=== PATIENT | female | born 1950 | race Two or more races ===

== ENCOUNTER 2024-08-05 01:33 | Inpatient (IN) | payer MEDICARE, OTHER, SELFPAY ==
[2024-08-04 19:23] VITALS: BP 104/67
--- NOTE | 2024-08-04 19:50 | ED.GENMED ---
History of Present Illness
<CARLO Rodriguez - Last Filed: 08/04/24 23:40>
General
Chief Complaint: Urinary Symptoms
Source: family (Daughter)
Exam Limitations: other (Language barrier)
Time Seen by Provider: 08/04/24 19:31
History of Present Illness
History of Present Illness:
This is a a 73 year old female that comes i with c/o nephrostomy tube leaking. Daughter states that patient has a left nephrectomy and left nephrostomy tube. States that she has a right renal stent. States that she was discharged from [facility] on
Thursday and they Went so [facility] today for a second opinion. Sates that the patient has not had any urine output for the past 2 days as she would normally get up to the [place]. States that her Nephrostomy tube is leaking and she just has to keep
changing the dressing. Denies any fever, chills, chest pain, SOB, abd pain, nausea, vomiting, diarrhea, headache, dizziness.
Past History
<CARLO Rodriguez - Last Filed: 08/04/24 23:40>
Past History
ED Past Medical History: Cancer (Ovarian cancer), CHF, HTN, Hypercholesterolemia and NIDDM
ED Past Surgical History: Gynecological (Hysterectomy) and Urological ( Right renal stent, Left nephrostomy tube)
Social History
Tobacco: Non-smoker
Alcohol: None
Drug: None
Personal:
Living: with family
Review of Systems
<CARLO Rodriguez - Last Filed: 08/04/24 23:40>
Review of Systems
Unable to obtain full review of systems at this time due to: language barrier
Other source history: family
All Other Systems: ROS reviewed and negative except as documented in HPI and ROS
Constitutional: Reports no symptoms; Denies fever or chills
EENT: Reports no symptoms
Respiratory: Reports no symptoms; Denies cough or trouble breathing
Cardiac: Reports no symptoms; Denies chest pain
ABD/GI: Reports no symptoms; Denies abdominal pain, nausea, vomiting or diarrhea
: Reports other (left nephrostomy tube leaking, NO urine output form the urethrae)
Musculoskeletal: Reports no symptoms
Skin: Reports no symptoms
Neurological: Reports no symptoms; Denies dizzy or headache
Psychiatric: Reports no symptoms
Phy Exam
<CARLO Rodriguez - Last Filed: 08/04/24 23:40>
General Physical Exam
General Presentation: no apparent distress
General age: appears stated age
General Skin: warm, dry and pale
General Habitus: debilitated and elderly
General Mental: alert
General Hydration: dry mucous membranes
ENT Exam
ENT Exam: TM's normal, pharynx normal and neck supple
Eye Exam
Eye Exam: EOMI
Cardiovascular Exam
Cardiovascular Exam: regular rate/rhythm, no edema and normal peripheral pulses
Pulmonary Exam
Pulmonary Exam: lungs clear, no respiratory distress, no rales, chest non tender, no crackles, no rhonchi, no wheezing and no cough
Gastrointestinal Exam
Gastrointestinal Exam: normal bowel sounds, non tender, soft, no pulsatile mass, non distended and other (Palpable hard mass right sided mid abd about hard ball size)
Genitourinary Exam Female
Exam Female: other (Left nephrostomy but, One tube cut and noted and the second was kinked, Dressing saturated. )
Musculoskeletal Exam
Musculoskeletal Exam: full ROM and no edema
Skin Exam
Skin Exam: warm/dry, no rash, no petechia and pallor
Psychiatric Exam
Psychiatric Exam: normal mood/affect
Course
<CARLO Rodriguez - Last Filed: 08/04/24 23:40>
Orders/Labs/Results
Orders:
Orders
08/04/24 19:49
CT Abd/pel Without Iv Or Oral Urgent
Comment: Told it was not in position. History of Cancer
Reason For Exam: Left nephrostomy tube leaking.
08/04/24 20:10
Complete Blood Count/With Diff Urgent
Comprehensive Metabolic Panel Urgent
08/04/24 21:22
Lorazepam [Ativan] 0.5 mg IV NOW STA
Abnormal Lab Results
08/04/24
20:10
RBC 3.14 L 10^6/uL
(4.20-5.40)
Hgb 9.0 L g/dL
(12.0-16.0)
Hct 29.4 L %
(37.0-47.0)
MCHC 30.6 L g/dL
(33.0-37.0)
RDW 17.2 H %
(11.5-14.5)
MPV 10.5 H fL
(7.4-10.4)
Abs Immat Gran (auto) 0.1 H 10^3/uL
(0-0.05)
Absolute Monos (auto) 0.7 H 10^3/uL
(0.1-0.6)
Immature Gran % 1.5 H %
(0-0.5)
Lymphocytes % 17.8 L %
(20.5-51.1)
Sodium 130 L mmol/L
(135-145)
Carbon Dioxide 21 L mmol/L
(22-30)
BUN 36 H mg/dl
(7-17)
Creatinine 2.3 H mg/dL
(0.6-1.0)
Glucose 191 H mg/dl
(70-99)
Calcium 8.3 L mg/dl
(8.4-10.2)
Total Protein 6.2 L g/dl
(6.3-8.2)
Albumin 3.1 L g/dl
(3.5-5.0)
08/04/24 20:10
08/04/24 20:10
H/H low. Sodium slightly low. Renal failure, hyperglycemia. calcium very slightly low. Total protein slightly low. Albumin slightly low.
Vital Signs
Initial and Last Documented VS:
Initial Vital Signs
Temp Pulse Resp BP Pulse Ox
98.7 F 78 18 104/67 100
08/04/24 19:23 08/04/24 19:23 08/04/24 19:23 08/04/24 19:23 08/04/24 19:23
Last Documented Vital Signs
Temp Pulse Resp BP Pulse Ox
98.7 F 77 14 124/91 100
08/04/24 19:23 08/04/24 22:30 08/04/24 22:15 08/04/24 20:24 08/04/24 19:23
<George Epperson, DO - Last Filed: 08/04/24 19:58>
Orders/Labs/Results
Orders:
Orders
08/04/24 19:49
CT Abd/pel Without Iv Or Oral Urgent
Comment: Told it was not in position. History of Cancer
Reason For Exam: Left nephrostomy tube leaking.
08/04/24 20:10
Complete Blood Count/With Diff Urgent
Comprehensive Metabolic Panel Urgent
08/04/24 21:22
Lorazepam [Ativan] 0.5 mg IV NOW STA
Abnormal Lab Results
08/04/24
20:10
RBC 3.14 L 10^6/uL
(4.20-5.40)
Hgb 9.0 L g/dL
(12.0-16.0)
Hct 29.4 L %
(37.0-47.0)
MCHC 30.6 L g/dL
(33.0-37.0)
RDW 17.2 H %
(11.5-14.5)
MPV 10.5 H fL
(7.4-10.4)
Abs Immat Gran (auto) 0.1 H 10^3/uL
(0-0.05)
Absolute Monos (auto) 0.7 H 10^3/uL
(0.1-0.6)
Immature Gran % 1.5 H %
(0-0.5)
Lymphocytes % 17.8 L %
(20.5-51.1)
Sodium 130 L mmol/L
(135-145)
Carbon Dioxide 21 L mmol/L
(22-30)
BUN 36 H mg/dl
(7-17)
Creatinine 2.3 H mg/dL
(0.6-1.0)
Glucose 191 H mg/dl
(70-99)
Calcium 8.3 L mg/dl
(8.4-10.2)
Total Protein 6.2 L g/dl
(6.3-8.2)
Albumin 3.1 L g/dl
(3.5-5.0)
08/04/24 20:10
08/04/24 20:10
Vital Signs
Initial and Last Documented VS:
Initial Vital Signs
Temp Pulse Resp BP Pulse Ox
98.7 F 78 18 104/67 100
08/04/24 19:23 08/04/24 19:23 08/04/24 19:23 08/04/24 19:23 08/04/24 19:23
Last Documented Vital Signs
Temp Pulse Resp BP Pulse Ox
98.7 F 77 14 124/91 100
08/04/24 19:23 08/04/24 22:30 08/04/24 22:15 08/04/24 20:24 08/04/24 19:23
Ingrislt;CARLO Rodriguez - Last Filed: 08/04/24 23:40>
MDM/Problems Addressed
Differential Diagnosis Includes:
Dislodged Nephrostomy tube, Failure to thrive.
MDM/Problems Addressed:
This is a 73 year old female that is brought in by her daughter with c/o her nephrostomy tube leaking. Told that this was not in place. Patient was seen at [facility] today for a second opinion.
Will check labs and get CT scan for placement.
CT cont- Right ureteral stent is present. Mild right pelvicalyceal dilation without significant ureteral dilation. Mid to moderate atrophy of the right renal parenchyma. Mass arising in the region of the medial right rectus muscle and extending
posteriorly into the anterior abdomen. This is likely a neoplastic mass. Enlarged periaortic and interaortocaval lymph nodes, likely neoplastic lymphadenopathy. NO evidence of bowel obstruction or free intraperitoneal air.
Back into see patient and daughter. Reviewed CT findings with daughter. Explained that there is a large pleural effusion on the right and that the Nephrostomy tube dose not appear to be in proper position. Urologist was consulted and Hospitalist to
consult IR. Explained to daughter that she may want to start thinking about have aggressive she wants to be as patient has other masses noted on CT that are most likely Neoplastic. Hospitalist notified.
Chronic conditions affecting care: Cancer
Acute Exacerbation and/or Progression of Chronic Illness: Cancer
<CARLO Rodriguez - Last Filed: 08/04/24 23:40>
*Radiology
Radiology exam reviewed: radiology read reviewed (CT- Moderate right pleural effusion. Parenchymal airspace opacity within both lungs. Main differential considerations of atelectasis and/or Pneumonia. There could also be a component of parenchymal
scarring. Minimal pericardial effusion, unlikely to be clinically significant. Left Nephrostomy tube ), all reviewed NAD by ED Provider (CT cont- tube s present with a U-shaped loop in the posterior aspect of the left mid kidney, probably partially
within the posterior aspect of the dilated left renal pelvis. Both ends of the nephrostomy tube are outside of the patient posteriorly, one in at the level of the superior iliac crest and ) and other (CT cont- and the second and posteriorly at the
level of the gluteal region. Please correlate with desired positioning and function. There is moderate to severe left pelvicalyceal and ureteral dilation, with evidence for an obstructing mass near the left ureterovesical junction, likely
neoplastic. )
*Pulse Oximetry
Patient hypoxic: no
*EKG
Interpreted by ED Provider?: NA
Rate: EKG- N/A
*Can Filling Machine Operator Interpretation
Rate: normal
Heart Rate: 78
Rhythm: sinus
*Critical Care Note
Total Time (30-74mins, 75-104mins- exclusive of procedures): Not Applicable
ED Attending Note
<CARLO Rodriguez - Last Filed: 08/04/24 23:40>
-
Portions of this chart may have been created with voice recognition software.� Occasional wrong word or��sound alike� substitutions may have occurred due to the inherent limitations of voice recognition software.
<George Epperson DO - Last Filed: 08/04/24 19:58>
ED Attending Note
Patient seen and examined by attending physician: Yes
I performed the substantive portion of visit, reviewed & personally made and approve the management plan that is documented in note by myself or JOSH.: Yes
ED Attending Note:
I have seen and evaluated the patient with a [id number] encounter. I have spoken to the advance practicer provider and involved in the medical history, the physical exam, medical decision making.
Evaluation and management service: agree unless noted differently below.
Results interpretation: agree unless noted differently below.
Focused HPI: 73-year-old female presenting with leaking from her nephrostomy tube. She is now no longer making urine. Patient was recently discharged from [facility] and they were instructed to go to [facility] for second opinion.
This is where her cancer doctor is. [facility] recommended that she go back to the hospital for admission
Physical exam: Weak, pale, dehydrated, leaking noted from left nephrostomy tube site
Medical Decision Making: Will obtain CT looking for malposition nephrostomy tube or obstructive uropathy. Will ultimately admit
Discharge Plan
Departure
Patient Disposition: Admit
Date of Disposition: 08/04/24
Time of Disposition: 23:38
Admit to: Med/Surg
Presentation/result/management discussed w/ accepting MD/DO: Hospitalist
Patient with high blood pressure during this ER visit?: Yes
Condition: Good
Covid-19: Not Applicable
Discharge Problem:
Pleural effusion on right, Nephrostomy tube failure with subsequent urine leak
Referrals:
Waldemar Turner MD [Family Provider] -
Interventions
Interventions:
*Risk Screen - Suicide Last Done: 08/04/24 19:23
*General Assessment Last Done: 08/04/24 19:23
*Neglect/Abuse Screening Last Done: 08/04/24 19:23
*ED COVID-19 Vaccine History Last Done: 08/04/24 20:10
ED-Female Genitourinary Assessment Last Done: 08/04/24 20:10
Discharge Date and Time
Print Language: KHMER
[2024-08-04 20:24] VITALS: BP 124/91
[2024-08-04 22:34] LABS: % Basophils 0.5 % (0-2); % Eosinophils 2.2 % (0-6); % Immature Granulocytes 1.5 % (0-0.5); % Lymphocytes 17.8 % (20.5-51.1); % Monocytes 7.9 % (1.7-9.3); % Neutrophils 70.1 % (42.2-75.2); Absolute Eosinophils 0.2 10^3/uL (0-0.7); Absolute Immature Granulocytes 0.1 10^3/uL (0-0.05); Absolute Lymphocytes 1.6 10^3/uL (1.2-3.4); Absolute Monocytes 0.7 10^3/uL (0.1-0.6); Absolute Neutrophils 6.2 10^3/uL (1.4-6.5); Hematocrit 29.4 % (37.0-47.0); Mean Corp Hgb Conc. 30.6 g/dL (33.0-37.0); Mean Corpuscular Hgb 28.7 pg (27.0-31.0); Mean Corpuscular Volume 93.6 fL (81.0-99.0); Mean Platelet Volume 10.5 fL (7.4-10.4); Nucleated Red Blood Cells % 0 %; Platelet Count 226 10^3/uL (130-400); Red Blood Cell Count 3.14 10^6/uL (4.20-5.40); Red Cell Dist. Width 17.2 % (11.5-14.5); White Blood Cell Count 8.8 10^3/uL (4.8-10.8)
[2024-08-04 22:47] LABS: ALT (SGPT) 15 U/L (0-35); AST (SGOT) 23 U/L (14-36); Albumin 3.1 g/dl (3.5-5.0); Alkaline Phosphatase 91 U/L (38-126); Blood Urea Nitrogen 36 mg/dl (7-17); Calcium 8.3 mg/dl (8.4-10.2); Carbon Dioxide 21 mmol/L (22-30); Chloride 102 mmol/L (98-107); Glucose 191 mg/dl (70-99); Potassium 4.9 mmol/L (3.5-5.1); Sodium 130 mmol/L (135-145); Total Bilirubin 0.6 mg/dl (0.2-1.3); Total Protein 6.2 g/dl (6.3-8.2); eGFR 21.62
[2024-08-05] VITALS (11 sets, daily range): BP systolic 95–141; BP diastolic 54–96
--- NOTE | 2024-08-05 00:54 | HPS.HSE ---
Family Physician
-
Family Physician: Waldemar Turner
Chief Complaint
-
Nephrostomy tube malfunction
History of Present Illness
This is a 68-year-old with history of metastatic ovarian cancer status post hysterectomy and radiation who is currently on salvage chemo and has history of renal collection system obstruction status post right ureteral stents and left nephrostomy
tube presents to the emergency department via family for malfunctioning nephrostomy tube.
Daughter will provide history as patient is only Spanish speaking stated that the patient was admitted to [facility] in in June and was recently discharged. She was admitted due to nephrostomy tube malfunction at that time. She has
had a nephrostomy tube for about 1 year. She has had multiple interventions with tube replacement and adjustments over time. Daughter reported that during hospitalization she had continued leakage from around the nephrostomy tube site. She still
has a right ureteral stent in place. During that admission she also had decreased urine output the urethra and bladder according to the daughter. She has had history of infections treated with antibiotics in the past. There was an attempted
nephrostomy tube placement to avoid dislodgment but apparently was unsuccessful as when the patient was discharged she continued to have leakage around the site.
She followed up at [facility] yesterday and at that time had a CT scan and a urological evaluation which showed that the tube was not placed appropriately and she needed to have a replacement and possibly stent placed however she was unable to
follow-up with this procedures at [facility] because he is going to be in [facility]. She was told not to return to [facility] but to go to any other hospital of her choice for a second opinion.
On arrival in the emergency department here she was afebrile, blood pressure was 121/57 with a pulse of 55 and satting 93% on room air. CBC is unremarkable. Chemistries notable for a BUN of 36 and creatinine of 2.3 (known to have CKD but baseline
unknown). Sodium 130.
A CT of the abdomen pelvis showing right ureteral stent is present. Mild right pelvicalyceal dilation without significant ureteral dilation. Mild to moderate atrophy of the right renal parenchyma.
Mass arising in the region of the medial right rectus muscle and extending posteriorly into the anterior abdomen. This is likely a neoplastic mass.
A left nephrostomy tube is present, with a U-shaped loop in the posterior aspect of the left mid kidney, probably partially within the posterior aspect of the dilated left renal pelvis. Both ends of the nephrostomy tube are outside of the patient
posteriorly, one in at the level of the superior iliac crest and the second and posteriorly at the level of the gluteal region. Please correlate with function and desired positioning of this nephrostomy tube.
Medical History
Past Medical History
Past Medical History: Reports Cancer (Stage IV ovarian cancer status post hysterectomy, status post radiation of the thorax as well as the left lower quadrant of the abdomen), HTN, Hypothyroidism and NIDDM
Past Surgical History: Reports Gynocological (hysterectomy)
Social History
Unable to obtain full social history at this time due to: Language Barrier
Alcohol: None
Drug: None
Personal: Single
Living: With Family
Employment: Not Employed
Family History
Family History: Not pertinent
Allergies / Home Medications
Allergies reflects when Allergies were last updated in [employer].
Home Medications with original date entered in [employer]
Allergy/Medication List:
Allergies
Allergy/AdvReac Type Severity Reaction Status Date / Time
steriods Allergy Unknown Uncoded 08/04/24 19:23
Levothyroxine 100 mcg capsule, 100 mcg p.o. daily
Metoprolol succinate 25 mg tablet, 25 mg p.o. daily
Amlodipine 5 mg tablet, 5 mg p.o. daily
Tamoxifen 40 mg tablet, 40 mg p.o. twice daily
Megace 40 mg tablet, 40 mg p.o. twice daily
Glimepiride 2.5 mg tablet, 2.5 mg p.o. daily
Review of Systems
-
Unable to obtain full review of systems at this time due to: Language Barrier
History Source: Family
Physical Exam
Vital Signs
Vital Signs
Temp Pulse Resp BP Pulse Ox
98.7 F 85 21 121/57 93
08/04/24 19:23 08/05/24 00:15 08/05/24 00:00 08/05/24 00:01 08/05/24 00:15
Physical Exam
General: Appears Chronically Ill
HEENT: NormoCephalic, Anicteric, Moist mucous membranes and PERRLA
Respiratory: Clear
Cardiac: S1/S2 and Regular Rhythm
Breast: Deferred by me
GI: Soft, Non Tender, Non Distended and Normal Bowel Sounds
Rectal: Deferred by Provider
Genito-urinary: No costovertebral tender and Nephrostomy Tubes (left sided nephrostomy tube with leakage of urine, nephrostomy bag is empty)
Musculoskeletal: No Clubbing, No Cyanosis and No Edema
Skin: Warm
Neuro: Alert, Oriented (oriented to person ) and Nonfocal/grossly intact
Hematologic/Lymphatic: No Lymphadenopathy
Psych: Agitated
Laboratory Results
-
08/04/24 20:10
08/04/24 20:10
Laboratory Results
Total Bilirubin 0.6 mg/dl (0.2-1.3) 08/04/24 20:10
AST 23 U/L (14-36) 08/04/24 20:10
ALT 15 U/L (0-35) 08/04/24 20:10
Alkaline Phosphatase 91 U/L (38-126) 08/04/24 20:10
Data Reviewed
-
CT Scan: Report Reviewed by me
Lab Data: Labs Reviewed by me
Old Records: Reviewed
Impression/Plan
-
IMPRESSION:
73 y.o with metastatic ovarian cancer with bilateral ureteral obstruction s/p R ureteral stent and L nephrostomy tube who presents with L nephrostomy tube malfunction.
PLAN:
1. L nephrostomy tube malfunction - according to CT scan, tube is essentially out and patient is leaking around the site. Has been going on for several weeks. No obvious infection. Seen at [facility] yesterday with same findings.
- admit to med/surg
- NPO after midnight
- IR consultation
- urology consultation
- obtain records from [facility]
- no abx for now
2. Dm II
- hold glimepiride
- insulin sliding scale for now
3. HTN
- continue amlodipine and metoprolol
DIET
- chopped with thickened liquids
- swallow eval
Meds given are amlodipine and metoprolol. Other medications such as tamoxifen, megace and levothyroxine needs reconcilliation. Family to bring list in am.
DVT PPX - heparin sq starting tomorrow, SCDs for now
Code status - full code
[2024-08-05] MEDS: DILAUDID 0.5 MG IV ×2 (04:40→11:07)
[2024-08-05 05:34] LABS: Blood Urea Nitrogen 36 mg/dl (7-17); Calcium 8.6 mg/dl (8.4-10.2); Carbon Dioxide 20 mmol/L (22-30); Chloride 106 mmol/L (98-107); Estimated Creatinine Clearance 21 ml/min; Glucose 116 mg/dl (70-99); Magnesium 2.2 mg/dl (1.6-2.3); Potassium 4.9 mmol/L (3.5-5.1); Sodium 135 mmol/L (135-145); eGFR 22.81
[2024-08-05 06:33] LABS: Glucose - Point of Care 108 mg/dl (70-99)
--- NOTE | 2024-08-05 06:33 | TRANSFER ---
Received pt to floor via stretcher from ED dx left nephrostomy malfunction/ renal obstruction. Left nephrostomy tube site w leakage noted. Split gauze and tape in place. Pt speaks Ukranian and ride mechanic phone stated that pt was incoherent/babbling
- confused. Bed alarm in place. Waiter Waitress made aware, 1:1 to be provided on dayshift. Bed in lowest position. safety maintained.
--- NOTE | 2024-08-05 09:26 | CONS.URO ---
Medical History
History of Present Illness
Dr Cleaning's admission note, excerpt: '68-year-old with history of metastatic ovarian cancer status post hysterectomy and radiation who is currently on salvage chemo and has history of renal collection system obstruction status post right ureteral
stents and left nephrostomy tube presents to the emergency department via family for malfunctioning nephrostomy tube.
Daughter will provide history as patient is only Tajik speaking stated that the patient was admitted to [facility] in in June and was recently discharged. She was admitted due to nephrostomy tube malfunction at that time. She has
had a nephrostomy tube for about 1 year. She has had multiple interventions with tube replacement and adjustments over time. Daughter reported that during hospitalization she had continued leakage from around the nephrostomy tube site. She still
has a right ureteral stent in place. During that admission she also had decreased urine output the urethra and bladder according to the daughter. She has had history of infections treated with antibiotics in the past. There was an attempted
nephrostomy tube placement to avoid dislodgment but apparently was unsuccessful as when the patient was discharged she continued to have leakage around the site.
She followed up at [facility] yesterday and at that time had a CT scan and a urological evaluation which showed that the tube was not placed appropriately and she needed to have a replacement and possibly stent placed however she was unable to
follow-up with this procedures at [facility] because he is going to be in [facility]. She was told not to return to [place] but to go to any other hospital of her choice for a second opinion.'
she presented to ED last night
Past Medical History
Past Medical History: Other (Stage IV ovarian cancer, HTN, Hypothyroidism and NIDDM)
Past Surgical History: Other (Hysterectomy and Oophroectomy; Right ureteral stenting; Left PCN tube insertion)
Social History
Unable to obtain full social history at this time due to: Language Barrier
Allergies/Home Medications
Allergies
Allergy/AdvReac Type Severity Reaction Status Date / Time
steriods Allergy Unknown Uncoded 08/04/24 19:23
Physical Exam
Vital Signs
Vital Signs
Temp Pulse Resp BP Pulse Ox
98.3 F 84 14 116/69 99
08/05/24 07:42 08/05/24 07:42 08/05/24 07:42 08/05/24 07:42 08/05/24 07:42
Lab / Testing Results
Laboratory Results
08/04/24 20:10
08/05/24 04:36
Assessment / Plan
-
Left Percutaneous Nephrostomy Tube malfunction dur to suboptimal positioning
Right Ureteral Stent in proper place
Rec: IRad to consider attempting to reposition left PCN tube
as there is no indication for uro-surgical intervention, will sign off
Data Reviewed
-
CT Scan: Image personally visualized and interpreted
Lab Data: Labs Reviewed
Old Records: Reviewed
--- NOTE | 2024-08-05 10:50 | W.PN.HOSP.TC ---
Today's Communication/Plan
-
IR for Tube
PT eval
Discharge planning after that
Assessment / Plan
Assessment / Plan
73 y/o with ovarian ca diagnosed 5 years ago , now metastatic status post hysterectomy and radiation who is currently on salvage chemo now. She has a history of ureteral obstruction and has right ureteral stent and left nephrostomy tube. All her
care has been at [facility] for urology and she goes to [facility] for cancer treatment.. Reportedly she was admitted at [facility] , Daughter states that nephrostomy tube exchange was attempted but was not possible and was discharged and she
still had a leak. She has a ureteral stent . Discharged Thursday from [facility]. She was seen at [facility] yesterday and the leak was noted and they wanted her to be admitted to [facility]. Daughter refused admission there because it
was too far. History is very hard to be obtained as patient cannot give me any history if she cannot communicate even with language line. Daughter also is not a great historian . She came to [facility] for a second opinion for the
nephrostomy tube.
Daughter states that mother does not have dementia and she had an MRI done at [place].
We do not have any records on her or medications list which I asked daughter to bring
On examination patient is awake and alert
Cardiovascular system S1-S2 appreciated
Chest clear to auscultation
Left nephrostomy tube with leak
No pedal edema
CT scan-moderate right pleural effusion. Parenchymal airspace density both lower lungs atelectasis/pneumonia with scarring
Minimal pericardial effusion moderate to severe left pelvicalyceal and ureteral dilatation with evidence of an obstructing mass in the left ureterovesical junction likely neoplastic
Right ureteral stent is present mild right pelvicalyceal dilatation without ureteral dilatation. Mild to moderate atrophy of the right renal parenchyma. Mass arising in the region of the medial right rectus muscle extending anteriorly to the
abdomen enlarged periaortic and interaortocaval lymph nodes likely neoplastic lymphadenopathy
# Nephrostomy tube leak on the left side
Interventional radiology to attempt repositioning
Urology evaluation noted
# Hyponatremia-resolved
# Anemia-likely secondary to malignancy
# Right pleural effusion-patient is not requiring any oxygen and not symptomatic therefore no intervention at present. If becomes symptomatic we will consider thoracentesis. This is likely malignancy related.
# Kidney injury-likely there is an acute component but also chronic kidney disease suspected as daughter states that her creatinine is usually 1.7
Continue IV fluids
# Bqqwweaj-Ahxl-Isfyr and sliding scale coverage
# DVT prophylaxis-subcutaneous heparin
# Full code-I had a detailed discussion with the patient's daughter regarding her stage IV cancer and if she would consider DNR. Daughter stated that she wants mom to be 'full code.'
Overall prognosis does not look good with the patient's stage IV cancer
D/W RN
D/W daughter on the phone
Time spent over 50 minutes
Get records from [facility]
Anticipated Discharge: Within 24 hours
Subjective/Interval History
-
Date of Service: August 05, 2024
Objective Data
-
Labs:
Laboratory Results
08/05/24
04:36
Sodium 135
Potassium 4.9
Chloride 106
Carbon Dioxide 20 L
BUN 36 H
Creatinine 2.2 H
Glucose 116 H
Calcium 8.6
Vital Signs:
Vital Signs
Temp Pulse Resp BP Pulse Ox
98.3 F 84 14 116/69 99
08/05/24 07:42 08/05/24 07:42 08/05/24 07:42 08/05/24 07:42 08/05/24 07:42
[2024-08-05] MEDS: TOPROL XL PO (11:06)
--- NOTE | 2024-08-05 11:30 | PTCARENOTE ---
Pt sent to IR and was medicated prior with iv dilaudid. Pt moaning and shook head when I asked if she was having pain. Pt due for CXR- radiology notified and will call IR.
[2024-08-05 11:38] LABS: Glucose - Point of Care 103 mg/dl (70-99)
--- NOTE | 2024-08-05 12:59 | CM ---
CM following re: discharge planning.
Reviewed pt's chart, met with pt and met with pt's daughter Tatiana later.
Pt is a 73 year old Nepalese speaking female, admitted with primary dx of Nephrostomy tube leak on the left side.
Pt expressed very little or no motivation to participate in the interview even communicating with me in Nepalese, expressed painful facial expression. Pt's daughter Tatiana came and provided with information. Pt lives with daughter in a senior citizen
apartment, no steps, ambulates with a walker at baseline. Per daughter pt is enrolled in PDA waiver community based services with TRAIN DIRECTOR, receives 20 hours of home health aide services per day 7 days per week provided bu [facility]. Per daughter,
[facility] provided skilled VN services: RN, PT, OT. Per daughter pt is on ongoing chemotherapy and radiation. Pt's daughter stated pt was at [facility] for 30 days, went home last Thursday, here for care. Per daughter, [place]
[facility] case work aide ordered a hospital bed and hospital bed is not delivered yet. Pt's daughter will call [facility] to check when a hospital bed will be delivered and if there is any problem with getting a hospital bed
then we will order one.
Pt's daughter made it very clear that pt will return back home with resumptions of [facility] and caregiver services and family support.
PCP: Jesús Turner
Pharmacy: [facility]
D/C plan: return back home with resumptions of [facility] and caregiver services and family support.
CM will follow with discharge plan updates as hospitalization progresses
[2024-08-05] MEDS: MEGACE PO (16:03)
[2024-08-05] MEDS: FEOSOL PO (16:50)
[2024-08-05] MEDS: HIPREX PO (16:50)
[2024-08-05] MEDS: HEPARIN 5000 UNITS SC ×2 (16:50→23:10)
[2024-08-05 17:13] LABS: Glucose - Point of Care 206 mg/dl (70-99)
[2024-08-05] MEDS: NOVOLOG FLEXPEN-LOW RESISTANCE 2 UNITS SC (17:44)
[2024-08-05] MEDS: COLACE 100 MG PO (20:51)
[2024-08-05] MEDS: AUGMENTIN 500 MG/125 MG 1 TABLET PO (20:51)
[2024-08-05] MEDS: MEGACE 80 MG PO (20:52)
[2024-08-05] MEDS: NOLVADEX 20 MG PO (20:53)
[2024-08-05] MEDS: GLUCOTROL XL (EXTENDED RELEASE) 2.5 MG PO (20:55)
[2024-08-05 21:42] LABS: Glucose - Point of Care 220 mg/dl (70-99)
[2024-08-05] MEDS: MELATONIN 5 MG PO (23:10)
[2024-08-05] MEDS: TYLENOL 650 MG PO (23:19)
[2024-08-06] MEDS: ATIVAN 0.5 MG IV (01:33)
[2024-08-06] MEDS: NSS (PRESERVATIVE FREE) 0.25 ML IV (01:34)
--- NOTE | 2024-08-06 01:35 | PTCARENOTE ---
Pt. confused, restless, combative with staff, trying to bite staff, trying to get OOB, notified CARLO Slaughter , ordered Ativan with no effect, pt. became more agitated, ordered soft restraints for arms, will continue to monitor.
[2024-08-06 03:46] VITALS: BP 137/96
[2024-08-06 07:20] VITALS: BP 158/91
[2024-08-06 07:57] LABS: Glucose - Point of Care 152 mg/dl (70-99)
[2024-08-06] MEDS: HEPARIN 5000 UNITS SC ×3 (09:03→23:23)
[2024-08-06] MEDS: NOVOLOG FLEXPEN-LOW RESISTANCE 1 UNITS SC (09:04)
--- NOTE | 2024-08-06 10:24 | W.PN.HOSP.TC ---
Today's Communication/Plan
-
Head CT
PT OT
BMP
Encourage PO intake
Assessment / Plan
Assessment / Plan
73 y/o with ovarian ca diagnosed 5 years ago , now metastatic status post hysterectomy and radiation who is currently on salvage chemo now. She has a history of ureteral obstruction and has right ureteral stent and left nephrostomy tube. All her
care has been at [facility] for urology and she goes to [facility] for cancer treatment.. Reportedly she was admitted at [facility] , Daughter states that nephrostomy tube exchange was attempted but was not possible and was discharged and she
still had a leak. She has a ureteral stent . Discharged Thursday from [facility]. She was seen at [facility] yesterday and the leak was noted and they wanted her to be admitted to [facility]. Daughter refused admission there because it
was too far. History is very hard to be obtained as patient cannot give me any history if she cannot communicate even with language line. Daughter also is not a great historian . She came to [facility] for a second opinion for the
nephrostomy tube.
Daughter states that mother does not have dementia and she had an MRI done at [place].
On examination patient is awake , she is confused and was not able to use the automotive vehicle inspector phone.
Cardiovascular system S1-S2 appreciated
Chest clear to auscultation
Left nephrostomy tube with leak
No pedal edema
CT scan-moderate right pleural effusion. Parenchymal airspace density both lower lungs atelectasis/pneumonia with scarring
Minimal pericardial effusion moderate to severe left pelvicalyceal and ureteral dilatation with evidence of an obstructing mass in the left ureterovesical junction likely neoplastic
Right ureteral stent is present mild right pelvicalyceal dilatation without ureteral dilatation. Mild to moderate atrophy of the right renal parenchyma. Mass arising in the region of the medial right rectus muscle extending anteriorly to the
abdomen enlarged periaortic and interaortocaval lymph nodes likely neoplastic lymphadenopathy
# TME versus , . Daughter states that mother does not have dementia. She is confused. Head CT ordered
Today daughter said that she got a call yesterday saying that patient had a stroke last week on an MRI. No metastasis to the brain
We have not had any luck to get records from [place] or [facility]
# Pneumonia- Treating as Aspiration PNA- Augmentin
# Metastatic ovarian cancer-undergoing treatment with [facility]. Continue tamoxifen
# Nephrostomy tube leak on the left side
Interventional radiology replaced left nephrostomy tube which seems to be draining now.
Urology evaluation noted
# Hyponatremia-resolved
# Anemia-likely secondary to malignancy
# Hypertension-amlodipine on hold. Continue metoprolol
# Hypothyroidism-continue Synthroid 125 micrograms daily
# Right pleural effusion-patient is not requiring any oxygen and not symptomatic therefore no intervention at present. If becomes symptomatic we will consider thoracentesis. This is likely malignancy related.
# Kidney injury-likely there is an acute component but also chronic kidney disease suspected as daughter states that her creatinine is usually 1.7. BMP pending likely has CKD stage III. Continue sodium bicarb
# Jcsoscir-Vysm-Zgkyy and sliding scale coverage. Glipizide ordered
# CVA per daughter on an MRI from last week- ASA
# At least moderate protein calorie malnutrition-Megace. Patient refusing to eat. Encourage nutrition
# DVT prophylaxis-subcutaneous heparin
# Full code-I had a detailed discussion with the patient's daughter regarding her stage IV cancer and if she would consider DNR. Daughter stated that she wants mom to be 'full code.'
Overall prognosis does not look good with the patient's stage IV cancer
D/W RN at bedside
We still do not have any records from [place] or [facility].
I told the daughter it is very difficult to treat a patient when we do not get medical records from other places. I also told her that it is at the patient's best interest to keep all her care at 1 place. Fragmented care can lead to missing
things and suboptimal treatment.
Daughter is going to be here and she will review how mom is doing I think because of language barrier and possible cognitive dysfunction which I am seeing in her she might be better off at home and seeing her own outpatient doctors. Await BMP
Anticipated Discharge: Within 24 hours
Subjective/Interval History
-
Date of Service: August 06, 2024
Objective Data
-
Labs:
Laboratory Results
08/06/24
10:11
Sodium Pending
Potassium Pending
Chloride Pending
Carbon Dioxide Pending
BUN Pending
Creatinine Pending
Glucose Pending
Calcium Pending
Vital Signs:
Vital Signs
Temp Pulse Resp BP Pulse Ox
98.0 F 115 18 158/91 97
08/06/24 07:20 08/06/24 07:20 08/06/24 07:20 08/06/24 07:20 08/06/24 07:20
I&O
08/05/24 08/06/24 08/07/24
06:59 06:59 06:59
Intake Total 1040 / 1040
Output Total 475 / 475
Balance 565 / 565
[2024-08-06 10:44] LABS: Blood Urea Nitrogen 34 mg/dl (7-17); Calcium 8.7 mg/dl (8.4-10.2); Carbon Dioxide 16 mmol/L (22-30); Chloride 109 mmol/L (98-107); Estimated Creatinine Clearance 22 ml/min; Glucose 161 mg/dl (70-99); Potassium 4.8 mmol/L (3.5-5.1); Sodium 138 mmol/L (135-145); eGFR 24.12
--- NOTE | 2024-08-06 11:00 | PTCARENOTE ---
unable to give morning medications, only SQ. Refused breakfast. Language line can not understand pt. our [place] tech can understand some of pt and is communicating with her. But pt is screaming and is very upset, yelling for scissors to cut
restraints and would like to go home. Daughter states this is change from baseline. doctor order CT for brain for changes. However others pts are asking to change rooms, coming out of rooms asking what is happening, the yelling is so loud. Charge
nurse did call automobile leasing supervisor and this nurse notified Dr Knott. Haldol order along with EKG, daughter is coming in.
[2024-08-06 11:35] LABS: Glucose - Point of Care 131 mg/dl (70-99)
[2024-08-06] MEDS: HALDOL 1 MG IM (11:49)
[2024-08-06] MEDS: NOVOLOG FLEXPEN-LOW RESISTANCE SC (11:54)
[2024-08-06] MEDS: ProAIR HFA INHALER 1 PUFF INH (13:52)
[2024-08-06] MEDS: NOLVADEX 20 MG PO ×2 (14:34→20:00)
[2024-08-06] MEDS: SODIUM BICARBONATE 650 MG PO ×2 (14:35→20:09)
[2024-08-06] MEDS: HIPREX 1 GRAM PO (14:36)
[2024-08-06] MEDS: FEOSOL 325 MG PO (14:36)
[2024-08-06] MEDS: AUGMENTIN 500 MG/125 MG 1 TABLET PO ×2 (14:36→19:59)
[2024-08-06] MEDS: MAG-TAB SR 84 MG PO (14:36)
[2024-08-06] MEDS: GLUCOTROL XL (EXTENDED RELEASE) 2.5 MG PO (14:37)
[2024-08-06] MEDS: THERAGRAN 1 TABLET PO (14:37)
[2024-08-06] MEDS: LOW STRENGTH ASPIRIN 81 MG PO (14:38)
[2024-08-06] MEDS: TOPROL XL 25 MG PO (14:38)
[2024-08-06] MEDS: VITAMIN B-6 100 MG PO (14:38)
[2024-08-06] MEDS: COLACE 100 MG PO ×2 (14:38→20:00)
[2024-08-06] MEDS: SYNTHROID 125 MCG PO (14:39)
[2024-08-06] MEDS: MEGACE PO (14:45)
[2024-08-06 15:05] VITALS: BP 148/89
--- NOTE | 2024-08-06 16:04 | CM ---
Chart reviewed
Pt from home - lives with daughter. Has homecare in place with [facility]
Referral sent in [facility] for resumption of care
Plan - home with [facility]
f - [phone]
[2024-08-06 17:23] LABS: Glucose - Point of Care 283 mg/dl (70-99)
[2024-08-06] MEDS: NOVOLOG FLEXPEN-LOW RESISTANCE 3 UNITS SC (17:43)
[2024-08-06] MEDS: GLUCOTROL XL (EXTENDED RELEASE) PO (18:28)
--- NOTE | 2024-08-06 18:30 | PTCARENOTE ---
discussed with daughter Tatiana to please not to removed restraints without notifying family. They are on to protect nephrostomy tube and staff. But if tube is not protected and you release hand and she pulls it as was attempted last night, we have
made you aware. Haldol was eventually successful and she slept. Dr. Bartholomew placed new restraint order. Binder is also a thought if family member stays all night. Will lat data management manager make decisions. But very difficult day with pt. PT and nurse did
walk pt in assisted with RW. Eating with daughter. Daughter states will have 20hrs of VN/daily
[2024-08-06] MEDS: MEGACE 80 MG PO (20:10)
--- NOTE | 2024-08-06 21:19 | W.PN.UPDATE ---
Update Note
Progress Note Update
Reported by the nursing, the patient is complaining of chest tightness.
Daughter at bedside interpreting as the patient is Citizen [place] speaking. Per daughter, patient has CHF. Patient is pointing to the epigastric areas and described as chest tightness, non radiating. Pain associated with SOB.
Patient afebrile, bp 101/67 hr 99, SPO2 99 RA.
On exam, patient is alert and oriented. NAD
No wheezing or crackle noted during the exam.
Plan
Ekg
Duo nebs
Chest x-ray
Pantoprazole 40mg IV
CBC, BMP, Troponin ordered.
Recheck on the patient she looks comfortable in bed.
abnormal Troponin result received 0.105
Will trend troponin to peak
EKG monitoring
Telemetry
Cardiology consult.
[2024-08-06] MEDS: DUONEB 3 ML INH (21:26)
[2024-08-06] MEDS: PROTONIX IV 40 MG IV (21:53)
[2024-08-06] MEDS: NSS (PRESERVATIVE FREE) 10 ML IV (21:54)
[2024-08-06 22:07] LABS: % Basophils 0.2 % (0-2); % Eosinophils 0.9 % (0-6); % Immature Granulocytes 0.8 % (0-0.5); % Lymphocytes 12.3 % (20.5-51.1); % Monocytes 7.2 % (1.7-9.3); % Neutrophils 78.6 % (42.2-75.2); Absolute Eosinophils 0.1 10^3/uL (0-0.7); Absolute Immature Granulocytes 0.1 10^3/uL (0-0.05); Absolute Lymphocytes 1.1 10^3/uL (1.2-3.4); Absolute Monocytes 0.7 10^3/uL (0.1-0.6); Absolute Neutrophils 7.2 10^3/uL (1.4-6.5); Hematocrit 28.6 % (37.0-47.0); Mean Corp Hgb Conc. 31.5 g/dL (33.0-37.0); Mean Corpuscular Hgb 28.4 pg (27.0-31.0); Mean Corpuscular Volume 90.2 fL (81.0-99.0); Mean Platelet Volume 10.4 fL (7.4-10.4); Nucleated Red Blood Cells % 0 %; Platelet Count 200 10^3/uL (130-400); Red Blood Cell Count 3.17 10^6/uL (4.20-5.40); Red Cell Dist. Width 16.8 % (11.5-14.5); White Blood Cell Count 9.2 10^3/uL (4.8-10.8)
[2024-08-06 22:12] LABS: Glucose - Point of Care 164 mg/dl (70-99)
[2024-08-06 22:20] LABS: Blood Urea Nitrogen 32 mg/dl (7-17); Carbon Dioxide 22 mmol/L (22-30); Chloride 105 mmol/L (98-107); Estimated Creatinine Clearance 23 ml/min; Glucose 146 mg/dl (70-99); Magnesium 2.2 mg/dl (1.6-2.3); Potassium 4.8 mmol/L (3.5-5.1); Sodium 134 mmol/L (135-145); eGFR 25.57
[2024-08-06 22:37] LABS: Troponin I 0.105 ng/ml
[2024-08-06 23:08] VITALS: BP 112/71
[2024-08-06] MEDS: MELATONIN PO (23:30)
[2024-08-07] MEDS: MELATONIN 5 MG PO (00:36)
[2024-08-07] MEDS: HALDOL 0.5 MG IV ×2 (01:25→02:00)
[2024-08-07 05:41] LABS: NT-proBNP > 27000 pg/ml; Troponin I 0.084 ng/ml
[2024-08-07 05:44] LABS: Blood Urea Nitrogen 30 mg/dl (7-17); Calcium 8.7 mg/dl (8.4-10.2); Carbon Dioxide 17 mmol/L (22-30); Chloride 109 mmol/L (98-107); Estimated Creatinine Clearance 23 ml/min; Glucose 143 mg/dl (70-99); Potassium 4.5 mmol/L (3.5-5.1); Sodium 135 mmol/L (135-145); eGFR 25.57
[2024-08-07 06:00] VITALS: BMI 22.4
--- NOTE | 2024-08-07 08:16 | PTCARENOTE ---
Patient received with daughter at bedside. Meds administered and assessment as documented. After going to another room patient's daughter came to say patient was c/o CP and SOB. Patient points to center of chest but cannot rate. Resp
nonlabored. Patient repositioned in bed. BP 101/61 HR 99 T 97.5 Sat 96% on room air. EKG done. CANNONEER, to floor. Gato tx per order. Protonix IV ordered. VAT team in to start IV access and juan pablo labs. Troponin 0.105 reported to CANNONEER, covering
house. Serial Troponin and EKG ordered. BNP added to next labs. Repeat Troponin 0.084 and proBNP >13198. Lab results reviewed with CANNONEER. Cardiology consult ordered. After daughter left patient pulled off Nephrostomy dressing. She was
uncooperative with nursing staff interactions, yelling, biting, mimicking. Restraints reordered. Haldol as ordered with no improvement. Attempted to use it service delivery manager line without success. Daughter called and spoke on phone to patient. Patient
did improve and was sleeping intermittently remainder of morning.
[2024-08-07 08:20] LABS: Glucose - Point of Care 141 mg/dl (70-99)
[2024-08-07 08:25] VITALS: BP 129/83
--- NOTE | 2024-08-07 08:27 | PTCARENOTE ---
At start of shift patient noted to have +1 edema of left wrist. Restraints applied above edematous area and able to fit 2 fingers in upon frequent checks.
[2024-08-07] MEDS: NOVOLOG FLEXPEN-LOW RESISTANCE SC ×2 (09:31→14:27)
[2024-08-07] MEDS: HEPARIN 5000 UNITS SC ×2 (09:32→17:38)
--- NOTE | 2024-08-07 10:14 | CON.CAR ---
Consultation
Consultation Request
Date/Time Consultation Requested: 08/07/2024
Date/Time Consultation Performed: 08/07/2024
Requesting Provider: Dr. Bartholomew
Performing Provider: Dr. Burnham
Reason for Consultation: Chest/abdominal pain, elevated troponin
Medical History
-
Chief Complaint: Chest/abdominal pain
History of Present Illness:
73-year-old female with metastatic ovarian cancer status-post hysterectomy/radiation (currently on salvage chemotherapy), current neoplastic right medial rectus mass, hypertension, diabetes, CKD, and left nephrostomy tube (with recurrent
malfunctioning, including current admission); Cardiology consulted for chest tightness/midepigastric pain with associated shortness of breath. The patient does not speak Portuguese. Cardiac troponin minimally elevated at 0.105, Creatinine 2.0.
Past Medical History
Past Medical History: HTN, NIDDM and Renal Failure
Past Surgical History: Gynecological (Hysterectomy) and Urological (Nephrostomy tube)
Social History
Tobacco: Non-Smoker
Living: With Family
Family History
Family History: Reviewed & Not Pertinent
Allergies / Home Medications
Allergy/AdvReac Type Severity Reaction Status Date / Time
steriods Allergy Unknown Uncoded 08/04/24 19:23
�Medication �Instructions �Recorded �Confirmed �Type
Tylenol 650 mg PRN Pain 08/05/24 History
Vitamin B-1 PO DAILY 08/05/24 History
Vitamin D3 25 mcg PO DAILY 08/05/24 08/05/24 History
albuterol 90 mcg/actuation aerosol 90 mcg inhalation Q4 PRN wheezing 08/05/24 08/05/24 History
inhaler
amlodipine 2.5 mg tablet 2.5 mg PO DAILY 08/05/24 08/05/24 History
aspirin 81 mg tablet 81 mg PO DAILY 08/05/24 08/05/24 History
docusate sodium 100 mg capsule 100 mg PO BID 08/05/24 08/05/24 History
(Colace)
ferrous sulfate 325 mg (65 mg 325 mg PO DAILY 08/05/24 08/05/24 History
iron) tablet
furosemide 40 mg tablet mg PO DAILYPRN PRN Reduction Of 08/05/24 History
Transepidermal Water Loss
glipizide 2.5 mg tablet, extended 2.5 mg PO BID 08/05/24 08/05/24 History
release 24 hr
levothyroxine 125 mcg capsule 125 mcg PO DAILY 08/05/24 08/05/24 History
magnesium oxide 400 mg PO DAILY 08/05/24 08/05/24 History
megestrol 40 mg tablet 80 mg PO BID 08/05/24 08/05/24 History
melatonin 5 mg tablet 5 mg PO HS PRN sleep 08/05/24 08/05/24 History
methenamine hippurate 1 gram tablet 1 g PO DAILY 08/05/24 08/05/24 History
metoprolol succinate 25 mg 25 mg PO DAILY 08/05/24 08/05/24 History
tablet,extended release 24 hr
multivitamin with folic acid 400 tab PO DAILY 08/05/24 History
mcg tablet (Daily-Nnamdi (with folic
acid))
ondansetron 8 mg PO Q8HPRN PRN nausea/vomiting 08/05/24 08/05/24 History
pyridoxine (vitamin B6) 100 mg 100 mg PO DAILY 08/05/24 08/05/24 History
tablet
sodium bicarbonate 650 mg tablet 650 mg BID 08/05/24 08/05/24 History
tamoxifen 20 mg tablet 20 mg PO BID 08/05/24 08/05/24 History
tramadol 50 mg tablet mg PRN pain 08/05/24 History
vitamin D10-hxzeb acid 1,000 mcg PO DAILY 08/05/24 08/05/24 History
Review of Systems
-
Unable to obtain full review of systems at this time due to: Language Barrier
History Source: Other (Nurse, medical record)
Physical Exam
Vital Signs
Temp Pulse Resp BP Pulse Ox
97.8 F 120 16 129/83 99
08/07/24 08:25 08/07/24 08:25 08/07/24 08:25 08/07/24 08:25 08/07/24 08:25
Lab Results
08/06/24 21:45
08/07/24 04:57
Troponin I Cancelled 08/07/24 23:00
Mmj-U-Awwwouuysrt Pept > 10022 pg/ml 08/07/24 04:57
Physical Exam
General: No Apparent Distress and Other (Agitated)
HEENT: Anicteric
Respiratory: Clear
Cardiac: S1/S2 (Tachycardic)
Breast: Deferred by me
GI: Soft
Skin: Warm
Neuro: Awake, Alert and Other (Agitated)
Psych: Agitated
Impression / Plan
-
73-year-old female with metastatic ovarian cancer status-post hysterectomy/radiation (currently on salvage chemotherapy), current neoplastic right medial rectus mass, hypertension, diabetes, CKD, and left nephrostomy tube (with recurrent
malfunctioning, including current admission); Cardiology consulted for chest tightness/midepigastric pain with associated shortness of breath. The patient does not speak Portuguese. Cardiac troponin minimally elevated at 0.105, Creatinine 2.0.
Chest tightness/midepigastric pain:
-Not certain that this is primarily cardiac, as the patient has metastatic disease and an abdominal mass.
-EKG with no acute changes; no need to continue checking/trending.
-Can check echocardiogram tomorrow, but conservative cardiac management overall.
Troponin elevation:
-Most likely secondary to acute nonischemic myocardial injury in the setting of CKD.
-Cardiac troponin minimally elevated at 0.105; downtrending down--no need to continue trending.
-If the patient truly had ACS, she would be treated conservatively from a cardiac standpoint as she is a poor candidate for any aggressive measures given her comorbidities (metastatic disease, current abdominal mass, and CKD/malfunctioning
nephrostomy tube).
-Continue aspirin.
Sinus tachycardia:
-Most likely secondary to underlying medical condition.
-Will increase Toprol-XL to 50 mg daily.
Hypertension:
-Controlled/relatively stable; slightly low yesterday (amlodipine held).
-Will discontinue amlodipine; increasing beta-elizabeth as above.
CKD/malfunctioning nephrostomy tube:
-Creatinine 2.0.
-Management as per primary team.
Diabetes:
-Management as per primary team.
Data Reviewed
-
Medical Tests (Nuc Med, Echo etc): Report Reviewed by me (EKG: Sinus tachycardia at [address]/T abnormality.)
Labs: Labs Reviewed by me
--- NOTE | 2024-08-07 11:35 | W.PN.HOSP.TC ---
Today's Communication/Plan
-
IR consult for nephrostomy tube replacement
Thoracentesis on the right if daughter agreeable
Unasyn
Lasix after nephrostomy tube replacement
Follow creatinine
Routine echo
Assessment / Plan
Assessment / Plan
73 y/o with ovarian ca diagnosed 5 years ago , now metastatic status post hysterectomy and radiation who is currently on salvage chemo now. She has a history of ureteral obstruction and has right ureteral stent and left nephrostomy tube. All her
care has been at [facility] for urology and she goes to [facility] for cancer treatment.. Reportedly she was admitted at [facility] , Daughter states that nephrostomy tube exchange was attempted but was not possible and was discharged and she
still had a leak. She has a ureteral stent . Discharged Thursday from [facility]. She was seen at [facility] yesterday and the leak was noted and they wanted her to be admitted to [facility]. Daughter refused admission there because it
was too far. History is very hard to be obtained as patient cannot give me any history if she cannot communicate even with language line. Daughter also is not a great historian . She came to [facility] for a second opinion for the
nephrostomy tube.
Daughter states that mother does not have dementia and she had an MRI done at [facility].
On examination patient is awake , she is confused
Cardiovascular system S1-S2 appreciated
Decreased BS right side
Left nephrostomy tube-patient pulled out! Despite being on restraints.
No pedal edema
Confused
CT scan-moderate right pleural effusion. Parenchymal airspace density both lower lungs atelectasis/pneumonia with scarring
Minimal pericardial effusion moderate to severe left pelvicalyceal and ureteral dilatation with evidence of an obstructing mass in the left ureterovesical junction likely neoplastic
Right ureteral stent is present mild right pelvicalyceal dilatation without ureteral dilatation. Mild to moderate atrophy of the right renal parenchyma. Mass arising in the region of the medial right rectus muscle extending anteriorly to the
abdomen enlarged periaortic and interaortocaval lymph nodes likely neoplastic lymphadenopathy
# TME
Suspect there is also cognitive dysfunction which is undiagnosed
Daughter states that mother does not have dementia. She is confused.
Today daughter said that she got a call yesterday saying that patient had a stroke last week on an MRI. No metastasis to the brain
We have not had any luck to get records from [facility] or [facility]
08/06/2024-Head CT-no acute intracranial abnormality. Mild periventricular small vessel disease. Mild atrophy. Small nonacute right cerebellar infarct.
# Shortness of breath-pleural effusion on the right side. Elevated proBNP.
Once nephrostomy tube replaced will provide Lasix IV. Daughter aware that she may benefit from thoracentesis. Benefits and risks discussed.
Consulted IR but daughter has not decided yet.
Possible that this is malignant effusion
Possibly of CHF not ruled out
Needs echo
Cardiology has been consulted also
# Elevated troponin-likely nonischemic myocardial injury. Check echo
Cardiology consulted
# Pneumonia- Treating as Aspiration PNA- IV Unasyn
# Metastatic ovarian cancer-undergoing treatment with [facility]. Continue tamoxifen
# Nephrostomy tube leak on the left side
Interventional radiology replaced left nephrostomy tube 08/05/2024
Patient pulled it out on 08/07/2024 urology reconsulted
Urology evaluation noted
# Hyponatremia-resolved
# Anemia-likely secondary to malignancy
# Hypertension-amlodipine on hold. Continue metoprolol
# Hypothyroidism-continue Synthroid 125 micrograms daily
# Right pleural effusion-patient is not requiring any oxygen and not symptomatic therefore no intervention at present. If becomes symptomatic we will consider thoracentesis. This is likely malignancy related.
# Kidney injury-likely there is an acute component but also chronic kidney disease suspected as daughter states that her creatinine is usually 1.7. BMP pending likely has CKD stage III. Continue sodium bicarb
# Ucossqqj-Dnep-Iuxug and sliding scale coverage. Glipizide ordered
# CVA per daughter on an MRI from last week- ASA
# At least moderate protein calorie malnutrition-Megace. Patient refusing to eat except for daughter. Encourage nutrition
# DVT prophylaxis-subcutaneous heparin
# Full code-I had a detailed discussion with the patient's daughter regarding her stage IV cancer and if she would consider DNR. Daughter stated that she wants mom to be 'full code.'
Discussed with case management
D/W nursing staff at bedside
We still do not have any records from [facility] or [facility].
Called daughter and updated about patient pulling out nephrostomy tube despite being on restraints. Once this is put back on she needs one-to-one monitoring.
Overall prognosis does not look good. Daughter told me that mom has stage IV cancer she is aware about that but they are looking to undergo radiation. I discussed with again to consider DNR as her cancer gets worse she is going to be more
symptomatic in terms of pain and other symptoms. Daughter is adamant that mom should be full code. I also asked if prognosis was discussed with by her oncologist, daughter said that they want her to get radiation to shrink the tumor.
Unfortunately we still do not have any records from [facility] or [facility] which makes it very difficult to get a full picture of her previous history
Time spent over 50 minutes
Anticipated Discharge: 24 - 48 hours
Subjective/Interval History
-
Date of Service: August 07, 2024
Objective Data
-
Labs:
Laboratory Results
08/07/24 08/07/24 08/07/24
03:28 04:57 11:28
Sodium Cancelled 135
Potassium Cancelled 4.5
Chloride Cancelled 109 H
Carbon Dioxide Cancelled 17 L
BUN Cancelled 30 H
Creatinine Cancelled 2.0 H
Glucose Cancelled 143 H Pending
Calcium Cancelled 8.7
Vital Signs:
Vital Signs
Temp Pulse Resp BP Pulse Ox
97.8 F 120 16 129/83 99
08/07/24 08:25 08/07/24 08:25 08/07/24 08:25 08/07/24 08:25 08/07/24 08:25
I&O
08/06/24 08/07/24 08/08/24
06:59 06:59 06:59
Intake Total 1040 / 1040 600 / 600
Output Total 475 / 475 400 / 400
Balance 565 / 565 200 / 200
[2024-08-07] MEDS: HALDOL 1 MG IV (12:13)
[2024-08-07 12:38] LABS: Total Protein 5.7 g/dl (6.3-8.2)
[2024-08-07 13:24] LABS: LDH 302 U/L (120-246)
[2024-08-07 13:37] LABS: Glucose - Point of Care 139 mg/dl (70-99)
[2024-08-07 14:00] VITALS: BP 146/88
[2024-08-07] MEDS: NOLVADEX 20 MG PO ×2 (14:16→21:08)
[2024-08-07] MEDS: HIPREX 1 GRAM PO (14:20)
[2024-08-07] MEDS: GLUCOTROL XL (EXTENDED RELEASE) 2.5 MG PO (14:20)
[2024-08-07] MEDS: MAG-TAB SR 84 MG PO (14:20)
[2024-08-07] MEDS: VITAMIN B-6 100 MG PO (14:20)
[2024-08-07] MEDS: SYNTHROID 125 MCG PO (14:22)
[2024-08-07] MEDS: AUGMENTIN 500 MG/125 MG PO (14:22)
[2024-08-07] MEDS: SODIUM BICARBONATE 650 MG PO ×2 (14:23→21:08)
[2024-08-07] MEDS: THERAGRAN 1 TABLET PO (14:23)
[2024-08-07] MEDS: LOW STRENGTH ASPIRIN 81 MG PO (14:23)
[2024-08-07] MEDS: FEOSOL 325 MG PO (14:23)
[2024-08-07] MEDS: COLACE 100 MG PO ×2 (14:23→21:07)
[2024-08-07] MEDS: UNASYN IV (14:24)
[2024-08-07] MEDS: TOPROL XL 25 MG PO (14:24)
[2024-08-07] MEDS: MEGACE PO (14:27)
[2024-08-07] MEDS: LASIX 20 MG IV (14:40)
[2024-08-07] MEDS: TOPROL XL PO (14:56)
[2024-08-07 15:10] VITALS: BP 123/81
[2024-08-07] MEDS: DUONEB 3 ML INH (16:32)
[2024-08-07 16:46] LABS: Glucose - Point of Care 223 mg/dl (70-99)
[2024-08-07] MEDS: NOVOLOG FLEXPEN-LOW RESISTANCE 2 UNITS SC (17:36)
[2024-08-07] MEDS: TYLENOL 650 MG PO (17:37)
[2024-08-07] MEDS: GLUCOTROL XL (EXTENDED RELEASE) PO (18:39)
[2024-08-07 19:20] VITALS: BP 131/72
--- NOTE | 2024-08-07 20:09 | PTCARENOTE ---
around 1100 pt found to have pulled nephrostomy tube while in restraints. Earlier she was attempting to eat EKG leads so they were removed. Dr. Bartholomew in room so aware. IR was contacted IV Esthela given EKG replaced. Dr. Bartholomew order to be 1:1 with
binder and restraints. ther is +1edema to left wrist/forearm area placing restraint above and able to place 2 fingers under.
[2024-08-07] MEDS: ROBITUSSIN 100 MG PO (21:13)
[2024-08-07] MEDS: MEGACE 80 MG PO (21:13)
[2024-08-07 21:43] LABS: Glucose - Point of Care 175 mg/dl (70-99)
[2024-08-07 23:02] VITALS: BP 125/64
[2024-08-08] MEDS: UNASYN IV ×3 (00:30→23:41)
[2024-08-08] MEDS: HEPARIN 5000 UNITS SC ×4 (00:31→23:42)
[2024-08-08] MEDS: FLUSH (NSS) 2 FLUSH IV (00:31)
[2024-08-08 03:42] VITALS: BP 126/80
[2024-08-08] MEDS: SYNTHROID 125 MCG PO (05:27)
[2024-08-08 05:58] LABS: Blood Urea Nitrogen 34 mg/dl (7-17); Calcium 8.6 mg/dl (8.4-10.2); Carbon Dioxide 19 mmol/L (22-30); Chloride 107 mmol/L (98-107); Estimated Creatinine Clearance 15 ml/min; Glucose 169 mg/dl (70-99); Potassium 5.3 mmol/L (3.5-5.1); Sodium 138 mmol/L (135-145); eGFR 18.67
[2024-08-08 07:42] VITALS: BP 120/80
[2024-08-08 07:53] LABS: Glucose - Point of Care 166 mg/dl (70-99)
--- NOTE | 2024-08-08 08:45 | W.PN.CD ---
Today's Communication / Plan
-
this likely represents myocardia injury in setting of CKD and underlying illness rather than true ACS
TTE today
cont. asa and beta elizabeth
Impression / Plan
-
73-year-old female with metastatic ovarian cancer status-post hysterectomy/radiation (currently on salvage chemotherapy), current neoplastic right medial rectus mass, hypertension, diabetes, CKD, and left nephrostomy tube (with recurrent
malfunctioning, including current admission); Cardiology consulted for chest tightness/midepigastric pain with associated shortness of breath. Cardiac troponin minimally elevated at 0.105 in setting of CKD.
Chest tightness/midepigastric pain:
-Not certain that this is primarily cardiac, as the patient has metastatic disease and an abdominal mass.
-EKG with no acute changes; no need to continue checking/trending.
-troponin downtrending
-check echocardiogram today, but conservative cardiac management overall.
Troponin elevation:
-Most likely secondary to acute nonischemic myocardial injury in the setting of CKD.
-Cardiac troponin minimally elevated at 0.105; downtrending --no need to continue trending.
-If the patient truly had ACS, she would be treated conservatively from a cardiac standpoint as she is a poor candidate for any aggressive measures given her comorbidities (metastatic disease, current abdominal mass, and CKD/malfunctioning
nephrostomy tube).
-Continue aspirin.
Sinus tachycardia:
-Most likely secondary to underlying medical condition.
-would not increase Toprol further given this is likely appropriate compensatory sinus tachycardia
Hypertension:
-Controlled/relatively stable; amlodipine currently held in setting of beta elizabeth
CKD/malfunctioning nephrostomy tube:
-Creatinine 2.0, 2.6 yoday
-Management as per primary team.
Diabetes:
-Management as per primary team.
Physical Exam
Vital Signs/Labs
Vital Signs
Temp Pulse Resp BP Pulse Ox
36.7 C 113 20 126/80 94
02/03/25 03:42 08/08/24 03:42 08/08/24 03:42 08/08/24 03:42 08/08/24 03:42
08/07/24 08/08/24 08/09/24
06:59 06:59 06:59
Actual Weight 57.243 kg
08/06/24 21:45
08/08/24 04:45
Magnesium 2.2 mg/dl (1.6-2.3) 08/06/24 21:45
08/07/24 08/07/24
03:24 04:57
Hqp-Z-Qjykaowkoif Pept Cancelled > [id number]
LAB Results
08/06/24 08/07/24 08/07/24
21:45 03:24 04:57
Troponin I 0.105 H* Cancelled 0.084 H*
08/07/24 08/07/24 08/07/24
11:00 17:00 23:00
Troponin I Cancelled Cancelled Cancelled
Physical Exam
Constitutional: No acute distress
Cardiovascular: Rhythm & rate is regular
Respiratory: Respiratory effort normal
Neuro/Psych: AO x 3
Data Reviewed
-
Date of Service: August 08, 2024
Medical Decision Making: Reviewed Test Results
Labs: Labs Reviewed by me
[2024-08-08] MEDS: NOVOLOG FLEXPEN-LOW RESISTANCE 1 UNITS SC ×2 (08:46→12:26)
[2024-08-08] MEDS: NOLVADEX 20 MG PO ×2 (10:22→19:57)
[2024-08-08] MEDS: GLUCOTROL XL (EXTENDED RELEASE) 2.5 MG PO ×2 (10:22→17:48)
[2024-08-08] MEDS: COLACE 100 MG PO ×2 (10:22→19:57)
[2024-08-08] MEDS: FEOSOL 325 MG PO (10:23)
[2024-08-08] MEDS: LOW STRENGTH ASPIRIN 81 MG PO (10:23)
[2024-08-08] MEDS: SODIUM BICARBONATE 650 MG PO ×2 (10:23→19:57)
[2024-08-08] MEDS: HIPREX 1 GRAM PO (10:23)
[2024-08-08] MEDS: VITAMIN B-6 100 MG PO (10:23)
[2024-08-08] MEDS: TOPROL XL 50 MG PO (10:23)
[2024-08-08] MEDS: THERAGRAN 1 TABLET PO (10:23)
[2024-08-08] MEDS: MAG-TAB SR 84 MG PO (10:23)
--- NOTE | 2024-08-08 10:30 | W.PN.HOSP.TC ---
Today's Communication/Plan
-
Urinalysis and urine sodium
Nephrology evaluation given elevated creatinine
Await call back from and
Assessment / Plan
Assessment / Plan
73 y/o with ovarian ca diagnosed 5 years ago , now metastatic status post hysterectomy and radiation who is currently on salvage chemo now. She has a history of ureteral obstruction and has right ureteral stent and left nephrostomy tube. All her
care has been at [facility] for urology and she goes to [facility] for cancer treatment.. Reportedly she was admitted at [facility] , Daughter states that nephrostomy tube exchange was attempted but was not possible and was discharged and she
still had a leak. She has a ureteral stent . Discharged Thursday from [facility]. She was seen at [facility] yesterday and the leak was noted and they wanted her to be admitted to [facility]. Daughter refused admission there because it
was too far. History is very hard to be obtained as patient cannot give me any history if she cannot communicate even with language line. Daughter also is not a great historian . She came to [facility] for a second opinion for the
nephrostomy tube.
Daughter states that mother does not have dementia and she had an MRI done at [place].
On examination patient is awake , she is confused
Cardiovascular system S1-S2 appreciated
Decreased BS right side
Left nephrostomy tube-in place
No pedal edema
CT scan-moderate right pleural effusion. Parenchymal airspace density both lower lungs atelectasis/pneumonia with scarring
Minimal pericardial effusion moderate to severe left pelvicalyceal and ureteral dilatation with evidence of an obstructing mass in the left ureterovesical junction likely neoplastic
Right ureteral stent is present mild right pelvicalyceal dilatation without ureteral dilatation. Mild to moderate atrophy of the right renal parenchyma. Mass arising in the region of the medial right rectus muscle extending anteriorly to the
abdomen enlarged periaortic and interaortocaval lymph nodes likely neoplastic lymphadenopathy
# TME
Suspect there is also cognitive dysfunction which is undiagnosed
Daughter states that mother does not have dementia. She is confused and cannot use language line when ever I tried. .
Today daughter said that she got a call yesterday saying that patient had a stroke last week on an MRI. No metastasis to the brain. But [facility] MRI brain shows mets on the report.
08/06/2024-Head CT-no acute intracranial abnormality. Mild periventricular small vessel disease. Mild atrophy. Small nonacute right cerebellar infarct.
# Shortness of breath-pleural effusion on the right side. Elevated proBNP.
Once nephrostomy tube replaced will provide Lasix IV. Daughter aware that she may benefit from thoracentesis. Benefits and risks discussed.
Consulted IR but daughter refused Thoracentesis
Possible that this is malignant effusion
Cardiology has been consulted
# Acute on Chronic HFREF
[facility]- Echo 06/28/2024-dilated left ventricle with moderate to severely decreased systolic function. Ejection fraction 30 to 35%. Normal RV size and function. Mild to moderate MR. Mild TR. No pulmonary hypertension.
Gave lasix yesterday and creatinine is up today. Therefore hold further Lasix
Patient cannot be on LACI/ARB/Aldactone or Arni because of elevated creatinine.
With nephrostomy tube I do not want to start her on SGLT2 inhibitors either.
# Elevated troponin-likely nonischemic myocardial injury.
Cardiology consulted
# Pneumonia- Treating as Aspiration PNA- IV Unasyn
# Metastatic ovarian cancer-undergoing treatment with [facility].
Was on RTx with ( Med ONc ) and ( RO)
Continue tamoxifen
# Nephrostomy tube leak on the left side
Interventional radiology replaced left nephrostomy tube 08/05/2024
Patient pulled it out on 08/07/2024
IR Replaced 08/07/24
Pt has pulled out from [facility] records
Abdominal binder and also Restraints
# Hyponatremia-resolved
# Hyperkalemia- Lokelma
# Anemia-likely secondary to malignancy
# Hypertension-amlodipine on hold. Continue metoprolol
# Hypothyroidism-continue Synthroid 125 micrograms daily
# Kidney injury-likely there is an acute component but also chronic kidney disease suspected as daughter states that her creatinine is usually 1.7. BMP pending likely has CKD stage III. Continue sodium bicarb p.o. Nephrology evaluation. Check
urinalysis and urine sodium
# Sikpyzry-Qmjh-Kxamv and sliding scale coverage. Glipizide ordered. Sugars stable
# CVA per daughter on an MRI from last week- ASA ( [facility] records say mets)
# At least moderate protein calorie malnutrition-Megace. Patient refusing mostly to eat except for daughter. Encourage nutrition
# DVT prophylaxis-subcutaneous heparin
# Full code-I had a detailed discussion with the patient's daughter regarding her stage IV cancer and if she would consider DNR. Daughter stated that she wants mom to be 'full code.'
D/W nursing staff at bedside
It appears like Dr. bonilla is her med onc at [facility] and Dr. Batres is radiation oncology at [place]. Daughter states that she takes her to [place] for hospitalization because that is closer to them.
When asked why she was seen at [facility] daughter said that 'we can go to wherever we want. Abdirahman did not have the treatment would be needed therefore we went to [facility]. When I asked if Abdirahman discussed anything about hospice she got
upset. She stated that 'you can put everybody on hospice you can put your parents on hospice. We want her treated.' She also stated that 'you cannot put everybody on hospice the second day after they get sick' I discussed that as well as I could
gather from the notes she was diagnosed with cancer in 2019.
I also offered for her to be transferred to [facility] where she is known daughter is refusing because they made a 'mistake'. They put a U-shaped nephrostomy tube which she should not be having.
I also offered [facility] but states that is too far.
Daughter told me that Abdirahman told her she does not have brain metastasis.
She says to just fix creatinine and give her Lasix and let her go home.
She is also planned for 6 radiation.
From what I can see she pulled out nephrostomy tube twice at [place] and once here. I reviewed this with daughter. She said that yes that is because she is restrained. I reminded that this can happen again.
I also discussed with daughter about poor p.o. intake she states that she eats if trays put in front of her which is not the case. I tried to feed her yesterday myself and she would not open her mouth. Staff has also experienced the same thing.
Patient does have good p.o. intake when daughter is here . Daughter does not agree with that. She says Skinny will fix all that and has been working.
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
stent and left nephroureteral catheter placement for internal drainage. Patient has a history of multiple episodes of percutaneous left nephrostomy catheter being pulled out placing the patient at risk for renal laceration per notes. Patient
underwent nephrostogram on the left side with fluoroscopically guided left nephroureteral catheter change on 06/10/2024. At [place].
Another note from 06/28/2024-exchange of left-sided nephroureteral catheter to the left-sided nephrostomy catheter
I also yet another procedure on 07/03/2024 for fluoroscopically guided left nephrostomy tube placement for dislodged left nephrostomy tube.
CT of the chest 06/27/2024-multiple airspace consolidations. Multiple round groundglass opacities. Increase in subcarinal mass. Decrease in size of anterior abdominal wall mass
Ultrasound of the calf veins 06/29/2024-no DVT
Chest x-ray 06/29/2024-cardiomegaly, mild pulmonary edema, bilateral pleural effusions.
Echo 06/28/2024-dilated left ventricle with moderate to severely decreased systolic function. Ejection fraction 30 to 35%. Normal RV size and function. Mild to moderate MR. Mild TR. No pulmonary hypertension.
CT of the cervical spine without contrast 07/12/2024-no acute fracture or malalignment. Degenerative changes. Small apical pleural effusion.
CT of the chest abdomen pelvis without contrast 07/12/2024-no evidence of acute injury to the thorax. Persistent moderate right pleural effusion with resolving bilateral pulmonary infectious process. Enlarged subcarinal lymph nodes likely
metastatic. No visceral or bony injury to the abdomen and pelvis. Percutaneous nephrostomy tube catheter and right ureteric stent with mild residual hydro utero nephrosis. Stable rectus sheath metastatic deposit.
Head CT 07/12/2024-no evidence of intracranial hemorrhage. Periventricular chronic small vessel ischemia and volume loss
07/12/2024 chest x-ray unchanged patchy opacities in the bilateral lungs predominantly in the right lower lobe likely infectious.
07/13/2024-patient underwent nephrostogram which demonstrated mild to moderate persistent hydronephrosis of persistent occlusion of the distal one third of the ureter. Successful recannulization of the L initially nephrostomy tract and placement of a
use style nephrostomy catheter given recurrent dislodgment.
MRI of the brain on -possible small right parietal metastasis. There is a focus of abnormal diffusion periaqueductal region without associated enhancement possibly representing metastatic disease.
07/15/2024 chest x-ray mild interstitial edema throughout the lungs bilaterally. Moderate to large right pleural effusion. Atelectasis in the perihilar region of the left lung.
Chest x-ray 07/19/2024-no significant change in bilateral airspace consolidations and right greater than left pleural effusions.
Chest x-ray 07/20/2024-increasing rounded opacity lateral to the right hilum probably due to pleural fluid or parenchymal consolidation. More patchy parenchymal opacity elsewhere likely due to pneumonia unchanged. Moderate to large right pleural
effusion unchanged.
EEG 07/18/2024-mildly abnormal EEG with generalized slowing of the background during waking. Nonspecific indicator of mild diffuse cerebral dysfunction. No persistent focal or epileptic abnormalities.
[facility] oncology note-patient was hospitalized from 06/27/2024 to 07/09/2024 for COVID 19 infection and received remdesivir. Percutaneous nephrostomy was exchanged on 1223 and replaced on 1228. Seen by cardiology for HFrEF. Then readmitted from
07/11/2024 to 08/01/2024 for generalized weakness left PCN continued to leak and urology did not deem the patient was a candidate for stent due to high rate of failure. MRI report showed to small new metastasis to the brain.
Outpatient medicines
Tamoxifen 20 mg BID
Megace 80 mg BID
Oxycodone 5 Mg half to 1 tablet every 4 hours as needed
Tylenol 650 mg every 4 hours as needed
Icosapent 2 g daily
Multivitamin 1 tab daily
Levothyroxine 75 mcg daily
Vitamin B12 1000 mcg daily
Amlodipine 10 mg daily
Colace 100 mg twice daily
Metoprolol succinate 25 mg daily
Glipizide 2.5 mg twice daily
D/W Daughter at bed side
Called Abdirahman and left a message for
Called [facility] left a message for .
From my experience prognosis appears to be poor given age stage 4 cancer, Her cognition, inconsistent p.o. intake, pulling out nephrostomy tube multiple times, chronic kidney disease, ejection fraction 35%.
Palliative care consulted
Time spent over 120 minutes
Anticipated Discharge: 24 - 48 hours
Subjective/Interval History
-
Date of Service: August 08, 2024
Objective Data
-
Labs:
Laboratory Results
08/08/24
04:45
Sodium 138
Potassium 5.3 H
Chloride 107
Carbon Dioxide 19 L
BUN 34 H
Creatinine 2.6 H
Glucose 169 H
Calcium 8.6
Vital Signs:
Vital Signs
Temp Pulse Resp BP Pulse Ox
97.8 F 112 16 120/80 98
08/08/24 07:42 08/08/24 07:42 08/08/24 07:42 08/08/24 07:42 08/08/24 07:42
I&O
08/07/24 08/08/24 08/09/24
06:59 06:59 06:59
Intake Total 600 / 600 450 / 450
Output Total 400 / 400 900 / 900
Balance 200 / 200 -450 / -450
[2024-08-08] MEDS: MEGACE PO ×3 (11:03→21:24)
[2024-08-08 11:09] LABS: Glucose - Point of Care 196 mg/dl (70-99)
--- NOTE | 2024-08-08 11:15 | W.CON.NEPH ---
Consultation
-
Date/Time Consultation Requested: 08/08/2024 10:00 AM
Date/Time Consultation Performed: 08/08/2024 11:15 AM
Requesting Provider: Dr. Bartholomew
Performing Provider: Dr. Tee
Reason for Consultation: Acute kidney injury
Medical History
-
Chief Complaint: Acute kidney injury
History of Present Illness:
The patient is a 73-year-old female with a past medical history of hypertension chronically maintained on amlodipine and metoprolol. She has a history of metabolic acidosis maintained on sodium bicarbonate therapy. She has a history of chronic
kidney disease stage III with stated baseline of 1.7. Although I note a creatinine of 2.5 from [facility] on 08/04/2024. She has a history of metastatic ovarian cancer status post hysterectomy and radiation who is currently on salvage chemo and has
history of renal collection system obstruction status post right ureteral stents and left nephrostomy tube presents to the emergency department via family for malfunctioning nephrostomy tube. Patient only speaks Azeri.
The patient was admitted to [facility] in in June and was recently discharged. She was admitted due to nephrostomy tube malfunction at that time. She has had a nephrostomy tube for about 1 year. She has had multiple interventions with
tube replacement and adjustments over time. Daughter reported that during hospitalization she had continued leakage from around the nephrostomy tube site. She still has a right ureteral stent in place. During that admission she also had decreased
urine output the urethra and bladder according to the daughter. She has had history of infections treated with antibiotics in the past. There was an attempted nephrostomy tube placement to avoid dislodgment but apparently was unsuccessful as when
the patient was discharged she continued to have leakage around the site.
She followed up at [facility] yesterday and at that time had a CT scan and a urological evaluation which showed that the tube was not placed appropriately and she needed to have a replacement and possibly stent placed however she was unable to
follow-up with this procedures at [facility] because she is going to be in [facility]. She was told not to return to [facility] but to go to any other hospital of her choice for a second opinion.
On arrival in the emergency department here she was afebrile, blood pressure was 121/57 with a pulse of 55 and satting 93% on room air. CBC is unremarkable. Chemistries notable for a BUN of 36 and creatinine of 2.3 (known to have CKD but baseline
unknown). Sodium 130.
A CT of the abdomen pelvis showing right ureteral stent is present. Mild right pelvicalyceal dilation without significant ureteral dilation. Mild to moderate atrophy of the right renal parenchyma.
Mass arising in the region of the medial right rectus muscle and extending posteriorly into the anterior abdomen. This is likely a neoplastic mass.
A left nephrostomy tube is present, with a U-shaped loop in the posterior aspect of the left mid kidney, probably partially within the posterior aspect of the dilated left renal pelvis. Both ends of the nephrostomy tube are outside of the patient
posteriorly, one in at the level of the superior iliac crest and the second and posteriorly at the level of the gluteal region. Please correlate with function and desired positioning of this nephrostomy tube. Nephrology was consulted as her
creatinine on admission that was 2.3 is now up to 2.6.
Past Medical History
Reports Cancer (Stage IV ovarian cancer status post hysterectomy, status post radiation of the thorax as well as the left lower quadrant of the abdomen), HTN, Hypothyroidism and NIDDM
CKD (1.7)
Past Surgical History: Reports Gynocological (hysterectomy)
Social History
Tobacco: Non-Smoker
Alcohol: None
Family History
Family History: Not Pertinent
Allergies / Home Medications
Allergy/AdvReac Type Severity Reaction Status Date / Time
steriods Allergy Unknown Uncoded 08/04/24 19:23
�Medication �Instructions �Recorded �Confirmed �Type
Tylenol 650 mg PRN Pain 08/05/24 History
Vitamin B-1 PO DAILY 08/05/24 History
Vitamin D3 25 mcg PO DAILY 08/05/24 08/05/24 History
albuterol 90 mcg/actuation aerosol 90 mcg inhalation Q4 PRN wheezing 08/05/24 08/05/24 History
inhaler
amlodipine 2.5 mg tablet 2.5 mg PO DAILY 08/05/24 08/05/24 History
aspirin 81 mg tablet 81 mg PO DAILY 08/05/24 08/05/24 History
docusate sodium 100 mg capsule 100 mg PO BID 08/05/24 08/05/24 History
(Colace)
ferrous sulfate 325 mg (65 mg 325 mg PO DAILY 08/05/24 08/05/24 History
iron) tablet
furosemide 40 mg tablet mg PO DAILYPRN PRN Reduction Of 08/05/24 History
Transepidermal Water Loss
glipizide 2.5 mg tablet, extended 2.5 mg PO BID 08/05/24 08/05/24 History
release 24 hr
levothyroxine 125 mcg capsule 125 mcg PO DAILY 08/05/24 08/05/24 History
magnesium oxide 400 mg PO DAILY 08/05/24 08/05/24 History
megestrol 40 mg tablet 80 mg PO BID 08/05/24 08/05/24 History
melatonin 5 mg tablet 5 mg PO HS PRN sleep 08/05/24 08/05/24 History
methenamine hippurate 1 gram tablet 1 g PO DAILY 08/05/24 08/05/24 History
metoprolol succinate 25 mg 25 mg PO DAILY 08/05/24 08/05/24 History
tablet,extended release 24 hr
multivitamin with folic acid 400 tab PO DAILY 08/05/24 History
mcg tablet (Daily-Nnamdi (with folic
acid))
ondansetron 8 mg PO Q8HPRN PRN nausea/vomiting 08/05/24 08/05/24 History
pyridoxine (vitamin B6) 100 mg 100 mg PO DAILY 08/05/24 08/05/24 History
tablet
sodium bicarbonate 650 mg tablet 650 mg BID 08/05/24 08/05/24 History
tamoxifen 20 mg tablet 20 mg PO BID 08/05/24 08/05/24 History
tramadol 50 mg tablet mg PRN pain 08/05/24 History
vitamin F64-kozas acid 1,000 mcg PO DAILY 08/05/24 08/05/24 History
Review of Systems
-
Unable to obtain full review of systems at this time due to: Language Barrier
History Source: Patient
: Other (Left nephrostomy tube)
Physical Exam
Vital Signs
Vital Signs
Temp Pulse Resp BP Pulse Ox
97.8 F 112 16 120/80 98
08/08/24 07:42 08/08/24 07:42 08/08/24 07:42 08/08/24 07:42 08/08/24 07:42
Lab Results
WBC 9.2 10^3/uL (4.8-10.8) 08/06/24 21:45
08/06/24 21:45
08/08/24 04:45
RBC 3.17 10^6/uL (4.20-5.40) L 08/06/24 21:45
Hgb 9.0 g/dL (12.0-16.0) L 08/06/24 21:45
Hct 28.6 % (37.0-47.0) L 08/06/24 21:45
Plt Count 200 10^3/uL (130-400) 08/06/24 21:45
Sodium 138 mmol/L (135-145) 08/08/24 04:45
Potassium 5.3 mmol/L (3.5-5.1) H 08/08/24 04:45
Chloride 107 mmol/L (98-107) 08/08/24 04:45
Carbon Dioxide 19 mmol/L (22-30) L 08/08/24 04:45
BUN 34 mg/dl (7-17) H 08/08/24 04:45
Creatinine 2.6 mg/dL (0.6-1.0) H 08/08/24 04:45
eGFR 18.67 08/08/24 04:45
Glucose 169 mg/dl (70-99) H 08/08/24 04:45
Calcium 8.6 mg/dl (8.4-10.2) 08/08/24 04:45
Wve-X-Byhzxokaglw Pept > 73519 pg/ml 08/07/24 04:57
Albumin 3.1 g/dl (3.5-5.0) L 08/04/24 20:10
Physical Exam
General: Appears severely chronically ill, distressed, fka-Quvqwpj-vbnyerns
HEENT: PERRL, EOMI, Anicteric, Conjunctivae Clear, Ear/Nose Intact, Hearing Normal, Oropharynx Clear/Moist, Dentition Intact, Facial Symmetry, Neck Supple, Neck: Trachea Midline, No JVD and No Thyromegaly, no Bruits
Respiratory: Coarse to auscultation bilaterally with normal lung excursion
Cardiac: S1/S2 and Regular Rate/Rhythm
Breast: Deferred by me
Abdomen: Soft, Nontender, Nondistended, Normal Bowel Sounds and No Hepatosplenomegaly
Rectal: Deferred by Provider
Genito-urinary: No Costovertebral Tenderness
Extremities: No Clubbing, No Cyanosis and trace edema
Skin: No Rash or open lesions
Neuro: Moves all 4 limbs independently
Hematologic/Lymphatic: No Cervical Lymphadenopathy, No Submandibular Lymphadenopathy and No Supraclavicular Lymphadenopathy
Psych: Language barrier prevents proper mental status exam
Vascular: plus 1 pedal and radial pulses
Data Reviewed
-
Radiology: Image Personally Visualized and interpreted (Chest x-ray personally reviewed from 08/06/2024 right lower lobe effusion interstitial changes noted bilateral lung field)
CT Scan: Image Personally Visualized and interpreted (CT of abdomen and pelvis report reviewed)
Medical Tests (Nuc Med, Echo etc): Other (EKG report reviewed from 08/06/[address] and T wave abnormality of the 124 bpm per report)
Labs: Labs Reviewed by me (BMP CBC)
Assessment/Plan
-
Impression:
JOSÉ ?
CKD (1.7) but 2.5 as of 07/3024 [facility] lab review
Left Percutaneous Nephrostomy Tube malfunction with suboptimal positioning (changed on 08/04/24), patient pulled it out 08/07/24
Right Ureteral Stent in proper place
Metastatic ovarian cancer (stage IV) status post hysterectomy and radiation currently on salvage chemotherapy
Neoplastic right medial abdominal rectus mass
Anemia
Hypertension
TME
PNA
Chest pain with troponin elevation
Right pleural effusion (patient refused thoracentesis)
Cardiomyopathy with ejection fraction of 30%
Plan:
JOSÉ:
-Suspect obstructive uropathy, right urostomy tube exchanged yesterday again
-Acute kidney injury may also be complicated by poor EF with CHF , daily weights
-Closely follow I's and O's
-If creatinine continues to rise check bladder scan to evaluate for urinary retention
-Check urinalysis, urine sodium urine creatinine
-No nephrotoxic exposures noted
-Patient has been hemodynamically stable
-Maintain oral sodium bicarbonate in setting of metabolic acidosis
-Patient would not be suitable dialysis candidate given end-stage malignancy
[2024-08-08 11:40] VITALS: BP 140/76
[2024-08-08 12:19] LABS: Urine Albumin 3+ (Neg - Trace); Urine Bilirubin Negative (Negative); Urine Character Slightly Cloudy (Clear); Urine Color Yellow; Urine Glucose Negative (Negative); Urine Ketone Negative (Negative); Urine Leukocyte 3+ (Negative); Urine Nitrite Negative (Negative); Urine Occult Blood 4+ (Negative); Urine Specific Gravity 1.015 (<1.030); Urine Urobilinogen Negative (Neg - 1+)
[2024-08-08] MEDS: LOKELMA 10 GRAM PO (12:23)
--- NOTE | 2024-08-08 12:23 | W.PN.UPDATE ---
Update Note
Progress Note Update
Kat Hampton's WAREHOUSE SHIPPING SUPERVISOR from [facility] Called .
Abdirahman Last saw her on Jun 27.
She was Diagnosed in 2019 with ovarian cancer at that time she had good PS -underwent Brachy therapy
Reccurennce occured 7 months
Since then then failed multiple lines Taxol, carbo, Lenvatinib and Keytruda.
In 2021 They did Genetic testing , she has PiK 3 mutation. Not eligible for a trial given DM.
She was trialed on Letrozole as she was ER positive , Was on it for a month and progressed.
They then Went to [facility] for a trial and was found not eligible,
Doxil and Avastin jun 2022 then 3 cycles and disease progressed.
Aug 2022 Started Avastin and Taxol -13 cycles and disease progressed.
Then started Avastin and Topotecan in Jun 2023 till Jul 2023 , disease progressed ,PS worsened and Abdirahman recommended Hospice , Family refused.
In Fall 2023 she underwent Palliative radiationn to chest and Abd masses.
Jun 2024 CT scan showed Small decrease in burden.
So she was Tamoxifen and Megace alternating for 3 weeks each (pain said it is okay for her to take both at the same time as well if she is doing it that way.)
But hospice appropriate. They have been discussing hospice with her every time she comes in.
I also discussed about MRI brain from [facility] from recent hospital stay.
Per [facility] radiology did review of the CT they felt that it could be most likely ischemia but met not excluded, therefore on month follow up MRI was recommended To completely rule out metastasis.
Last creat last at [facility] 1.6-1.8 -Jun 2023 .
I asked if we should transfer her to [facility], they stated that there is nothing Much they can do at this point no need .
Time spent 20 min
[2024-08-08 12:47] LABS: Urine Amorphous Seen; Urine Red Blood Cell >100 /HPF (0-2); Urine Squamous Cell 0-2 /LPF (Few); Urine Urothelial Cell 0-2 /LPF (FEW); Urine White Cell >100 /HPF (0-5)
[2024-08-08 12:48] LABS: Urine Bacteria Few (Negative)
--- NOTE | 2024-08-08 13:10 | W.PN.UPDATE ---
Update Note
Progress Note Update
Spoke with patients daughter. She is not interested in pursuing thoracentesis at this time
--- NOTE | 2024-08-08 13:19 | W.CON.PAL ---
Consultation
-
Date/Time Consultation Requested: 08/08/24
Date/Time Consultation Performed: 08/08/24
Performing Provider: Reyna MATOS
Reason for Consult: Goals of Care Discussion
Primary Diagnosis: metastatic ovarian cancer
Consult Requested By: Patient's Physician
Reason for Admission
Illness Course/HPI
73 year old F with PMH of metastatic ovarian cancer dx 2019 c/b urinary obstruction s/p nephrostomy tube. Treated with hysterectomy and brachytherapy. Unfortunately had recurrent 7 months later and since then has failed multiple lines of treatment
with +POD. Attempted to start clinical trial at [facility] and not eligible. Per chart review, disease continued to progress and PS worsened and hospice has been recommended on multiple occasions and refused. Most recently had radiation to the
chest and abdominal masses with CT in June showing small decrease in burden.
Admitted to for a second opinion regarding nephrostomy. Initially arrived at [facility] and found that nephrostomy tube was misplaced. Replaced x2. Per reports, patient has ripped out multiple times. Arrived at and tube was replaced again. Here
she is also being treated for aspiration PNA and JOSÉ. Creat 2.6 today from 2.1 yesterday. Also with moderate sized R pleural effusion, team recommending thora and daughter declining this.
Multiple discussions held with daughter - refuses hospice and seems to have a poor understanding of medical issues. Patient is Ukranian speaking and unable to use language line.
Seen at bedside this PM with no family present.
Pain & Symptom Assessment
[place] Symptom Scale 0=none, 10=worst
Pain: 0
Objective Data
-
Objective Data:
Vital Signs
Temp Pulse Resp BP Pulse Ox
99.1 F 99 18 140/76 96
08/08/24 11:40 08/08/24 11:40 08/08/24 11:40 08/08/24 11:40 08/08/24 11:40
Laboratory Results
08/06/24 21:45
08/08/24 04:45
Total Protein Cancelled 08/07/24 11:28
Albumin 3.1 g/dl (3.5-5.0) L 08/04/24 20:10
Urine Color Yellow 08/08/24 10:42
Urine Clarity Slightly cloudy (Clear) 08/08/24 10:42
Urine pH 6.0 (5.0-9.0) 08/08/24 10:42
Ur Specific [place] 1.015 (<1.030) 08/08/24 10:42
Urine Ketones Negative (Negative) 08/08/24 10:42
Urine Occult Blood 4+ (Negative) A 08/08/24 10:42
Urine Nitrite Negative (Negative) 08/08/24 10:42
Urine Bilirubin Negative (Negative) 08/08/24 10:42
Ur Leukocyte Esterase 3+ (Negative) A 08/08/24 10:42
Urine Albumin 3+ (Neg - Trace) A 08/08/24 10:42
Palliative Performance Scale
Palliative Performance Scale:
PPS Level Ambulation Activity & Evidence of Disease Self Care Intake Conscious Level
100% Full Normal Activity & Work; Full Intake Full
No Evidence of Disease
90% Full Normal Activity & Work; Full Normal Full
Some Evidence of Disease
80% Full Normal Activity with Effort Full Normal or Full
Some Evidence of Disease Reduced
70% Reduced Unable Normal Job/Work Full Normal or Full
Significant Disease Reduced
60% Reduced Unable Hobby/Housework Occasional Normal or Full or Confusion
Significant Disease Assistance Reduced
50% Mainly Sit/Lie Unable to do Any Work Considerable Normal or Full or Confusion
Extensive Disease Assistance Req'd Reduced
40% Mainly in Bed Unable to do Most Activity Mainly Assistance Normal or Full or Drowsy;
Extensive Disease Reduced +/- Confusion
30% Totally Bed Unable to do Any Activity Total Care Normal or Full or Drowsy;
Bound Extensive Disease Reduced +/- Confusion
20% Totally Bed Bound Unable to do Any Activity Total Care Minimal to Full or Drowsy;
Extensive Disease Sips +/- Confusion
10% Totally Bed Bound Unable to do Any Activity Total Care Mouth Care Drowsy or Coma;
Extensive Disease Only +/- Confusion
0%
PPS Score Level:
Physical Exam
-
General: No Apparent Distress and Appears Chronically Ill
HEENT: Normocephalic
Respiratory: Clear to Auscultation
Cardiac: Regular Rhythm
Peripheral Vascular: No Edema
GI: Soft
Genitourinary: Other (nephrostomy )
Skin: Warm
Neuro: Awake and Alert
Psych: Calm
Assessment / Plan
-
Assessment/Plan:
73 year old F with metastatic ovarian cancer, s/p multiple lines of treatment with POD.
- no family at bedside
- attempted to call daughter Tatiana - answered and stated she was at an appointment and would call me back. Will try her again tomorrow although seems as though her goals are clear and she is not interested in hospice for her mother.
- ?possibility of getting in person software test analyst to speak with patient directly - unsure of patients mental status. Patient should be included in hospice conversations if she is able to make decisions for herself but unable to use phone software test analyst.
Care Reviewed
Data Reviewed
Chest X ray: Image Reviewed
Radiology procedure: Image Reviewed
Medical Tests: I reviewed
Reviewed with: Patient, Family and Physician
[2024-08-08 14:00] LABS: Urine Sodium 110 mmol/L (30-90)
--- NOTE | 2024-08-08 14:17 | CM ---
Chart reviewed
Elevated creat - Neph consult
Labs sent - UA and electrolytes
Daughter prefers to have pt return home when medically ready
Plan - home with [facility] when medically ready
f - [phone]
[2024-08-08 15:00] VITALS: BP 106/67
[2024-08-08 15:27] VITALS: BP 102/64
[2024-08-08 17:33] LABS: Glucose - Point of Care 115 mg/dl (70-99)
[2024-08-08] MEDS: NOVOLOG FLEXPEN-LOW RESISTANCE SC (17:50)
[2024-08-08] MEDS: DUONEB 3 ML INH (18:54)
[2024-08-08] MEDS: COLACE PO (19:53)
[2024-08-08 22:32] LABS: Glucose - Point of Care 261 mg/dl (70-99)
[2024-08-08 23:50] VITALS: BP 119/80
[2024-08-09] VITALS (7 sets, daily range): BP systolic 104–129; BP diastolic 57–84; PULSE 70–87; O2SAT 96; BMI 22.1
[2024-08-09] MEDS: SYNTHROID 125 MCG PO (05:28)
[2024-08-09 08:09] LABS: Glucose - Point of Care 161 mg/dl (70-99)
--- NOTE | 2024-08-09 08:14 | W.PN.CD ---
Today's Communication / Plan
-
-Conservative cardiac management for cardiomyopathy; patient is a poor candidate for any aggressive measures given her comorbidities (metastatic disease, abdominal mass, CKD/malfunctioning nephrostomy tube, and poor life expectancy.
-Hospice is appropriate.
-Continue aspirin and Toprol-XL; statin would likely be of no benefit long-term (poor life expectancy).
-Discontinue telemetry.
-No further cardiac recommendations.
Impression / Plan
-
73-year-old female with metastatic ovarian cancer status-post hysterectomy/radiation (currently on salvage chemotherapy), current neoplastic right medial rectus mass, hypertension, diabetes, CKD, and left nephrostomy tube (with recurrent
malfunctioning, including current admission); Cardiology consulted for chest tightness/midepigastric pain with associated shortness of breath. Cardiac troponin minimally elevated at 0.105 in setting of CKD.
Chest tightness/midepigastric pain:
-Not certain that this is primarily cardiac, as the patient has metastatic disease and an abdominal mass.
-EKG with no acute changes; no need to continue checking/trending.
-troponin downtrending
Acute (possibly acute on chronic) HFrEF (30-35%):
-Conservative cardiac management for cardiomyopathy; patient is a poor candidate for any aggressive measures given her comorbidities (metastatic disease, abdominal mass, CKD/malfunctioning nephrostomy tube, and poor life expectancy.
-Hospice is appropriate.
-Continue aspirin and Toprol-XL; statin would likely be of no benefit long-term (poor life expectancy).
-GDMT limited by renal dysfunction and blood pressure; not a candidate for ICD.
Troponin elevation:
-Most likely secondary to acute nonischemic myocardial injury in the setting of CKD.
-Cardiac troponin minimally elevated at 0.105; downtrending --no need to continue trending.
-If the patient truly had ACS, she would be treated conservatively from a cardiac standpoint as she is a poor candidate for any aggressive measures given her comorbidities (metastatic disease, current abdominal mass, and CKD/malfunctioning
nephrostomy tube).
Sinus tachycardia:
-Most likely secondary to underlying medical condition.
-Would not increase Toprol further given this is likely appropriate compensatory sinus tachycardia (also blood pressure limitations).
-Discontinue telemetry.
Hypertension:
-Controlled/relatively stable; amlodipine discontinued in setting of initiation of beta-elizabeth.
CKD/malfunctioning nephrostomy tube:
-Management as per primary team.
Diabetes:
-Management as per primary team.
Physical Exam
Vital Signs/Labs
Vital Signs
Temp Pulse Resp BP Pulse Ox
98.0 F 111 18 128/76 96
08/09/24 02:33 08/09/24 02:33 08/09/24 02:33 08/09/24 02:33 08/09/24 02:33
08/08/24 08/09/24 08/10/24
06:59 06:59 06:59
Actual Weight 56.472 kg
08/06/24 21:45
Magnesium 2.2 mg/dl (1.6-2.3) 08/06/24 21:45
08/07/24 08/07/24
03:24 04:57
Szt-G-Bqzanywjkrr Pept Cancelled > 79828
LAB Results
08/06/24 08/07/24 08/07/24
21:45 03:24 04:57
Troponin I 0.105 H* Cancelled 0.084 H*
08/07/24 08/07/24 08/07/24
11:00 17:00 23:00
Troponin I Cancelled Cancelled Cancelled
Physical Exam
Constitutional: No acute distress and Comfortable
EENT: Anicteric
Cardiovascular: Rhythm & rate is regular, Pedal edema is absent, Systolic murmur present (07/11) and S1S2 is normal
Respiratory: Respiratory effort normal and Lungs clear to auscul.
GI: Soft
Neuro/Psych: Alert
Other: Skin (warm, dry)
Data Reviewed
-
Date of Service: August 09, 2024
EKG: Tracing Personally Visualized and interpreted (Sinus rhythm/sinus tachycardia)
Labs: Labs Reviewed by me
[2024-08-09 08:24] LABS: Blood Urea Nitrogen 34 mg/dl (7-17); Calcium 8.9 mg/dl (8.4-10.2); Carbon Dioxide 19 mmol/L (22-30); Chloride 107 mmol/L (98-107); Estimated Creatinine Clearance 15 ml/min; Glucose 125 mg/dl (70-99); Potassium 4.9 mmol/L (3.5-5.1); Sodium 138 mmol/L (135-145); eGFR 18.67
[2024-08-09] MEDS: NOVOLOG FLEXPEN-LOW RESISTANCE 1 UNITS SC (09:31)
[2024-08-09] MEDS: FEOSOL 325 MG PO (09:34)
[2024-08-09] MEDS: LOW STRENGTH ASPIRIN 81 MG PO (09:34)
[2024-08-09] MEDS: SODIUM BICARBONATE 650 MG PO ×2 (09:34→20:44)
[2024-08-09] MEDS: HIPREX 1 GRAM PO (09:34)
[2024-08-09] MEDS: GLUCOTROL XL (EXTENDED RELEASE) 2.5 MG PO ×2 (09:34→18:22)
[2024-08-09] MEDS: VITAMIN B-6 100 MG PO (09:34)
[2024-08-09] MEDS: MAG-TAB SR 84 MG PO (09:34)
[2024-08-09] MEDS: TOPROL XL 50 MG PO (09:35)
[2024-08-09] MEDS: COLACE 100 MG PO ×2 (09:35→20:43)
[2024-08-09] MEDS: THERAGRAN 1 TABLET PO (09:35)
[2024-08-09] MEDS: HEPARIN 5000 UNITS SC ×3 (09:36→23:18)
[2024-08-09] MEDS: ROCEPHIN 1000 MG IV (09:37)
[2024-08-09] MEDS: STERILE WATER FOR INJECTION 10 ML IV (09:37)
[2024-08-09] MEDS: NOLVADEX 20 MG PO ×2 (09:38→20:44)
[2024-08-09] MEDS: MEGACE 80 MG PO ×2 (09:40→21:46)
[2024-08-09] MEDS: FLAGYL 500 MG 100 IV ×2 (09:53→18:23)
--- NOTE | 2024-08-09 10:42 | W.PN.PAL2 ---
Today's Communication
-
spoke with patients daughter via phone
stated she just needs a hospital bed and not interested in palliative care
not at bedside later in the day when I went to go speak with her
Assessment / Plan
-
Assessment/Plan:
73 year old F with metastatic ovarian cancer with POD despite multiple lines of treatment
- daughter clear that she is not interested in hospice at this time and goals remain treatment oriented
- per attending, patient confused and not making sense when on digital product manager - dementia vs brain mets? Not decisional
- patient lives in [place] and is out of service area for palliative care
- daughter would like discharge back home with previous home care services, needs hospital bed
- follow up with Abdirahman onc to continue GOC discussions
Objective Data
-
Objective Data:
Vital Signs
Temp Pulse Resp BP Pulse Ox
98.4 F 110 19 121/80 95
08/09/24 07:45 08/09/24 09:35 08/09/24 07:45 08/09/24 09:35 08/09/24 07:45
Laboratory Results
08/06/24 21:45
08/09/24 07:42
Total Protein Cancelled 08/07/24 11:28
Albumin 3.1 g/dl (3.5-5.0) L 08/04/24 20:10
Urine Color Yellow 08/08/24 10:42
Urine Clarity Slightly cloudy (Clear) 08/08/24 10:42
Urine pH 6.0 (5.0-9.0) 08/08/24 10:42
Ur Specific [place] 1.015 (<1.030) 08/08/24 10:42
Urine Ketones Negative (Negative) 08/08/24 10:42
Urine Occult Blood 4+ (Negative) A 08/08/24 10:42
Urine Nitrite Negative (Negative) 08/08/24 10:42
Urine Bilirubin Negative (Negative) 08/08/24 10:42
Ur Leukocyte Esterase 3+ (Negative) A 08/08/24 10:42
Urine Albumin 3+ (Neg - Trace) A 08/08/24 10:42
Palliative Performance Scale
Palliative Performance Scale:
PPS Level Ambulation Activity & Evidence of Disease Self Care Intake Conscious Level
100% Full Normal Activity & Work; Full Intake Full
No Evidence of Disease
90% Full Normal Activity & Work; Full Normal Full
Some Evidence of Disease
80% Full Normal Activity with Effort Full Normal or Full
Some Evidence of Disease Reduced
70% Reduced Unable Normal Job/Work Full Normal or Full
Significant Disease Reduced
60% Reduced Unable Hobby/Housework Occasional Normal or Full or Confusion
Significant Disease Assistance Reduced
50% Mainly Sit/Lie Unable to do Any Work Considerable Normal or Full or Confusion
Extensive Disease Assistance Req'd Reduced
40% Mainly in Bed Unable to do Most Activity Mainly Assistance Normal or Full or Drowsy;
Extensive Disease Reduced +/- Confusion
30% Totally Bed Unable to do Any Activity Total Care Normal or Full or Drowsy;
Bound Extensive Disease Reduced +/- Confusion
20% Totally Bed Bound Unable to do Any Activity Total Care Minimal to Full or Drowsy;
Extensive Disease Sips +/- Confusion
10% Totally Bed Bound Unable to do Any Activity Total Care Mouth Care Drowsy or Coma;
Extensive Disease Only +/- Confusion
0%
PPS Score Level:
Physical Exam
-
General: Appears Chronically Ill
HEENT: Normocephalic
Respiratory: Decreased Breath Sounds
Peripheral Vascular: No Edema
Skin: Warm
Psych: Calm
Care Reviewed
Data Reviewed
Radiology procedure: Image Reviewed
Medical Tests: I reviewed
Reviewed with: Patient and Family
--- NOTE | 2024-08-09 11:20 | CM ---
Addendum entered by Jaleesa Conrad 08/09/24 13:57:
Lucy Ericarokorina [phone] from [facility] came to hospital today to review patient's chart, returned case inspector was provided with H&P and medications, progress notes. Protective services also made aware that patient's plan is to
home with daughter when stable.
Addendum entered by Jaleesa Conrad 08/09/24 11:48:
Plan is to stay at daughters house when stable, per Magi at [facility] they are aware.
[facility]
[place].
Original Note:
Chart reviewed and manager of case met with patient and daughter this morning, per patient's daughter patient had extended stay at [facility] and needed to come to [facility] for Nephrostomy Tube Malfunction. Patient's daughter stated that she
lives with patient and patient has aides in home through [employer] , a non skilled agency, 20 hours per week, per patient's daughter hospital bed was ordered at [facility] but not delivered yet, manager of case explained to patient's daughter that she
will follow up with hospital bed, and that usually equipment company call family directly to make delivery arrangements. manager of case received a call from Lucy from [facility] and she will be out to evaluate patient today or
tomorrow.
Plan; To follow up with hospital bed, fax sent to [facility] non skilled including patient's H&P
[facility]
[phone]
[2024-08-09 11:27] LABS: Glucose - Point of Care 268 mg/dl (70-99)
[2024-08-09] MEDS: NOVOLOG FLEXPEN-LOW RESISTANCE 3 UNITS SC (13:27)
--- NOTE | 2024-08-09 15:07 | W.PN.NEPH.PH ---
Today's Communication / Plan
-
observe
follow bmp
Assessment/Plan
-
Impression:
JOSÉ ?
CKD (1.7) but 2.5 as of 07/3024 [facility] lab review
Left Percutaneous Nephrostomy Tube malfunction with suboptimal positioning (changed on 08/04/24), patient pulled it out 08/07/24
Right Ureteral Stent in proper place
Metastatic ovarian cancer (stage IV) status post hysterectomy and radiation currently on salvage chemotherapy
Neoplastic right medial abdominal rectus mass
Anemia
Hypertension
TME
PNA
Chest pain with troponin elevation
Right pleural effusion (patient refused thoracentesis)
Cardiomyopathy with ejection fraction of 30%
Plan:
JOSÉ:
-creatinine unchanged at 2.6 right urostomy tube exchanged 2/3 again
-I suspect this is her new baseline, nephrostomy output at 275cc but weights down,but unrecorded totals noted
-may need to add back some lasix (? what patient's dose was prior to hospitalization)
-Hemodynamically stable
-Acute kidney injury may also be complicated by poor EF with CHF , daily weights
-Closely follow I's and O's
-If creatinine continues to rise would check CT again to assess for obstruction
-Checked urinalysis, urine sodium urine creatinine: Fractional excretion of urine was not consistent with prerenal stimulus urine is completely polluted with leukocytes red blood cells white blood cells
-No nephrotoxic exposures noted
-Maintain oral sodium bicarbonate in setting of metabolic acidosis
-Remains on ceftriaxone for possible UTI
-Patient would not be suitable dialysis candidate given end-stage malignancy
-
-
Date of Service: August 09, 2024
CC / HPI / ROS
-
Chief Complaint:
JOSÉ
History of Present Illness:
Hemodynamically stable
Creatinine stable at 2.6
Bicarb stable at 19 on oral bicarbonate
Review of Systems:
Left nephrostomy tube draining well
Weights down
no fever
Labs
-
Labs:
WBC 9.2 10^3/uL (4.8-10.8) 08/06/24 21:45
RBC 3.17 10^6/uL (4.20-5.40) L 08/06/24 21:45
Hgb 9.0 g/dL (12.0-16.0) L 08/06/24 21:45
Hct 28.6 % (37.0-47.0) L 08/06/24 21:45
Plt Count 200 10^3/uL (130-400) 08/06/24 21:45
Sodium 138 mmol/L (135-145) 08/09/24 07:42
Potassium 4.9 mmol/L (3.5-5.1) 08/09/24 07:42
Chloride 107 mmol/L (98-107) 08/09/24 07:42
Carbon Dioxide 19 mmol/L (22-30) L 08/09/24 07:42
BUN 34 mg/dl (7-17) H 08/09/24 07:42
Creatinine 2.6 mg/dL (0.6-1.0) H 08/09/24 07:42
eGFR 18.67 08/09/24 07:42
Glucose 125 mg/dl (70-99) H 08/09/24 07:42
Calcium 8.9 mg/dl (8.4-10.2) 08/09/24 07:42
Hin-D-Dqmtvyxgwvk Pept > 88320 pg/ml 08/07/24 04:57
Albumin 3.1 g/dl (3.5-5.0) L 08/04/24 20:10
Physical Exam
-
Vital Signs:
Vital Signs
Temp Pulse Resp BP Pulse Ox
98.4 F 110 19 121/80 95
08/09/24 07:45 08/09/24 09:35 08/09/24 07:45 08/09/24 09:35 08/09/24 07:45
Cardiovascular:: Regular rate and rhythm
Respiratory:: Bilateral: Coarse
Lung Excursion:: Normal
Abdomen:: Nontender
Bowel Sounds:: Normal
Extremity Edema:: +1: Bilateral:
Peoples Catheter: No
Other Findings::
left PCN
--- NOTE | 2024-08-09 16:17 | W.PN.HOSP.TC ---
Today's Communication/Plan
-
Unclear if she has tablets to new baseline for creatinine.
Continue ceftriaxone and Flagyl for aspiration pneumonia
Continue ceftriaxone for UTI
Await cultures
If creatinine is at baseline and once cultures are back patient can be discharged home.
She is at high risk for pulling out the nephrostomy tube
Assessment / Plan
Assessment / Plan
'73 y/o with ovarian ca diagnosed 5 years ago , now metastatic status post hysterectomy and radiation who is currently on salvage chemo now. She has a history of ureteral obstruction and has right ureteral stent and left nephrostomy tube. All her
care has been at [facility] for urology and she goes to [facility] for cancer treatment.. Reportedly she was admitted at [facility] , Daughter states that nephrostomy tube exchange was attempted but was not possible and was discharged and she
still had a leak. She has a ureteral stent . Discharged Thursday from [facility]. She was seen at [facility] yesterday and the leak was noted and they wanted her to be admitted to [facility]. Daughter refused admission there because it
was too far. History is very hard to be obtained as patient cannot give me any history if she cannot communicate even with language line. Daughter also is not a great historian . She came to [facility] for a second opinion for the
nephrostomy tube.
Daughter states that mother does not have dementia and she had an MRI done at [facility].'

On examination patient is awake
Cardiovascular system S1-S2 appreciated
Decreased BS right side
Left nephrostomy tube-in place
No pedal edema

CT scan-moderate right pleural effusion. Parenchymal airspace density both lower lungs atelectasis/pneumonia with scarring
Minimal pericardial effusion moderate to severe left pelvicalyceal and ureteral dilatation with evidence of an obstructing mass in the left ureterovesical junction likely neoplastic
Right ureteral stent is present mild right pelvicalyceal dilatation without ureteral dilatation. Mild to moderate atrophy of the right renal parenchyma. Mass arising in the region of the medial right rectus muscle extending anteriorly to the
abdomen enlarged periaortic and interaortocaval lymph nodes likely neoplastic lymphadenopathy
ECH- Normal left ventricular size with moderately reduced systolic function. LVEF 30-35%. Global hypokinesis.Stage II diastolic dysfunction suggestive of abnormal relaxation and increased filling pressures.Normal right ventricular size and
systolic function.Moderate mitral regurgitation.Mild tricuspid regurgitation. PASP 41 mmHg.

# TME
Suspect there is also cognitive dysfunction which is undiagnosed
Daughter states that mother does not have dementia. She is confused and cannot use language line when ever I tried. .
Today daughter said that she got a call yesterday saying that patient had a stroke last week on an MRI. No metastasis to the brain. But [facility] MRI brain shows mets on the report.
08/06/2024-Head CT-no acute intracranial abnormality. Mild periventricular small vessel disease. Mild atrophy. Small nonacute right cerebellar infarct.
# Shortness of breath-pleural effusion on the right side.
Daughter aware that she may benefit from thoracentesis. Benefits and risks discussed.
Consulted IR but daughter refused Thoracentesis
Possible that this is malignant effusion
# Acute on Chronic HFREF
[facility]- Echo 06/28/2024-dilated left ventricle with moderate to severely decreased systolic function. Ejection fraction 30 to 35%. Normal RV size and function. Mild to moderate MR. Mild TR. No pulmonary hypertension.
Gave Lasix yesterday and creatinine is up today. Therefore hold further Lasix
Patient cannot be on LACI/ARB/Aldactone or Arni because of elevated creatinine.
With nephrostomy tube I do not want to start her on SGLT2 inhibitors either.
# UTI-ceftriaxone started. Check cultures
# Elevated troponin-likely nonischemic myocardial injury.
Cardiology consulted
# Pneumonia- Treating as Aspiration PNA- IV ceftriaxone and Flagyl
# Metastatic ovarian cancer-undergoing treatment with [facility] Dr. Dick.
Was on RTx with ( Med ONc ) and ( RO)
Continue tamoxifen
# Nephrostomy tube leak on the left side
Interventional radiology replaced left nephrostomy tube 08/05/2024
Patient pulled it out on 08/07/2024
IR Replaced 08/07/24
Pt has pulled out from [facility] records
Abdominal binder and also Restraints
# Hyponatremia-resolved
# Hyperkalemia- Lokelma
# Anemia-likely secondary to malignancy
# Hypertension-amlodipine on hold. Continue metoprolol
# Hypothyroidism-continue Synthroid 125 micrograms daily
# Kidney injury-likely there is an acute component but also chronic kidney disease suspected as daughter states that her creatinine is usually 1.7. BMP pending likely has CKD stage III. Continue sodium bicarb p.o. Nephrology evaluation.
# Xrbdzpfd-Rmiu-Hyzeu and sliding scale coverage. Glipizide ordered. Sugars slightly high but she will benefit from regular diet. Increase glipizide if needed
# CVA per daughter on an MRI from last week- ASA ( [facility] records say mets). Per my discussion with Abdirahman they are not sure whether this is stroke or metastasis and patient should repeat MRI.
# At least moderate protein calorie malnutrition-Megace.
# DVT prophylaxis-subcutaneous heparin
# Full code-I had a detailed discussion with the patient's daughter regarding her stage IV cancer and if she would consider DNR. Daughter stated that she wants mom to be 'full code.'
D/W nursing staff at bedside
08/08/23 -When asked why she was seen at [facility] daughter said that 'we can go to wherever we want. Abdirahman did not have the treatment would be needed therefore we went to [facility]. When I asked if Abdirahman discussed anything
about hospice she got upset. She stated that 'you can put everybody on hospice you can put your parents on hospice. We want her treated.' She also stated that 'you cannot put everybody on hospice the second day after they get sick' I discussed
that as well as I could gather from the notes she was diagnosed with cancer in 2019.
I also offered for her to be transferred to [facility] where she is known daughter is refusing because they made a 'mistake'. They put a U-shaped nephrostomy tube which she should not be having.
I also offered [facility] but states that is too far.
Daughter told me that Abdirahman told her she does not have brain metastasis.
She says to just fix creatinine and give her Lasix and let her go home.
She is also planned for 6 radiation.
From what I can see she pulled out nephrostomy tube twice at [facility] and once here. I reviewed this with daughter. She said that yes that is because she is restrained. I reminded that this can happen again.
Spoke to [facility]dirahman - See separate update note from 08/09/24
[place] [facility] [place] left a message for . NO call back
From my experience prognosis appears to be poor given age stage 4 cancer, Her cognition, inconsistent p.o. intake, pulling out nephrostomy tube multiple times, chronic kidney disease, ejection fraction 35%.
Palliative care consulted
D/W Nephrology
Anticipated Discharge: 24 - 48 hours
Subjective/Interval History
-
Date of Service: August 09, 2024
Objective Data
-
Labs:
Laboratory Results
08/09/24
07:42
Sodium 138
Potassium 4.9
Chloride 107
Carbon Dioxide 19 L
BUN 34 H
Creatinine 2.6 H
Glucose 125 H
Calcium 8.9
Vital Signs:
Vital Signs
Temp Pulse Resp BP Pulse Ox
98.1 F 107 19 117/81 95
08/09/24 15:00 08/09/24 15:00 08/09/24 15:00 08/09/24 15:00 08/09/24 15:00
I&O
08/08/24 08/09/24 08/10/24
06:59 06:59 06:59
Intake Total 450 / 450 240 / 240 720 / 720
Output Total 900 / 900 525 / 525 325 / 325
Balance -450 / -450 -285 / -285 395 / 395
--- NOTE | 2024-08-09 16:21 | W.PN.UPDATE ---
Update Note
Progress Note Update
Old records and Dr Bartholomew's communication with Abdirahman from 08/08/24
[address] bonilla is her med onc at [facility] and Dr. Batres is radiation oncology at [facility]. Daughter states that she takes her to [place] for hospitalization because that is closer to them.
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
stent and left nephroureteral catheter placement for internal drainage. Patient has a history of multiple episodes of percutaneous left nephrostomy catheter being pulled out placing the patient at risk for renal laceration per notes. Patient
underwent nephrostogram on the left side with fluoroscopically guided left nephroureteral catheter change on 06/10/2024. At [place].
Another note from 06/28/2024-exchange of left-sided nephroureteral catheter to the left-sided nephrostomy catheter
I also yet another procedure on 07/03/2024 for fluoroscopically guided left nephrostomy tube placement for dislodged left nephrostomy tube.
CT of the chest 06/27/2024-multiple airspace consolidations. Multiple round groundglass opacities. Increase in subcarinal mass. Decrease in size of anterior abdominal wall mass
Ultrasound of the calf veins 06/29/2024-no DVT
Chest x-ray 06/29/2024-cardiomegaly, mild pulmonary edema, bilateral pleural effusions.
Echo 06/28/2024-dilated left ventricle with moderate to severely decreased systolic function. Ejection fraction 30 to 35%. Normal RV size and function. Mild to moderate MR. Mild TR. No pulmonary hypertension.
CT of the cervical spine without contrast 07/12/2024-no acute fracture or malalignment. Degenerative changes. Small apical pleural effusion.
CT of the chest abdomen pelvis without contrast 07/12/2024-no evidence of acute injury to the thorax. Persistent moderate right pleural effusion with resolving bilateral pulmonary infectious process. Enlarged subcarinal lymph nodes likely
metastatic. No visceral or bony injury to the abdomen and pelvis. Percutaneous nephrostomy tube catheter and right ureteric stent with mild residual hydro utero nephrosis. Stable rectus sheath metastatic deposit.
Head CT 07/12/2024-no evidence of intracranial hemorrhage. Periventricular chronic small vessel ischemia and volume loss
07/12/2024 chest x-ray unchanged patchy opacities in the bilateral lungs predominantly in the right lower lobe likely infectious.
07/13/2024-patient underwent nephrostogram which demonstrated mild to moderate persistent hydronephrosis of persistent occlusion of the distal one third of the ureter. Successful recannulization of the L initially nephrostomy tract and placement of a
use style nephrostomy catheter given recurrent dislodgment.
MRI of the brain on -possible small right parietal metastasis. There is a focus of abnormal diffusion periaqueductal region without associated enhancement possibly representing metastatic disease.
07/15/2024 chest x-ray mild interstitial edema throughout the lungs bilaterally. Moderate to large right pleural effusion. Atelectasis in the perihilar region of the left lung.
Chest x-ray 07/19/2024-no significant change in bilateral airspace consolidations and right greater than left pleural effusions.
Chest x-ray 07/20/2024-increasing rounded opacity lateral to the right hilum probably due to pleural fluid or parenchymal consolidation. More patchy parenchymal opacity elsewhere likely due to pneumonia unchanged. Moderate to large right pleural
effusion unchanged.
EEG 07/18/2024-mildly abnormal EEG with generalized slowing of the background during waking. Nonspecific indicator of mild diffuse cerebral dysfunction. No persistent focal or epileptic abnormalities.
[employer] oncology note-patient was hospitalized from 06/27/2024 to 07/09/2024 for COVID 19 infection and received remdesivir. Percutaneous nephrostomy was exchanged on 1223 and replaced on 1228. Seen by cardiology for HFrEF. Then readmitted from
07/11/2024 to 08/01/2024 for generalized weakness left PCN continued to leak and urology did not deem the patient was a candidate for stent due to high rate of failure. MRI report showed to small new metastasis to the brain.
Outpatient medicines
Tamoxifen 20 mg BID
Megace 80 mg BID
Oxycodone 5 Mg half to 1 tablet every 4 hours as needed
Tylenol 650 mg every 4 hours as needed
Icosapent 2 g daily
Multivitamin 1 tab daily
Levothyroxine 75 mcg daily
Vitamin B12 1000 mcg daily
Amlodipine 10 mg daily
Colace 100 mg twice daily
Metoprolol succinate 25 mg daily
Glipizide 2.5 mg twice daily

[facility]'s [employer] DESIGN DETAILER from [facility] Called .
Abdirahman Last saw her on Jun 27.
She was Diagnosed in 2018 with ovarian cancer at that time she had good PS -underwent Brachy therapy
Reccurennce occured 7 months
Since then then failed multiple lines Taxol, carbo, Lenvatinib and Keytruda.
In 2021 They did Genetic testing , she has PiK 3 mutation. Not eligible for a trial given DM.
She was trialed on Letrozole as she was ER positive , Was on it for a month and progressed.
They then Went to [facility] for a trial and was found not eligible,
Doxil and Avastin jun 2022 then 3 cycles and disease progressed.
Aug 2022 Started Avastin and Taxol -13 cycles and disease progressed.
Then started Avastin and Topotecan in Jun 2023 till Jul 2023 , disease progressed ,PS worsened and Abdirahman recommended Hospice , Family refused.
In Fall 2023 she underwent Palliative radiationn to chest and Abd masses.
Jun 2024 CT scan showed Small decrease in burden.
So she was Tamoxifen and Megace alternating for 3 weeks each (pain said it is okay for her to take both at the same time as well if she is doing it that way.)
But hospice appropriate. They have been discussing hospice with her every time she comes in.
I also discussed about MRI brain from [facility] from recent hospital stay.
Per [facility] radiology did review of the CT they felt that it could be most likely ischemia but met not excluded, therefore on month follow up MRI was recommended To completely rule out metastasis.
Last creat last at [place] 1.6-1.8 -Jun 2023 .
I asked if we should transfer her to [place], they stated that there is nothing Much they can do at this point no need .

Called Jae [facility] left a message for . NO Call back
[2024-08-09 17:08] LABS: Glucose - Point of Care 146 mg/dl (70-99)
[2024-08-09] MEDS: NOVOLOG FLEXPEN-LOW RESISTANCE SC (18:20)
[2024-08-09] MEDS: DUONEB 3 ML INH (20:14)
[2024-08-09] MEDS: ROBITUSSIN PO (20:44)
[2024-08-09 21:51] LABS: Glucose - Point of Care 178 mg/dl (70-99)
[2024-08-10] MEDS: FLAGYL 500 MG 100 IV ×3 (01:05→16:07)
[2024-08-10] MEDS: TYLENOL 650 MG PO ×2 (04:36→19:46)
[2024-08-10 06:00] VITALS: BMI 23.1
[2024-08-10] MEDS: SYNTHROID 125 MCG PO (06:05)
[2024-08-10 08:03] VITALS: BP 111/70
[2024-08-10] MEDS: STERILE WATER FOR INJECTION 10 ML IV (08:04)
[2024-08-10] MEDS: ROCEPHIN 1000 MG IV (08:04)
[2024-08-10] MEDS: HEPARIN 5000 UNITS SC ×3 (08:05→23:42)
[2024-08-10] MEDS: MEGACE 80 MG PO ×2 (08:06→19:38)
[2024-08-10] MEDS: VITAMIN B-6 100 MG PO (08:06)
[2024-08-10] MEDS: GLUCOTROL XL (EXTENDED RELEASE) 2.5 MG PO ×2 (08:06→16:08)
[2024-08-10] MEDS: HIPREX 1 GRAM PO (08:06)
[2024-08-10] MEDS: NOLVADEX 20 MG PO ×2 (08:06→19:38)
[2024-08-10] MEDS: TOPROL XL 50 MG PO (08:06)
[2024-08-10] MEDS: SODIUM BICARBONATE 650 MG PO ×2 (08:06→19:38)
[2024-08-10] MEDS: LOW STRENGTH ASPIRIN 81 MG PO (08:06)
[2024-08-10] MEDS: COLACE 100 MG PO ×2 (08:06→19:37)
[2024-08-10] MEDS: THERAGRAN 1 TABLET PO (08:07)
[2024-08-10] MEDS: FEOSOL 325 MG PO (08:07)
[2024-08-10] MEDS: MAG-TAB SR 84 MG PO (08:07)
[2024-08-10 08:52] LABS: Glucose - Point of Care 113 mg/dl (70-99)
[2024-08-10 08:55] LABS: Blood Urea Nitrogen 36 mg/dl (7-17); Calcium 8.1 mg/dl (8.4-10.2); Carbon Dioxide 22 mmol/L (22-30); Chloride 107 mmol/L (98-107); Estimated Creatinine Clearance 14 ml/min; Glucose 122 mg/dl (70-99); Potassium 4.9 mmol/L (3.5-5.1); Sodium 138 mmol/L (135-145); eGFR 17.08
[2024-08-10] MEDS: NOVOLOG FLEXPEN-LOW RESISTANCE SC ×2 (09:15→17:02)
--- NOTE | 2024-08-10 10:03 | CM ---
Patient is on 1:1, plan is to home with daughter patient has [facility] in home, referral was sent to [facility] and Lucy Ericbarry, , came to the hospital to meet with patient yesterday, and met
with daughter.
Plan; Home to daughter's house when stable, and private duty caregivers from [facility]. Need to check to see if hospital bed was delivered.
Daughter's house address
[address] [place] [address]
[place].
[facility]
[phone]
--- NOTE | 2024-08-10 11:28 | PTOTSP ---
Dysphagia Evaluation
Patient presents with signs of oral/pharyngeal dysphagia and signs of possible aspiration with thin liquids, mildly thick liquids, and solids. Concern for aspiration PNA noted. Video swallow study required to assess oral and pharyngeal swallowing,
r/o aspiration, and develop treatment plan.
Recommend:
1. IDDSI Level 5 Minced and Moist, IDDSI Level 3 Moderately Thick Liquids
2. Medications: 1 at a time in puree
3. Strategies: full supervision, upright to 90 degrees, assist as needed, small single sips/bites, slow rate, alternate sips/bites, remain upright 30 minutes after PO intake
4. Video swallow study
--- NOTE | 2024-08-10 11:33 | W.PN.HOSP.TC ---
Today's Communication/Plan
-
Continue to monitor nephrostomy output
Trend creatinine
Continue with antibiotics
Video swallow eval today
Assessment / Plan
Assessment / Plan
'73 y/o with ovarian ca diagnosed 5 years ago , now metastatic status post hysterectomy and radiation who is currently on salvage chemo now. She has a history of ureteral obstruction and has right ureteral stent and left nephrostomy tube. All her
care has been at [facility] for urology and she goes to [facility] for cancer treatment.. Reportedly she was admitted at [facility] , Daughter states that nephrostomy tube exchange was attempted but was not possible and was discharged and she
still had a leak. She has a ureteral stent . Discharged Thursday from [facility]. She was seen at [facility] yesterday and the leak was noted and they wanted her to be admitted to [facility]. Daughter refused admission there because it
was too far. History is very hard to be obtained as patient cannot give me any history if she cannot communicate even with language line. Daughter also is not a great historian . She came to [facility] for a second opinion for the
nephrostomy tube.
Daughter states that mother does not have dementia and she had an MRI done at [facility].'

CT scan-moderate right pleural effusion. Parenchymal airspace density both lower lungs atelectasis/pneumonia with scarring
Minimal pericardial effusion moderate to severe left pelvicalyceal and ureteral dilatation with evidence of an obstructing mass in the left ureterovesical junction likely neoplastic
Right ureteral stent is present mild right pelvicalyceal dilatation without ureteral dilatation. Mild to moderate atrophy of the right renal parenchyma. Mass arising in the region of the medial right rectus muscle extending anteriorly to the
abdomen enlarged periaortic and interaortocaval lymph nodes likely neoplastic lymphadenopathy
ECHO- Normal left ventricular size with moderately reduced systolic function. LVEF 30-35%. Global hypokinesis.Stage II diastolic dysfunction suggestive of abnormal relaxation and increased filling pressures.Normal right ventricular size and
systolic function.Moderate mitral regurgitation.Mild tricuspid regurgitation. PASP 41 mmHg.

# TME
Suspect there is also cognitive dysfunction which is undiagnosed
Daughter states that mother does not have dementia. She is confused and cannot use language line when ever I tried. .
Today daughter said that she got a call yesterday saying that patient had a stroke last week on an MRI. No metastasis to the brain. But [facility] MRI brain shows mets on the report.
08/06/2024-Head CT-no acute intracranial abnormality. Mild periventricular small vessel disease. Mild atrophy. Small nonacute right cerebellar infarct.
# Possible JOSÉ on CKD vs. CKD
Creatinine up trended to 2.8 today.
Lasix has been held as bump in creatinine noted
Patient had a creatinine of 2.5 on 04/28.
Continue with p.o. bicarbonate
Possible could be from recent injury due to removal of nephrostomy tube.
# Nephrostomy tube leak on the left side
Interventional radiology replaced left nephrostomy tube 08/05/2024
Patient pulled it out on 08/07/2024
IR Replaced 08/07/24
Pt has pulled nephrostomy tube out from [facility] records
Abdominal binder and also Restraints if needed. sitter at bedside.
# Shortness of breath-pleural effusion on the right side.
Daughter aware that she may benefit from thoracentesis. Benefits and risks discussed.
Consulted IR but daughter refused Thoracentesis
Possible that this is malignant effusion
# Acute on Chronic HFREF
[facility]- Echo 06/28/2024-dilated left ventricle with moderate to severely decreased systolic function. Ejection fraction 30 to 35%. Normal RV size and function. Mild to moderate MR. Mild TR. No pulmonary hypertension.
creatinine is up today. Therefore hold further Lasix
Patient cannot be on LACI/ARB/Aldactone or Arni because of elevated creatinine.
With nephrostomy tube I do not want to start her on SGLT2 inhibitors either.
# Haily albicans on the urine culture results. Likely colonization due to chronic nephrostomy tube.
# Elevated troponin-likely nonischemic myocardial injury.
Cardiology consulted
# Pneumonia- Treating as Aspiration PNA- IV ceftriaxone and Flagyl
# Metastatic ovarian cancer stage IV-undergoing treatment with [facility] Dr. Dick.
Was on RTx with ( Med ONc ) and ( RO)
Continue tamoxifen
#Dysphagia
Diet downgraded to soft and minced diet with thick liquids
Video swallow recommended minced and moist diet okay for thin liquids
# Hyponatremia-resolved
# Hyperkalemia- Lokelma
# Anemia-likely secondary to malignancy
# Hypertension-amlodipine on hold. Continue metoprolol
# Hypothyroidism-continue Synthroid 125 micrograms daily
# Mdgjzexp-Ivvd-Wqmsn and sliding scale coverage. Glipizide ordered. Sugars slightly high but she will benefit from regular diet. Increase glipizide if needed
# CVA per daughter on an MRI from last week- ASA ( [facility] records say mets). Per my discussion with Abdirahman they are not sure whether this is stroke or metastasis and patient should repeat MRI.
# At least moderate protein calorie malnutrition-Megace. Per patient daughter patient with good appetite
# DVT prophylaxis-subcutaneous heparin
# Full code-I had a detailed discussion with the patient's daughter regarding her stage IV cancer and if she would consider DNR. Daughter stated that she wants mom to be 'full code.'
08/08/23 -When asked why she was seen at [facility] daughter said that 'we can go to wherever we want. Abdirahman did not have the treatment would be needed therefore we went to [facility]. When I asked if Abdirahman discussed anything
about hospice she got upset. She stated that 'you can put everybody on hospice you can put your parents on hospice. We want her treated.' She also stated that 'you cannot put everybody on hospice the second day after they get sick' I discussed
that as well as I could gather from the notes she was diagnosed with cancer in 2019.
I also offered for her to be transferred to [facility] where she is known daughter is refusing because they made a 'mistake'. They put a U-shaped nephrostomy tube which she should not be having.
I also offered [facility] but states that is too far.
Daughter told me that Abdirahman told her she does not have brain metastasis.
She says to just fix creatinine and give her Lasix and let her go home.
She is also planned for 6 radiation.
From what I can see she pulled out nephrostomy tube twice at [facility] and once here. I reviewed this with daughter. She said that yes that is because she is restrained. I reminded that this can happen again.
Spoke to Abdirahman - See separate update note from 08/09/24
Called [facility] [place] left a message for . NO call back
From my experience prognosis appears to be poor given age stage 4 cancer, Her cognition, inconsistent p.o. intake, pulling out nephrostomy tube multiple times, chronic kidney disease, ejection fraction 35%.
Palliative care consulted-daughter not interested in hospice and plan remains for restorative goals.
Discussed with patient daughter at bedside in details for prolonged period of time.
Anticipated Discharge: > 48 hours
Subjective/Interval History
-
Date of Service: August 10, 2024
Patient was agitated earlier
Objective Data
-
Labs:
Laboratory Results
08/10/24
07:28
Sodium 138
Potassium 4.9
Chloride 107
Carbon Dioxide 22
BUN 36 H
Creatinine 2.8 H
Glucose 122 H
Calcium 8.1 L
Vital Signs:
Vital Signs
Temp Pulse Resp BP Pulse Ox
97.9 F 89 18 111/70 99
08/10/24 08:03 08/10/24 08:03 08/10/24 08:03 08/10/24 08:03 08/10/24 08:03
I&O
08/09/24 08/10/24 08/11/24
06:59 06:59 06:59
Intake Total 240 / 240 920 / 920
Output Total 525 / 525 525 / 525
Balance -285 / -285 395 / 395
Physical Exam
-
General: No Apparent Distress and Appears Chronically Ill
HEENT: Normocephalic, Atraumatic and Moist Mucous Membranes
Respiratory: Clear to Auscultation
Cardiac: Regular Rhythm and S1/S2; Negative Murmur, Rub or Gallop
GI: Soft, Nontender, Nondistended and Normal Bowel Sounds; Negative Organomegaly
Rectal: Deferred by Provider
Genito-urinary: Other (Left nephrostomy tube-in place, abdominal binder noted.)
Musculoskeletal: No Clubbing, No Cyanosis and No Edema
Skin: Negative Rash
Neuro: Awake and Nonfocal/Grossly Intact
Psych: Anxious
Data Reviewed
-
Total Time Spent with Patient (in minutes): 59
[2024-08-10 14:01] LABS: Glucose - Point of Care 245 mg/dl (70-99)
[2024-08-10] MEDS: NOVOLOG FLEXPEN-LOW RESISTANCE 2 UNITS SC (14:05)
[2024-08-10 15:00] VITALS: BP 132/81
--- NOTE | 2024-08-10 15:21 | PTOTSP ---
Videofluoroscopic Swallow Study
Summary: Mild oral stage, functional pharyngeal stage at time of videofluoroscopic swallow study, with limited trials accepted. No penetration or aspiration. See patient care note for details.
Recommendation:
1. IDDSI Level 5 Minced and Moist, IDDSI Level 0 Thin Liquids
2. Medications: 1 at a time, whole in puree
3. Strategies: full supervision, assist as needed, upright to 90 degrees, small single sips/bites, slow rate, ensure patient clears mouth before next sip/bite, upright 30 minutes after PO intake
4. Oral care 3x daily
5. Dysphagia tx f/u at the acute care level for education and instruction in compensations.
[2024-08-10 17:14] LABS: Glucose - Point of Care 146 mg/dl (70-99)
--- NOTE | 2024-08-10 17:38 | W.PN.NEPH.PH ---
Today's Communication / Plan
-
follow labs
monitor UOP
Assessment/Plan
-
Impression:
JOSÉ ?
CKD (1.7) but 2.5 as of 07/2024 [facility] lab review
Left Percutaneous Nephrostomy Tube malfunction with suboptimal positioning (changed on 08/04/24), patient pulled it out 08/07/24
Right Ureteral Stent in proper place
Metastatic ovarian cancer (stage IV) status post hysterectomy and radiation currently on salvage chemotherapy
Neoplastic right medial abdominal rectus mass
Anemia
Hypertension
TME
PNA
Chest pain with troponin elevation
Right pleural effusion (patient refused thoracentesis)
Cardiomyopathy with ejection fraction of 30%
Plan:
JOSÉ:
-creatinine slightly up at 2.8 , right urostomy tube exchanged 2/3 again
-I suspect this is her new baseline, nephrostomy output at 525cc-better
-may need to add back some lasix (? what patient's dose was prior to hospitalization)
-Hemodynamically stable
-Acute kidney injury may also be complicated by poor EF with CHF , daily weights
-Closely follow I's and O's
-If creatinine continues to rise would check CT again to assess for obstruction
-Checked urinalysis, urine sodium urine creatinine: Fractional excretion of urine was not consistent with prerenal stimulus urine is completely polluted with leukocytes red blood cells white blood cells
-No nephrotoxic exposures noted
-Maintain oral sodium bicarbonate in setting of metabolic acidosis
-Remains on ceftriaxone for possible UTI
-Patient would not be suitable dialysis candidate given end-stage malignancy
-
-
Date of Service: August 10, 2024
CC / HPI / ROS
-
Chief Complaint:
JOSÉ
History of Present Illness:
Hemodynamically stable
Creatinine up at 2.8
Bicarb better at 22 on oral bicarbonate
hb stable at 9
Review of Systems:
Left nephrostomy tube draining well
Weights up not sure if accurate
no fever
Labs
-
Labs:
WBC 9.2 10^3/uL (4.8-10.8) 08/06/24 21:45
RBC 3.17 10^6/uL (4.20-5.40) L 08/06/24 21:45
Hgb 9.0 g/dL (12.0-16.0) L 08/06/24 21:45
Hct 28.6 % (37.0-47.0) L 08/06/24 21:45
Plt Count 200 10^3/uL (130-400) 08/06/24 21:45
Sodium 138 mmol/L (135-145) 08/10/24 07:28
Potassium 4.9 mmol/L (3.5-5.1) 08/10/24 07:28
Chloride 107 mmol/L (98-107) 08/10/24 07:28
Carbon Dioxide 22 mmol/L (22-30) 08/10/24 07:28
BUN 36 mg/dl (7-17) H 08/10/24 07:28
Creatinine 2.8 mg/dL (0.6-1.0) H 08/10/24 07:28
eGFR 17.08 08/10/24 07:28
Glucose 122 mg/dl (70-99) H 08/10/24 07:28
Calcium 8.1 mg/dl (8.4-10.2) L 08/10/24 07:28
Mej-J-Eknncoppdeu Pept > 73366 pg/ml 08/07/24 04:57
Albumin 3.1 g/dl (3.5-5.0) L 08/04/24 20:10
Physical Exam
-
Vital Signs:
Vital Signs
Temp Pulse Resp BP Pulse Ox
98.4 F 99 20 132/81 97
08/10/24 15:00 08/10/24 15:00 08/10/24 15:00 08/10/24 15:00 08/10/24 15:00
Cardiovascular:: Regular rate and rhythm
Respiratory:: Bilateral: Coarse
Lung Excursion:: Normal
Abdomen:: Nontender
Bowel Sounds:: Normal
Extremity Edema:: None: Bilateral:
Peoples Catheter: No
Other Findings::
left PCN
--- NOTE | 2024-08-10 18:23 | PTCARENOTE ---
Patient restless , agitated , calling out for 'Tatiana' her daughter. Pt attempts to kick staff at times when offered assistance, is much more agreeable and calm when her daughter is present. Left Nephrostomy tube draining yellow urine. 250 cc
output this shift. Dressing clean dry intact. 1:1 maintained for pt safety as she is attempting to pull out IV lines. Out of bed in chair at present .
[2024-08-10 21:34] LABS: Glucose - Point of Care 301 mg/dl (70-99)
[2024-08-10 23:48] VITALS: BP 124/80
[2024-08-11] MEDS: HALDOL 1 MG IV (02:08)
[2024-08-11] MEDS: FLAGYL 500 MG 100 IV ×3 (03:16→17:18)
[2024-08-11 06:00] VITALS: BMI 23.4
[2024-08-11] MEDS: SYNTHROID PO (06:35)
[2024-08-11 07:00] VITALS: BP 131/76
[2024-08-11 07:49] LABS: Glucose - Point of Care 153 mg/dl (70-99)
[2024-08-11] MEDS: ROCEPHIN 1000 MG IV (09:17)
[2024-08-11] MEDS: STERILE WATER FOR INJECTION 10 ML IV (09:17)
[2024-08-11] MEDS: NOVOLOG FLEXPEN-LOW RESISTANCE 1 UNITS SC ×2 (09:20→12:31)
--- NOTE | 2024-08-11 09:45 | PTCARENOTE ---
Patient refusing bloodwork this am, attempts x 3. Hospitalist aware. Will attempt when daughter is present.
[2024-08-11] MEDS: FEOSOL PO (11:31)
[2024-08-11] MEDS: COLACE PO ×2 (11:31→19:49)
[2024-08-11] MEDS: GLUCOTROL XL (EXTENDED RELEASE) PO (11:31)
[2024-08-11 11:32] LABS: Glucose - Point of Care 184 mg/dl (70-99)
[2024-08-11] MEDS: SODIUM BICARBONATE PO (11:32)
[2024-08-11] MEDS: MAG-TAB SR PO (11:32)
[2024-08-11] MEDS: HEPARIN SC (11:32)
[2024-08-11] MEDS: NOLVADEX PO (11:32)
[2024-08-11] MEDS: LOW STRENGTH ASPIRIN PO (11:32)
[2024-08-11] MEDS: MEGACE PO (11:32)
[2024-08-11] MEDS: THERAGRAN PO (11:33)
[2024-08-11] MEDS: VITAMIN B-6 PO (11:33)
[2024-08-11] MEDS: TOPROL XL PO (11:33)
[2024-08-11] MEDS: NOLVADEX 20 MG PO ×2 (12:29→19:42)
[2024-08-11] MEDS: GLUCOTROL XL (EXTENDED RELEASE) 2.5 MG PO ×2 (12:35→17:18)
[2024-08-11] MEDS: TOPROL XL 50 MG PO (12:36)
[2024-08-11 12:42] LABS: Blood Urea Nitrogen 36 mg/dl (7-17); Calcium 8.6 mg/dl (8.4-10.2); Carbon Dioxide 19 mmol/L (22-30); Chloride 108 mmol/L (98-107); Estimated Creatinine Clearance 17 ml/min; Glucose 175 mg/dl (70-99); Potassium 4.8 mmol/L (3.5-5.1); Sodium 137 mmol/L (135-145); eGFR 20.55
--- NOTE | 2024-08-11 12:53 | W.PN.HOSP.TC ---
Addendum entered and electronically signed by Enrrique Varma MD 08/11/24 14:29:
Patient with complaint of momentary shortness of breath. Patient with complaints of movement earlier shortness of breath. Patient in chair currently comfortable. On room air. EKG was done earlier with normal sinus rhythm ventricular rate stable.
Patient not requiring oxygen. Patient not tachypneic. Patient not using abdominal muscles. Patient with decreased breath sounds on right side of the lungs. Discussed with patient daughter at bedside once again that patient has pleural effusion
noted on the CT abdomen pelvis and she probably will require thoracentesis. Daughter not convinced and wants to get a repeat ultrasound. If with increasing fluid accumulation and plan for IR right thoracentesis. Daughter continues to that she
wants to discuss further with nephrology in regards for creatinine. Per daughter patient was on 40 mg of Lasix at home. With elevated proBNP and cardiomyopathy probably will need to be started on diuretics. They discussed with patient daughter
that patient with multi organ failure with significant cardiomyopathy, elevated creatinine, stage IV cancer should consider changing CODE STATUS. Once again patient reiterated she wants everything to be done. Unclear if patient daughter truly
understand the severity of patient condition at times.
Original Note:
Today's Communication/Plan
-
trend cr
monitor nephrostomy tube output
Zyprexa as needed
nephro recs
Assessment / Plan
Assessment / Plan
'73 y/o with ovarian ca diagnosed 5 years ago , now metastatic status post hysterectomy and radiation who is currently on salvage chemo now. She has a history of ureteral obstruction and has right ureteral stent and left nephrostomy tube. All her
care has been at [facility] for urology and she goes to [facility] for cancer treatment.. Reportedly she was admitted at [facility] , Daughter states that nephrostomy tube exchange was attempted but was not possible and was discharged and she
still had a leak. She has a ureteral stent . Discharged Thursday from [facility]. She was seen at [facility] yesterday and the leak was noted and they wanted her to be admitted to [facility]. Daughter refused admission there because it
was too far. History is very hard to be obtained as patient cannot give me any history if she cannot communicate even with language line. Daughter also is not a great historian . She came to [facility] for a second opinion for the
nephrostomy tube.
Daughter states that mother does not have dementia and she had an MRI done at [place].'

CT scan-moderate right pleural effusion. Parenchymal airspace density both lower lungs atelectasis/pneumonia with scarring
Minimal pericardial effusion moderate to severe left pelvicalyceal and ureteral dilatation with evidence of an obstructing mass in the left ureterovesical junction likely neoplastic
Right ureteral stent is present mild right pelvicalyceal dilatation without ureteral dilatation. Mild to moderate atrophy of the right renal parenchyma. Mass arising in the region of the medial right rectus muscle extending anteriorly to the
abdomen enlarged periaortic and interaortocaval lymph nodes likely neoplastic lymphadenopathy
ECHO- Normal left ventricular size with moderately reduced systolic function. LVEF 30-35%. Global hypokinesis.Stage II diastolic dysfunction suggestive of abnormal relaxation and increased filling pressures.Normal right ventricular size and
systolic function.Moderate mitral regurgitation.Mild tricuspid regurgitation. PASP 41 mmHg.

# TME
Suspect there is also cognitive dysfunction which is undiagnosed
Daughter states that mother does not have dementia. She is confused and cannot use language line when ever I tried. .
Today daughter said that she got a call yesterday saying that patient had a stroke last week on an MRI. No metastasis to the brain. But [facility] MRI brain shows mets on the report.
08/06/2024-Head CT-no acute intracranial abnormality. Mild periventricular small vessel disease. Mild atrophy. Small nonacute right cerebellar infarct.
Will start patient on IM Zyprexa as needed agitation. Daughter agreed.
# Possible JOSÉ on CKD vs. CKD
Metabolic acidosis
Downtrended to 2.4.
Lasix has been held as bump in creatinine noted
Patient had a creatinine of 2.5 on 04/28.
Continue with p.o. bicarbonate
Possible could be from recent injury due to removal of nephrostomy tube.
With continued improvement hopefully creatinine plateaus and likely will be her new baseline
Patient creatinine was 2.3 on admission
If with bump in creatinine then may require repeat imaging. Not clear/sure if patient will require ureteral stent exchange and or even a candidate wtih advanced disease process.
Cont with po bicarb
# Nephrostomy tube leak on the left side
Interventional radiology replaced left nephrostomy tube 08/05/2024
Patient pulled it out on 08/07/2024
IR Replaced 08/07/24
Pt has pulled nephrostomy tube out from [facility] records
Abdominal binder and also Restraints if needed. sitter at bedside.
Follows with [facility] urology.
# Shortness of breath-pleural effusion on the right side.
Daughter aware that she may benefit from thoracentesis. Benefits and risks discussed.
Consulted IR but daughter refused Thoracentesis
Possible that this is malignant effusion
# Acute on Chronic HFREF
[facility]- Echo 06/28/2024-dilated left ventricle with moderate to severely decreased systolic function. Ejection fraction 30 to 35%. Normal RV size and function. Mild to moderate MR. Mild TR. No pulmonary hypertension.
creatinine is up today. Therefore hold further Lasix
Cardiology recommended starting on aspirin and metoprolol. Per cardiology patient is not a candidate for any further intervention.
Patient cannot be on LACI/ARB/Aldactone or Arni because of elevated creatinine.
With nephrostomy tube do not want to start her on SGLT2 inhibitors either.
# Haily albicans on the urine culture results. Likely colonization due to chronic nephrostomy tube.
# Elevated troponin-likely nonischemic myocardial injury.
Cardiology consulted
# Pneumonia- Treating as Aspiration PNA- IV ceftriaxone and Flagyl can switch to p.o. on discharge.
# Metastatic ovarian cancer stage IV-undergoing treatment with [facility] Dr. Dick.
Was on RTx with ( Med ONc ) and ( RO)
Continue tamoxifen
#Dysphagia
Diet downgraded to soft and minced diet with thick liquids
Video swallow recommended minced and moist diet okay for thin liquids
# Hyponatremia-resolved
# Hyperkalemia- Lokelma
# Anemia-likely secondary to malignancy
# Hypertension-amlodipine on hold. Continue metoprolol
# Hypothyroidism-continue Synthroid 125 micrograms daily
# Mklcrqqm-Hnic-Qpqks and sliding scale coverage. Glipizide ordered. Sugars slightly high but she will benefit from regular diet. Increase glipizide if needed
# CVA per daughter on an MRI from last week- ASA ( [facility] records say mets). Per my discussion with [place] they are not sure whether this is stroke or metastasis and patient should repeat MRI.
# At least moderate protein calorie malnutrition-Megace. Per patient daughter patient with good appetite
# DVT prophylaxis-subcutaneous heparin
# Full code-I had a detailed discussion with the patient's daughter regarding her stage IV cancer and if she would consider DNR. Daughter stated that she wants mom to be 'full code.'
08/08/23 -When asked why she was seen at [facility] daughter said that 'we can go to wherever we want. Abdirahman did not have the treatment would be needed therefore we went to [facility]. When I asked if Abdirahman discussed anything
about hospice she got upset. She stated that 'you can put everybody on hospice you can put your parents on hospice. We want her treated.' She also stated that 'you cannot put everybody on hospice the second day after they get sick' I discussed
that as well as I could gather from the notes she was diagnosed with cancer in 2019.
I also offered for her to be transferred to [facility] where she is known daughter is refusing because they made a 'mistake'. They put a U-shaped nephrostomy tube which she should not be having.
I also offered [facility] but states that is too far.
Daughter told me that Abdirahman told her she does not have brain metastasis.
She says to just fix creatinine and give her Lasix and let her go home.
She is also planned for 6 radiation.
From what I can see she pulled out nephrostomy tube twice at [place] and once here. I reviewed this with daughter. She said that yes that is because she is restrained. I reminded that this can happen again.
Spoke to Abdirahman - See separate update note from 08/09/24
Called [facility] [place] left a message for . NO call back
From my experience prognosis appears to be poor given age stage 4 cancer, Her cognition, inconsistent p.o. intake, pulling out nephrostomy tube multiple times, chronic kidney disease, ejection fraction 35%.
Palliative care consulted-daughter not interested in hospice and plan remains for restorative goals.
Discussed with patient at bedside in details on 08/10/2024 and again on 08/11/2024.
Anticipated Discharge: 24 - 48 hours
Subjective/Interval History
-
Date of Service: August 11, 2024
Overnight events noted
Patient was fairly agitated and received Haldol
This morning patient refused medications
Agreed for blood work once daughter visited
Objective Data
-
Labs:
Laboratory Results
08/11/24
12:14
Sodium 137
Potassium 4.8
Chloride 108 H
Carbon Dioxide 19 L
BUN 36 H
Creatinine 2.4 H
Glucose 175 H
Calcium 8.6
Vital Signs:
Vital Signs
Temp Pulse Resp BP Pulse Ox
97.8 F 97 20 131/76 96
08/11/24 07:00 08/11/24 07:00 08/11/24 07:00 08/11/24 07:00 08/11/24 07:00
I&O
08/10/24 08/11/24 08/12/24
06:59 06:59 06:59
Intake Total 920 / 920 1060 / 1060 480 / 480
Output Total 525 / 525 1050 / 1050 250 / 250
Balance 395 / 395 10 / 10 230 / 230
Physical Exam
-
General: Appears Chronically Ill
HEENT: Normocephalic, Atraumatic and Moist Mucous Membranes
Respiratory: Clear to Auscultation
Cardiac: Regular Rhythm and S1/S2; Negative Murmur, Rub or Gallop
GI: Soft, Nontender, Nondistended and Normal Bowel Sounds; Negative Organomegaly
Rectal: Deferred by Provider
Genito-urinary: Other (Left nephrostomy tube-in place, abdominal binder noted.)
Musculoskeletal: No Clubbing, No Cyanosis and No Edema
Skin: Negative Rash
Neuro: Awake and Nonfocal/Grossly Intact
Psych: Confused and Anxious
[2024-08-11] MEDS: TYLENOL 650 MG PO ×3 (13:22→21:59)
[2024-08-11] MEDS: DUONEB 3 ML INH (13:30)
--- NOTE | 2024-08-11 14:17 | CM ---
Chart reviewed for d/c planning. Per chart, pt plan is to d/c home w/ daughter when stable. Pt is current w/ H[employer]PERATOR through [facility].
Pt's daughter awaiting hospital bed from [facility]. CM attempted call to daughter to confirm if bed has been delivered yet, left message.
Daughter's house address
[address] [place] [address]
[place].
[facility] Non Skilled
[phone]

Plan: Home to daughter's house when stable, and private duty caregivers from [facility] Non long term
--- NOTE | 2024-08-11 14:41 | PTCARENOTE ---
Patient c/o chest pressure - hospitalist present. EKG done , pulse ox room air 100%. Hospitalist spoke with daughter at length. Patient continues to yell out intermittently for her daughter who is present .
[2024-08-11 15:00] VITALS: BP 137/80
[2024-08-11] MEDS: HEPARIN 5000 UNITS SC ×2 (15:17→23:45)
[2024-08-11] MEDS: SODIUM BICARBONATE 650 MG PO ×2 (15:18→21:58)
--- NOTE | 2024-08-11 16:17 | W.PN.NEPH.PH ---
Today's Communication / Plan
-
resume lasix, need to find home dose
Assessment/Plan
-
Impression:
JOSÉ ?
CKD (1.7) but 2.5 as of 07/2024 [place] lab review
Left Percutaneous Nephrostomy Tube malfunction with suboptimal positioning (changed on 08/04/24), patient pulled it out 08/07/24
Right Ureteral Stent in proper place
Metastatic ovarian cancer (stage IV) status post hysterectomy and radiation currently on salvage chemotherapy
Neoplastic right medial abdominal rectus mass
Anemia
Hypertension
TME
PNA
Chest pain with troponin elevation
Right pleural effusion (patient refused thoracentesis)
Cardiomyopathy with ejection fraction of 30%
Plan:
JOSÉ:
-creatinine down to 2.4 close her baseline I believe
UOP improving from left PCN
given sob-ok to resume lasix(do not know dose hence start at 20mg) in am per daughter request
daughter also wants right U stent exchange -defer to
personally do not think she can tolerate procedure at this time
Hemodynamically stable
Maintain oral sodium bicarbonate in setting of metabolic acidosis
-Remains on ceftriaxone for possible UTI
-Patient would not be suitable dialysis candidate given end-stage malignancy
Pt with end stage cancer and multiple medical issues who is also very frail-hospice appropriate but family not ready
-
-
Date of Service: August 11, 2024
CC / HPI / ROS
-
Chief Complaint:
JOSÉ
History of Present Illness:
Hemodynamically stable
Creatinine better at 2.4
Bicarb better at 19 on oral bicarbonate-dose increased
hb stable at 9
Review of Systems:
Left nephrostomy tube draining well
Weights up not sure if accurate
c/o chest discomfort, EKG reportedly was fine
also c/o sob
no fever
Labs
-
Labs:
WBC 9.2 10^3/uL (4.8-10.8) 08/06/24 21:45
RBC 3.17 10^6/uL (4.20-5.40) L 08/06/24 21:45
Hgb 9.0 g/dL (12.0-16.0) L 08/06/24 21:45
Hct 28.6 % (37.0-47.0) L 08/06/24 21:45
Plt Count 200 10^3/uL (130-400) 08/06/24 21:45
Sodium 137 mmol/L (135-145) 08/11/24 12:14
Potassium 4.8 mmol/L (3.5-5.1) 08/11/24 12:14
Chloride 108 mmol/L (98-107) H 08/11/24 12:14
Carbon Dioxide 19 mmol/L (22-30) L 08/11/24 12:14
BUN 36 mg/dl (7-17) H 08/11/24 12:14
Creatinine 2.4 mg/dL (0.6-1.0) H 08/11/24 12:14
eGFR 20.55 08/11/24 12:14
Glucose 175 mg/dl (70-99) H 08/11/24 12:14
Calcium 8.6 mg/dl (8.4-10.2) 08/11/24 12:14
Azs-S-Ugawtyevoab Pept > 36412 pg/ml 08/07/24 04:57
Albumin 3.1 g/dl (3.5-5.0) L 08/04/24 20:10
Physical Exam
-
Vital Signs:
Vital Signs
Temp Pulse Resp BP Pulse Ox
98.1 F 103 20 137/80 99
08/11/24 15:00 08/11/24 15:00 08/11/24 15:00 08/11/24 15:00 08/11/24 15:00
Cardiovascular:: Regular rate and rhythm
Lung Excursion:: Abnormal (decreased insp effort)
Abdomen:: Nontender
Bowel Sounds:: Normal
Extremity Edema:: None: Bilateral:
Peoples Catheter: No
Other Findings::
left PCN
[2024-08-11 17:15] LABS: Glucose - Point of Care 290 mg/dl (70-99)
[2024-08-11] MEDS: NOVOLOG FLEXPEN-LOW RESISTANCE 3 UNITS SC (17:18)
[2024-08-11] MEDS: MEGACE 80 MG PO (19:42)
[2024-08-11 21:24] LABS: Glucose - Point of Care 203 mg/dl (70-99)
[2024-08-11 23:00] VITALS: BP 136/83
[2024-08-11] MEDS: ZYPREXA 5 MG IM (23:33)
[2024-08-11] MEDS: STERILE WATER FOR INJECTION 2.1 ML IM (23:35)
[2024-08-12] MEDS: FLAGYL 500 MG 100 IV ×3 (02:03→17:04)
[2024-08-12] MEDS: ZYPREXA 5 MG IM (03:34)
[2024-08-12] MEDS: STERILE WATER FOR INJECTION 2.1 ML IM (03:35)
[2024-08-12 06:00] VITALS: BMI 23.8
[2024-08-12] MEDS: SYNTHROID 125 MCG PO (06:39)
[2024-08-12 07:21] VITALS: BP 123/72
[2024-08-12 07:42] LABS: Glucose - Point of Care 133 mg/dl (70-99)
[2024-08-12] MEDS: NOVOLOG FLEXPEN-LOW RESISTANCE SC ×3 (07:48→17:05)
[2024-08-12] MEDS: TOPROL XL 50 MG PO (08:49)
[2024-08-12] MEDS: COLACE 100 MG PO (08:49)
[2024-08-12] MEDS: VITAMIN B-6 100 MG PO (08:50)
[2024-08-12] MEDS: THERAGRAN 1 TABLET PO (08:51)
[2024-08-12] MEDS: LASIX 20 MG PO (08:51)
[2024-08-12] MEDS: GLUCOTROL XL (EXTENDED RELEASE) 2.5 MG PO ×2 (08:51→17:03)
[2024-08-12] MEDS: MAG-TAB SR 84 MG PO (08:51)
[2024-08-12] MEDS: MEGACE 80 MG PO (08:52)
[2024-08-12] MEDS: FEOSOL 325 MG PO (08:52)
[2024-08-12] MEDS: HEPARIN SC (08:52)
[2024-08-12] MEDS: LOW STRENGTH ASPIRIN 81 MG PO (08:52)
[2024-08-12] MEDS: NOLVADEX 20 MG PO (08:53)
[2024-08-12] MEDS: SODIUM BICARBONATE 650 MG PO ×2 (08:53→17:03)
[2024-08-12] MEDS: STERILE WATER FOR INJECTION 10 ML IV (08:54)
[2024-08-12] MEDS: ROCEPHIN 1000 MG IV (08:54)
--- NOTE | 2024-08-12 10:11 | W.PN.NEPH.PH ---
Today's Communication / Plan
-
Creatinine is stable towards baseline we will sign off
Assessment/Plan
-
Impression:
JOSÉ ?
CKD (1.7) but 2.5 as of 07/2024 [place] lab review
Left Percutaneous Nephrostomy Tube malfunction with suboptimal positioning (changed on 08/04/24), patient pulled it out 08/07/24
Right Ureteral Stent in proper place
Metastatic ovarian cancer (stage IV) status post hysterectomy and radiation currently on salvage chemotherapy
Neoplastic right medial abdominal rectus mass
Anemia
Hypertension
TME
PNA
Chest pain with troponin elevation
Right pleural effusion (patient refused thoracentesis)
Cardiomyopathy with ejection fraction of 30%
Plan:
JOSÉ:
-creatinine down to 2.4 close her baseline I believe
UOP improving from left PCN
given sob-ok to resume lasix(do not know dose hence start at 20mg) in am per daughter request
Hemodynamically stable
Maintain oral sodium bicarbonate in setting of metabolic acidosis
-Remains on ceftriaxone for possible UTI
-Patient would not be suitable dialysis candidate given end-stage malignancy
Pt with end stage cancer and multiple medical issues who is also very frail-hospice appropriate but family not ready
We will sign off
-
-
Date of Service: August 12, 2024
CC / HPI / ROS
-
Chief Complaint:
JOSÉ
History of Present Illness:
Hemodynamically stable
Creatinine better at 2.4
Bicarb better at 19 on oral bicarbonate-dose increased
hb stable at 9
Remains on Lasix 20 mg to
Review of Systems:
Left nephrostomy tube draining well , nonoliguric
Weights up not sure if accurate
c/o chest discomfort, EKG reportedly was fine
also c/o sob
no fever
Labs
-
Labs:
WBC 9.2 10^3/uL (4.8-10.8) 08/06/24 21:45
RBC 3.17 10^6/uL (4.20-5.40) L 08/06/24 21:45
Hgb 9.0 g/dL (12.0-16.0) L 08/06/24 21:45
Hct 28.6 % (37.0-47.0) L 08/06/24 21:45
Plt Count 200 10^3/uL (130-400) 08/06/24 21:45
eGFR 20.55 08/11/24 12:14
Zzd-R-Balhqcnydqu Pept > 42617 pg/ml 08/07/24 04:57
Albumin 3.1 g/dl (3.5-5.0) L 08/04/24 20:10
Physical Exam
-
Vital Signs:
Vital Signs
Temp Pulse Resp BP Pulse Ox
98.9 F 83 24 123/72 94
08/12/24 07:21 08/12/24 07:21 08/12/24 07:21 08/12/24 08:49 08/12/24 07:21
Cardiovascular:: Regular rate and rhythm
Lung Excursion:: Abnormal (decreased insp effort)
Abdomen:: Nontender
Bowel Sounds:: Normal
Extremity Edema:: None: Bilateral:
Peoples Catheter: No
Other Findings::
left PCN
--- NOTE | 2024-08-12 11:54 | W.PN.HOSP.TC ---
Addendum entered and electronically signed by Enrrique Varma MD 08/15/24 09:17:
off note- on 08/12/24 d/w with urologist environmental compliance specialist Dr. Ewing.
Original Note:
Today's Communication/Plan
-
Case management for DME
DC Zyprexa
Monitor mentation
Thoracentesis once more awake and if daughter agreeable
Home once more awake
Assessment / Plan
Assessment / Plan
'73 y/o with ovarian ca diagnosed 5 years ago , now metastatic status post hysterectomy and radiation who is currently on salvage chemo now. She has a history of ureteral obstruction and has right ureteral stent and left nephrostomy tube. All her
care has been at [facility] for urology and she goes to [facility] for cancer treatment.. Reportedly she was admitted at [facility] , Daughter states that nephrostomy tube exchange was attempted but was not possible and was discharged and she
still had a leak. She has a ureteral stent . Discharged Thursday from [facility]. She was seen at [facility] yesterday and the leak was noted and they wanted her to be admitted to [facility]. Daughter refused admission there because it
was too far. History is very hard to be obtained as patient cannot give me any history if she cannot communicate even with language line. Daughter also is not a great historian . She came to [facility] for a second opinion for the
nephrostomy tube.
Daughter states that mother does not have dementia and she had an MRI done at [facility].'

CT scan-moderate right pleural effusion. Parenchymal airspace density both lower lungs atelectasis/pneumonia with scarring
Minimal pericardial effusion moderate to severe left pelvicalyceal and ureteral dilatation with evidence of an obstructing mass in the left ureterovesical junction likely neoplastic
Right ureteral stent is present mild right pelvicalyceal dilatation without ureteral dilatation. Mild to moderate atrophy of the right renal parenchyma. Mass arising in the region of the medial right rectus muscle extending anteriorly to the
abdomen enlarged periaortic and interaortocaval lymph nodes likely neoplastic lymphadenopathy
ECHO- Normal left ventricular size with moderately reduced systolic function. LVEF 30-35%. Global hypokinesis.Stage II diastolic dysfunction suggestive of abnormal relaxation and increased filling pressures.Normal right ventricular size and
systolic function.Moderate mitral regurgitation.Mild tricuspid regurgitation. PASP 41 mmHg.

# TME
Suspect there is also cognitive dysfunction which is undiagnosed
Daughter states that mother does not have dementia. She is confused and cannot use language line when ever I tried. .
Today daughter said that she got a call yesterday saying that patient had a stroke last week on an MRI. No metastasis to the brain. But [facility] MRI brain shows mets on the report.
08/06/2024-Head CT-no acute intracranial abnormality. Mild periventricular small vessel disease. Mild atrophy. Small nonacute right cerebellar infarct.
with significant lethargy due to meds-will dc zyprexa for now
# Possible JOSÉ on CKD vs. CKD
Metabolic acidosis
Downtrended to 2.4.
Lasix has been held as bump in creatinine noted
Patient had a creatinine of 2.5 on 04/28.
Continue with p.o. bicarbonate
Possible could be from recent injury due to removal of nephrostomy tube.
With continued improvement hopefully creatinine plateaus and likely will be her new baseline
Patient creatinine was 2.3 on admission
Cont with po bicarb
Nephrology signed off. Per nephrology patient cr likely at baseline.
# Nephrostomy tube leak on the left side
Interventional radiology replaced left nephrostomy tube 08/05/2024
Patient pulled it out on 08/07/2024
IR Replaced 08/07/24
Pt has pulled nephrostomy tube out from [facility] records
Abdominal binder and also Restraints if needed. sitter at bedside.
Follows with [facility] urology.
Discussed with urologist as family requesting urteral stent exchange as she is due for it per family. However, per urologist here recommending to follow-up with her primary urologist as there is no acute need for stent exchange and the CAT scan
showed right ureteral stent in proper place.
# Shortness of breath-pleural effusion on the right side.
Daughter aware that she may benefit from thoracentesis. Benefits and risks discussed.
Consulted IR but daughter refused Thoracentesis
Possible that this is malignant effusion
Ultrasound with persistent right pleural effusion which could be amenable to thoracentesis. consider procedure once patient more awake and if daughter agreeable. Hold for today as patient lethargy due to overnight events.
# Acute on Chronic HFREF
[facility]- Echo 06/28/2024-dilated left ventricle with moderate to severely decreased systolic function. Ejection fraction 30 to 35%. Normal RV size and function. Mild to moderate MR. Mild TR. No pulmonary hypertension.
Cardiology recommended starting on aspirin and metoprolol. Per cardiology patient is not a candidate for any further intervention.
Patient cannot be on LACI/ARB/Aldactone or Arni because of elevated creatinine.
With nephrostomy tube do not want to start her on SGLT2 inhibitors either.
Patient started on 20 mg of p.o. Lasix per nephrology.
# Haily albicans on the urine culture results. Likely colonization due to chronic nephrostomy tube.
# Elevated troponin-likely nonischemic myocardial injury.
Cardiology consulted
# Pneumonia- Treating as Aspiration PNA- IV ceftriaxone and Flagyl can switch to p.o. on discharge.
# Metastatic ovarian cancer stage IV-undergoing treatment with [facility] Dr. Dick.
Was on RTx with ( Med ONc ) and ( RO)
Continue tamoxifen
#Dysphagia
Diet downgraded to soft and minced diet with thick liquids
Video swallow recommended minced and moist diet okay for thin liquids
# Hyponatremia-resolved
# Hyperkalemia- Lokelma
# Anemia-likely secondary to malignancy
# Hypertension-amlodipine on hold. Continue metoprolol
# Hypothyroidism-continue Synthroid 125 micrograms daily
# Marfjglc-Slkd-Yrlic and sliding scale coverage. Glipizide ordered. Sugars slightly high but she will benefit from regular diet. Increase glipizide if needed
# CVA per daughter on an MRI from last week- ASA ( [facility] records say mets). Per my discussion with Abdirahman they are not sure whether this is stroke or metastasis and patient should repeat MRI.
# At least moderate protein calorie malnutrition-Megace. Per patient daughter patient with good appetite
# DVT prophylaxis-subcutaneous heparin
# Full code-I had a detailed discussion with the patient's daughter regarding her stage IV cancer and if she would consider DNR. Daughter stated that she wants mom to be 'full code.'
08/08/23 -When asked why she was seen at [facility] daughter said that 'we can go to wherever we want. Abdirahman did not have the treatment would be needed therefore we went to [facility]. When I asked if Abdirahman discussed anything
about hospice she got upset. She stated that 'you can put everybody on hospice you can put your parents on hospice. We want her treated.' She also stated that 'you cannot put everybody on hospice the second day after they get sick' I discussed
that as well as I could gather from the notes she was diagnosed with cancer in 2019.
I also offered for her to be transferred to [facility] where she is known daughter is refusing because they made a 'mistake'. They put a U-shaped nephrostomy tube which she should not be having.
I also offered [facility] but states that is too far.
Daughter told me that Abdirahman told her she does not have brain metastasis.
She says to just fix creatinine and give her Lasix and let her go home.
She is also planned for 6 radiation.
From what I can see she pulled out nephrostomy tube twice at [facility] and once here. I reviewed this with daughter. She said that yes that is because she is restrained. I reminded that this can happen again.
Spoke to Abdirahman - See separate update note from 08/09/24
Called Jae Tam left a message for . NO call back
From my experience prognosis appears to be poor given age stage 4 cancer, Her cognition, inconsistent p.o. intake, pulling out nephrostomy tube multiple times, chronic kidney disease, ejection fraction 35%.
Palliative care consulted-daughter not interested in hospice and plan remains for restorative goals.
Discussed with daughter once again regarding changing patient CODE STATUS. Daughter refused.
Discussed with patient at bedside in details on 08/10/2024 and again on 08/11/2024 and 08/12/24 .
Anticipated Discharge: 24 - 48 hours
Subjective/Interval History
-
Date of Service: August 12, 2024
Overnight with agitation and require zyprexa
this am patient more sleepy and lethargic
Objective Data
-
Labs:
Laboratory Results
08/12/24
06:00
Sodium Pending
Potassium Pending
Chloride Pending
Carbon Dioxide Pending
BUN Pending
Creatinine Pending
Glucose Pending
Calcium Pending
Vital Signs:
Vital Signs
Temp Pulse Resp BP Pulse Ox
98.9 F 83 24 123/72 94
08/12/24 07:21 08/12/24 07:21 08/12/24 07:21 08/12/24 08:49 08/12/24 07:21
I&O
08/11/24 08/12/24 08/13/24
06:59 06:59 06:59
Intake Total 1060 / 1060 1060 / 1060
Output Total 1050 / 1050 1300 / 1300
Balance 10 / 10 -240 / -240
Physical Exam
-
General: Appears Chronically Ill and Other (sleepy/lethargic )
HEENT: Normocephalic and Atraumatic
Respiratory: Clear to Auscultation
Cardiac: Regular Rhythm and S1/S2; Negative Murmur, Rub or Gallop
GI: Soft, Nontender, Nondistended and Normal Bowel Sounds; Negative Organomegaly
Rectal: Deferred by Provider
Genito-urinary: Other (Left nephrostomy tube-in place, abdominal binder noted.)
Musculoskeletal: No Clubbing, No Cyanosis and No Edema
Skin: Negative Rash
Psych: Confused
Data Reviewed
-
Total Time Spent with Patient (in minutes): 55
[2024-08-12 12:26] LABS: Glucose - Point of Care 144 mg/dl (70-99)
[2024-08-12] MEDS: DUONEB 3 ML INH (12:34)
--- NOTE | 2024-08-12 15:11 | W.PN.UPDATE ---
Update Note
Progress Note Update
Patient is in need of a semi-electric hospital bed with foam mattress due to the need to elevate head of bed above 30 degrees to prevent aspiration
and to facilitate frequent repositioning to prevent bed ulcers and pressure points.
--- NOTE | 2024-08-12 15:16 | CM ---
Addendum entered by Jaleesa Conrad 08/12/24 15:36:
Marjorie at [email or web address]
[phone]

Original Note:
regional ehs manager reviewed patient's chart and met with patient and spoke with patient's daughter by phone, and still no hospital bed from [facility], registered nurse hh case manager will proceed with obtaining a hospital bed for patient and reach out to [facility] and faxed
patient information.
Plan; Home with daughter to her house when stable.
need to set up hospital bed, waiting on documentation from physician.
Daughter's house address
[address] [place] [address]
[place].
[facility] Non Skilled
[phone]
[2024-08-12 16:11] VITALS: BP 117/66
[2024-08-12] MEDS: HEPARIN 5000 UNITS SC ×2 (17:04→23:02)
[2024-08-12 17:19] LABS: Glucose - Point of Care 170 mg/dl (70-99)
[2024-08-12] MEDS: NOLVADEX PO ×2 (21:56→22:24)
[2024-08-12] MEDS: SODIUM BICARBONATE PO ×2 (21:56→22:24)
[2024-08-12] MEDS: TYLENOL PO (21:56)
[2024-08-12] MEDS: COLACE PO (21:57)
[2024-08-12] MEDS: MEGACE PO ×2 (21:57→22:24)
[2024-08-12 22:01] LABS: Glucose - Point of Care 190 mg/dl (70-99)
[2024-08-12 23:01] VITALS: BP 146/72
[2024-08-13] MEDS: FLAGYL 500 MG 100 IV ×3 (01:17→15:59)
[2024-08-13 06:00] VITALS: BMI 23.5
[2024-08-13] MEDS: SYNTHROID PO (06:21)
[2024-08-13 07:00] VITALS: BP 129/78
[2024-08-13 07:30] LABS: Blood Urea Nitrogen 26 mg/dl (7-17); Calcium 8.8 mg/dl (8.4-10.2); Carbon Dioxide 21 mmol/L (22-30); Chloride 108 mmol/L (98-107); Estimated Creatinine Clearance 19 ml/min; Glucose 104 mg/dl (70-99); Potassium 4.2 mmol/L (3.5-5.1); Sodium 137 mmol/L (135-145); eGFR 24.12
[2024-08-13 07:41] LABS: Glucose - Point of Care 105 mg/dl (70-99)
[2024-08-13] MEDS: ROCEPHIN 1000 MG IV (08:16)
[2024-08-13] MEDS: STERILE WATER FOR INJECTION 10 ML IV (08:16)
[2024-08-13] MEDS: NOVOLOG FLEXPEN-LOW RESISTANCE SC ×2 (08:27→15:14)
[2024-08-13] MEDS: MEGACE 80 MG PO ×2 (10:00→19:30)
[2024-08-13] MEDS: NOLVADEX 20 MG PO ×2 (10:17→19:31)
[2024-08-13] MEDS: SODIUM BICARBONATE 650 MG PO ×3 (10:18→21:27)
[2024-08-13] MEDS: TOPROL XL 50 MG PO (10:18)
[2024-08-13] MEDS: HEPARIN 5000 UNITS SC ×2 (10:18→15:58)
[2024-08-13] MEDS: GLUCOTROL XL (EXTENDED RELEASE) 2.5 MG PO ×2 (10:19→15:59)
[2024-08-13] MEDS: COLACE 100 MG PO (10:19)
[2024-08-13] MEDS: MAG-TAB SR 84 MG PO (10:19)
[2024-08-13] MEDS: FEOSOL 325 MG PO (10:19)
[2024-08-13] MEDS: LASIX 20 MG PO (10:22)
[2024-08-13] MEDS: THERAGRAN PO (10:23)
[2024-08-13] MEDS: VITAMIN B-6 PO (10:23)
[2024-08-13] MEDS: LOW STRENGTH ASPIRIN 81 MG PO (10:23)
[2024-08-13 15:15] VITALS: BP 134/80
[2024-08-13 16:42] LABS: Glucose - Point of Care 155 mg/dl (70-99)
--- NOTE | 2024-08-13 16:58 | W.PN.HOSP.TC ---
Today's Communication/Plan
-
Discussed with the daughter in detail
Discussed with the nurse and director case
Assessment / Plan
Assessment / Plan
'73 y/o with ovarian ca diagnosed 5 years ago , now metastatic status post hysterectomy and radiation who is currently on salvage chemo now. She has a history of ureteral obstruction and has right ureteral stent and left nephrostomy tube. All her
care has been at [facility] for urology and she goes to [facility] for cancer treatment.. Reportedly she was admitted at [facility] , Daughter states that nephrostomy tube exchange was attempted but was not possible and was discharged and she
still had a leak. She has a ureteral stent . Discharged Thursday from [facility]. She was seen at [facility] yesterday and the leak was noted and they wanted her to be admitted to [facility]. Daughter refused admission there because it
was too far. History is very hard to be obtained as patient cannot give me any history if she cannot communicate even with language line. Daughter also is not a great historian . She came to [facility] for a second opinion for the
nephrostomy tube.
Daughter states that mother does not have dementia and she had an MRI done at [facility].'

CT scan-moderate right pleural effusion. Parenchymal airspace density both lower lungs atelectasis/pneumonia with scarring
Minimal pericardial effusion moderate to severe left pelvicalyceal and ureteral dilatation with evidence of an obstructing mass in the left ureterovesical junction likely neoplastic
Right ureteral stent is present mild right pelvicalyceal dilatation without ureteral dilatation. Mild to moderate atrophy of the right renal parenchyma. Mass arising in the region of the medial right rectus muscle extending anteriorly to the
abdomen enlarged periaortic and interaortocaval lymph nodes likely neoplastic lymphadenopathy
ECHO- Normal left ventricular size with moderately reduced systolic function. LVEF 30-35%. Global hypokinesis.Stage II diastolic dysfunction suggestive of abnormal relaxation and increased filling pressures.Normal right ventricular size and
systolic function.Moderate mitral regurgitation.Mild tricuspid regurgitation. PASP 41 mmHg.

# TME
Suspect there is also cognitive dysfunction which is undiagnosed
Daughter states that mother does not have dementia. She is confused and cannot use language line when ever I tried. .
Today daughter said that she got a call yesterday saying that patient had a stroke last week on an MRI. No metastasis to the brain. But [facility] MRI brain shows mets on the report. But according to the daughter here MRI read by another radiologist
actually there is no mets to the brain.
08/06/2024-Head CT-no acute intracranial abnormality. Mild periventricular small vessel disease. Mild atrophy. Small nonacute right cerebellar infarct.
More energetic and Zyprexa discontinued
# Possible JOSÉ on CKD vs. CKD
Metabolic acidosis
Downtrended to 2.4 yesterday and today is 2.1
Lasix has been held as bump in creatinine noted
Patient had a creatinine of 2.5 on 04/28.
Continue with p.o. bicarbonate
Possible could be from recent injury due to removal of nephrostomy tube.
With continued improvement hopefully creatinine plateaus and likely will be her new baseline
Patient creatinine was 2.3 on admission
Cont with po bicarb
Nephrology signed off. Per nephrology patient cr likely at baseline.
# Nephrostomy tube leak on the left side
Interventional radiology replaced left nephrostomy tube 08/05/2024
Patient pulled it out on 08/07/2024
IR Replaced 08/07/24
Pt has pulled nephrostomy tube out from [facility] records
Abdominal binder and also Restraints if needed. sitter at bedside.
Follows with [facility] urology.
Discussed with urologist by Dr. Osuna as family requesting urteral stent exchange as she is due for it per family. However, per urologist here recommending to follow-up with her primary urologist as there is no acute need for stent exchange and
the CAT scan showed right ureteral stent in proper place. Which I explained to the patient daughter in detail.
# Shortness of breath-pleural effusion on the right side.
Daughter aware that she may benefit from thoracentesis. Benefits and risks discussed.
Consulted IR but daughter refused Thoracentesis
Possible that this is malignant effusion
Ultrasound with persistent right pleural effusion which could be amenable to thoracentesis. consider procedure once patient more awake and if daughter agreeable. Hold for today as patient lethargy due to overnight events.
# Acute on Chronic HFREF
[facility]- Echo 06/28/2024-dilated left ventricle with moderate to severely decreased systolic function. Ejection fraction 30 to 35%. Normal RV size and function. Mild to moderate MR. Mild TR. No pulmonary hypertension.
Cardiology recommended starting on aspirin and metoprolol. Per cardiology patient is not a candidate for any further intervention.
Patient cannot be on LACI/ARB/Aldactone or Arni because of elevated creatinine.
With nephrostomy tube do not want to start her on SGLT2 inhibitors either.
Patient started on 20 mg of p.o. Lasix per nephrology.
# Haily albicans on the urine culture results. Likely colonization due to chronic nephrostomy tube.
# Elevated troponin-likely nonischemic myocardial injury.
Cardiology consulted
# Pneumonia- Treating as Aspiration PNA- IV ceftriaxone and Flagyl can switch to p.o. on discharge. Tomorrow is the last dose
# Metastatic ovarian cancer stage IV-undergoing treatment with [facility] Dr. Dick.
Was on RTx with ( Med ONc ) and ( RO)
Continue tamoxifen
#Dysphagia
Diet downgraded to soft and minced diet with thick liquids
Video swallow recommended minced and moist diet okay for thin liquids
# Hyponatremia-resolved
# Hyperkalemia- Lokelma
# Anemia-likely secondary to malignancy
# Hypertension-amlodipine on hold. Continue metoprolol
# Hypothyroidism-continue Synthroid 125 micrograms daily
# Spjyvzjo-Ilrl-Kbnil and sliding scale coverage. Glipizide ordered. Sugars slightly high but she will benefit from regular diet. Increase glipizide if needed
# CVA per daughter on an MRI from last week- ASA ( [facility] records say mets). Per my discussion with Abdirahman they are not sure whether this is stroke or metastasis and patient should repeat MRI.
# At least moderate protein calorie malnutrition-Megace. Per patient daughter patient with good appetite
# DVT prophylaxis-subcutaneous heparin
# Full code-I had a detailed discussion with the patient's daughter regarding her stage IV cancer and if she would consider DNR. Daughter stated that she wants mom to be 'full code.'
08/08/23 -When asked why she was seen at [facility] daughter said that 'we can go to wherever we want. Abdirahman did not have the treatment would be needed therefore we went to [facility]. When I asked if Abdirahman discussed anything
about hospice she got upset. She stated that 'you can put everybody on hospice you can put your parents on hospice. We want her treated.' She also stated that 'you cannot put everybody on hospice the second day after they get sick' I discussed
that as well as I could gather from the notes she was diagnosed with cancer in 2019.
I also offered for her to be transferred to [facility] where she is known daughter is refusing because they made a 'mistake'. They put a U-shaped nephrostomy tube which she should not be having.
I also offered [facility] but states that is too far.
Daughter told me that Abdirahman told her she does not have brain metastasis.
She says to just fix creatinine and give her Lasix and let her go home.
She is also planned for 6 radiation.
From what I can see she pulled out nephrostomy tube twice at [facility] and once here. I reviewed this with daughter. She said that yes that is because she is restrained. I reminded that this can happen again.
Spoke to Abdirahman - See separate update note from 08/09/24
Called Jae Tam left a message for . NO call back
From my experience prognosis appears to be poor given age stage 4 cancer, Her cognition, inconsistent p.o. intake, pulling out nephrostomy tube multiple times, chronic kidney disease, ejection fraction 35%.
Palliative care consulted-daughter not interested in hospice and plan remains for restorative goals.
Discussed with daughter once again regarding changing patient CODE STATUS. Daughter refused.
CODE STATUS is a full code
All discussed with the daughter in detail and expressed understanding and all the question answered
DVT prophylaxis heparin subcu
Plan to go home once more stable.
Anticipated Discharge: 24 - 48 hours
Subjective/Interval History
-
Date of Service: August 13, 2024
Seen and examined, sitting on the chair and her daughter at the bedside helping to translate patient verbalized minimum words and her daughter very family over the condition, per daughter she is more awake and alert today compared to the last couple
days she was concerned she was given some medications like Zyprexa were given.
Looks weak and lethargic.
No fever or chill.
No nausea vomiting
Daughter able to feed her slowly with her daughter is better today compared to before,
Objective Data
-
Labs:
Laboratory Results
08/13/24
06:38
Sodium 137
Potassium 4.2
Chloride 108 H
Carbon Dioxide 21 L
BUN 26 H
Creatinine 2.1 H
Glucose 104 H
Calcium 8.8
Vital Signs:
Vital Signs
Temp Pulse Resp BP Pulse Ox
98.2 F 112 13 134/80 95
08/13/24 15:15 08/13/24 15:15 08/13/24 15:15 08/13/24 15:15 08/13/24 15:15
I&O
08/12/24 08/13/24 08/14/24
07:59 07:59 07:59
Intake Total 1060 / 1060 200 / 200
Output Total 1300 / 1300 1290 / 1290 345 / 345
Balance -240 / -240 -1090 / -1090 -345 / -345
Data Reviewed
-
Medical Tests (Nuc Med, Echo etc): Report Reviewed by me
Labs: Labs Reviewed by me
Old Records: Reviewed
[2024-08-13] MEDS: NOVOLOG FLEXPEN-LOW RESISTANCE 1 UNITS SC (17:27)
[2024-08-13] MEDS: COLACE PO (19:30)
[2024-08-13] MEDS: MELATONIN 5 MG PO (19:30)
[2024-08-13] MEDS: TYLENOL 650 MG PO (19:30)
[2024-08-13] MEDS: ROBITUSSIN 100 MG PO (19:40)
[2024-08-13 21:21] LABS: Glucose - Point of Care 226 mg/dl (70-99)
[2024-08-13 23:17] VITALS: BP 126/83
[2024-08-14] MEDS: FLAGYL 500 MG 100 IV (01:04)
[2024-08-14] MEDS: HEPARIN SC (01:04)
[2024-08-14] MEDS: SYNTHROID 125 MCG PO (05:13)
[2024-08-14 07:32] LABS: Glucose - Point of Care 149 mg/dl (70-99)
[2024-08-14 07:54] VITALS: BP 134/87
[2024-08-14] MEDS: NOVOLOG FLEXPEN-LOW RESISTANCE SC (09:11)
[2024-08-14 10:43] LABS: Blood Urea Nitrogen 27 mg/dl (7-17); Calcium 8.6 mg/dl (8.4-10.2); Carbon Dioxide 20 mmol/L (22-30); Chloride 113 mmol/L (98-107); Estimated Creatinine Clearance 20 ml/min; Glucose 128 mg/dl (70-99); Potassium 4.1 mmol/L (3.5-5.1); Sodium 139 mmol/L (135-145); eGFR 25.57
[2024-08-14] MEDS: HEPARIN 5000 UNITS SC ×3 (11:44→23:29)
[2024-08-14] MEDS: MEGACE 80 MG PO (11:45)
[2024-08-14] MEDS: VITAMIN B-6 100 MG PO (11:45)
[2024-08-14] MEDS: NOLVADEX 20 MG PO (11:45)
[2024-08-14] MEDS: LOW STRENGTH ASPIRIN 81 MG PO (11:46)
[2024-08-14] MEDS: TOPROL XL 50 MG PO (11:46)
[2024-08-14] MEDS: MAG-TAB SR 84 MG PO (11:46)
[2024-08-14] MEDS: THERAGRAN 1 TABLET PO (11:46)
[2024-08-14] MEDS: SODIUM BICARBONATE 650 MG PO ×2 (11:46→16:29)
[2024-08-14] MEDS: LASIX 20 MG PO (11:47)
[2024-08-14] MEDS: COLACE 100 MG PO (11:47)
[2024-08-14] MEDS: FEOSOL 325 MG PO (11:47)
[2024-08-14] MEDS: GLUCOTROL XL (EXTENDED RELEASE) 2.5 MG PO ×2 (11:47→16:29)
[2024-08-14] MEDS: STERILE WATER FOR INJECTION IV (11:48)
[2024-08-14 12:26] LABS: Glucose - Point of Care 256 mg/dl (70-99)
[2024-08-14] MEDS: NOVOLOG FLEXPEN-LOW RESISTANCE 3 UNITS SC ×2 (12:41→17:00)
[2024-08-14 15:27] VITALS: BP 115/68
--- NOTE | 2024-08-14 16:26 | W.PN.HOSP.TC ---
Today's Communication/Plan
-
All discussed with the daughter in detail at the bedside and all the question answered
Discussed with the nurse
Assessment / Plan
Assessment / Plan
'73 y/o with ovarian ca diagnosed 5 years ago , now metastatic status post hysterectomy and radiation who is currently on salvage chemo now. She has a history of ureteral obstruction and has right ureteral stent and left nephrostomy tube. All her
care has been at [facility] for urology and she goes to [facility] for cancer treatment.. Reportedly she was admitted at [facility] , Daughter states that nephrostomy tube exchange was attempted but was not possible and was discharged and she
still had a leak. She has a ureteral stent . Discharged Thursday from [facility]. She was seen at [facility] yesterday and the leak was noted and they wanted her to be admitted to [facility]. Daughter refused admission there because it
was too far. History is very hard to be obtained as patient cannot give me any history if she cannot communicate even with language line. Daughter also is not a great historian . She came to [facility] for a second opinion for the
nephrostomy tube.
Daughter states that mother does not have dementia and she had an MRI done at [place].'

CT scan-moderate right pleural effusion. Parenchymal airspace density both lower lungs atelectasis/pneumonia with scarring
Minimal pericardial effusion moderate to severe left pelvicalyceal and ureteral dilatation with evidence of an obstructing mass in the left ureterovesical junction likely neoplastic
Right ureteral stent is present mild right pelvicalyceal dilatation without ureteral dilatation. Mild to moderate atrophy of the right renal parenchyma. Mass arising in the region of the medial right rectus muscle extending anteriorly to the
abdomen enlarged periaortic and interaortocaval lymph nodes likely neoplastic lymphadenopathy
ECHO- Normal left ventricular size with moderately reduced systolic function. LVEF 30-35%. Global hypokinesis.Stage II diastolic dysfunction suggestive of abnormal relaxation and increased filling pressures.Normal right ventricular size and
systolic function.Moderate mitral regurgitation.Mild tricuspid regurgitation. PASP 41 mmHg.

# TME
Suspect there is also cognitive dysfunction which is undiagnosed
Daughter states that mother does not have dementia. She is confused and cannot use language line when ever I tried. .
Today daughter said that she got a call yesterday saying that patient had a stroke last week on an MRI. No metastasis to the brain. But [facility] MRI brain shows mets on the report. But according to the daughter here MRI read by another radiologist
actually there is no mets to the brain.
08/06/2024-Head CT-no acute intracranial abnormality. Mild periventricular small vessel disease. Mild atrophy. Small nonacute right cerebellar infarct.
More energetic and Zyprexa discontinued
# Possible JOSÉ on CKD vs. CKD
Metabolic acidosis
Downtrended to 2.4 yesterday and today 2 while yesterday was 2.1
Encourage oral hydration and intake
Hold IV fluid
Lasix has been held as bump in creatinine noted
Patient had a creatinine of 2.5 on 04/28.
Continue with p.o. bicarbonate
Possible could be from recent injury due to removal of nephrostomy tube.
With continued improvement hopefully creatinine plateaus and likely will be her new baseline
Patient creatinine was 2.3 on admission
Cont with po bicarb
Nephrology signed off. Per nephrology patient cr likely at baseline.
# Nephrostomy tube leak on the left side
Interventional radiology replaced left nephrostomy tube 08/05/2024
Patient pulled it out on 08/07/2024
IR Replaced 08/07/24
Pt has pulled nephrostomy tube out from [facility] records
Abdominal binder and also Restraints if needed. sitter at bedside.
Follows with [facility] urology.
Discussed with urologist by Dr. Osuna as family requesting urteral stent exchange as she is due for it per family. However, per urologist here recommending to follow-up with her primary urologist as there is no acute need for stent exchange and
the CAT scan showed right ureteral stent in proper place. Which I explained to the patient daughter in detail.
# Shortness of breath-pleural effusion on the right side.
Daughter aware that she may benefit from thoracentesis. Benefits and risks discussed.
Consulted IR but daughter refused Thoracentesis
Possible that this is malignant effusion
Ultrasound with persistent right pleural effusion which could be amenable to thoracentesis. consider procedure once patient more awake and if daughter agreeable. Hold for today as patient lethargy due to overnight events.
# Acute on Chronic HFREF
[facility]- Echo 06/28/2024-dilated left ventricle with moderate to severely decreased systolic function. Ejection fraction 30 to 35%. Normal RV size and function. Mild to moderate MR. Mild TR. No pulmonary hypertension.
Cardiology recommended starting on aspirin and metoprolol. Per cardiology patient is not a candidate for any further intervention.
Patient cannot be on LACI/ARB/Aldactone or Arni because of elevated creatinine.
With nephrostomy tube do not want to start her on SGLT2 inhibitors either.
Patient started on 20 mg of p.o. Lasix per nephrology.
# Haily albicans on the urine culture results. Likely colonization due to chronic nephrostomy tube.
# Elevated troponin-likely nonischemic myocardial injury.
Cardiology consulted
# Pneumonia- Treating as Aspiration PNA- IV ceftriaxone and Flagyl can switch to p.o. on discharge. Tomorrow is the last dose
# Metastatic ovarian cancer stage IV-undergoing treatment with [facility] Dr. Dick.
Was on RTx with ( Med ONc ) and ( RO)
Continue tamoxifen
#Dysphagia
Diet downgraded to soft and minced diet with thick liquids
Video swallow recommended minced and moist diet okay for thin liquids
# Hyponatremia-resolved
# Hyperkalemia- Lokelma
# Anemia-likely secondary to malignancy
# Hypertension-amlodipine on hold. Continue metoprolol
# Hypothyroidism-continue Synthroid 125 micrograms daily
# Wlrcxldo-Tcqo-Fqiul and sliding scale coverage. Glipizide ordered. Sugars slightly high but she will benefit from regular diet. Increase glipizide if needed
# CVA per daughter on an MRI from last week- ASA ( [facility] records say mets). Per my discussion with Abdirahman they are not sure whether this is stroke or metastasis and patient should repeat MRI.
# At least moderate protein calorie malnutrition-Megace. Per patient daughter patient with good appetite
# DVT prophylaxis-subcutaneous heparin
# Full code-I had a detailed discussion with the patient's daughter regarding her stage IV cancer and if she would consider DNR. Daughter stated that she wants mom to be 'full code.'
08/08/23 -When asked why she was seen at [facility] daughter said that 'we can go to wherever we want. Abdirahman did not have the treatment would be needed therefore we went to [facility]. When I asked if Abdirahman discussed anything
about hospice she got upset. She stated that 'you can put everybody on hospice you can put your parents on hospice. We want her treated.' She also stated that 'you cannot put everybody on hospice the second day after they get sick' I discussed
that as well as I could gather from the notes she was diagnosed with cancer in 2019.
I also offered for her to be transferred to [facility] where she is known daughter is refusing because they made a 'mistake'. They put a U-shaped nephrostomy tube which she should not be having.
I also offered [facility] but states that is too far.
Daughter told me that Abdirahman told her she does not have brain metastasis.
She says to just fix creatinine and give her Lasix and let her go home.
She is also planned for 6 radiation.
From what I can see she pulled out nephrostomy tube twice at [place] and once here. I reviewed this with daughter. She said that yes that is because she is restrained. I reminded that this can happen again.
Spoke to Abdirahman - See separate update note from 08/09/24
Called Jae Tam left a message for . NO call back
From my experience prognosis appears to be poor given age stage 4 cancer, Her cognition, inconsistent p.o. intake, pulling out nephrostomy tube multiple times, chronic kidney disease, ejection fraction 35%.
Palliative care consulted-daughter not interested in hospice and plan remains for restorative goals.
Discussed with daughter once again regarding changing patient CODE STATUS. Daughter refused.
CODE STATUS is a full code
All discussed with the daughter in detail and expressed understanding and all the question answered
DVT prophylaxis heparin subcu
Plan to go home once more stable may be over the next day or 2 as daughter and the manager rn case ordered hospital bed may arrive in a day or 2.
Patient encouraged out of the bed and working with PT OT
Anticipated Discharge: 24 - 48 hours
Subjective/Interval History
-
Date of Service: August 14, 2024
Seen and examined twice today, second time the daughter at the bedside, patient laying in bed, calm and comfortable the second time more sleepy, look like that she usually does not sleep at night and sleep more throughout the day, still weak and
lethargic and mildly and pleasantly confused denies any particular complaint, had a good dinner last night but not much breakfast. No nausea or vomiting.
Objective Data
-
Labs:
Laboratory Results
08/14/24
10:17
Sodium 139
Potassium 4.1
Chloride 113 H
Carbon Dioxide 20 L
BUN 27 H
Creatinine 2.0 H
Glucose 128 H
Calcium 8.6
Vital Signs:
Vital Signs
Temp Pulse Resp BP Pulse Ox
98.1 F 106 18 134/87 97
08/14/24 07:54 08/14/24 07:54 08/14/24 07:54 08/14/24 07:54 08/14/24 07:54
I&O
08/13/24 08/14/24 08/15/24
07:59 07:59 07:59
Intake Total 200 / 200 220 / 220
Output Total 1290 / 1290 795 / 795
Balance -1090 / -1090 -575 / -575
Data Reviewed
-
Labs: Labs Reviewed by me and Discussed with Family
[2024-08-14 16:56] LABS: Glucose - Point of Care 253 mg/dl (70-99)
[2024-08-14] MEDS: NOLVADEX PO (20:08)
[2024-08-14] MEDS: COLACE PO (20:09)
[2024-08-14] MEDS: MEGACE PO (20:09)
[2024-08-14 21:11] LABS: Glucose - Point of Care 115 mg/dl (70-99)
[2024-08-14] MEDS: SODIUM BICARBONATE PO (21:54)
[2024-08-14 23:42] VITALS: BP 114/72
[2024-08-15] MEDS: SYNTHROID 125 MCG PO (05:48)
[2024-08-15 08:00] VITALS: BMI 24.2
[2024-08-15 08:24] VITALS: BP 112/74
[2024-08-15 08:50] LABS: Glucose - Point of Care 84 mg/dl (70-99)
[2024-08-15] MEDS: GLUCOTROL XL (EXTENDED RELEASE) PO ×4 (09:27→18:33)
[2024-08-15] MEDS: VITAMIN B-6 PO ×2 (09:27→10:05)
[2024-08-15] MEDS: LASIX PO ×2 (09:27→10:04)
[2024-08-15] MEDS: THERAGRAN PO ×2 (09:27→10:05)
[2024-08-15] MEDS: FEOSOL PO ×2 (09:27→10:04)
[2024-08-15] MEDS: MEGACE PO ×2 (09:27→10:05)
[2024-08-15] MEDS: LOW STRENGTH ASPIRIN PO ×2 (09:27→10:04)
[2024-08-15] MEDS: NOLVADEX PO ×2 (09:27→10:05)
[2024-08-15] MEDS: MAG-TAB SR PO ×2 (09:27→10:04)
[2024-08-15] MEDS: COLACE PO ×3 (09:28→20:02)
[2024-08-15] MEDS: NOVOLOG FLEXPEN-LOW RESISTANCE SC ×2 (09:28→12:03)
[2024-08-15] MEDS: TOPROL XL PO ×2 (09:28→10:05)
[2024-08-15] MEDS: HEPARIN 5000 UNITS SC ×3 (09:28→23:51)
[2024-08-15] MEDS: SODIUM BICARBONATE PO ×4 (09:28→18:33)
[2024-08-15] MEDS: TYLENOL 650 MG PO (10:57)
[2024-08-15 12:01] LABS: Glucose - Point of Care 106 mg/dl (70-99)
[2024-08-15] MEDS: LOW STRENGTH ASPIRIN 81 MG PO (12:58)
[2024-08-15] MEDS: NOLVADEX 20 MG PO ×2 (12:58→19:54)
[2024-08-15] MEDS: MEGACE 80 MG PO ×2 (12:58→19:54)
--- NOTE | 2024-08-15 14:41 | CM ---
CM reviewed chart, placed call to daughterTatiana, to discuss hospital bed delivery by [facility]. Per [facility], have left several messages for family and need to discuss bed delivery. Update from [facility]- bed will be delivered tomorrow. Spoke with patients
daughterTatiana, to discuss ambulance transport- she will provide transport home, aware bed will be delivered tomorrow. IMM verbally reviewed with daughter. Update to Hospitalist. CM will continue to follow for all discharge planning needs.
Plan: discharge tomorrow, home with Mason SCHRADER, hospital bed delivered tomorrow by [facility].
Daughter's house address
[address] [place] [address]
[place].
[facility] Sk[facility]
[phone]
[2024-08-15 15:24] VITALS: BP 115/68
--- NOTE | 2024-08-15 15:27 | W.PN.HOSP.TC ---
Today's Communication/Plan
-
Waiting for Hospital bed for discharge
Assessment / Plan
Assessment / Plan
'73 y/o with ovarian ca diagnosed 5 years ago , now metastatic status post hysterectomy and radiation who is currently on salvage chemo now. She has a history of ureteral obstruction and has right ureteral stent and left nephrostomy tube. All her
care has been at [facility] for urology and she goes to [facility] for cancer treatment.. Reportedly she was admitted at [facility] , Daughter states that nephrostomy tube exchange was attempted but was not possible and was discharged and she
still had a leak. She has a ureteral stent . Discharged Thursday from [facility]. She was seen at [facility] yesterday and the leak was noted and they wanted her to be admitted to [facility]. Daughter refused admission there because it
was too far. History is very hard to be obtained as patient cannot give me any history if she cannot communicate even with language line. Daughter also is not a great historian . She came to [facility] for a second opinion for the
nephrostomy tube.
Daughter states that mother does not have dementia and she had an MRI done at [place].'

CT scan-moderate right pleural effusion. Parenchymal airspace density both lower lungs atelectasis/pneumonia with scarring
Minimal pericardial effusion moderate to severe left pelvicalyceal and ureteral dilatation with evidence of an obstructing mass in the left ureterovesical junction likely neoplastic
Right ureteral stent is present mild right pelvicalyceal dilatation without ureteral dilatation. Mild to moderate atrophy of the right renal parenchyma. Mass arising in the region of the medial right rectus muscle extending anteriorly to the
abdomen enlarged periaortic and interaortocaval lymph nodes likely neoplastic lymphadenopathy
ECHO- Normal left ventricular size with moderately reduced systolic function. LVEF 30-35%. Global hypokinesis.Stage II diastolic dysfunction suggestive of abnormal relaxation and increased filling pressures.Normal right ventricular size and
systolic function.Moderate mitral regurgitation.Mild tricuspid regurgitation. PASP 41 mmHg.

Awake, Confused
She bit her nail and right thumb is bleeding- Bandaged.
CVS S1 S2 appreciated
Chest Decreased right base
NO pedal edema
# TME
Suspect there is also cognitive dysfunction which is undiagnosed
Daughter states that mother does not have dementia.
Today daughter said that she got a call from [place] that patient had a stroke last week on an MRI. No metastasis to the brain. But [facility] MRI brain shows mets on the report.
Per my discussion with Abdirahman they are not sure whether this is stroke or metastasis and patient should repeat MRI in a month.
08/06/2024-Head CT-no acute intracranial abnormality. Mild periventricular small vessel disease. Mild atrophy. Small nonacute right cerebellar infarct.
More energetic and Zyprexa discontinued
# Possible JOSÉ on CKD vs. CKD
Metabolic acidosis
Creat 2.4 down trended to 2.0
Encourage oral hydration and intake
Patient had a creatinine of 2.5 on 04/28.
Continue with p.o. bicarbonate
Possible could be from recent injury due to removal of nephrostomy tube.
With continued improvement hopefully creatinine plateaus and likely will be her new baseline
Patient creatinine was 2.3 on admission trending down to 2.0
Nephrology signed off. Per nephrology patient cr likely at baseline.
# Nephrostomy tube leak on the left side
Interventional radiology replaced left nephrostomy tube 08/05/2024
Patient pulled it out on 08/07/2024
IR Replaced 08/07/24
Pt has pulled nephrostomy tube out from [facility] records
Abdominal binder and also Restraints if needed. sitter at bedside.
Follows with [facility] urology.
Discussed with urologist by Dr. Varma as family requesting ureteral stent exchange as she is due for it per family. However, per urologist here recommending to follow-up with her primary urologist as there is no acute need for stent exchange and
the CAT scan showed right ureteral stent in proper place. Which explained to the patient daughter in detail.
# Shortness of breath-pleural effusion on the right side.
Daughter aware that she may benefit from thoracentesis. Benefits and risks discussed.
Consulted IR but daughter refused Thoracentesis
Possible that this is malignant effusion
Ultrasound with persistent right pleural effusion which could be amenable to thoracentesis.
# Acute on Chronic HFREF
[facility]- Echo 06/28/2024-dilated left ventricle with moderate to severely decreased systolic function. Ejection fraction 30 to 35%. Normal RV size and function. Mild to moderate MR. Mild TR. No pulmonary hypertension.
Cardiology recommended starting on aspirin and metoprolol. Per cardiology patient is not a candidate for any further intervention.
Patient cannot be on LACI/ARB/Aldactone or Arni because of elevated creatinine.
With nephrostomy tube do not want to start her on SGLT2 inhibitors either.
Patient started on 20 mg of p.o. Lasix per nephrology.
# Haily albicans on the urine culture results. Likely colonization due to chronic nephrostomy tube.
# Elevated troponin-likely nonischemic myocardial injury.
# Pneumonia- Treating as Aspiration PNA- Completed IV ceftriaxone and Flagyl
# Metastatic ovarian cancer stage IV-undergoing treatment with [facility] Dr. Dick.
Was on RTx with ( Med ONc ) and ( RO)
Continue tamoxifen
#Dysphagia
Diet downgraded to soft and minced diet with thick liquids
Video swallow recommended minced and moist diet okay for thin liquids
# Hyponatremia-resolved
# Hyperkalemia- S/P Lokelma
# Anemia-likely secondary to malignancy
# Hypertension-amlodipine on hold. Continue metoprolol
# Hypothyroidism-continue Synthroid 125 micrograms daily
# Aylhqhhe-Wpvs-Zvzlu and sliding scale coverage. Glipizide ordered. Sugars slightly high but she will benefit from regular diet. Increase glipizide if needed
# CVA per daughter on an MRI from last week- ASA ( [facility] records say mets). Per my discussion with Abdirahman they are not sure whether this is stroke or metastasis and patient should repeat MRI in a month.
# At least moderate protein calorie malnutrition-Megace. Per patient daughter patient with good appetite
# DVT prophylaxis-subcutaneous heparin
# Full code-I had a detailed discussion with the patient's daughter regarding her stage IV cancer and if she would consider DNR. Daughter stated that she wants mom to be 'full code.'
D/W Case management
D/W RN
Anticipated Discharge: Within 24 hours
Subjective/Interval History
-
Date of Service: August 15, 2024
Objective Data
-
Labs:
Laboratory Results
08/15/24
15:27
Sodium Pending
Potassium Pending
Chloride Pending
Carbon Dioxide Pending
BUN Pending
Creatinine Pending
Glucose Pending
Calcium Pending
Vital Signs:
Vital Signs
Temp Pulse Resp BP Pulse Ox
97.8 F 96 20 115/68 98
08/15/24 15:24 08/15/24 15:24 08/15/24 15:24 08/15/24 15:24 08/15/24 15:24
I&O
08/14/24 08/15/24 08/16/24
06:59 06:59 06:59
Intake Total 220 / 220 1010 / 1010
Output Total 795 / 795 1010 / 1010
Balance -575 / -575 0 / 0
[2024-08-15 17:01] LABS: Glucose - Point of Care 223 mg/dl (70-99)
[2024-08-15] MEDS: NOVOLOG FLEXPEN-LOW RESISTANCE 2 UNITS SC (18:10)
[2024-08-15] MEDS: HIPREX PO ×2 (18:11→18:35)
[2024-08-15] MEDS: SODIUM BICARBONATE 650 MG PO (19:54)
[2024-08-15 22:09] LABS: Glucose - Point of Care 287 mg/dl (70-99)
[2024-08-15 23:21] VITALS: BP 119/75
[2024-08-16] MEDS: TYLENOL 650 MG PO ×2 (01:50→11:13)
[2024-08-16] MEDS: MELATONIN 5 MG PO (01:52)
[2024-08-16] MEDS: SYNTHROID 125 MCG PO (04:42)
[2024-08-16 07:26] VITALS: BP 126/76
[2024-08-16 08:15] LABS: Glucose - Point of Care 174 mg/dl (70-99)
[2024-08-16] MEDS: NOVOLOG FLEXPEN-LOW RESISTANCE 1 UNITS SC (08:27)
[2024-08-16] MEDS: HEPARIN 5000 UNITS SC (08:28)
[2024-08-16] MEDS: NOLVADEX 20 MG PO (11:14)
[2024-08-16] MEDS: HIPREX 1 GRAM PO (11:14)
[2024-08-16] MEDS: MEGACE 80 MG PO (11:14)
[2024-08-16] MEDS: COLACE PO (11:36)
[2024-08-16] MEDS: FEOSOL PO (11:37)
[2024-08-16] MEDS: GLUCOTROL XL (EXTENDED RELEASE) PO (11:49)
[2024-08-16] MEDS: MAG-TAB SR PO (11:49)
[2024-08-16] MEDS: LOW STRENGTH ASPIRIN PO (11:49)
[2024-08-16] MEDS: SODIUM BICARBONATE PO (11:49)
[2024-08-16] MEDS: LASIX PO (11:49)
[2024-08-16] MEDS: VITAMIN B-6 PO (11:50)
[2024-08-16] MEDS: THERAGRAN PO (11:50)
[2024-08-16] MEDS: TOPROL XL PO (11:50)
[2024-08-16] MEDS: NOVOLOG FLEXPEN-LOW RESISTANCE SC (12:04)
--- NOTE | 2024-08-16 13:54 | CM ---
Patient is for possible discharge today home with private care givers through [facility], patient has a hospital bed from [facility], patient's daughter to pick patient up and transport to home.
Daughter's house address
[address] [place] [address]
[place].
[facility]
[phone]

auto fleet maintenance manager will notify Lucy Santamaria, , [facility] of discharge.
--- NOTE | 2024-08-16 14:08 | W.PN.HOSP.TC ---
Today's Communication/Plan
-
discharge with daughter
Hospital bed arranged.
Assessment / Plan
Assessment / Plan
'73 y/o with ovarian ca diagnosed 5 years ago , now metastatic status post hysterectomy and radiation who is currently on salvage chemo now. She has a history of ureteral obstruction and has right ureteral stent and left nephrostomy tube. All her
care has been at [facility] for urology and she goes to [facility] for cancer treatment.. Reportedly she was admitted at [facility] , Daughter states that nephrostomy tube exchange was attempted but was not possible and was discharged and she
still had a leak. She has a ureteral stent . Discharged Thursday from [facility]. She was seen at [facility] yesterday and the leak was noted and they wanted her to be admitted to [facility]. Daughter refused admission there because it
was too far. History is very hard to be obtained as patient cannot give me any history if she cannot communicate even with language line. Daughter also is not a great historian . She came to [facility] for a second opinion for the
nephrostomy tube.
Daughter states that mother does not have dementia and she had an MRI done at [place].'

CT scan-moderate right pleural effusion. Parenchymal airspace density both lower lungs atelectasis/pneumonia with scarring
Minimal pericardial effusion moderate to severe left pelvicalyceal and ureteral dilatation with evidence of an obstructing mass in the left ureterovesical junction likely neoplastic
Right ureteral stent is present mild right pelvicalyceal dilatation without ureteral dilatation. Mild to moderate atrophy of the right renal parenchyma. Mass arising in the region of the medial right rectus muscle extending anteriorly to the
abdomen enlarged periaortic and interaortocaval lymph nodes likely neoplastic lymphadenopathy
ECHO- Normal left ventricular size with moderately reduced systolic function. LVEF 30-35%. Global hypokinesis.Stage II diastolic dysfunction suggestive of abnormal relaxation and increased filling pressures.Normal right ventricular size and
systolic function.Moderate mitral regurgitation.Mild tricuspid regurgitation. PASP 41 mmHg.

Awake, Confused
She bit her nail and right thumb - Bandaged.
CVS S1 S2 appreciated
Chest Decreased right base
NO pedal edema
# TME
Suspect there is also cognitive dysfunction which is undiagnosed
Daughter states that mother does not have dementia.
Today daughter said that she got a call from [place] that patient had a stroke last week on an MRI. No metastasis to the brain. But [facility] MRI brain shows mets on the report.
Per my discussion with Abdirahman they are not sure whether this is stroke or metastasis and patient should repeat MRI in a month.
08/06/2024-Head CT-no acute intracranial abnormality. Mild periventricular small vessel disease. Mild atrophy. Small nonacute right cerebellar infarct.
More energetic and Zyprexa discontinued
# Possible JOSÉ on CKD vs. CKD
Metabolic acidosis Continue with p.o. bicarbonate
Encourage oral hydration and intake
Patient had a creatinine of 2.5 on 04/28.trended to 2.0. Patient creatinine was 2.3 on admission trending down to 2.0
Possible could be from recent injury due to removal of nephrostomy tube.
With continued improvement hopefully creatinine plateaus and likely will be her new baseline
Nephrology signed off. Per nephrology patient cr likely at baseline.
# Nephrostomy tube leak on the left side
Interventional radiology replaced left nephrostomy tube 08/05/2024
Patient pulled it out on 08/07/2024
IR Replaced 08/07/24
Pt has pulled nephrostomy tube out from [facility] records
Abdominal binder and also Restraints if needed. sitter at bedside.
Follows with [facility] urology.
Discussed with urologist by Dr. Varma as family requested a ureteral stent exchange as she is due for it per family. However, per urologist here recommending to follow-up with her primary urologist as there is no acute need for stent exchange
and the CAT scan showed right ureteral stent in proper place. Which explained to the patient daughter in detail.
# Shortness of breath-pleural effusion on the right side.
Daughter aware that she may benefit from thoracentesis. Benefits and risks discussed.
Consulted IR but daughter refused Thoracentesis
Possible that this is malignant effusion
Ultrasound with persistent right pleural effusion which could be amenable to thoracentesis.
# Acute on Chronic HFREF
[facility]- Echo 06/28/2024-dilated left ventricle with moderate to severely decreased systolic function. Ejection fraction 30 to 35%. Normal RV size and function. Mild to moderate MR. Mild TR. No pulmonary hypertension.
Cardiology recommended starting on aspirin and metoprolol. Per cardiology patient is not a candidate for any further intervention.
Patient cannot be on LACI/ARB/Aldactone or Arni because of elevated creatinine.
With nephrostomy tube do not want to start her on SGLT2 inhibitors either.
Patient started on 20 mg of p.o. Lasix per nephrology.
# Haily albicans on the urine culture results. Likely colonization
# Elevated troponin-likely nonischemic myocardial injury.
# Pneumonia- Treating as Aspiration PNA- Completed IV ceftriaxone and Flagyl
# Metastatic ovarian cancer stage IV-undergoing treatment with [facility] Dr. Dick.
Was on RTx with ( Med ONc ) and ( RO)
Continue tamoxifen
#Dysphagia
Diet downgraded to soft and minced diet with thick liquids
Video swallow recommended minced and moist diet ,okay for thin liquids
# Hyponatremia-resolved
# Hyperkalemia- S/P Lokelma
# Anemia-likely secondary to malignancy
# Hypertension-amlodipine stopped. Continue metoprolol
# Hypothyroidism-continue Synthroid 125 micrograms daily
# Zgmkcgsg-Avzb-Nwuoo and sliding scale coverage. Glipizide ordered. Sugars slightly high but she will benefit from regular diet. Increase glipizide if needed
# CVA per daughter on an MRI from last week- ASA ( [facility] records say mets). Per my discussion with Abdirahman they are not sure whether this is stroke or metastasis and patient should repeat MRI in a month.
# At least moderate protein calorie malnutrition-Megace. Per patient daughter patient with good appetite
# DVT prophylaxis-subcutaneous heparin
# Full code-I had a detailed discussion with the patient's daughter regarding her stage IV cancer and if she would consider DNR. Daughter stated that she wants mom to be 'full code.'
D/W Case management
D/W RN
More than 30 minutes spent in discharge including
Final examination of the patient
Summarizing hospital stay
Instructions for continuing care to all relevant caregivers
Preparation of discharge records, prescriptions, and referral forms
Total time spent (in minutes): 39 min
Anticipated Discharge: Today
Subjective/Interval History
-
Date of Service: August 16, 2024
Objective Data
-
Vital Signs:
Vital Signs
Temp Pulse Resp BP Pulse Ox
97.4 F 105 18 126/76 96
08/16/24 07:26 08/16/24 07:26 08/16/24 07:26 08/16/24 07:26 08/16/24 08:00
I&O
08/15/24 08/16/24 08/17/24
06:59 06:59 06:59
Intake Total 1010 / 1010 720 / 720
Output Total 1010 / 1010
Balance 0 / 0 720 / 720
--- NOTE | 2024-08-16 14:13 | W.DS.TRANS ---
Addendum entered and electronically signed by Meera Bartholomew MD 08/16/24 15:38:
Dictation- [id number]
Original Note:
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
-
Discharge Instructions:
Discharge Diagnosis/Procedures Nephrostomy tube leak status post replacement
Acute kidney injury on chronic kidney disease
Acute on chronic HFrEF
Aspiration pneumonia
Metastatic ovarian cancer
Dysphagia
Hyponatremia
Anemia
Hypertension
Hypothyroidism
Diabetes
Moderate protein calorie malnutrition
Diet Diabetic, Carb Controlled,Other diet,2 Gram
Sodium,Restrict fluids to 64 oz
Additional Diets IDDSI 5 minced and moist
Activity As tolerated,With assistance
Driving Restrictions No driving
Blood Work CBC, BMP 1 week.
Others Tests repeat MRI brain as Outpatient
Other Services VN
Specialty Instructions Weigh Daily
Instructions:
Stand-Alone Forms:
Changes to Home Medications: Yes
Discharge Medications:
DC Medications w/original date entered in [facility]
Tylenol 650 mg PRN Pain 08/05/24
albuterol 90 mcg/actuation aerosol inhaler 90 mcg inhalation Q4 PRN wheezing 08/05/24
aspirin 81 mg tablet 81 mg PO DAILY 08/05/24
melatonin 5 mg tablet 5 mg PO HS PRN sleep 08/05/24
ondansetron 8 mg PO Q8HPRN PRN nausea/vomiting 08/05/24
Vitamin B-1 1 tab PO DAILY Supplement ##0 08/16/24
Vitamin D3 25 mcg PO DAILY Supplement ##0 08/16/24
docusate sodium 100 mg capsule (Colace) 100 mg PO BID Constipation #0 caps 08/16/24
ferrous sulfate 325 mg (65 mg iron) tablet 325 mg PO DAILY Constipation #0 tabs 08/16/24
furosemide 40 mg tablet 20 mg (1/2 x 40 mg) PO DAILY Fluid retention/Swelling #0 tabs 08/16/24
glipizide 2.5 mg tablet, extended release 24 hr 2.5 mg PO BID Diabetes #0 tabs 08/16/24
levothyroxine 125 mcg capsule 125 mcg PO DAILY Thyroid #0 caps 08/16/24
magnesium oxide 400 mg PO DAILY Supplement #0 caps 08/16/24
megestrol 40 mg tablet 80 mg (2 x 40 mg) PO BID appetite #0 tabs 08/16/24
methenamine hippurate 1 gram tablet 1 g PO DAILY Urinary issue #0 tabs 08/16/24
metoprolol succinate 50 mg tablet,extended release 24 hr 50 mg PO DAILY Heart Failure #30 tabs 08/16/24
multivitamin with folic acid 400 mcg tablet (Daily-Nnamdi (with folic acid)) 1 tab PO DAILY Supplement #0 tabs 08/16/24
pyridoxine (vitamin B6) 100 mg tablet 100 mg PO DAILY Supplement #0 tabs 08/16/24
sodium bicarbonate 650 mg tablet 650 mg PO TID Kidney Disease #90 tabs 08/16/24
tamoxifen 20 mg tablet 20 mg PO BID Cancer #0 tabs 08/16/24
vitamin L34-xpczc acid 1,000 mcg PO DAILY Supplement ##0 08/16/24
Home Medication Changes
Amlodipine stopped
Metoprolol Increased.
Pending Results: No
== END 2024-08-16 15:05 | disposition home or self-care (01) | DRG 698 ==
LOC: 4 WEST ACU 01:33
PROVIDERS: Clinical Nurse Specialist Family Health; Hospitalist; Internal Medicine; Nurse Practitioner Family; Radiology Diagnostic Radiology; ADMITTING PHYSICIAN Internal Medicine; ATTENDING PHYSICIAN Hospitalist; CONSULT PHYSICIAN Internal Medicine; CONSULT PHYSICIAN Specialist; EMERGENCY PHYSICIAN Student in an Organized Health Care Education/Training Program; FAMILY PHYSICIAN Internal Medicine
PROC: 0T25X0Z Change Drainage Device in Kidney, External Approach (ICD-10-PCS; 2024-08-05)
PROC: 0T9430Z Drainage of Left Kidney Pelvis with Drainage Device, Percutaneous Approach (ICD-10-PCS; 2024-08-07)
DX: T83.032A Leakage of nephrostomy catheter, initial encounter (principal); G92.8 Other toxic encephalopathy; J69.0 Pneumonitis due to inhalation of food and vomit; I50.23 Acute on chronic systolic (congestive) heart failure; C79.31 Secondary malignant neoplasm of brain; J91.0 Malignant pleural effusion; I5A Non-ischemic myocardial injury (non-traumatic); N17.9 Acute kidney failure, unspecified; I13.0 Hypertensive heart and chronic kidney disease with heart failure and stage 1 through stage 4 chronic kidney disease, or unspecified chronic kidney disease; E87.1 Hypo-osmolality and hyponatremia; I42.9 Cardiomyopathy, unspecified; N39.0 Urinary tract infection, site not specified; E44.0 Moderate protein-calorie malnutrition; T83.022A Displacement of nephrostomy catheter, initial encounter; N18.30 Chronic kidney disease, stage 3 unspecified; R13.10 Dysphagia, unspecified; E78.00 Pure hypercholesterolemia, unspecified; Y73.2 Prosthetic and other implants, materials and accessory gastroenterology and urology devices associated with adverse incidents; D63.0 Anemia in neoplastic disease; E03.9 Hypothyroidism, unspecified; E11.22 Type 2 diabetes mellitus with diabetic chronic kidney disease; Z92.3 Personal history of irradiation; Z90.710 Acquired absence of both cervix and uterus; Z90.5 Acquired absence of kidney; Z85.43 Personal history of malignant neoplasm of ovary; Z79.899 Other long term (current) drug therapy; Z79.890 Hormone replacement therapy; Z79.84 Long term (current) use of oral hypoglycemic drugs; Z78.1 Physical restraint status; Z68.24 Body mass index [BMI] 24.0-24.9, adult
CPT/HCPCS: 50432; 50435; 70450; 71045; 71046; 74176; 74230; 76604; 80048; 80053; 81003; 81015; 82570; 82962; 83615; 83735; 83880; 84155; 84300; 84484; 85025; 87070; 87086; 92526; 92610; 92611; 93005; 93306; 94640; 97163; 97166; 97530; 99285; C1729; C1769; J2358

== ENCOUNTER → 2024-08-26 14:23 | Outpatient (REF) | payer MEDICARE, OTHER, SELFPAY | LOC: RAD 14:23 | PROVIDERS: ATTENDING PHYSICIAN Internal Medicine Medical Oncology; FAMILY PHYSICIAN Internal Medicine | DX: C54.1 Malignant neoplasm of endometrium (principal) | CPT/HCPCS: 71046 ==

== ENCOUNTER 2024-08-30 23:54 | Inpatient (IN) | payer MEDICARE, OTHER, SELFPAY ==
[2024-08-30 18:04] VITALS: BP 111/72
[2024-08-30 18:36] LABS: % Basophils 0.1 % (0-2); % Eosinophils 1.6 % (0-6); % Immature Granulocytes 0.8 % (0-0.5); % Lymphocytes 10.7 % (20.5-51.1); % Monocytes 7.3 % (1.7-9.3); % Neutrophils 79.5 % (42.2-75.2); Absolute Eosinophils 0.1 10^3/uL (0-0.7); Absolute Immature Granulocytes 0.1 10^3/uL (0-0.05); Absolute Lymphocytes 0.9 10^3/uL (1.2-3.4); Absolute Monocytes 0.6 10^3/uL (0.1-0.6); Absolute Neutrophils 6.3 10^3/uL (1.4-6.5); Hematocrit 28.8 % (37.0-47.0); Mean Corp Hgb Conc. 31.3 g/dL (33.0-37.0); Mean Corpuscular Hgb 30.4 pg (27.0-31.0); Mean Corpuscular Volume 97.3 fL (81.0-99.0); Mean Platelet Volume 9.7 fL (7.4-10.4); Nucleated Red Blood Cells % 0 %; Platelet Count 198 10^3/uL (130-400); Red Blood Cell Count 2.96 10^6/uL (4.20-5.40); Red Cell Dist. Width 20.4 % (11.5-14.5)
[2024-08-30 18:57] LABS: ALT (SGPT) 16 U/L (0-35); AST (SGOT) 27 U/L (14-36); Albumin 2.7 g/dl (3.5-5.0); Alkaline Phosphatase 79 U/L (38-126); Blood Urea Nitrogen 35 mg/dl (7-17); Calcium 8.5 mg/dl (8.4-10.2); Carbon Dioxide 22 mmol/L (22-30); Chloride 105 mmol/L (98-107); Glucose 150 mg/dl (70-99); Potassium 4.3 mmol/L (3.5-5.1); Sodium 134 mmol/L (135-145); Total Bilirubin 0.4 mg/dl (0.2-1.3); Total Protein 5.5 g/dl (6.3-8.2); eGFR 21.62
[2024-08-30 19:06] LABS: Troponin I 0.062 ng/ml
[2024-08-30 20:10] VITALS: BP 104/73
[2024-08-30 20:11] VITALS: BMI 23.2
[2024-08-30 20:56] LABS: NT-proBNP > 27000 pg/ml
[2024-08-30 21:00] VITALS: BP 103/70
[2024-08-30 21:18] LABS: Urine Albumin 4+ (Neg - Trace); Urine Bilirubin Negative (Negative); Urine Character Clear (Clear); Urine Color Yellow; Urine Glucose Negative (Negative); Urine Ketone Negative (Negative); Urine Leukocyte 3+ (Negative); Urine Nitrite Negative (Negative); Urine Occult Blood 4+ (Negative); Urine Urobilinogen Negative (Neg - 1+)
[2024-08-30 21:25] LABS: Urine Bacteria Many (Negative); Urine Red Blood Cell 90-100 /HPF (0-2); Urine Squamous Cell 0-2 /LPF (Few); Urine Yeast Many (Negative)
[2024-08-30 21:26] LABS: Urine White Cell 80-90 /HPF (0-5)
--- NOTE | 2024-08-30 21:58 | ED.GENMED ---
History of Present Illness
General
Chief Complaint: Pneumonia Symptoms
Source: patient and family
Exam Limitations: none
Time Seen by Provider: 08/30/24 19:12
History of Present Illness
History of Present Illness:
This is a 73-year-old female presents with chest pain and shortness of breath. Daughter states that she has been just short of breath intermittently but also had complained of some chest pain. The patient was recently diagnosed with pneumonia by
chest x-ray that she had on Thursday. PCP advised him to come because today she complained of chest pain as well. Did put on Levaquin. She also has been taking Lasix 20 mg daily but sometimes the daughter cuts in half. She has noticed a little bit
of leg swelling. Daughter denies any cough or fevers. Patient does have a nephrostomy as well. She does have ovarian cancer and is being cared for at [facility].
Past History
Past History
ED Past Medical History: Cancer (Ovarian cancer), CHF, HTN, Hypercholesterolemia and NIDDM
ED Past Surgical History: Gynecological (Hysterectomy) and Urological ( Right renal stent, Left nephrostomy tube)
Social History
Tobacco: Non-smoker
Alcohol: None
Drug: None
Personal:
Living: with family
Phy Exam
Physical Exam
Physical Exam:
CONSTITUTIONAL Patient alert and oriented to person, place and time. Well-appearing. Vital signs reviewed.
HEAD atraumatic, normocephalic.
EYES eyelids normal to inspection, Extraocular muscles intact, Conjunctiva normal, Sclera normal.
NECK normal range of motion, Trachea midline, no jugular venous distention.
RESPIRATORY CHEST mild respiratory distress noted, Chest expansion equal, crackles in bilateral bases. Tachypneic. No hypoxia on monitor
CARDIOVASCULAR regular rate and rhythm, Heart sounds normal.
ABDOMEN abdomen nontender, Bowel sounds normal. No distention.
BACK normal inspection, no obvious deformities
UPPER EXTREMITY range of motion normal, Motor strength normal, no cyanosis, no edema.
LOWER EXTREMITY range of motion normal, Motor strength normal, no cyanosis, trace bilateral ankle edema.
NEURO Speech normal, No focal motor deficits, [place] coma scale 15, Memory normal, Cranial Nerves intact to screening exam.
SKIN skin warm, dry, and normal in color.
Course
Orders/Labs/Results
Orders:
Orders
08/30/24 17:48
Electrocardiogram (*1) Urgent
Reason for Study: Chest Pain
EKG- Treatment ONCE
08/30/24 18:24
Complete Blood Count/With Diff Urgent
Comprehensive Metabolic Panel Urgent
NT-proBNP Urgent
Comment: ADDON
Troponin I Urgent
08/30/24 20:13
Add On- LAB Urgent
Tests Added?: BNP
08/30/24 20:33
CR Chest - 2 Views Urgent
Comment:
Reason For Exam: sob, cp
08/30/24 21:09
Urinalysis Reflex To Culture Urgent
Date Specimen was Collected: 08/30/24
Time Specimen was Collected: 21:07
Urine Microscopic Reflex Cult Urgent
Urine Culture Urgent
VAZQUEZ Source: U
Specimen Description:
Date Specimen was Collected: 08/30/24
Time Specimen was Collected: 21:07
08/30/24 21:59
Furosemide [Lasix] 20 mg IV NOW STA
08/30/24 23:24
Admit/Transfer Patient As Directed
Co-Sign Provider:
Level of Care: Inpatient admission
Assign to:: ICU
Physician / Group: tin cuellar
Diagnosis: acute chf conn cardigenic shock,R pluerl eff,gianna,ovarian ca mets
Reason for Hospitalization: acute chf conn cardigenic shock,R pluerl eff,gianna,ovarian ca mets
Expected length of stay greater than two midnights?: Yes
ELOS- Estimated Length of Stay in days: 5
I certify the patient meets the requirements for IP care: Yes
Code Status As Directed
Resuscitation Status: Full Code
08/30/24 23:37
PRN Pain Medication Management As Directed
May give lesser potent ordered pain med per pt: Yes
preference::
Protocol:: Medication orders for pain may be administered in a
manner that supports deferring to patient preference
when the pt is:
- Requesting an ordered lesser potent pain medication.
Least to most potent pain medications are defined
as: acetaminophen < NSAID < tramadol < opioids
(morphine, oxycodone, hydromorphone).
- Requesting a lesser dose of the same medication IF
ORDERED.
- Requesting a less intrusive route of administration
if both routes are prescribed by the provider (PO <
IV).
Abnormal Lab Results
08/30/24 08/30/24
18:24 21:09
RBC 2.96 L 10^6/uL
(4.20-5.40)
Hgb 9.0 L g/dL
(12.0-16.0)
Hct 28.8 L %
(37.0-47.0)
MCHC 31.3 L g/dL
(33.0-37.0)
RDW 20.4 H %
(11.5-14.5)
Abs Immat Gran (auto) 0.1 H 10^3/uL
(0-0.05)
Absolute Lymphs (auto) 0.9 L 10^3/uL
(1.2-3.4)
Immature Gran % 0.8 H %
(0-0.5)
Neutrophils % 79.5 H %
(42.2-75.2)
Lymphocytes % 10.7 L %
(20.5-51.1)
Sodium 134 L mmol/L
(135-145)
BUN 35 H mg/dl
(7-17)
Creatinine 2.3 H mg/dL
(0.6-1.0)
Glucose 150 H mg/dl
(70-99)
Troponin I 0.062 H* ng/ml
Total Protein 5.5 L g/dl
(6.3-8.2)
Albumin 2.7 L g/dl
(3.5-5.0)
Ur Occult Blood Reflex 4+ A
(Negative)
Leukocyte Esterase Rfl 3+ A
(Negative)
Urine RBC 90-100 A /HPF
(0-2)
Urine WBC (Reflex) 80-90 A /HPF
(0-5)
Urine Bacteria (Reflex) Many A
(Negative)
Urine Yeast Many A
(Negative)
Urine Albumin (Reflex) 4+ A
(Neg - Trace)
08/30/24 18:24
08/30/24 18:24
Vital Signs
Initial and Last Documented VS:
Initial Vital Signs
Temp Pulse Resp BP Pulse Ox
98.7 F 82 18 111/72 98
08/30/24 18:04 08/30/24 18:04 08/30/24 18:04 08/30/24 18:04 08/30/24 18:04
Last Documented Vital Signs
Temp Pulse Resp BP Pulse Ox
99.8 F 74 25 102/62 98
08/30/24 19:24 08/31/24 00:00 08/31/24 00:00 08/31/24 00:00 08/31/24 00:00
MDM/Problems Addressed
MDM/Problems Addressed:
Pericardial effusion, congestive heart failure, pleural effusion, chronic renal failure, chronic metastatic ovarian cancer
*Radiology
Radiology exam reviewed: preliminary read by ED provider (CHF, pleural effusion)
*Pulse Oximetry
Patient hypoxic: no
*EKG
Interpreted by ED Provider?: Yes
Interpretation: abnormal
Rate: normal
Rhythm: sinus
Ischemia: non-specific ST changes
*National Accounts Recruiter Interpretation
Rate: normal
Interpretation: normal
Rhythm: sinus
*Critical Care Note
Total Time (30-74mins, 75-104mins- exclusive of procedures): Not Applicable
Data Reviewed
Source: patient and family
Prescriptions/Medications Considered But Not Given:
Considered antibiotics but no fever and no cough
Patient Management
Discussion with other providers: Hospitalist
Escalation/DeEscalation of care consider admission/obs:
Bedside ultrasound does show some pericardial effusion. Chest x-ray shows pleural effusion and CHF. Do not suspect pneumonia given the fact that she is afebrile and her white count is normal. She has had no cough. Suspect more CHF. She is
tachypneic. Have to be cautious with IV Lasix given her creatinine. Urinalysis sent but from a bag. Will await culture given the fact that she is afebrile.
ED Attending Note
-
Portions of this chart may have been created with voice recognition software.� Occasional wrong word or��sound alike� substitutions may have occurred due to the inherent limitations of voice recognition software.
Discharge Plan
Departure
Patient Disposition: Admit
Date of Disposition: 08/30/24
Time of Disposition: 22:00
Admit to: Telemetry
Presentation/result/management discussed w/ accepting MD/DO: Hospitalist
Discharge Problem:
Pleural effusion on right, Ovarian cancer, Congestive heart failure, Acute pericardial effusion
Interventions
Interventions:
*Risk Screen - Suicide Last Done: 08/30/24 20:13
*General Assessment Last Done: 08/30/24 18:04
*Neglect/Abuse Screening Last Done: 08/30/24 20:13
ED- Fall Risk Assessment Last Done: 08/30/24 20:13
*ED COVID-19 Vaccine History Last Done: 08/30/24 18:04
ED- Cardiac Assessment Last Done: 08/30/24 20:13
ED- Pulmonary Assessment Last Done: 08/30/24 20:13
[2024-08-30 22:09] VITALS: BP 94/78
--- NOTE | 2024-08-30 22:12 | HPS.HSE ---
Family Physician
-
Family Physician: Waldemar Turner
Chief Complaint
-
Tachypnea, dyspnea, orthopnea, increased leg edema, chest pain
History of Present Illness
73-year-old female complaining of chest pain with shortness of breath. The patient's daughter states she she has been short of breath intermittently but is also complained of some chest pain today. She was recently diagnosed with pneumonia by
chest x-ray on 08/26/2024 and was placed on Levaquin . She reports her shortness of breath has become worse over the past 2 to 3 days so they have been giving her 30 mg of Lasix(20 mg tablet plus cutting pill to 10 mg) her PCP advised her to
come to the ER today due to the chest pain complaints. Her daughter denies cough, fever, chills, palpitations, abdominal pain, nausea, vomiting, diarrhea, urinary symptoms. She has history of ovarian cancer diagnosed 5 years ago 2019 now
metastatic status post hysterectomy/radiation currently on salvage chemotherapy and is being followed at [facility] .she is also received 5 radiation treatments to midsternal lung and right lower abdomen tumor by [facility] radiation oncology.
She had history of ureteral obstruction and has right ureteral stent and left nephrostomy tube. She had been seen prior with all of her care at [facility] and [facility] but daughter wanted treatment closer to [place]. She
was recommended to have her nephrostomy tube changed at [facility] due to a leak however she did not want to have her mother admitted that far away so she came to [facility]. She was admitted 08/05 to 08/16/2024 for left nephrostomy
tube leakage requiring replacement. She was also treated for acute on chronic heart failure along with JOSÉ and pneumonia completing course of of Rocephin and Flagyl. She has past medical history of metastatic ovarian cancer to lung, right lower
abdomen, ureteral obstruction right ureteral stent, left nephrostomy tube, hypothyroidism, DM2, insomnia, HTN, CKD 3 AA, anemia secondary to chemotherapy, hypomagnesemia, chronic CHF, cardiomyopathy EF 30-35%
Medical History
Past Medical History
Past Medical History: Reports Cancer (Stage IV ovarian cancer status post hysterectomy, status post radiation of the thorax as well as the left lower quadrant of the abdomen), HTN, Hypothyroidism, NIDDM and Other
Additional Past Medical History:
metastatic ovarian cancer to lung
right lower abdomen, ureteral obstruction right ureteral stent,
left nephrostomy tube
hypothyroidism
DM2
insomnia
HTN
CKD 3 A
anemia secondary to chemotherapy
hypomagnesemia
chronic CHF
cardiomyopathy EF 30-35%
Past Surgical History: Reports Gynocological (hysterectomy) and Other
Additional Past Surgical History:
IR replaced 08/05/2024 then on 08/07/2024 after patient pulled the tube out
Social History
Unable to obtain full social history at this time due to: Language Barrier
Alcohol: None
Drug: None
Personal: Single
Living: With Family
Employment: Not Employed
Family History
Family History: Not pertinent
Allergies / Home Medications
Allergies reflects when Allergies were last updated in [facility]
Home Medications with original date entered in [facility]
Allergy/Medication List:
Allergies
Allergy/AdvReac Type Severity Reaction Status Date / Time
steriods Allergy Unknown Uncoded 08/30/24 18:06
Home Medications
acetaminophen 500 mg tablet (Tylenol Extra Strength) 1,000 mg PO Q6HPRN PRN mild pain ##0 08/05/24
melatonin 5 mg tablet 5 mg PO HSPRN PRN sleep 08/05/24
ondansetron HCl 8 mg tablet 8 mg PO Q8HPRN PRN nausea ##0 08/05/24
docusate sodium 100 mg capsule (Colace) 100 mg PO BID Constipation #0 caps 08/16/24
ferrous sulfate 325 mg (65 mg iron) tablet 325 mg PO DAILY Constipation #0 tabs 08/16/24
glipizide 2.5 mg tablet, extended release 24 hr 2.5 mg PO BID Diabetes #0 tabs 08/16/24
levothyroxine 125 mcg capsule 125 mcg PO DAILY Thyroid #0 caps 08/16/24
megestrol 40 mg tablet 80 mg (2 x 40 mg) PO BID appetite #0 tabs 08/16/24
methenamine hippurate 1 gram tablet 1 g PO DAILY Urinary issue #0 tabs 08/16/24
metoprolol succinate 50 mg tablet,extended release 24 hr 50 mg PO DAILY Heart Failure #30 tabs 08/16/24
pyridoxine (vitamin B6) 100 mg tablet 100 mg PO DAILY Supplement #0 tabs 08/16/24
sodium bicarbonate 650 mg tablet 650 mg PO TID Kidney Disease #90 tabs 08/16/24
tamoxifen 20 mg tablet 20 mg PO BID Cancer #0 tabs 08/16/24
albuterol sulfate 90 mcg/actuation aerosol inhaler 2 puff inhalation R Q6HPRN PRN sob 08/30/24
apixaban 2.5 mg tablet (Eliquis) 2.5 mg PO BID 08/30/24
cholecalciferol (vitamin D3) 25 mcg (1,000 unit) tablet (Vitamin D3) 25 mcg PO DAILY 08/30/24
cyanocobalamin (vitamin B-12) 1,000 mcg tablet 1,000 mcg PO DAILY 08/30/24
escitalopram oxalate 10 mg tablet 10 mg PO DAILY 08/30/24
furosemide 20 mg tablet 20 mg PO DAILY 08/30/24
gabapentin 300 mg capsule 300 mg PO DAILYPRN PRN moderate pain 08/30/24
hydroxyzine HCl 25 mg tablet 25 mg PO HSPRN PRN sleep 08/30/24
levofloxacin 500 mg tablet 500 mg PO DAILY 08/30/24
linagliptin 5 mg tablet (Tradjenta) 5 mg PO DAILY 08/30/24
magnesium oxide 400 mg PO HS Supplement 08/30/24
therapeutic multivitamin 1 tab PO DAILY 08/30/24
thiamine HCl (vitamin B1) 100 mg tablet 100 mg PO DAILY 08/30/24
Review of Systems
-
History Source: Family (Daughter at bedside translating for mother that speaks Kinyarwanda)
A 12 point ROS was completed and negative except as noted: Yes
Constitutional: Reports Other (Lethargic has eyes open but when asked questions by daughter does respond with appropriate answers but daughter states is somewhat confused); Denies Fever or Chills
EENT: Denies Sore Throat or Runny Nose
Respiratory: Reports Trouble Breathing (HOBBS, tachypnea, orthopnea)
Cardiac: Reports Chest Pain (Earlier today); Denies Diaphoresis, Palpitations or Syncope
Abdomen/GI: Denies Abdominal Pain, Nausea, Vomiting, Diarrhea, Constipated or Bloody Stools
: Denies Dysuria, Frequency, Flank Pain, Incontinence, Difficulty Voiding or Urgency
Musculoskeletal: Reports Edema (+1 bilat legs); Denies Joint Pain
Skin: Denies Itching or Rash
Neurological: Denies Dizzy, Headache or Weakness
Endocrine: Reports No Symptoms
Hematologic/Lymphatic: Reports No Symptoms
Psych: Reports Calm
Physical Exam
Vital Signs
Vital Signs
Temp Pulse Resp BP Pulse Ox
99.8 F 84 27 103/70 95
08/30/24 19:24 08/30/24 21:00 08/30/24 21:00 08/30/24 21:00 08/30/24 21:00
Physical Exam
General: Other (Sleeping versus hypercarbia does open eyes to daughter and answer questions); No Fever or Chills
HEENT: NormoCephalic, Anicteric, PERRLA, [place] Conjunctivae, No Ptosis and Oxygen (2 L nasal cannula)
Respiratory: Other (Diminished breath sounds bilaterally)
Cardiac: S1/S2, Regular Rhythm and Peripheral Edema (+2 bilateral lower legs); No Murmur, Rub or Gallop
Breast: Deferred by me
GI: Soft, Non Tender, Non Distended, Normal Bowel Sounds and No Hepatosplenomegaly
Rectal: Deferred by Provider
Genito-urinary: Deferred by me
Musculoskeletal: No Clubbing, No Cyanosis, Edema, Left Lower Extremity (+1) and Edema, Right Lower Extremity (+1); No Edema, Left Upper Extremity or Edema, Right Upper Extremity
Skin: Warm and Dry; No Rash or Jaundice
Neuro: No Sensory Deficits and Other (Lethargic but will open eyes answer questions to daughter); No Slurred Speech, Facial Droop, Tremors or Sedated
Psych: Calm
Laboratory Results
-
08/30/24 18:24
08/30/24 18:24
Laboratory Results
Total Bilirubin 0.4 mg/dl (0.2-1.3) 08/30/24 18:24
AST 27 U/L (14-36) 08/30/24 18:24
ALT 16 U/L (0-35) 08/30/24 18:24
Alkaline Phosphatase 79 U/L (38-126) 08/30/24 18:24
Troponin I 0.062 ng/ml H* 08/30/24 18:24
Impression/Plan
-
Impression/plan:
Admit to ICU
#Acute on chronic CHF /Cardiogenic Shock
#History of cardiomyopathy EF 30-35% global hypokinesis, stage II diastolic dysfunction
I/O, daily weight tachypnea 33/min and Bradypnea with resp rate 11 per min, BP 96/43, shortness of breath, chest pain, fatigue
Patient cannot be on LACI/ARB/Aldactone or Arni because of elevated creatinine.
With nephrostomy tube do not want to start her on SGLT2 inhibitors either.
-Patient on Lasix 20 mg has been taking 30 mg for the past 2 days due to increased shortness of breath
-Cannot diurese with Lasix 20 mg due to hypotension 96/43-cardiology aware Dr. Colón
-Continue aspirin, metoprolol
-Consult [facility] cardiology Dr. Aylin Colón aware
-Consult locomotive electrician
Echo 08/08/1909/22/2024-EF 30-35% dilated left ventricle with moderate to severely decreased systolic function. Ejection fraction 30 to 35%.
Normal RV size and function. Mild to moderate MR. Mild TR. PASP 41 mmHg
#Altered mental status concern for hypercarbia versus any intracranial abnormality
-Will check ABG, patient currently on 2 L nasal cannula
Will check CT head given patient started Eliquis 1 week ago
# Acute hypotension / hypertension benign
BP 103/70 > 96/43
Hold amlodipine
Hold metoprolol
#Acute hypoxic respiratory insufficiency 2/2 CHF, moderate right pleural effusion
#Shortness of breath with Bilateral pleural effusions Right MOD/ Left small likely secondary to heart failure but possible known Lung mets ovarian
# Shortness of breath secondary to recent right sided pleural effusion on admission 08/04 - 08/16/2024 at that admission daughter did not consent to thoracentesis per note
83% on room air> 93-97% 2 L nasal cannula
-Keep head of bed elevated at 90 degrees until thoracentesis
daughter is now consenting to thoracentesis due to bilateral pleural effusions right greater than left
-Consult IR for thoracentesis-spoke with Dr. Amato who will perform thoracentesis in a.m.
CXR: Bilateral pleural effusions, moderate right and small left. Pulmonary vascular congestion. A right basilar opacity may represent atelectasis or pneumonia.
#Acute small pericardial effusion per ER bedside echo likely secondary to heart failure
-Check formal 2D echo in a.m.
# Acute on chronic elevated troponin-likely nonischemic myocardial injury.
Troponin 0.062 <from 0.084 on 08/07/2024
-Will trend
#Pyuria concern for UTI -history right renal stent, chronic left nephrostomy tube
# Recent Haily albicans on the urine culture results.- Likely colonization due to chronic nephrostomy tube.
-Will follow urine culture and give IV Rocephin
#JOSÉ on CKD 3A
Creatinine 2.3 > 2.0 on 08/16/2024 her baseline is 1.7�1.8 [facility]
-Would continue Lasix but unable currently due to hypotension
-Follow BMP
-Continue sodium bicarb 650 mg 3 times daily
#Recent pneumonia outpatient x-ray
#Aspiration pneumonia 08/04/2024 - 08/16/2024
Was treated inpatient Completed IV ceftriaxone and Flagyl
-Recently started Levaquin 08/26/2024
-No current pneumonia chest x-ray showing bilateral pleural effusions
#Ovarian CA Dx 2019 recent mets to lung, right lower abdomen(tattooing colbert midsternal and right lower abdomen)
#Underwent brachytherapy in 2019 , hysterectomy, she failed multiple lines of chemotherapy 7 months after reoccurrence at [facility] by Dr. Campos
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
Had recent 5 radiation treatments at [facility] radiation onc to midsternal chest and right lower abdomen
-CONT TAMOXIFEN and MEGACE - follows with [facility]
#CVA July 2023
-Brain mets on MRI in [place] in July-however was read as stroke by [facility] and [facility] 1 week ago and was placed on Eliquis 2.5 mg
-Has been on Eliquis 2.5 mg twice daily for the past week
-Continue Eliquis 2.5 mg twice daily if able to swallow
# Anemia-likely secondary to malignancy
Hgb 9 which is stable and baseline since July 2024
#Left side nephrostomy tube status post replacement at [facility] due to patient pulling tube out during episode of confusion
#IR replaced 08/05/2024 then on 08/07/2024 after patient pulled the tube out
Patient to have abdominal binder over tube not to pull out
#History of RIGHT ureteral stent
-Patient was seen by urology during recent admission recommended to follow-up with urologist at [place] for right ureteral stent replacement
#Dysphagia
Diet downgraded to soft and minced diet with thick liquids
Video swallow recommended minced and moist diet okay for thin liquids
# Hypothyroidism
-continue Synthroid 125 micrograms daily
# DM2
-Accu-Cheks with SSI low
-Hold glipizide
# DVT prophylaxis-continue Eliquis 2.5 mg twice daily if able to swallow
Add SCDs
Full code per daughter at bedside he wants to honor mothers will at current time
[2024-08-30 23:00] VITALS: BP 98/73
[2024-08-31] VITALS (61 sets, daily range): BP systolic 78–125; BP diastolic 50–105; BMI 23.2; BMI 22.8
--- NOTE | 2024-08-31 00:01 | W.PN.UPDATE ---
Update Note
Progress Note Update
This is an addendum to the H&P written by Mirella Moore on 08/30/2024. Patient seen and examined independently with MANAGER QUALITY COMPLIANCE.
73-year-old female past medical history of ovarian cancer followed at [facility] diagnosed 5 years ago with metastases status post hysterectomy/radiation on salvage chemotherapy, right ureteral obstruction status post right ureteral stent/left
nephrostomy tube, chronic HFrEF, CKD baseline creatinine before recent patient was 1.7, aspiration pneumonia, hypertension, hypothyroidism, diabetes, CVA, protein calorie malnutrition, hyponatremia, presenting with shortness of breath and chest
pain, increased leg edema.
Patient recently diagnosed with pneumonia on chest x-ray that she had 4 days ago.
Blood pressure marginal at 94/78.
Labs show creatinine of 2.3 which may be her new baseline now. Troponin of 0.062. Cardiac BNP greater than 27,000.
Chest x-ray at this time shows bilateral pleural effusion, moderate right and small left. There is pulmonary vascular congestion. There is right basilar opacity atelectasis versus pneumonia. Bedside ultrasound showed pericardial effusion.
Presentation consistent with acute on chronic HFrEF exacerbation possibly secondary to insufficient Lasix. Cannot diurese at this time due to blood pressure in 90s systolic. Check ABG to rule out hypercarbia although mental status may be poor as
it is late at night. Check echocardiogram. Cardiology consulted and notified. IR consulted and notified for thoracentesis.
Stop Levaquin since she does not have pneumonia.
[2024-08-31 00:22] LABS: B.E. -2.6 mmol/L; HCO3 21.2 mmol/L (21-28); O2 Saturation % 99.3 % (94-98); PCO2 32 mmHg (32-35); PO2 106 mmHg (83-108); pH 7.43 (7.35-7.45)
[2024-08-31 00:56] LABS: Troponin I 0.068 ng/ml
[2024-08-31] MEDS: ROCEPHIN 1000 MG IV (01:45)
[2024-08-31] MEDS: FLUSH (NSS) 1 FLUSH IV (01:48)
--- NOTE | 2024-08-31 02:15 | PTCARENOTE ---
Rec'd pt from ER via stretcher on monitor & 2 liters nc accomp by CABLE TELEVISION PROGRAM DIRECTOR, pt speaks ukranian, confused to place/time, Dtr gave history for pt, pt lethargic, JAMES to command, SR, weak distal pulses, no edema, skin warm/dry, O2 2 liters nc, lungs coarse
& decr in bases, sat 99, no cough, hypo bowel sounds, no bm, abd soft, no n/v, NPO, left nephrostomy tube drainng mireille urine
[2024-08-31] MEDS: STERILE WATER FOR INJECTION IV (03:17)
[2024-08-31] MEDS: SYNTHROID PO (03:48)
--- NOTE | 2024-08-31 04:20 | PTCARENOTE ---
sys reviewed, no changes
[2024-08-31 05:30] LABS: % Basophils 0.4 % (0-2); % Eosinophils 1.3 % (0-6); % Immature Granulocytes 0.7 % (0-0.5); % Lymphocytes 13.1 % (20.5-51.1); % Monocytes 7.6 % (1.7-9.3); % Neutrophils 76.9 % (42.2-75.2); Absolute Eosinophils 0.1 10^3/uL (0-0.7); Absolute Immature Granulocytes 0.1 10^3/uL (0-0.05); Absolute Lymphocytes 1.4 10^3/uL (1.2-3.4); Absolute Monocytes 0.8 10^3/uL (0.1-0.6); Absolute Neutrophils 7.9 10^3/uL (1.4-6.5); Hematocrit 27.2 % (37.0-47.0); Hemoglobin 8.6 g/dL (12.0-16.0); Mean Corp Hgb Conc. 31.6 g/dL (33.0-37.0); Mean Corpuscular Hgb 30.1 pg (27.0-31.0); Mean Corpuscular Volume 95.1 fL (81.0-99.0); Nucleated Red Blood Cells % 0 %; Platelet Count 194 10^3/uL (130-400); Red Blood Cell Count 2.86 10^6/uL (4.20-5.40); Red Cell Dist. Width 20.3 % (11.5-14.5); White Blood Cell Count 10.3 10^3/uL (4.8-10.8)
[2024-08-31 05:32] LABS: PT 19.3 Sec (11.4-14.6)
[2024-08-31 05:47] LABS: ALT (SGPT) 14 U/L (0-35); AST (SGOT) 26 U/L (14-36); Albumin 2.6 g/dl (3.5-5.0); Alkaline Phosphatase 68 U/L (38-126); Blood Urea Nitrogen 35 mg/dl (7-17); Calcium 8.3 mg/dl (8.4-10.2); Carbon Dioxide 20 mmol/L (22-30); Chloride 109 mmol/L (98-107); Estimated Creatinine Clearance 21 ml/min; Glucose 70 mg/dl (70-99); Magnesium 2.3 mg/dl (1.6-2.3); Potassium 4.5 mmol/L (3.5-5.1); Sodium 137 mmol/L (135-145); Total Bilirubin 0.4 mg/dl (0.2-1.3); Total Protein 5.3 g/dl (6.3-8.2); eGFR 22.81
[2024-08-31 05:56] LABS: Phosphorus 3.7 mg/dl (2.5-4.5); Troponin I 0.065 ng/ml
--- NOTE | 2024-08-31 08:08 | CON.CAR ---
Addendum entered and electronically signed by Amari Rod MD 08/31/24 12:58:
I saw and examined the patient.
The UNIONMELT OPERATOR's note was reviewed and I agree with the note.
Comment:
73-year-old female with metastatic ovarian cancer and recently discovered heart failure with reduced ejection fraction (LVEF 30-35%) who presents with shortness of breath and chest pain per chart. History is limited by language barrier and
somnolence. She was recently started on antibiotics as an outpatient for presumed pneumonia. CXR on admission showed pulmonary vascular congestion and pleural effusions. She has since undergone right sided thoracentesis for 1.5 L. Her weight is
up 2 kg compared to discharge weight. BNP >27k, trop lower than last admission. On exam she is frail and ill-appearing, she has a regular rate and rhythm with no murmurs, no lower extremity edema. She is likely in a mild heart failure
exacerbation. We will try 40 mg IV Lasix but she may need a higher dose given her GFR of 23. She is on a beta-elizabeth for her HFrEF which is being held in the setting of hypotension. She is not on any other GDMT due to overall poor prognosis. We
will resume her beta-elizabeth as tolerated. She is also on Eliquis for history of stroke on MRI (no known history of A-fib). We will update an echocardiogram given that she had a small pericardial effusion on ED echo. Overall she has a very poor
prognosis and we may be able to improve her symptoms with a few days of Lasix, but would not recommend any aggressive therapy for her cardiomyopathy.
Original Note:
Consultation
Consultation Request
Date/Time Consultation Requested: 08/31/2449
Date/Time Consultation Performed: 08/31/24 0809
Requesting Provider: Deo Mckenna NP
Performing Provider: Maria Dolores MATOS for Dr. Rod
Reason for Consultation: CHF
Medical History
-
Chief Complaint: SOB, CP per chart, but per patient LE and eye pain
History of Present Illness:
73 y/o female with metastatic ovarian cancer, ureteral obstruction with stent and nephro tube, HFrEF, CM EF 30-35%, CKD, hypertension, DM, CKD, hypothyroidism, CVA who is here for SOB and CP per chart (though she tells me eye and LE pain via
clinical laboratory technologist). She was recently treated for PNA as OP. CXR here shows pleural effusions and she is s/p right-sided thoracentesis this AM for 1500 ml. She is lethargic at time of my assessment, but we were able to communicate with basic questions via
clinical laboratory technologist IPAD. She denies any CP or SOB.
Past Medical History
Past Medical History: Cancer, CHF, CVA, HTN, Hypothyroidism, NIDDM and Other (as above)
Social History
Tobacco: Non-Smoker
Living: With Family
Family History
Family History: Reviewed & Not Pertinent
Allergies / Home Medications
Allergy/AdvReac Type Severity Reaction Status Date / Time
steriods Allergy Unknown Uncoded 08/30/24 18:06
�Medication �Instructions �Recorded �Confirmed �Type
acetaminophen 500 mg tablet 1,000 mg PO Q6HPRN PRN mild pain 08/05/24 08/30/24 History
(Tylenol Extra Strength) ##0
melatonin 5 mg tablet 5 mg PO HSPRN PRN sleep 08/05/24 08/30/24 History
ondansetron HCl 8 mg tablet 8 mg PO Q8HPRN PRN nausea ##0 08/05/24 08/30/24 History
docusate sodium 100 mg capsule 100 mg PO BID Constipation #0 caps 08/16/24 08/30/24 Rx
(Colace)
ferrous sulfate 325 mg (65 mg 325 mg PO DAILY Constipation #0 08/16/24 08/30/24 Rx
iron) tablet tabs
glipizide 2.5 mg tablet, extended 2.5 mg PO BID Diabetes #0 tabs 08/16/24 08/30/24 Rx
release 24 hr
levothyroxine 125 mcg capsule 125 mcg PO DAILY Thyroid #0 caps 08/16/24 08/30/24 Rx
megestrol 40 mg tablet 80 mg (2 x 40 mg) PO BID appetite 08/16/24 08/30/24 Rx
#0 tabs
methenamine hippurate 1 gram tablet 1 g PO DAILY Urinary issue #0 tabs 08/16/24 08/30/24 Rx
metoprolol succinate 50 mg 50 mg PO DAILY Heart Failure #30 08/16/24 08/30/24 Rx
tablet,extended release 24 hr tabs
pyridoxine (vitamin B6) 100 mg 100 mg PO DAILY Supplement #0 tabs 08/16/24 08/30/24 Rx
tablet
sodium bicarbonate 650 mg tablet 650 mg PO TID Kidney Disease #90 08/16/24 08/30/24 Rx
tabs
tamoxifen 20 mg tablet 20 mg PO BID Cancer #0 tabs 08/16/24 08/30/24 Rx
albuterol sulfate 90 mcg/actuation 2 puff inhalation R Q6HPRN PRN sob 08/30/24 08/30/24 History
aerosol inhaler
apixaban 2.5 mg tablet (Eliquis) 2.5 mg PO BID 08/30/24 08/30/24 History
cholecalciferol (vitamin D3) 25 25 mcg PO DAILY 08/30/24 08/30/24 History
mcg (1,000 unit) tablet (Vitamin
D3)
cyanocobalamin (vitamin B-12) 1,000 mcg PO DAILY 08/30/24 08/30/24 History
1,000 mcg tablet
escitalopram oxalate 10 mg tablet 10 mg PO DAILY 08/30/24 08/30/24 History
furosemide 20 mg tablet 20 mg PO DAILY 08/30/24 08/30/24 History
gabapentin 300 mg capsule 300 mg PO DAILYPRN PRN moderate 08/30/24 08/30/24 History
pain
hydroxyzine HCl 25 mg tablet 25 mg PO HSPRN PRN sleep 08/30/24 08/30/24 History
levofloxacin 500 mg tablet 500 mg PO DAILY 08/30/24 08/30/24 History
linagliptin 5 mg tablet (Tradjenta) 5 mg PO DAILY 08/30/24 08/30/24 History
magnesium oxide 400 mg PO HS Supplement 08/30/24 08/30/24 History
therapeutic multivitamin 1 tab PO DAILY 08/30/24 08/30/24 History
thiamine HCl (vitamin B1) 100 mg 100 mg PO DAILY 08/30/24 08/30/24 History
tablet
Review of Systems
-
History Source: Patient (lethargic but reports she came in with LE and eye pain) and Other (chart)
Respiratory: Trouble Breathing (per chart, not patient)
Cardiac: Chest Pain (per chart, not patient)
Physical Exam
Vital Signs
Temp Pulse Resp BP Pulse Ox
98.5 F 82 22 116/74 98
08/31/24 03:59 08/31/24 06:15 08/31/24 06:15 08/31/24 06:15 08/31/24 06:15
Lab Results
Troponin I 0.065 ng/ml H* 08/31/24 05:09
Wdy-Z-Veejwdrumxm Pept > 71645 pg/ml 08/30/24 18:24
Physical Exam
General: No Apparent Distress
HEENT: Normocephalic and Anicteric
Respiratory: Crackles (left base)
Cardiac: Regular Rhythm
Musculoskeletal: No Edema
Skin: Warm and Dry
Neuro: Awake (but lethargic) and Alert (answering simple questions via clinical laboratory technologist)
Psych: Calm
Impression / Plan
-
Pleural effusions:
-s/p right thoracentesis for 1500 ml
Ruwux-jb-esgxpyp HFrEF:
-EF 30-35% as noted- per last admit, conservative cardiac management is planned, which is in best interest of patient
-weight is up 2 kg from last admit, BNP still >48125, no LE edema, but rales to left base
-on Lasix 20 mg daily as OP- can add daily dose IV Lasix starting this afternoon, which requires intensive monitoring
-BP is on low end, but stable- monitor
-echo is ordered for today- apparently small pericardial effusion was noted on bedside echo
-metoprolol held for lower BP's- resume when/if able
Recent PNA:
-chart reviewed and no longer needs abx per primary
Hx CVA:
-per chart, Eliquis initiated after evidence for strokes seen on brain imaging
CKD:
-monitor with diuresis
Of note, she is a full code, and palliative care was consulted last admit, but family not interested at that time
Data Reviewed
-
EKG: Tracing Personally Visualized and interpreted (NSR 84 BPM)
Radiology: Report Reviewed by me (CXR: Bilateral pleural effusions, moderate right and small left. Pulmonary vascular congestion. A right basilar opacity may represent atelectasis or pneumonia.)
CT Scan: Report Reviewed by me (head CT: No acute intracranial abnormalities appreciated. 2. Mild atrophy and mild chronic small vessel change. 3. No significant change compared to prior study.)
Medical Tests (Nuc Med, Echo etc): Report Reviewed by me (Echo 08/08/24: EF 30-35%. Global hypokinesis. Stage II diastolic dysfunction. Moderate mitral regurgitation. Mild tricuspid regurgitation. PASP 41 mmHg.)
Labs: Labs Reviewed by me
--- NOTE | 2024-08-31 08:27 | CON.INTV ---
Consultation
Consultation Request
Date/Time Consultation Requested: 08/31/2024 - 2
Date/Time Consultation Performed: 08/31/2024 - 819
Requesting Provider: CARLO Fam
Performing Provider: Dr. Flood
Reason for Consultation: Hypotension
Medical History
-
Chief Complaint: Chest pain
History of Present Illness:
73-year-old female with a past medical history of metastatic ovarian cancer who presents with chest pain and told that she had a recent CXR on Thursday that shows possible pneumonia. She was placed onto Levaquin prior to arrival. Her shortness of
breath got worse over the last 2 to 3 days and she has been taking 30 mg Lasix once a day. Her primary doctor advised her to come to the ER due to her complaints. Patient has not had a cough, fevers or chills. She has a history of ovarian cancer
diagnosed 5 years ago currently on salvage chemotherapy being managed at [facility]. She has received 5 radiation treatments to the midsternal lung and right lower abdomen via radiation oncology at [place]. She has a history of ureteral
obstruction and has a right ureteral stent and a left nephrostomy tube. She has had [facility] at [facility]. She was recommended to have her nephrostomy tube changed at [facility] due to a leak however she did not go there so her
family brought her here to [facility]. She was recently hospitalized here on 08/04 - 08/16/2024 with left nephrostomy tube replacement. Currently in the ER she is afebrile to 98.7 �F, pulse rate 82, breathing at 18 breaths/min, BP 111/72
and saturating 98% on room air. Labs showed Hb of 9, serum sodium 134, creatinine 2.3, troponin 0.062, proBNP >27,000, serum albumin 2.7, urinalysis with +3 leukocyte esterase and 80�90 urine WBC. Urine culture was collected. CXR showed bilateral
pleural effusions with pulmonary vascular congestion. CT head showed no acute intracranial abnormalities. Given the patient was hypotensive with SBP in the 90s, she was admitted to the ICU for closer monitoring and phonograph needle tip maker services consulted
for additional management/recommendations.
This morning the patient was seen and evaluated. Heart rate 78, BP 114/73 and saturating 96% on room air. Patient is lethargic although she is arousable to voice and tactile stimulation but then falls back asleep. Patient unable to interact with
HPI or ROS at this time. Patient went for right-sided thoracentesis this morning, and they removed 1.5 L of clear yellow transitive fluid.
PMHx: Stage IV ovarian cancer s/p hysterectomy + XRT of the thorax and LLQ of abdomen, hypertension, hypothyroidism, DM type II, ureteral obstruction s/p stent, left nephrostomy tube, insomnia, CKD, chronic HFrEF, anemia due to chemotherapy
PSHx: Hysterectomy
Past Medical History
Past Medical History: Other (Above as per HPI)
Past Surgical History: Other (Above as per HPI)
Social History
Tobacco: Non-smoker
Alcohol: None
Drug: None
Family History
Family History: Reviewed & Not Pertinent
Allergies / Home Medications
Allergies
Allergy/AdvReac Type Severity Reaction Status Date / Time
steriods Allergy Unknown Uncoded 08/30/24 18:06
Home Medications
�Medication �Instructions �Recorded �Confirmed �Last Taken �Type
acetaminophen 500 mg tablet 1,000 mg PO Q6HPRN PRN mild pain 08/05/24 08/30/24 Unknown History
(Tylenol Extra Strength) ##0
melatonin 5 mg tablet 5 mg PO HSPRN PRN sleep 08/05/24 08/30/24 Unknown History
ondansetron HCl 8 mg tablet 8 mg PO Q8HPRN PRN nausea ##0 08/05/24 08/30/24 Unknown History
docusate sodium 100 mg capsule 100 mg PO BID Constipation #0 caps 08/16/24 08/30/24 Unknown Rx
(Colace)
ferrous sulfate 325 mg (65 mg 325 mg PO DAILY Constipation #0 08/16/24 08/30/24 Unknown Rx
iron) tablet tabs
glipizide 2.5 mg tablet, extended 2.5 mg PO BID Diabetes #0 tabs 08/16/24 08/30/24 Unknown Rx
release 24 hr
levothyroxine 125 mcg capsule 125 mcg PO DAILY Thyroid #0 caps 08/16/24 08/30/24 Unknown Rx
megestrol 40 mg tablet 80 mg (2 x 40 mg) PO BID appetite 08/16/24 08/30/24 Unknown Rx
#0 tabs
methenamine hippurate 1 gram tablet 1 g PO DAILY Urinary issue #0 tabs 08/16/24 08/30/24 Unknown Rx
metoprolol succinate 50 mg 50 mg PO DAILY Heart Failure #30 08/16/24 08/30/24 Unknown Rx
tablet,extended release 24 hr tabs
pyridoxine (vitamin B6) 100 mg 100 mg PO DAILY Supplement #0 tabs 08/16/24 08/30/24 Unknown Rx
tablet
sodium bicarbonate 650 mg tablet 650 mg PO TID Kidney Disease #90 08/16/24 08/30/24 Unknown Rx
tabs
tamoxifen 20 mg tablet 20 mg PO BID Cancer #0 tabs 08/16/24 08/30/24 Unknown Rx
albuterol sulfate 90 mcg/actuation 2 puff inhalation R Q6HPRN PRN sob 08/30/24 08/30/24 Unknown History
aerosol inhaler
apixaban 2.5 mg tablet (Eliquis) 2.5 mg PO BID 08/30/24 08/30/24 Unknown History
cholecalciferol (vitamin D3) 25 25 mcg PO DAILY 08/30/24 08/30/24 Unknown History
mcg (1,000 unit) tablet (Vitamin
D3)
cyanocobalamin (vitamin B-12) 1,000 mcg PO DAILY 08/30/24 08/30/24 Unknown History
1,000 mcg tablet
escitalopram oxalate 10 mg tablet 10 mg PO DAILY 08/30/24 08/30/24 Unknown History
furosemide 20 mg tablet 20 mg PO DAILY 08/30/24 08/30/24 Unknown History
gabapentin 300 mg capsule 300 mg PO DAILYPRN PRN moderate 08/30/24 08/30/24 Unknown History
pain
hydroxyzine HCl 25 mg tablet 25 mg PO HSPRN PRN sleep 08/30/24 08/30/24 Unknown History
levofloxacin 500 mg tablet 500 mg PO DAILY 08/30/24 08/30/24 Unknown History
linagliptin 5 mg tablet (Tradjenta) 5 mg PO DAILY 08/30/24 08/30/24 Unknown History
magnesium oxide 400 mg PO HS Supplement 08/30/24 08/30/24 Unknown History
therapeutic multivitamin 1 tab PO DAILY 08/30/24 08/30/24 Unknown History
thiamine HCl (vitamin B1) 100 mg 100 mg PO DAILY 08/30/24 08/30/24 Unknown History
tablet
Review of Systems
-
Unable to Obtain full review of systems at this time due to: Acuity
Vitals / Labs / Diagnostic Testing
Vital Signs
Temp Pulse Resp BP Pulse Ox
97.8 F 77 18 96/50 95
08/31/24 16:00 08/31/24 18:00 08/31/24 18:00 08/31/24 18:00 08/31/24 18:00
Lab Data
08/31/24 15:46
08/31/24 15:46
Laboratory Results
08/31/24 08/31/24
00:12 05:09
PT 19.3 H
INR 1.60
APTT 25.0
pH 7.43
pCO2 32
pO2 106
HCO3 21.2
O2 Delivery Level
Microbiology
08/31/24 08:52 Pleural Fluid Gram Stain - Preliminary
08/31/24 08:53 Pleural Fluid Fungal Culture - Preliminary
Culture in progress.
Positive cultures are reported as soon as detected.
Final report to follow in four to five weeks.
Diagnostic Testing:
Physical Exam
-
HEENT: Normocephalic and Anicteric
Cardiovascular: S1/S2, Murmur (negative) and Peripheral Edema (+1 lower extremity pitting edema bilaterally)
Respiratory: Wheeze (negative), Rhonchi (negative), Non-Labored Respirations and Other (Coarse breath sounds heard bilaterally)
GI: Soft, Non Distended, Non Tender and Normal Bowel Sounds
Neurology: Tremors (negative) and Other (Lethargic)
Skin: Warm and Dry
General: Respiratory Distress (negative), Comfortable, Fever (negative) and Chills (negative)
Assessment
-
Assessment: 73-year-old female with a past medical history of metastatic ovarian cancer who presents with chest pain and told that she had a recent CXR on Thursday that shows possible pneumonia. She was placed onto Levaquin prior to arrival. Her
shortness of breath got worse over the last 2 to 3 days and she has been taking 30 mg Lasix once a day. Her primary doctor advised her to come to the ER due to her complaints. Patient has not had a cough, fevers or chills. She has a history of
ovarian cancer diagnosed 5 years ago currently on salvage chemotherapy being managed at [facility]. She has received 5 radiation treatments to the midsternal lung and right lower abdomen via radiation oncology at [place]. She has a history of
ureteral obstruction and has a right ureteral stent and a left nephrostomy tube. She has had [facility] care [facility]. She was recommended to have her nephrostomy tube changed at [facility] due to a leak however she did not go
there so her family brought her here to [facility]. She was recently hospitalized here on 08/04 - 08/16/2024 with left nephrostomy tube replacement. Currently in the ER she is afebrile to 98.7 �F, pulse rate 82, breathing at 18 breaths/min,
BP 111/72 and saturating 98% on room air. Labs showed Hb of 9, serum sodium 134, creatinine 2.3, troponin 0.062, proBNP >27,000, serum albumin 2.7, urinalysis with +3 leukocyte esterase and 80�90 urine WBC. Urine culture was collected. CXR showed
bilateral pleural effusions with pulmonary vascular congestion. CT head showed no acute intracranial abnormalities. Given the patient was hypotensive with SBP in the 90s, she was admitted to the ICU for closer monitoring and phonograph needle tip maker services
consulted for additional management/recommendations.
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
chemotherapy
Impression:
#R-sided pleural effusion likely due to acute HFrEF exacerbation
#Acute HFrEF with LVEF 20-25% with stage II diastolic dysfunction with moderate MR seen on echo from today
#UTI
#Left lower lobe opacity due to malignant effusion vs atelectasis vs pneumonia
#Anemia
#CKD stage IV
#Elevated troponin peaked at 0.068 on 08/31/2024
#Hypoalbuminemia
#Reported history of stroke on Eliquis
#Small pericardial effusion without tamponade, likely due to volume overload
Plan:
- Continue Abx with rocephin for UTI
- Currently patient is not short of breath and not making phlegm, is nontoxic-appearing and has normal WBC --> no need for additional antibiotics at this time however if she deteriorates or becomes hypoxic then would broaden antibiotics and cover
for possible pneumonia
- Patient went for right-sided thoracentesis this morning, and they removed 1.5 L of clear yellow transitive fluid --> follow-up cultures + cytopathology
- Would maintain net negative fluid balance as tolerated and continue with 40 mg IV Lasix daily
- Cardiology on board and recs appreciated
- Defer GDMT to cardiology
- No need to continue trending troponin given a peak today at 0.068
- Maintain SpO2 >90-94% using supplemental O2 if needed
- Aspiration precautions. keeping HOB>30-45 degrees
- Maintain MAP>65 - patient was never started on vasopressors
- Replete electrolytes with K>4, Mg>2
- Maintain euglycemia with goal BG 140-180
- Trend H/H and transfuse if needed to keep Hb>7g/dL; keep plt>20k, unless there is concern for bleeding then keep plt>50k
- prn nebulized bronchodilators - not currently bronchospastic
- Incentive spirometer encouraged 10x per hour for at least 4 hrs a day
- DVT ppx: Eliquis
Patient is stable to downgrade out of ICU to telemetry. No additional recommendations at this time. Janitor Helper/Pulmonary service will now sign off. Thank you for allowing us to be involved in the care of this patient. Please reconsult if there
are any additional questions/concerns, or if patient's respiratory status deteriorates.
Total time spent today was 57 minutes for this encounter. Time includes reviewing laboratory test/imaging results, reviewing pertinent medical records, obtaining and reviewing medical history, performing an appropriate exam, ordering medications,
tests and procedures. Time also includes documentation of this encounter, coordinating patient care and communicating with other healthcare professionals. Total time does not include separately billed tests performed on this date of service.
[2024-08-31 09:43] LABS: Body Fluid Mononuclear 83.8 %; Body Fluid Polymorphonuclear 16.2 %; Body Fluid WBC 258 /CUMM
[2024-08-31 09:48] LABS: Body Fluid Second Tech CMB
[2024-08-31 09:56] LABS: Body Fluid Amylase < 30 U/L; Body Fluid Glucose 80 mg/dl; Body Fluid LDH 117 U/L; Body Fluid Protein < 2.0 g/dl; Body Fluid Triglycerides < 30 mg/dl
--- NOTE | 2024-08-31 10:25 | PTOTSP ---
Speech Language Pathology
Pt seen for clinical bedside swallow evaluation. Utilized language line during evaluation. Attempted oral care with use of suction toothbrush, but pt refused this. P.O. trials of puree and thin liquids attempted. Pt accepted straw, but was
unable to sip from straw. Provided thin water via pipetted straw with anterior leakage of entire bolus. Refused puree. Unable to fully assess swallow at this time. Pt stated to layer off 'I don't want it, do you understand?'
Recommend:
(1) NPO
(2) Oral care 4x/day with suctioning as needed
(3) Will assess for Aspiration Risk Hydration Protocol (ARHP) when pt willing to accept P.O.
(4) Non-oral meds
(5) REPAIRER WOOD FURNITURE to continue to follow
--- NOTE | 2024-08-31 10:33 | PTCARENOTE ---
pt received from previous rn- pt lethargic, arouses to name, taken to IR for 1500cc off right thora. Call Center Supervisor [id number] Evgenii used- pt able to say name and she is at hospital, otherwise disoriented. pt follows simple commands. pt reoriented with
diesel mechanic construction. nsr with 1st degree heart block on room air. pt turned and repositioned, oral care provided. left nephrosotomy draining mireille urine. all safety precautions in place, call purcell within reach.
[2024-08-31] MEDS: COLACE PO ×2 (10:39→19:25)
[2024-08-31] MEDS: FEOSOL PO (10:39)
[2024-08-31] MEDS: ELIQUIS PO ×2 (10:39→19:25)
[2024-08-31] MEDS: VITAMIN B-12 PO (10:40)
[2024-08-31] MEDS: NOLVADEX PO ×2 (10:40→19:25)
[2024-08-31] MEDS: SODIUM BICARBONATE PO ×3 (10:40→22:20)
[2024-08-31] MEDS: MEGACE PO ×2 (10:40→19:25)
[2024-08-31] MEDS: LEXAPRO PO (10:40)
[2024-08-31] MEDS: THERAGRAN PO (10:40)
[2024-08-31] MEDS: VITAMIN B1 PO (10:41)
[2024-08-31] MEDS: VITAMIN B-6 PO (10:41)
[2024-08-31] MEDS: VITAMIN D3 (cholecalciferol) PO (10:41)
[2024-08-31 10:42] LABS: LDH 293 U/L (120-246)
[2024-08-31] MEDS: DEXTROSE 50% SYRINGE 12.5 GRAMS IV ×2 (11:45→17:06)
[2024-08-31 11:52] LABS: Glucose - Point of Care 66 mg/dl (70-99)
--- NOTE | 2024-08-31 12:31 | PTCARENOTE ---
Addendum entered by Светлана Tavera RN 08/31/24 13:51:
@1231 Dr. Escobedo aware pt unable to take po meds this am.
Original Note:
Dr. Escobedo aware of pts bs- d50 given, repeat 118. pt ok for downgrade to tele. no further orders at this time
[2024-08-31 12:41] LABS: Glucose - Point of Care 118 mg/dl (70-99)
--- NOTE | 2024-08-31 12:48 | W.PN.HOSP.TC ---
Today's Communication/Plan
-
Gentle diuresis.
Empiric antibiotics pending final cultures.
Physical therapy assessment
Assessment / Plan
Assessment / Plan
Impression:
Symptomatic pleural effusion.
Acute CHF reduced EF
Other conditions:
Metastatic ovarian carcinoma
Obstructive uropathy with left nephrostomy and right ureteral stent.
Chronic dysphagia with aspiration risk.
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
� Right ureteral stent and left nephrostomy in place.
Chronic metabolic acidosis on oral bicarbonate
Anemia of chronic disease
Type 2 diabetes
Hypothyroidism on replacement
Declining performance status including ambulatory dysfunction
Plan:
Symptomatic right pleural effusion.
Status post right thoracentesis 08/31. 1500 mL. Extubated by decreased pH.
Follow-up chest x-ray with no focal infiltrate.
Stable respiratory status
Aspiration remains aspiration risk, currently no evidence for focal infiltrate or pneumonia.
Monitor temperature curve.
Follow-up final cultures: Blood culture/pleural fluid culture.
Maintain on empiric antibiotics/ceftriaxone for another 24 hours pending above data.
Speech and swallow evaluation recommended modified diet
Acute CHF reduced EF.
Echo EF 30-35%
Updated echo with minimal pericardial effusion
Noted with increased related to EKG with significantly elevated BNP. Has been on Lasix 20 mg daily at home.
Continue gentle diuresis with Lasix IV 20 mg daily, although monitor for significant hypotension. Follow renal function.
Hold metoprolol given marginal BP
History of CVA
According to patient daughter MRI showed multifocal areas of suspected CVA rather than intracranial metastatic disease.
Patient empirically initiated on Eliquis about a week prior to this presentation with option of embolic CVA. She has no documented arrhythmias.
Type 2 diabetes with hypoglycemia.
Update hemoglobin A1c
Advance diet
Hold oral glucose lowering medications including glipizide, Tradjenta to avoid worsening of hypoglycemia.
Insulin basal bolus protocol.
CKD stage IIIb with baseline creatinine around 2
Suspected this is from obstructive uropathy.
Monitor left urostomy output
Bladder scan.
Continue oral bicarbonate
Monitor renal function while on diuresis
Ovarian carcinoma stage IV.
Patient with multiple rounds including so which chemo and radiation treatment with progressively declining performance status
Currently on tamoxifen.
Palliative care and hospice has been offered, although currently would not be considered
Full code.
DVT prophylaxis Eliquis.
Anticipated Discharge: 24 - 48 hours
Subjective/Interval History
-
Date of Service: August 31, 2024
Objective Data
-
Labs:
Laboratory Results
08/31/24 08/31/24 08/31/24
05:09 08:53 10:00
WBC 10.3
Hgb 8.6 L
Hct 27.2 L Pending
Plt Count 194
PT 19.3 H
INR 1.60
APTT 25.0
Sodium 137
Potassium 4.5
Chloride 109 H
Carbon Dioxide 20 L
BUN 35 H
Creatinine 2.2 H
Glucose 70 Pending
Calcium 8.3 L
Total Bilirubin 0.4
AST 26
ALT 14
Alkaline Phosphatase 68
Vital Signs:
Vital Signs
Temp Pulse Resp BP Pulse Ox
97.7 F 76 9 106/59 96
08/31/24 11:19 08/31/24 12:15 08/31/24 12:15 08/31/24 12:15 08/31/24 12:15
I&O
08/30/24 08/31/24 09/01/24
06:59 06:59 06:59
Output Total 275 / 275
Balance -275 / -275
Physical Exam
-
General: Appears Chronically Ill and Other (sleepy/lethargic )
HEENT: Normocephalic and Atraumatic
Respiratory: Clear to Auscultation
Cardiac: Regular Rhythm and S1/S2; Negative Murmur, Rub or Gallop
GI: Soft, Nontender, Nondistended and Normal Bowel Sounds; Negative Organomegaly
Rectal: Deferred by Provider
Genito-urinary: Other (Left nephrostomy tube-in place, abdominal binder noted.)
Musculoskeletal: No Clubbing, No Cyanosis and No Edema
Skin: Negative Rash
Neuro: Awake, Alert and Oriented
Psych: Confused
--- NOTE | 2024-08-31 13:44 | CM ---
CM following re: discharge planning.
Reviewed pty's chart, met with pt.
Pt is a 73 year old Belarusian/Serbian speaking female, admitted with primary dx of Acute CHF.
Pt is well known to this CM from previous admission, was discharge to daughter's house and hospital bed was ordered. Pt is enrolled in [facility] waiver community based services with [employer], receives 20 hours of home health aide services per day 7 days per
week provided by [facility]. Per daughter, [facility] provided skilled VN services: RN, PT, OT.
Per MD, palliative care and hospice care recommended and pt's daughter declined it.
PCP: Jesús Turner
Pharmacy: [facility]
D/C plan: return back home with resumptions of [facility] and caregiver services and family support.
CM will follow with discharge plan updates as hospitalization progresses
[2024-08-31 14:12] LABS: Glucose - Point of Care 85 mg/dl (70-99)
[2024-08-31 14:18] LABS: Glycohemoglobin (HgbA1c) 5.9 % (4.0-5.6)
[2024-08-31] MEDS: LASIX 40 MG IV (15:39)
[2024-08-31 15:55] LABS: Hematocrit 22.4 % (37.0-47.0)
[2024-08-31 16:06] LABS: Glucose 61 mg/dl (70-99); LDH 341 U/L (120-246); Total Protein 4.7 g/dl (6.3-8.2)
--- NOTE | 2024-08-31 16:48 | PTCARENOTE ---
Addendum entered by Светлана Tavera RN 08/31/24 16:48:
barrie under patient noted to be covered with urine from nephrostomy site, aware.
Original Note:
left nephrostomy site noted to be leaking, dressing changed, Dr. Escobedo aware, IR consult placed.
--- NOTE | 2024-08-31 17:08 | PTCARENOTE ---
fingerstick bs 75- dr. ignacio ordered to give d50 and aware pt refusing po intake.
[2024-08-31 17:15] LABS: Glucose - Point of Care 75 mg/dl (70-99)
[2024-08-31 17:31] LABS: Glucose - Point of Care 124 mg/dl (70-99)
--- NOTE | 2024-08-31 20:51 | PTCARENOTE ---
Received pt from previous RN. Pt is drowsy/confused/flat/withdrawn. NSR on the monitor. On RA O2 sat 97%, lungs diminished/coarse. Incont of BM. Strict NPO. Left nephrostomy dressing c/d/i. SCDs in place. Mouth care provided. Daughter @ bedside.
Safe environment maintained.
[2024-08-31] MEDS: MAGNESIUM OXIDE PO (22:20)
[2024-08-31 23:22] LABS: Glucose - Point of Care 96 mg/dl (70-99)
[2024-09-01] VITALS (17 sets, daily range): BP systolic 91–135; BP diastolic 34–88; PULSE 89–94; O2SAT 96; BMI 21.8
[2024-09-01] MEDS: NSS (PRESERVATIVE FREE) 0.25 ML IV (00:09)
[2024-09-01] MEDS: ATIVAN 0.5 MG IV (00:09)
[2024-09-01] MEDS: ROCEPHIN 1000 MG IV (02:46)
[2024-09-01] MEDS: STERILE WATER FOR INJECTION 10 ML IV (02:46)
[2024-09-01 02:57] LABS: Glucose - Point of Care 70 mg/dl (70-99)
[2024-09-01 04:45] LABS: % Basophils 0.3 % (0-2); % Eosinophils 1.1 % (0-6); % Immature Granulocytes 0.7 % (0-0.5); % Lymphocytes 9.4 % (20.5-51.1); % Neutrophils 82.5 % (42.2-75.2); Absolute Eosinophils 0.1 10^3/uL (0-0.7); Absolute Immature Granulocytes 0.1 10^3/uL (0-0.05); Absolute Lymphocytes 0.9 10^3/uL (1.2-3.4); Absolute Monocytes 0.6 10^3/uL (0.1-0.6); Absolute Neutrophils 7.7 10^3/uL (1.4-6.5); Hemoglobin 9.8 g/dL (12.0-16.0); Mean Corp Hgb Conc. 30.6 g/dL (33.0-37.0); Mean Corpuscular Hgb 29.7 pg (27.0-31.0); Mean Platelet Volume 9.8 fL (7.4-10.4); Nucleated Red Blood Cells % 0 %; Platelet Count 193 10^3/uL (130-400); Red Cell Dist. Width 20.2 % (11.5-14.5); White Blood Cell Count 9.4 10^3/uL (4.8-10.8)
--- NOTE | 2024-09-01 04:49 | PTCARENOTE ---
Systems reviewed, no new change in assessment. AM labs provided. Safe environment maintained.
[2024-09-01] MEDS: SYNTHROID PO (05:14)
[2024-09-01 05:17] LABS: ALT (SGPT) 14 U/L (0-35); AST (SGOT) 29 U/L (14-36); Albumin 2.6 g/dl (3.5-5.0); Alkaline Phosphatase 80 U/L (38-126); Blood Urea Nitrogen 33 mg/dl (7-17); Calcium 8.8 mg/dl (8.4-10.2); Carbon Dioxide 23 mmol/L (22-30); Chloride 110 mmol/L (98-107); Estimated Creatinine Clearance 19 ml/min; Glucose 78 mg/dl (70-99); Potassium 4.3 mmol/L (3.5-5.1); Sodium 139 mmol/L (135-145); Total Bilirubin 0.4 mg/dl (0.2-1.3); Total Protein 5.5 g/dl (6.3-8.2); eGFR 20.55
[2024-09-01 05:20] LABS: Glucose - Point of Care 77 mg/dl (70-99)
--- NOTE | 2024-09-01 09:17 | PTCARENOTE ---
pt received this am- drowsy, template worker [id number] Adolfo used- pt able to say name and at hospital but unable to appropriately answer other orientation questions. pt denies pain or discomfort. follows some simple commands. all safety precautions in
place, nsr on monitor, remains on room air. left nephrosotomy tube with some noted leakage at site.
[2024-09-01] MEDS: LASIX 40 MG IV (10:38)
[2024-09-01] MEDS: ELIQUIS 2.5 MG PO (10:42)
[2024-09-01] MEDS: NOLVADEX 20 MG PO ×2 (10:49→20:10)
[2024-09-01] MEDS: MEGACE 80 MG PO ×2 (10:49→20:11)
[2024-09-01] MEDS: SODIUM BICARBONATE 650 MG PO (10:50)
[2024-09-01] MEDS: LEXAPRO 10 MG PO (10:50)
[2024-09-01] MEDS: VITAMIN D3 (cholecalciferol) 25 MCG PO (10:50)
[2024-09-01] MEDS: VITAMIN B1 100 MG PO (10:50)
[2024-09-01] MEDS: VITAMIN B-12 1000 MCG PO (10:50)
[2024-09-01] MEDS: THERAGRAN 1 TABLET PO (10:50)
[2024-09-01] MEDS: FEOSOL 325 MG PO (10:50)
[2024-09-01] MEDS: VITAMIN B-6 100 MG PO (10:51)
[2024-09-01] MEDS: COLACE PO ×2 (10:54→20:14)
--- NOTE | 2024-09-01 10:57 | WOUNDNOTE ---
[facility] RN note: Patient admitted with CHF, recent pneumonia, s/p thoracentesis 08/31/24. Patient lives with her daughter who is present. Daughter stated patient has a hospital bed at home and that patient was walking before.
See H&P for complete history.
PMH: CM, CKD3aa, ovarian cancer with mets to lung, brain, RLQ, s/p hysterectomy and radiation, followed by [facility] and had radiation at [facility], ureteral obstruction, R ureteral stent, L nephrostomy replaced on 08/05/24 at d/t leakage
and on 08/07/24 d/t patient pulled out tube, was followed at [facility], [facility], on Eliquis.
Wound Location and type/assessment: Patient admitted with: Sacral bruise and lower sacral/coccyx stage 1 pressure injury with some fragile abraded skin. R heel blanchable red. Scattered bruises on legs, R hip. L nephrostomy site with dermal open
skin at suture site and a distal linear red ecchymotic mandeep suspect from a secure device for nephrostomy tube which is not longer in place. IR consulted. Patient in contracted/ position.
Appetite: [id number] minced diet.
Pressure redistribution devices in place: Centrella Max air.
Plan: Sacral shaped silicone border foam changed on sacrum. L nephrostomy site dressing changed. Patient turned to L semi side lying position with help from [facility] RN plumber assistant Maria Fernanda. Heels off bed with air chair cushion. Protective foam applied to
heels. Pillow between legs. Discussed with ARTHUR Sotomayor and daughter. [place] texted Naz Barros RN from IR with nephrostomy site picture noting skin open at skin suture site and local care given. IR to evaluate nephrostomy tube later today.
Will confirm orders with Dr. Escobedo.
Care plan to be updated and will follow as needed.
Note to case management of equipment requested for discharge: Air mattress recommended.
--- NOTE | 2024-09-01 10:58 | WOUNDNOTE ---
LEFT LOWER BACK
--- NOTE | 2024-09-01 10:58 | WOUNDNOTE ---
BILATERAL LOWER LEGS
--- NOTE | 2024-09-01 10:59 | WOUNDNOTE ---
RIGHT UPPER BACK
--- NOTE | 2024-09-01 11:11 | PTCARENOTE ---
Dr. Escobedo at bedside- ordered for pt to be started on diet. pt able to take morning meds with applesauce, daughter at bedside. wound care saw nurse- see documentation from wound rn.
--- NOTE | 2024-09-01 11:13 | W.PN.CD ---
Today's Communication / Plan
-
continue lasix 40mg IV daily
Impression / Plan
-
Pleural effusion:
-s/p right thoracentesis for 1500 ml
[id number] HFrEF: high risk with CKD4
-conservative mgmt given metastatic ovarian cancer
-echo 08/2624: EF 20-25%, moderate MR, mild AR, nl RV, mild TR, PASP 55
-GDMT limited by hypotension and CKD4
-assess to resume low dose Toprol if BP allows
-continue lasix 40mg IV daily with close monitoring of labs, tele
Pericardial effusion
-small, no role for drainage
Hx CVA:
-per chart, Eliquis initiated after evidence for strokes seen on brain imaging: dose will be 5mg bid unless weight falls below 60kg
CKD4:
-monitor with diuresis
Physical Exam
Vital Signs/Labs
Vital Signs
Temp Pulse Resp BP Pulse Ox
98 F 82 19 110/57 95
09/01/24 07:45 09/01/24 10:00 09/01/24 10:00 09/01/24 10:00 09/01/24 11:09
08/31/24 09/01/24 09/02/24
06:59 06:59 06:59
Actual Weight 64.1 kg 61.3 kg
09/01/24 04:31
09/01/24 04:31
PT 19.3 Sec (11.4-14.6) H 08/31/24 05:09
INR 1.60 08/31/24 05:09
APTT 25.0 Sec (23.4-35.0) 08/31/24 05:09
Magnesium 2.3 mg/dl (1.6-2.3) 08/31/24 05:09
08/30/24
18:24
Qwt-O-Lltuvzxicsl Pept > 18507
LAB Results
08/30/24 08/31/24 08/31/24
18:24 00:24 05:09
Troponin I 0.062 H* 0.068 H* 0.065 H*
Physical Exam
Constitutional: No acute distress
EENT: Moist mucous membranes
Cardiovascular: Rhythm & rate is regular, Pedal edema is absent, JVD present and Systolic murmur present
Respiratory: Respiratory effort normal
Data Reviewed
-
Date of Service: September 01, 2024
EKG: Other (Tele: SR 70s)
Labs: Labs Reviewed by me
--- NOTE | 2024-09-01 11:39 | W.PN.HOSP.TC ---
Today's Communication/Plan
-
IV diuresis monitor renal function
iRad consultation for nephrostomy placement check
Continue IV antibiotics for another 24 hours pending final cultures
Physical therapy assessment
Discharge planing pain
Palliative approach with hospice care suggested to patient's daughter
Assessment / Plan
Assessment / Plan
Impression:
Symptomatic pleural effusion.
Acute CHF reduced EF
Other conditions:
Metastatic ovarian carcinoma
Obstructive uropathy with left nephrostomy and right ureteral stent.
Chronic dysphagia with aspiration risk.
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
� Right ureteral stent and left nephrostomy in place.
Chronic metabolic acidosis on oral bicarbonate
Anemia of chronic disease
Type 2 diabetes
Hypothyroidism on replacement
Declining performance status including ambulatory dysfunction
Plan:
Symptomatic right pleural effusion.
Status post right thoracentesis 08/31. 1500 mL. Extubated by decreased pH.
Follow-up chest x-ray with no focal infiltrate.
Stable respiratory status
Aspiration remains aspiration risk, currently no evidence for focal infiltrate or pneumonia.
Monitor temperature curve.
Follow-up final cultures: Blood culture/pleural fluid culture.
Maintain on empiric antibiotics/ceftriaxone for another 24 hours pending above data.
Speech and swallow evaluation recommended modified diet. Continue aspiration precautions.
Acute CHF reduced EF.
Echo EF 30-35%
Updated echocardiogram 08/31 with decreased LVEF at 20-25% and global hypokinesis
Noted with increased related to EKG with significantly elevated BNP. Has been on Lasix 20 mg daily at home.
Continue gentle diuresis with Lasix IV 20 mg daily, although monitor for significant hypotension. Follow renal function.
Hold metoprolol given marginal BP
History of CVA
According to patient daughter MRI showed multifocal areas of suspected CVA rather than intracranial metastatic disease.
Patient empirically initiated on Eliquis about a week prior to this presentation with option of embolic CVA. She has no documented arrhythmias.
Dose has been adjusted
Type 2 diabetes with hypoglycemia.
Update hemoglobin 5.4
Advance diet
Patient with declining oral intake, worsening renal clearance with persistent hypoglycemia.
Would recommend against oral glucose lowering medications at this point.
CKD stage IIIb with baseline creatinine around 2
Suspected this is from obstructive uropathy.
Interventional radiology for left urostomy placement check
Bladder scan.
Continue oral bicarbonate
Monitor renal function while on diuresis
Ovarian carcinoma stage IV.
Patient with multiple rounds including so which chemo and radiation treatment with progressively declining performance status
Currently on tamoxifen.
Palliative care and hospice has been offered, although currently would not be considered
Full code.
DVT prophylaxis Eliquis.
Miguel Angel discussion with patient's daughter at the bedside. Patient with advanced ovarian carcinoma with now severely declining performance status, multiple organ failure not limited to advanced CHF and worsening renal function.
Patient is not a candidate for aggressive heart failure treatment or any additional systemic treatment including radiation or chemotherapy. At this point comfort should be a priority. Hospice care suggested upon discharge.
Anticipated Discharge: 24 - 48 hours
Subjective/Interval History
-
Date of Service: September 01, 2024
Objective Data
-
Labs:
Laboratory Results
09/01/24 09/01/24
03:50 04:31
WBC Cancelled 9.4
Hgb Cancelled 9.8 L
Hct Cancelled 32.0 L
Plt Count Cancelled 193
Sodium Cancelled 139
Potassium Cancelled 4.3
Chloride Cancelled 110 H
Carbon Dioxide Cancelled 23
BUN Cancelled 33 H
Creatinine Cancelled 2.4 H
Glucose Cancelled 78
Calcium Cancelled 8.8
Total Bilirubin Cancelled 0.4
AST Cancelled 29
ALT Cancelled 14
Alkaline Phosphatase Cancelled 80
Vital Signs:
Vital Signs
Temp Pulse Resp BP Pulse Ox
98 F 82 19 110/57 95
09/01/24 07:45 09/01/24 10:00 09/01/24 10:00 09/01/24 10:00 09/01/24 11:09
I&O
08/31/24 09/01/24 09/02/24
06:59 06:59 06:59
Intake Total 0 / 0
Output Total 275 / 275 1350 / 1350 115 / 115
Balance -275 / -275 -1350 / -1350 -115 / -115
Physical Exam
-
General: Appears Chronically Ill and Other (sleepy/lethargic )
HEENT: Normocephalic and Atraumatic
Respiratory: Clear to Auscultation
Cardiac: Regular Rhythm and S1/S2; Negative Murmur, Rub or Gallop
GI: Soft, Nontender, Nondistended and Normal Bowel Sounds; Negative Organomegaly
Rectal: Deferred by Provider
Genito-urinary: Other (Left nephrostomy tube-in place, abdominal binder noted.)
Musculoskeletal: No Clubbing, No Cyanosis and No Edema
Skin: Negative Rash
Neuro: Awake, Alert and Oriented
Psych: Confused
[2024-09-01 12:07] LABS: Glucose - Point of Care 72 mg/dl (70-99)
--- NOTE | 2024-09-01 13:10 | PN.CDI ---
CDI
- -
CDI:
Physician Documentation Request
Admit Date: 08/30/24 23:54
Dear Doctor Fanny,
Please review the following and provide your response in the progress notes.
Clinical Indicators:
Pt admitted with Acute on Chronic HFrEF /Ovarian cancer with mets to lungs
Documented per H&P,' (Lethargic has eyes open but when asked questions by daughter does respond with appropriate answers but daughter states is somewhat confused)...Altered mental status concern for hypercarbia versus any intracranial abnormality..'
Progress note 09/01, ' (sleepy/lethargic )...Confused...'
Patient care note 08/31 @ 3, ' pt lethargic, arouses to name...pt able to say name and she is at hospital, otherwise disoriented. pt follows simple commands. pt reoriented with legal recruiter.'
Pt care note 08/31 @ 2050,' Pt is drowsy/confused/flat/withdrawn...'
Based on the above, could you clarify in the Progress Notes and Discharge Summary which, if any of the following, is the most likely etiology of the confusion/altered mental status.
Metabolic Encephalopathy
Confusions only
Other ( please specify)
Use of terms such as suspected, likely, concern for, or probable (associated with a specific diagnosis that is being evaluated, monitored, or treated as if it exists) are acceptable and can be coded in the inpatient setting, when documented at the
time of discharge.
Thank you,
Aliya Wade RN
CDI Specialist
[place] [facility]
Please use your independent medical judgment in providing your response.
--- NOTE | 2024-09-01 13:19 | PN.CDI ---
CDI
- -
CDI:
Physician Documentation Request
Admit Date: 08/30/24 23:54
Dear Doctor Fanny,
Please review the following and provide your response in the progress notes.
Clinical Indicators:
Pt admitted with Acute on Chronic HFrEF /Ovarian cancer with mets to lungs
Documented per [facility] NOTE 09/01, ' Sacral bruise and lower sacral/coccyx stage 1 pressure injury with some fragile abraded skin.... Sacral shaped silicone border foam changed on sacrum....'
Physician documentation of the type and location of wounds is required for compliant documentation. Based on the above clinical findings and your assessment, please provide the following in your progress note:
1. Location of the ulcer/wound, including laterality.
2. Type (etiology) of ulcer/wound:
- Pressure (decubitus) ulcer
- Non-pressure ulcer
- Other
Use of terms such as suspected, likely, concern for, or probable (associated with a specific diagnosis that is being evaluated, monitored, or treated as if it exists) are acceptable and can be coded in the inpatient setting, when documented at the
time of discharge.
Thank you,
Aliya Wade RN
CDI Specialist
[place] [facility]
Please use your independent medical judgment in providing your response.
*Source: National Pressure Ulcer Advisory Panel (NPUAP)
--- NOTE | 2024-09-01 13:22 | PN.CDI ---
CDI
- -
CDI:
Physician Documentation Request
Admit Date: 08/30/24 23:54
Dear Doctor Fanny,
Please review the following and provide your response in the progress notes.
Clinical Indicators:
Pt admitted with Acute on Chronic HFrEF /Ovarian cancer with mets to lungs
There is potentially conflicting documentation in the record regarding the renal diagnosis.
Documented per H&P,' JOSÉ on CKD 3A Creatinine 2.3 > 2.0 on 08/16/2024 her baseline is 1.7�1.8 U gracie...'
Nuclear Equipment Sales Engineer consult, ' #CKD stage IV.'
Cardiology note 09/01,' CKD4:-monitor with diuresis..'
Progress notes 08/31 & 09/01, ' CKD stage IIIb with baseline creatinine around 2...'
08/30/24 08/31/24 09/01/24
18:24 05:09 04:31
Creatinine 2.3 H 2.2 H 2.4 H
eGFR 21.62 22.81 20.55
Due to potentially conflicting documentation please clarify which of the following accurately represents the patient's renal status:
CKD 4
JOSÉ on CKD 3b
CKD 3b only ( no change in documentation)
Other ( please specify)
Criteria for JOSÉ*
1 Increase in serum creatinine by > or = to 0.3 mg/dL (> or = to 26.5 micromol/L) within 48 hours, OR
2 Increase in serum creatinine to > or = to 1.5 times baseline, which is known or presumed to have occurred within 7 days, OR
3 Urine volume < 0.5 nL/kg/hour for six hours
Stages of Chronic Kidney Disease*
Level Description GFR
G1 Normal or High >90
G2 Mildly decreased 60-89
G3a Mildly to moderately decreased 45-59
G3b Moderately to severely decreased 30-44
G4 Severely decreased 15-29
G5 Kidney failure <15
Use of terms such as suspected, likely, concern for, or probable (associated with a specific diagnosis that is being evaluated, monitored, or treated as if it exists) are acceptable and can be coded in the inpatient setting, when documented at the
time of discharge.
Thank you,
Aliya Wade RN
CDI Specialist
[place] [employer]
Please use your independent medical judgment in providing your response.
*Source: Kidney Disease: Improving Global Outcomes (KDIGO) 2012
--- NOTE | 2024-09-01 14:22 | CM ---
CM following re: discharge planning.
Reviewed pty's chart, met with pt and pt's daughter Tatiana at bedside.
Per MD, palliative care and hospice care recommended and pt's daughter declined it.
Pt's daughter stated she spoke to hospitalist and she does not want hospice care. Pt's daughter requested pt returns back to her house with resumptions of [facility] caregiver services and family support.
PT and OT evaluations noted - home PT/OT recommended. pt's daughter stated that [facility] has PT and OT.
CM spoke to [facility] brewery representative and she confirmed they provide only unskilled services and they will coordinate with their sister agency for skilled services. requested pt's clinical faxed to [facility] and they will coordinate with
agency for skilled services. [facility] brewery representative did not tell the name of VN agency.
IMM reviewed with pt's daughter, she expressed her understanding, declined to sign, she has a copy, original placed on chart.
Daughter's house address
[address] [place] [address]
[facility]
[phone]

D/C plan: return back home with resumptions of [facility] and caregiver services and family support.
CM will follow with discharge plan updates as hospitalization progresses
--- NOTE | 2024-09-01 14:30 | PTCARENOTE ---
pt to IR- new left nephrostomy placed- dressing c/d/i. pt was oob to chair for approx 2 hours. daughter at bedside and updated.
[2024-09-01] MEDS: SODIUM BICARBONATE PO ×2 (16:44→22:00)
[2024-09-01 17:19] LABS: Glucose - Point of Care 113 mg/dl (70-99)
[2024-09-01] MEDS: ELIQUIS 5 MG PO (20:10)
[2024-09-01] MEDS: TYLENOL 1000 MG PO (20:18)
[2024-09-01 21:59] LABS: Glucose - Point of Care 167 mg/dl (70-99)
[2024-09-01] MEDS: MAGNESIUM OXIDE PO (22:00)
[2024-09-02] VITALS (17 sets, daily range): BP systolic 92–123; BP diastolic 51–92; BMI 21.2; BMI 21.1
[2024-09-02] MEDS: STERILE WATER FOR INJECTION 10 ML IV (02:12)
[2024-09-02] MEDS: ATIVAN 0.5 MG IV (02:12)
[2024-09-02] MEDS: NSS (PRESERVATIVE FREE) 0.25 ML IV (02:13)
[2024-09-02] MEDS: ROCEPHIN 1000 MG IV (02:13)
--- NOTE | 2024-09-02 02:33 | PTCARENOTE ---
Pt appearing more upset/anxious over night. Translation attempted, Pt would not participate appropriately. Repositioning for comfort attempted. Water intake and bathroom needs assessed. Pt still appearing upset, Nigh [employer] made aware. One time order
for Ativan given. Reassessment Pt appears calm and comfortable. Respirations even unlabored RR 14. SPO2 97%.
[2024-09-02] MEDS: SYNTHROID PO (05:49)
[2024-09-02 05:55] LABS: % Basophils 0.3 % (0-2); % Eosinophils 1.2 % (0-6); % Immature Granulocytes 0.8 % (0-0.5); % Lymphocytes 16.8 % (20.5-51.1); % Monocytes 8.4 % (1.7-9.3); % Neutrophils 72.5 % (42.2-75.2); Absolute Eosinophils 0.1 10^3/uL (0-0.7); Absolute Immature Granulocytes 0.1 10^3/uL (0-0.05); Absolute Lymphocytes 1.3 10^3/uL (1.2-3.4); Absolute Monocytes 0.7 10^3/uL (0.1-0.6); Absolute Neutrophils 5.6 10^3/uL (1.4-6.5); Hematocrit 28.5 % (37.0-47.0); Hemoglobin 8.9 g/dL (12.0-16.0); Mean Corp Hgb Conc. 31.2 g/dL (33.0-37.0); Mean Corpuscular Hgb 30.1 pg (27.0-31.0); Mean Corpuscular Volume 96.3 fL (81.0-99.0); Mean Platelet Volume 9.6 fL (7.4-10.4); Nucleated Red Blood Cells % 0 %; Platelet Count 161 10^3/uL (130-400); Red Blood Cell Count 2.96 10^6/uL (4.20-5.40); Red Cell Dist. Width 19.9 % (11.5-14.5); White Blood Cell Count 7.7 10^3/uL (4.8-10.8)
[2024-09-02 06:19] LABS: ALT (SGPT) 14 U/L (0-35); AST (SGOT) 29 U/L (14-36); Albumin 2.3 g/dl (3.5-5.0); Alkaline Phosphatase 81 U/L (38-126); Blood Urea Nitrogen 33 mg/dl (7-17); Calcium 8.6 mg/dl (8.4-10.2); Carbon Dioxide 24 mmol/L (22-30); Chloride 107 mmol/L (98-107); Estimated Creatinine Clearance 21 ml/min; Glucose 136 mg/dl (70-99); Sodium 138 mmol/L (135-145); Total Bilirubin 0.6 mg/dl (0.2-1.3); Total Protein 5.1 g/dl (6.3-8.2); eGFR 22.81
[2024-09-02 08:51] LABS: Glucose - Point of Care 113 mg/dl (70-99)
[2024-09-02] MEDS: LASIX 40 MG IV (09:51)
[2024-09-02] MEDS: FEOSOL PO ×2 (10:02→10:23)
[2024-09-02] MEDS: ELIQUIS 5 MG PO ×2 (10:02→20:17)
[2024-09-02] MEDS: COLACE PO ×2 (10:02→10:23)
[2024-09-02] MEDS: MEGACE 80 MG PO ×2 (10:02→20:17)
[2024-09-02] MEDS: THERAGRAN PO ×2 (10:03→10:23)
[2024-09-02] MEDS: VITAMIN B1 PO ×2 (10:03→10:24)
[2024-09-02] MEDS: SODIUM BICARBONATE PO ×3 (10:03→16:50)
[2024-09-02] MEDS: NOLVADEX 20 MG PO ×2 (10:03→20:18)
[2024-09-02] MEDS: VITAMIN D3 (cholecalciferol) PO ×2 (10:03→10:24)
[2024-09-02] MEDS: VITAMIN B-6 PO ×2 (10:03→10:23)
[2024-09-02] MEDS: LEXAPRO 10 MG PO (10:03)
[2024-09-02] MEDS: VITAMIN B-12 PO (10:17)
--- NOTE | 2024-09-02 10:28 | PTCARENOTE ---
Pt only takes sips of drinks and a few meds in pureee, refuses food and rest of meds. Daughter Tatiana contacted to speak to patient over phone, she encouraged pt to comply, reports to RN that pt stated she 'doesn't feel good but will try' and that pt
sounds slightly confused at this time. She reports pt does have hx of confusion. Emotional support provided, bed alarm in place and armed. Relaxation video playing for comfort, safe environment maintained.
[2024-09-02 13:09] LABS: Glucose - Point of Care 150 mg/dl (70-99)
--- NOTE | 2024-09-02 13:31 | CM ---
CM following rte: discharge planning.
Reviewed pt's chart, met with pt and spoke to pt's daughter Eduarda
According to MD pt is medically stable to be discharged today. CM spoke to pt's daughter eduarda and she expressed her agreement with pt's discharge. daughter stated she has graduation day today and she will transport her mother home around 6:00 p.m.
IMM reviewed with daughter yesterday.
Daughter's house address
[address] [place] [address]
[facility]
[phone]
Please fax discharge instructions to [facility] at and they will forward it to their sister VN agency that provides skilled RN, PT and OT.
D/C plan: return back home with resumptions of [facility] and caregiver services and family support. Daughter eduarda to transport home.
--- NOTE | 2024-09-02 13:41 | W.DS.TRANS ---
DC Summary - [employer]
-
Discharge Instructions:
Discharge Diagnosis/Procedures Impression:
Symptomatic pleural effusion.
Acute CHF reduced EF
Other conditions:
Metastatic ovarian carcinoma
Obstructive uropathy with left nephrostomy and
right ureteral stent.
Chronic dysphagia with aspiration risk.
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
from metastatic ovarian carcinoma
� Right ureteral stent and left nephrostomy in
place.
Chronic metabolic acidosis on oral bicarbonate
Anemia of chronic disease
Type 2 diabetes
Hypothyroidism on replacement
Declining performance status including
ambulatory dysfunction
Diet 2 Gram Sodium
Instructions: *PCP/Other Property Condition Assessor Heart Failure Instructions
Stand-Alone Forms:
Changes to Home Medications: No
Discharge Medications:
DC Medications w/original date entered in [facility]
acetaminophen 500 mg tablet (Tylenol Extra Strength) 1,000 mg PO Q6HPRN PRN mild pain ##0 08/05/24
melatonin 5 mg tablet 5 mg PO HSPRN PRN sleep 08/05/24
ondansetron HCl 8 mg tablet 8 mg PO Q8HPRN PRN nausea ##0 08/05/24
docusate sodium 100 mg capsule (Colace) 100 mg PO BID Constipation #0 caps 08/16/24
ferrous sulfate 325 mg (65 mg iron) tablet 325 mg PO DAILY Constipation #0 tabs 08/16/24
glipizide 2.5 mg tablet, extended release 24 hr 2.5 mg PO BID Diabetes #0 tabs 08/16/24
levothyroxine 125 mcg capsule 125 mcg PO DAILY Thyroid #0 caps 08/16/24
megestrol 40 mg tablet 80 mg (2 x 40 mg) PO BID appetite #0 tabs 08/16/24
methenamine hippurate 1 gram tablet 1 g PO DAILY Urinary issue #0 tabs 08/16/24
metoprolol succinate 50 mg tablet,extended release 24 hr 50 mg PO DAILY Heart Failure #30 tabs 08/16/24
pyridoxine (vitamin B6) 100 mg tablet 100 mg PO DAILY Supplement #0 tabs 08/16/24
sodium bicarbonate 650 mg tablet 650 mg PO TID Kidney Disease #90 tabs 08/16/24
tamoxifen 20 mg tablet 20 mg PO BID Cancer #0 tabs 08/16/24
albuterol sulfate 90 mcg/actuation aerosol inhaler 2 puff inhalation R Q6HPRN PRN sob 08/30/24
apixaban 2.5 mg tablet (Eliquis) 2.5 mg PO BID Blood Clot Prevention/Tx 08/30/24
cholecalciferol (vitamin D3) 25 mcg (1,000 unit) tablet (Vitamin D3) 25 mcg PO DAILY Supplement 08/30/24
cyanocobalamin (vitamin B-12) 1,000 mcg tablet 1,000 mcg PO DAILY Supplement 08/30/24
escitalopram oxalate 10 mg tablet 10 mg PO DAILY Mental Health/Anxiety 08/30/24
furosemide 20 mg tablet 20 mg PO DAILY Fluid Retention/Swelling 08/30/24
gabapentin 300 mg capsule 300 mg PO DAILYPRN PRN moderate pain 08/30/24
hydroxyzine HCl 25 mg tablet 25 mg PO HSPRN PRN sleep 08/30/24
linagliptin 5 mg tablet (Tradjenta) 5 mg PO DAILY Diabetes 08/30/24
magnesium oxide 400 mg PO HS Supplement 08/30/24
therapeutic multivitamin 1 tab PO DAILY Supplement 08/30/24
thiamine HCl (vitamin B1) 100 mg tablet 100 mg PO DAILY Supplement 08/30/24
Home Medication Changes
Pending Results: No
--- NOTE | 2024-09-02 15:19 | PTCARENOTE ---
Plan of care discussed with attending. Pt stable for discharge today. Per CM, daughter Tatiana will come parts picker patient and transport her home. Pt remains drowsy, sleeping when undisturbed. Only wants liquids. Pt incont sm brown BM, leilani care
provided, dressing to sacrum replaced. Left nephrostomy tube continues with good output clear yellow urine. Q2T maintained, bed alarm on.
--- NOTE | 2024-09-02 16:48 | W.PN.CD ---
Today's Communication / Plan
-
Agree with discharge
Move to PO diuretic, watch weight at home to assure Lasix dose does not need to be increased
Eliquis dose will be 5mg bid unless weight falls stays 60 kg or less consistently then decrease to 2.5 bid
Goal weight seems to be 60-60.5 kg
Impression / Plan
-
Pleural effusion:
-s/p right thoracentesis for 1500 ml
Hwhqq-ac-afwvhcu HFrEF: high risk with CKD4
-conservative mgmt given metastatic ovarian cancer
-echo 08/2624: EF 20-25%, moderate MR, mild AR, nl RV, mild TR, PASP 55
-GDMT limited by hypotension and CKD4
-assess to resume low dose Toprol if BP allows
- move to PO Lasix. Watch weight at home to see if dose of Lasix will need to be increased
- Goal weight 60-60.5 kg
Pericardial effusion
-small, no role for drainage
Hx CVA:
-per chart, Eliquis initiated after evidence for strokes seen on brain imaging: dose will be 5mg bid unless weight falls stays 60 kg or less consistently
CKD4:
-monitor with diuresis
Physical Exam
Vital Signs/Labs
Vital Signs
Temp Pulse Resp BP Pulse Ox
97.2 F 84 13 107/69 99
09/02/24 15:00 09/02/24 14:00 09/02/24 14:00 09/02/24 14:00 09/02/24 10:00
09/01/24 09/02/24 09/03/24
06:59 06:59 06:59
Actual Weight 61.3 kg 59.6 kg
09/02/24 05:34
09/02/24 05:34
PT 19.3 Sec (11.4-14.6) H 08/31/24 05:09
INR 1.60 08/31/24 05:09
APTT 25.0 Sec (23.4-35.0) 08/31/24 05:09
Magnesium 2.3 mg/dl (1.6-2.3) 08/31/24 05:09
08/30/24
18:24
Fmq-K-Ikjihriisyv Pept > 29297
LAB Results
08/30/24 08/31/24 08/31/24
18:24 00:24 05:09
Troponin I 0.062 H* 0.068 H* 0.065 H*
Physical Exam
Constitutional: No acute distress
Cardiovascular: Rhythm & rate is regular and Pedal edema is absent
Respiratory: Respiratory effort normal and Lungs clear to auscul.
GI: Soft and Distention absent
Neuro/Psych: Alert
Data Reviewed
-
Date of Service: September 02, 2024
--- NOTE | 2024-09-02 17:00 | PTCARENOTE ---
Mult attempts to get pt out to chair unsuccessful, she refuses, pushing against RN, laying head back down on pillow. Repositioned back in bed for comfort. Refuses lunch and dinner -water provided PRN.
[2024-09-02 17:32] LABS: Glucose - Point of Care 115 mg/dl (70-99)
--- NOTE | 2024-09-02 18:42 | PTCARENOTE ---
Daughter called and said she is running late. approx one hour away. Info passed on to night RN.
[2024-09-02] MEDS: SODIUM BICARBONATE 650 MG PO (20:17)
[2024-09-02] MEDS: COLACE 100 MG PO (20:17)
[2024-09-02] MEDS: MAGNESIUM OXIDE 500 MG PO (20:18)
--- NOTE | 2024-09-02 21:02 | W.PN.UPDATE ---
Update Note
Progress Note Update
Called by RN to assess patient and speak with daughter regarding discharge. Patient vital signs stable, at baseline mentation. Daughter unsure if discharge today is safe and wants patient to be seen again by Cardiology tomorrow so that discharge
plan can be discussed. Patient is medically stable, discharged by attending and Cardiology in agreement. Daughter does not want to take patient home tonight. Patient to be kept overnight. Downgraded to telemetry. Plan for discharge tomorrow if
medically stable. Daughter to discuss plan with providers.
[2024-09-02 21:50] LABS: Glucose - Point of Care 188 mg/dl (70-99)
--- NOTE | 2024-09-02 22:12 | PTCARENOTE ---
Assumed care of pt at 1900. Pt written for discharge and plan was for daughter to take patient home this evening. Daughter arrived to room at around 1945, she immediately had concerns about pt being discharged home, stating that her mother 'isn't
herself' and looks drowsy, wanting to know most recent lab values, upset that she was not contacted by a physician, etc. Luis Angel MATOS notified of daughter's concerns and came to pt's room to discuss. Ultimately daughter decided that she did not
feel comfortable taking pt home tonight and wanted her to stay another night so she can speak with the program advocate tomorrow. Discharge cancelled and pt downgraded from IMU to telemetry LOC. Discussed with daughter that patient will move to a
different room tonight. Monitor reapplied (had been removed during dayshift when pt was supposed to leave). Assessment completed, see nursing shift assessment flowsheet for full details. Pt's daughter then came out to the desk at around 2150 to
inform me that patient was c/o chest pain/tightness. EKG obtained, Luis Angel Smith notified of c/o CP and EKG results (SR with PACs). VS unchanged. Pt to move to 418-01 tonight.
--- NOTE | 2024-09-02 23:00 | TRANSFER ---
Pt. transferred from ICU, awake, alert, confused, yells out, vs stable, NSR with PAC's on monitor, bed alarm intact, call purcell within reach.
--- NOTE | 2024-09-02 23:28 | PTCARENOTE ---
Report called to Yara GIBSON, pt transferred to [facility] in bed at 2327.
[2024-09-03] MEDS: ROCEPHIN 1000 MG IV (02:11)
[2024-09-03] MEDS: STERILE WATER FOR INJECTION 10 ML IV (02:11)
[2024-09-03] MEDS: ATIVAN 0.5 MG IV (02:13)
[2024-09-03] MEDS: NSS (PRESERVATIVE FREE) 0.25 ML IV (02:13)
[2024-09-03] MEDS: FLUSH (NSS) 1 FLUSH IV (02:16)
[2024-09-03 03:55] VITALS: BP 123/77
[2024-09-03] MEDS: SYNTHROID 125 MCG PO (05:26)
[2024-09-03 06:00] VITALS: BMI 21.2
[2024-09-03 07:00] VITALS: BP 123/74
[2024-09-03 07:57] LABS: % Basophils 0.4 % (0-2); % Eosinophils 1.7 % (0-6); % Immature Granulocytes 0.5 % (0-0.5); % Lymphocytes 16.3 % (20.5-51.1); % Monocytes 7.6 % (1.7-9.3); % Neutrophils 73.5 % (42.2-75.2); Absolute Eosinophils 0.1 10^3/uL (0-0.7); Absolute Lymphocytes 1.4 10^3/uL (1.2-3.4); Absolute Monocytes 0.6 10^3/uL (0.1-0.6); Absolute Neutrophils 6.2 10^3/uL (1.4-6.5); Hematocrit 33.5 % (37.0-47.0); Hemoglobin 10.1 g/dL (12.0-16.0); Mean Corp Hgb Conc. 30.1 g/dL (33.0-37.0); Mean Corpuscular Hgb 29.5 pg (27.0-31.0); Mean Platelet Volume 9.5 fL (7.4-10.4); Nucleated Red Blood Cells % 0 %; Platelet Count 180 10^3/uL (130-400); Red Blood Cell Count 3.42 10^6/uL (4.20-5.40); Red Cell Dist. Width 19.5 % (11.5-14.5); White Blood Cell Count 8.5 10^3/uL (4.8-10.8)
[2024-09-03 08:23] LABS: Glucose - Point of Care 109 mg/dl (70-99)
[2024-09-03 08:27] LABS: ALT (SGPT) 18 U/L (0-35); AST (SGOT) 35 U/L (14-36); Albumin 2.8 g/dl (3.5-5.0); Alkaline Phosphatase 94 U/L (38-126); Blood Urea Nitrogen 31 mg/dl (7-17); Calcium 8.5 mg/dl (8.4-10.2); Carbon Dioxide 25 mmol/L (22-30); Chloride 105 mmol/L (98-107); Estimated Creatinine Clearance 23 ml/min; Glucose 112 mg/dl (70-99); Potassium 3.7 mmol/L (3.5-5.1); Sodium 140 mmol/L (135-145); Total Bilirubin 0.7 mg/dl (0.2-1.3); Total Protein 5.7 g/dl (6.3-8.2); eGFR 25.57
[2024-09-03] MEDS: TYLENOL 1000 MG PO (09:21)
[2024-09-03] MEDS: THERAGRAN 1 TABLET PO (09:22)
[2024-09-03] MEDS: LEXAPRO PO (09:23)
[2024-09-03] MEDS: VITAMIN B1 100 MG PO (09:23)
[2024-09-03] MEDS: VITAMIN D3 (cholecalciferol) 25 MCG PO (09:23)
[2024-09-03] MEDS: COLACE 100 MG PO (09:23)
[2024-09-03] MEDS: VITAMIN B-12 1000 MCG PO (09:23)
[2024-09-03] MEDS: MEGACE 80 MG PO (09:24)
[2024-09-03] MEDS: SODIUM BICARBONATE 650 MG PO (09:24)
[2024-09-03] MEDS: NOLVADEX 20 MG PO (09:24)
[2024-09-03] MEDS: LASIX 40 MG IV (09:25)
[2024-09-03] MEDS: FEOSOL 325 MG PO (09:26)
[2024-09-03] MEDS: VITAMIN B-6 100 MG PO (09:27)
--- NOTE | 2024-09-03 09:32 | CM ---
Plan is for patient to return to home today, to [facility] house. Patient will be sent home on Zyvox and bottle caser checked with patient's pharmacy and and they have the medication and it is zero copay, daughter and physician made aware.
IMM explained but daughter refused to sign, as per daughter she does not feel she has sign.
Plan; Home with nonskilled caregivers, daughter to provide transport.
Daughter's house address
[address] [place] [address]
[facility]
[phone]
[2024-09-03] MEDS: ZYVOX 600 MG PO (10:39)
[2024-09-03] MEDS: ELIQUIS 2.5 MG PO (10:40)
[2024-09-03] MEDS: ELIQUIS PO (10:51)
[2024-09-03 11:00] VITALS: BP 110/68
[2024-09-03 11:30] VITALS: BP 110/68
--- NOTE | 2024-09-03 11:53 | W.PN.CD ---
Today's Communication / Plan
-
Discharge medication regimen: Metoprolol 25 mg daily, Lasix 40 mg daily, apixaban 2.5 mg twice daily
Daily weights on discharge. Goal 128-132 pounds.
I will request follow-up with our office. They should expect a call on Thursday.
Impression / Plan
-
Xmzft-ad-vgxwuul HFrEF: high risk with CKD4
-conservative mgmt given metastatic ovarian cancer
-echo 08/2624: EF 20-25%, moderate MR, mild AR, nl RV, mild TR, PASP 55
-GDMT limited by hypotension and CKD4
-resume metoprolol at 25mg daily (lowered dose due to hypotension)
-home diuretic plan: Lasix 40mg daily
-Goal weight 130lb
Preoperative risk stratification
-Daughter tells me that her ureteral stent needs to be removed at the end of September
-She needs an ischemic eval prior to surgery to rule out L main disease. Our office will call her to schedule.
Pleural effusion:
-s/p right thoracentesis for 1500 ml
Pericardial effusion
-small, no role for drainage
Hx CVA:
-per chart, Eliquis initiated after evidence for strokes seen on brain imagin.5mg bid given weight <60kg at discharge
CKD4:
-monitor with diuresis
Subjective: Patient sleeping comfortably. Reportedly no CV complaints. Daughter at bedside. I reviewed the plan with her.
Physical Exam
Vital Signs/Labs
Vital Signs
Temp Pulse Resp BP Pulse Ox
98.6 F 96 21 123/74 98
09/03/24 07:00 09/03/24 09:25 09/03/24 07:00 09/03/24 09:25 09/03/24 07:00
09/02/24 09/03/24 09/04/24
06:59 06:59 06:59
Actual Weight 59.6 kg 59.511 kg
09/03/24 06:07
09/03/24 06:07
PT 19.3 Sec (11.4-14.6) H 08/31/24 05:09
INR 1.60 08/31/24 05:09
APTT 25.0 Sec (23.4-35.0) 08/31/24 05:09
Magnesium 2.3 mg/dl (1.6-2.3) 08/31/24 05:09
08/30/24
18:24
Rgo-A-Znufaghbnqf Pept > 00601
Physical Exam
Constitutional: No acute distress and Comfortable
Cardiovascular: Rhythm & rate is regular, Pedal edema is absent, S1S2 is normal and Murmur/rub/gallop absent
Respiratory: Respiratory effort normal and Lungs clear to auscul.
Data Reviewed
-
Date of Service: September 03, 2024
Medical Decision Making: Reviewed Test Results, Independent Historian Assessment, Test Interpretation and Review of Case with other Provider
EKG: Tracing Personally Visualized and interpreted
Echo: Report Reviewed by me
Labs: Labs Reviewed by me
[2024-09-03 11:59] LABS: Glucose - Point of Care 197 mg/dl (70-99)
--- NOTE | 2024-09-03 12:35 | PTCARENOTE ---
Assumed care of pt from previous nurse. Pt denies pain. Pt for dc today after daughter was able to speak to cardiology and pulmonology. Daughter to transport
[2024-09-03] MEDS: TOPROL XL 25 MG PO (13:30)
--- NOTE | 2024-09-03 13:41 | W.PN.HOSP.TC ---
Today's Communication/Plan
-
Discharge
Assessment / Plan
Assessment / Plan
Impression:
Symptomatic pleural effusion.
Acute CHF reduced EF
Metastatic ovarian carcinoma
Obstructive uropathy with left nephrostomy and right ureteral stent.
Chronic dysphagia with aspiration risk.
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
Right ureteral stent and left nephrostomy in place.
Chronic metabolic acidosis on oral bicarbonate
Anemia of chronic disease
Type 2 diabetes
Hypothyroidism on replacement
Declining performance status including ambulatory dysfunction
Plan:
Symptomatic right pleural effusion.
Status post right thoracentesis 08/31. 1500 mL. Extubated by decreased pH.
Follow-up chest x-ray with no focal infiltrate.
Stable respiratory status
Aspiration remains aspiration risk, currently no evidence for focal infiltrate or pneumonia.
Monitor temperature curve.
Follow-up final cultures: Blood culture/pleural fluid culture.
VRE noted in the urine culture therefore started on Zyvox and prescription given
Advised to hold Lexapro and Hiprex while on Zyvox
Prescription for CBC in 4 days given
Speech and swallow evaluation recommended modified diet. Continue aspiration precautions.
Acute CHF reduced EF.
Echo EF 30-35%
Updated echocardiogram 08/31 with decreased LVEF at 20-25% and global hypokinesis
Noted with increased related to EKG with significantly elevated BNP. Has been on Lasix 20 mg daily at home.
Lasix 40 mg daily for discharge
Metoprolol 25 mg daily
History of CVA
According to patient daughter MRI showed multifocal areas of suspected CVA rather than intracranial metastatic disease.
Patient empirically initiated on Eliquis about a week prior to this presentation with option of embolic CVA. She has no documented arrhythmias.
Dose has been adjusted
Type 2 diabetes with hypoglycemia.
Update hemoglobin 5.4
Advance diet
Patient with declining oral intake, worsening renal clearance with persistent hypoglycemia.
Would recommend against oral glucose lowering medications at this point.
CKD stage IIIb with baseline creatinine around 2
Suspected this is from obstructive uropathy.
Interventional radiology checked position of nephrostomy
Bladder scan.
Continue oral bicarbonate
Monitor renal function while on diuresis
Ovarian carcinoma stage IV.
Patient with multiple rounds including so which chemo and radiation treatment with progressively declining performance status
Currently on tamoxifen.
Full code.
DVT prophylaxis Eliquis.
Discussed with cardiology
Discussed with nursing at bedside
Prescription givenFor labs
Prescription for antibiotics,
'Chest pain' likely secondary to acid reflux-Protonix added for discharge
More than 30 minutes spent in discharge including
Final examination of the patient
Summarizing hospital stay
Instructions for continuing care to all relevant caregivers
Preparation of discharge records, prescriptions, and referral forms
Total time spent (in minutes): 35 min
Anticipated Discharge: Today
Subjective/Interval History
-
Date of Service: September 03, 2024
Objective Data
-
Labs:
Laboratory Results
09/03/24
06:07
WBC 8.5
Hgb 10.1 L
Hct 33.5 L
Plt Count 180
Sodium 140
Potassium 3.7
Chloride 105
Carbon Dioxide 25
BUN 31 H
Creatinine 2.0 H
Glucose 112 H
Calcium 8.5
Total Bilirubin 0.7
AST 35
ALT 18
Alkaline Phosphatase 94
Vital Signs:
Vital Signs
Temp Pulse Resp BP Pulse Ox
98 F 96 18 121/77 96
09/03/24 11:00 09/03/24 13:30 09/03/24 11:00 09/03/24 13:30 09/03/24 11:00
I&O
09/02/24 09/03/24 09/04/24
06:59 06:59 06:59
Intake Total 60 / 60 600 / 600 240 / 240
Output Total 890 / 890 965 / 965
Balance -830 / -830 -365 / -365 240 / 240
[2024-09-03] MEDS: MAALOX 30 ML PO (14:11)
[2024-09-03] MEDS: PROTONIX 40 MG PO (14:12)
[2024-09-03] MEDS: NOVOLOG vial 0.01 UNITS SC (14:12)
--- NOTE | 2024-09-03 14:56 | PTCARENOTE ---
pt left with daughter via w/c, paperwork reviewed and daughter has copy. iv and tele removed.
--- NOTE | 2024-09-05 10:04 | W.HF.CON ---
Heart Failure
- LV Function
Left ventricular function study result: LV Ejection fraction </= 35%
Ejection Fraction Percentage: 20-25
- ARNI
Patient already on ARNI: No
Heart Failure ARNI Contraindication: Acute Renal Failure, Hypotension
- ACEI/ARB
Patient already on ACEI/ARB: No
Heart Failure ACEI/ARB Contraindication: Acute Renal Failure, Hypotension
- Beta Jeni
Patient already on Evidence Based Beta Jeni: Yes
- Mineralocorticord Receptor Antagonist
Patient already on MRA: No
Heart Failure MRA Contraindication: Acute Renal Insufficiency, Hypotension
- SGLT-2 Inhibitor
Patient already on SGLT-2 Inhibitor: No
Heart Failure SGLT-2 Inhibitor Contraindication: eGFR < 25
- Afib Anticoagulation
Patient already on Anticoagulation for Afib: Yes
- NYHA CHF Classification
NYHA CHF Classification Level: Class III - Symptoms w/ min exertion, interferes w/ nml daily activity
- ACC/AHA Stage
ACC/AHA Stage: Stage C: Symptomatic Heart Failure
== END 2024-09-03 14:52 | disposition home or self-care (01) | DRG 291 ==
LOC: 4 WEST ACU 23:54
PROVIDERS: Clinical Nurse Specialist Family Health; Emergency Medicine; Internal Medicine; Radiology Diagnostic Radiology; Radiology Vascular & Interventional Radiology; ADMITTING PHYSICIAN Hospitalist; ATTENDING PHYSICIAN Hospitalist; CONSULT PHYSICIAN Internal Medicine Critical Care Medicine; CONSULT PHYSICIAN Student in an Organized Health Care Education/Training Program; EMERGENCY PHYSICIAN Emergency Medicine; FAMILY PHYSICIAN Internal Medicine
PROC: 0W993ZX Drainage of Right Pleural Cavity, Percutaneous Approach, Diagnostic (ICD-10-PCS; 2024-08-31)
PROC: 0T25X0Z Change Drainage Device in Kidney, External Approach (ICD-10-PCS; 2024-09-01)
DX: I13.0 Hypertensive heart and chronic kidney disease with heart failure and stage 1 through stage 4 chronic kidney disease, or unspecified chronic kidney disease (principal); G92.8 Other toxic encephalopathy; I50.23 Acute on chronic systolic (congestive) heart failure; J90 Pleural effusion, not elsewhere classified; E87.22 Chronic metabolic acidosis; N18.4 Chronic kidney disease, stage 4 (severe); C56.9 Malignant neoplasm of unspecified ovary; N17.9 Acute kidney failure, unspecified; I31.39 Other pericardial effusion (noninflammatory); N13.6 Pyonephrosis; L89.151 Pressure ulcer of sacral region, stage 1; D63.8 Anemia in other chronic diseases classified elsewhere; E11.22 Type 2 diabetes mellitus with diabetic chronic kidney disease; E03.9 Hypothyroidism, unspecified; R26.2 Difficulty in walking, not elsewhere classified; N99.528 Other complication of incontinent external stoma of urinary tract; E11.649 Type 2 diabetes mellitus with hypoglycemia without coma; B95.2 Enterococcus as the cause of diseases classified elsewhere; Z86.73 Personal history of transient ischemic attack (TIA), and cerebral infarction without residual deficits
CPT/HCPCS: 88305; 93308; 32555; 50435; 70450; 71045; 71046; 80053; 81003; 81015; 82150; 82805; 82945; 82947; 82962; 83036; 83615; 83735; 83880; 83986; 84100; 84155; 84157; 84478; 84484; 85014; 85025; 85610; 85730; 87015; 87070; 87077; 87086; 87102; 87116; 87186; 87205; 87206; 88112; 89051; 92526; 92610; 93005; 93321; 93325; 97163; 97167; 99285; C1729; C1769

== ENCOUNTER → 2024-10-11 18:02 | Outpatient (REF) | payer MEDICARE, OTHER, SELFPAY | LOC: RAD 18:02 | PROVIDERS: ATTENDING PHYSICIAN Internal Medicine | DX: R05.1 Acute cough (principal) | CPT/HCPCS: 71046 ==

== ENCOUNTER → 2024-11-11 10:52 | Outpatient (REF) | payer MEDICARE, OTHER, SELFPAY ==
[2024-11-11 11:10] VITALS: BP 110/68; BP_SYST 88
[2024-11-11 11:30] VITALS: BP 118/74
[2024-11-11 12:46] VITALS: BP 110/68; BP_SYST 88
== END ==
LOC: RADI 10:52
PROVIDERS: ATTENDING PHYSICIAN Radiology Diagnostic Radiology; FAMILY PHYSICIAN Internal Medicine
DX: Z43.6 Encounter for attention to other artificial openings of urinary tract (principal); N13.6 Pyonephrosis
CPT/HCPCS: 50435; C1729; C1769

== ENCOUNTER → 2024-12-21 08:24 | Outpatient (REF) | payer MEDICARE, OTHER, SELFPAY | LOC: RADI 08:24 | PROVIDERS: ATTENDING PHYSICIAN Radiology Vascular & Interventional Radiology | DX: N99.522 Malfunction of incontinent external stoma of urinary tract (principal); Y83.3 Surgical operation with formation of external stoma as the cause of abnormal reaction of the patient, or of later complication, without mention of misadventure at the time of the procedure; N13.6 Pyonephrosis | CPT/HCPCS: 50435; C1729; C1769 ==

== ENCOUNTER 2024-12-23 02:16 | Inpatient (IN) | payer MEDICARE, OTHER, SELFPAY ==
[2024-12-22] VITALS (8 sets, daily range): BP systolic 80–108; BP diastolic 53–72; BMI 22.4
[2024-12-22 21:42] LABS: Glucose - Point of Care 64 mg/dl (70-99)
[2024-12-22] MEDS: DEXTROSE 50% SYRINGE 25 GRAMS IV (22:11)
[2024-12-22 22:31] LABS: Glucose - Point of Care 70 mg/dl (70-99)
[2024-12-22 23:13] LABS: Venous Blood Gas B.E. -0.5 mmol/L (-4 to +4); Venous Blood Gas HCO3 24.2 mmol/L (22-27); Venous Blood Gas O2 Sat % 97.5 %; Venous Blood Gas pCO2 39 mmHg (35-48); Venous Blood Gas pO2 92 mmHg (30-50)
[2024-12-22 23:13] LABS: Glucose - Point of Care 136 mg/dl (70-99)
[2024-12-22 23:21] LABS: Hematocrit 26.9 % (37.0-47.0); Hemoglobin 8.9 g/dL (12.0-16.0); Mean Corp Hgb Conc. 33.1 g/dL (33.0-37.0); Mean Corpuscular Volume 90.6 fL (81.0-99.0); Red Blood Cell Count 2.97 10^6/uL (4.20-5.40); Red Cell Dist. Width 16.2 % (11.5-14.5); White Blood Cell Count 14.7 10^3/uL (4.8-10.8)
--- NOTE | 2024-12-22 23:22 | ED.GENMED ---
History of Present Illness
General
Chief Complaint: Change in Mental Status
Source: family
Exam Limitations: altered mental status
Time Seen by Provider: 12/22/24 21:38
History of Present Illness
History of Present Illness:
Note:
CHIEF COMPLAINT(S)
Weakness and altered mental status.
HISTORY OF PRESENT ILLNESS
The patient is an adult female with a history of ovarian cancer, currently under treatment, who presented with weakness and altered mental status starting a couple of days ago. She has a nephrostomy tube in the left kidney and a stent in the other.
The patient�s family reports she was seen at [facility] earlier today and noted to have a change in condition since. She has a history of diabetes mellitus with hyperglycemia. The patient has been on Eliquis due to atrial fibrillation
and takes Lasix (furosemide) for heart failure. Recently, she has experienced diarrhea and had a weight gain attributed to fluid retention with swollen hands. No recent falls were reported; however, a small contusion is present over the right
eyebrow. Her daughter clarified that her head was resting against the edge of the bed, but she did not fall. Her family expressed a desire for aggressive management of her condition.
ADDITIONAL HISTORY OBTAINED FROM SOURCES OTHER THAN THE PATIENT
According to the family, the patients weakness and altered mental status began a couple of days ago and have progressively worsened. The information regarding her recent medical history and current medications was provided by her family members.
CHRONIC MEDICAL CONDITIONS SIGNIFICANTLY AFFECTING CARE
Chronic conditions affecting care: diabetes mellitus, heart failure, atrial fibrillation, and ovarian cancer.
SOCIAL DETERMINANTS AFFECTING HEALTH
According to the family, the patient does not speak [place]men, which may affect communication of her health status and history.
ALLERGIES
Hydrocodone (Vicodin) allergy.
PHYSICAL EXAM
- General: Poorly responsive, nonverbal, opens eyes to painful stimuli. No respiratory distress observed.
- Skin: Edema in bilateral hands, skin tears on bilateral forearms.
- Head: Small contusion to the right eyebrow.
- Neurologic: Does not follow commands.
- Mucous Membranes: Dry.
- Abdomen: Soft.
- Additional Findings: Noted presence of a nephrostomy tube on the left.
PLAN
- Administration of intravenous dextrose to address hypoglycemia.
- Review of recent medical records and lab results.
- Consider evaluation for possible infection, given recent nephrostomy tube change.
- Monitor and manage fluid status due to history of heart failure and current edema.
- Further diagnostic imaging and laboratory tests to be ordered as needed.
DIFFERENTIAL DIAGNOSIS
The Differential Diagnosis includes, in no particular order and is not limited to:
- Hypoglycemia
- Infection related to nephrostomy tube
- Medication side effects
- Electrolyte imbalance
- Worsening heart failure
- Progression of cancer
- Acute renal failure
- Sepsis
- Stroke
- Complications due to diabetes mellitus
CARE-UPDATE
12/22/24 - 22:02
IV access remains unavailable; patient presents with no new significant findings. Continued monitoring is advised.
CARE-UPDATE
12/22/24 - 23:21
PROCEDURE: The right femoral central line was successfully placed using full sterile conditions and ultrasound guidance. All ports demonstrated patency by easily drawing blood and were flushed adequately. The line was secured with sutures, and a
sterile dressing was applied.
CARE-UPDATE
12/22/24 - :25
The patients pleural effusion and thoracentesis history have been noted in the [facility] review. Acute CHF and metastatic ovarian cancer are confirmed, alongside obstructive nephropathy managed with nephrostomy and stent placement.
The patient continues to struggle with chronic kidney disease and chronic metabolic acidosis and displays symptoms of anemia of chronic disease. Stricter glycemic control may be necessary to address brittle diabetes. Additionally, hypothyroidism
remains a concern as previously noted in the discharge summary from August 2024. Reassessment and management strategies should consider these chronic conditions for ongoing care and possible adjustments in treatment.
CARE-UPDATE
12/22/24 - :28
The patients mental status remains compromised, preventing them from providing their medical history independently.
Disposition:
SUMMARY OF ENCOUNTER
The patient with metastatic ovarian cancer and history of nephrostomy tube and ureteral stent presents with altered mental status, hypotension, and suspicion of sepsis. Systolic blood pressure is 100, and leukocytosis is noted. Broad-spectrum
antibiotics have been initiated. Suspect she has third spacing. Also found to be hyponatremic. Patient looks quite ill. Family aware. Hold off on additional fluids because she is third spacing the fluid and I do not feel that advanced fluid
resuscitation would be beneficial. Vasopressors for hypotension
EMERGENCY TREATMENTS ADMINISTERED
Initiated broad-spectrum antibiotics.
PLAN
Admission to hospital for further management, including continuation of IV antibiotics. Hold vasopressors for now. Exercise caution with fluid administration due to existing edema and history of CHF.
INDEPENDENT REVIEW OF LABS AND INTERPRETATION OF TESTS
My independent review of the abdominal CT is the presence of pleural effusion, visualized nephrostomy tube, and stents with no free air detected. My independent review of laboratory data is leukocytosis; creatinine is 1.4, with a baseline of 2;
lactic acid levels and pH are within normal limits. Patient is hyponatremic and hypokalemic
MEDICAL DECISION MAKING
Chronic conditions affecting care: diabetes mellitus, heart failure, atrial fibrillation, ovarian cancer. Consideration of broad-spectrum antibiotics suggests infection concern; leukocytosis supports this. The patient has been stabilized
appropriately in the emergency department, and hospital admission has been arranged due to the complexity and risks associated with her current condition, including potential sepsis and hypotension.
PATHOLOGIES TO CONSIDER
Sepsis (leukocytosis hypotension + AMS).
Past History
Past History
ED Past Medical History: Cancer (Ovarian cancer), CHF, HTN, Hypercholesterolemia and NIDDM
ED Past Surgical History: Gynecological (Hysterectomy) and Urological ( Right renal stent, Left nephrostomy tube)
Social History
Tobacco: Non-smoker
Alcohol: None
Drug: None
Personal:
Living: with family
Phy Exam
Physical Exam
Physical Exam:
.
Sepsis
Sepsis Screening
Sepsis Assessment: Septic Shock
Sepsis Screening: Hypotension and Vasopressor support required
Sepsis Screen
Sepsis Screen: Septic Shock
Date: 12/22/24
Time: 23:29
Course
Orders/Labs/Results
Orders:
Orders
12/22/24 21:45
Electrocardiogram (*1) Urgent
Reason for Study: Other
Other Reason for Exam: Possible Sepsis
Straight cath- Treatment ONCE
12/22/24 21:46
EKG- Treatment ONCE
12/22/24 21:59
CT Head W/o Iv Contrast Urgent
Comment:
Reason For Exam: change in ms
Dextrose 50%-Water [Dextrose 50% Syringe] 25 grams IV NOW STA
12/22/24 22:05
Blood Culture Q20M
VAZQUEZ Source: Blood/Venous
Specimen Description:
Comment: Urgent from separate sites. If patient screens positive for possible sepsis
12/22/24 22:55
Venous Blood Gas Urgent
%Oxygen/Room Air: 21
12/22/24 22:56
Complete Blood Count/With Diff Urgent
Comprehensive Metabolic Panel Urgent
Lactic Acid Q4H
Comment: ON ICE, CANCEL 2ND ORDER IF FIRST LACTIC ACID LEVEL <2
PT/INR [Prothrombin Time] Urgent
PTT Urgent
Urinalysis Reflex To Culture Urgent
Date Specimen was Collected: 12/22/24
Time Specimen was Collected: 21:46
Urine Microscopic Reflex Cult Urgent
Blood Culture Q20M
VAZQUEZ Source: Blood/Venous
Specimen Description:
Date Specimen was Collected: 12/22/24
Time Specimen was Collected: 21:46
Comment: Urgent from separate sites. If patient screens positive for possible sepsis
Urine Culture Urgent
VAZQUEZ Source: U
Specimen Description:
Date Specimen was Collected: 12/22/24
Time Specimen was Collected: 21:46
12/22/24 22:58
CT Abd/pel Without Iv Or Oral Urgent
Comment:
Reason For Exam: change in MS, recent nephrostomy change,ure stent
12/22/24 23:15
0.9% Sodium Chloride 500 ml [Nss] 500 ml IV BOLUS
12/22/24 23:25
Piperacillin/Tazo 3.375 Gram [Zosyn] 3.375 gram in 50 ml IV NOW
12/22/24 23:26
Vancomycin 1 Gram/200 ml [Vancocin] 1 gram in 200 ml IV NOW
12/22/24 23:27
PHENYLephrine 50 MG/250 ML NSS [Rodney-Synephrine] 50 mg in 250 ml IV NOW
Initial dose in mcg/min, then titrate:: 20
Titrate to keep:: MAP > 65 mmHg
Titrate by mcg/min:: 20 mcg/min
Frequency of titrations (minutes):: 5
Maximum dose in ICU in mcg/min:: 200
Maximum dose in IMU in mcg/min:: 80
Begin to taper infusion when:: Remained at goal for 4hrs
Taper by mcg/min:: 20 mcg/min
Frequency of taper (minutes) if patient maintains goal:: 30
Taper to off?: Yes
If infusion off & no longer maintaining goal:: Contact Provider
12/22/24 23:34
Urinalysis Reflex To Culture Urgent
Date Specimen was Collected: 12/23/24
Time Specimen was Collected: 00:43
Comment: straight cath from bladder
12/22/24 23:41
CR Chest Portable - 1 View Urgent
Comment:
Reason For Exam: change in MS
Reason Study Needs to be Portable: Patient Unstable
12/23/24 00:44
Urine Microscopic Reflex Cult Urgent
Blood Culture Urgent
VAZQUEZ Source: Blood/Venous
Specimen Description:
Urine Culture Urgent
VAZQUEZ Source: U
Specimen Description:
Date Specimen was Collected: 12/23/24
Time Specimen was Collected: 00:43
12/23/24 00:51
Potassium Chloride [KCl] 40 meq 0.9% Sodium Chloride 250 ml [Nss] 250 ml IV NOW
12/23/24 01:00
Albumin Human 5% 250 ml [Albumin 5%] 12.5 grams in 250 ml IV Q1H
Flush (0.9% Sodium Chloride) [Flush (Nss)] See Dose Instructions IV PER PROTOCOL
12/23/24 01:14
0.9% Sodium Chloride 500 ml [Nss] 500 ml IV BOLUS
Potassium Chloride [KCl] 20 meq 0.9% Sodium Chloride 150 ml [Nss] 150 ml IV NOW
12/23/24 01:15
Admit/Transfer Patient As Directed
Co-Sign Provider:
Level of Care: Inpatient admission
Assign to:: ICU
Physician / Group: Black
Diagnosis: Sepsis
Reason for Hospitalization: sepsis
Expected length of stay greater than two midnights?: Yes
ELOS- Estimated Length of Stay in days: 2
I certify the patient meets the requirements for IP care: Yes
PRN Pain Medication Management As Directed
May give lesser potent ordered pain med per pt: Yes
preference::
Protocol:: Medication orders for pain may be administered in a
manner that supports deferring to patient preference
when the pt is:
- Requesting an ordered lesser potent pain medication.
Least to most potent pain medications are defined
as: acetaminophen < NSAID < tramadol < opioids
(morphine, oxycodone, hydromorphone).
- Requesting a lesser dose of the same medication IF
ORDERED.
- Requesting a less intrusive route of administration
if both routes are prescribed by the provider (PO <
IV).
12/23/24 01:16
Code Status As Directed
Resuscitation Status: Full Code
12/23/24 03:01
Lactic Acid Q4H
Comment: ON ICE, CANCEL 2ND ORDER IF FIRST LACTIC ACID LEVEL <2
Osmolality, Random Urine Stat
Date Specimen was Collected: 12/23/24
Time Specimen was Collected: 02:47
Urine Sodium Stat
Date Specimen was Collected: 12/23/24
Time Specimen was Collected: 02:47
12/23/24 03:31
0.9% Sodium Chloride 1000 ml [Nss] 1,000 ml IV 60 mls/hr
Acetaminophen [Tylenol/Feverall] 650 mg RECTAL Q4HPRN PRN
Acetaminophen [Tylenol] 650 mg PO Q4HPRN PRN
Gabapentin [Neurontin] 300 mg PO DAILYPRN PRN moderate pain
PHENYLephrine 50 MG/250 ML NSS [Rodney-Synephrine] 50 mg in 250 ml IV PER PROTOCOL
Currently infusing. Continue current dose and titrate:: Yes
Titrate to keep:: MAP > 65 mmHg
Titrate by mcg/min:: 20 mcg/min
Frequency of titrations (minutes):: 5
Maximum dose in ICU in mcg/min:: 200
Maximum dose in IMU in mcg/min:: 80
Begin to taper infusion when:: Remained at goal for 4hrs
Taper by mcg/min:: 20 mcg/min
Frequency of taper (minutes) if patient maintains goal:: 30
Taper to off?: Yes
If infusion off & no longer maintaining goal:: Contact Provider
VANCOMYCIN Pharmacy to Dose [VANCOCIN Pharmacy to Dose] 1 each Pharmacy To Prepare [Call Pharmacy To Prepare] 0 ml IV PER PROTOCOL
12/23/24 03:31
Consult Notification Routine
Specialty to Notify: Infectious Disease
Date consulting provider notified: 12/23/24
Time consulting provider notified: 08:01
Notified:: Other
Comment: [place] text
INFECTIOUS DISEASE CONSULT Routine
Consulting Provider: Kari Olguin
Was physician already notified: No
Reason for consult: sepsis
VTE Contraindication Routine
VTE Mechanical Device Contraindication: Medical Contraindication
Pharmocologic Contraindication: Medical Contraindication
Activity As Directed
Activity Level: With Assistance
Bedside Glucose Monitoring As Directed
Frequency: Q6H
Elevate Extremity As Directed
Extremity:: Right and left hands
Elevate with:: pillow
Frequency: At all times
Intake/ Output As Directed
Frequency: Per unit guidelines
Vital Signs As Directed
Frequency: Per unit guidelines
Pulse Ox/cont/shift [RESP] Routine
Quantity: 1
Special Instructions: continuous pulse ox
Venous Doppler Upr Ext Right [US Periph Venous UPPER Ext RT] Urgent
Comment:
Reason For Exam: eval for DVT
12/23/24 05:44
Complete Blood Count/No Diff IN AM
Cortisol, Random IN AM
TSH Reflex To Free T4 IN AM
12/23/24 Breakfast
NPO
Allow oral meds: Yes
Allow clear liquids: No
Insulin Aspart Corrective Low [Novolog Flexpen-Low Resistance] See Protocol SC Q6
Piperacillin/Tazo 3.375 Gram [Zosyn] 3.375 gram in 50 ml IV Q6H
12/23/24 08:00
Apixaban [Eliquis] 2.5 mg PO BID
Ferrous Sulfate [Feosol] 325 mg PO DAILY
Megestrol [Megace] 80 mg PO BID
Pantoprazole [Protonix] 40 mg PO DAILY
Sodium Bicarbonate 650 mg PO TID
Tamoxifen [Nolvadex] 20 mg PO BID
Thiamine HCl [Vitamin B1] 100 mg PO DAILY
12/23/24 22:00
Magnesium Oxide 500 mg PO HS
Abnormal Lab Results
12/22/24 12/22/24 12/22/24
21:41 22:55 22:56
WBC 14.7 H 10^3/uL
(4.8-10.8)
RBC 2.97 L 10^6/uL
(4.20-5.40)
Hgb 8.9 L g/dL
(12.0-16.0)
Hct 26.9 L %
(37.0-47.0)
RDW 16.2 H %
(11.5-14.5)
Plt Count 78 L 10^3/uL
(130-400)
Abs Immat Gran (auto) 0.2 H 10^3/uL
(0-0.05)
Absolute Neuts (auto) 12.7 H 10^3/uL
(1.4-6.5)
Absolute Lymphs (auto) 0.4 L 10^3/uL
(1.2-3.4)
Absolute Monos (auto) 0.8 H 10^3/uL
(0.1-0.6)
Immature Gran % 1.6 H %
(0-0.5)
Neutrophils % 86.7 H %
(42.2-75.2)
Lymphocytes % 2.4 L %
(20.5-51.1)
PT 23.0 H Sec
(11.4-14.6)
VBG pO2 92 H mmHg
(30-50)
Sodium 126 L mmol/L
(135-145)
Potassium 3.4 L mmol/L
(3.5-5.1)
BUN 28 H mg/dl
(7-17)
Creatinine 1.4 H mg/dL
(0.6-1.0)
Glucose 130 H mg/dl
(70-99)
Calcium 8.3 L mg/dl
(8.4-10.2)
AST 67 H U/L
(14-36)
Total Protein 5.0 L g/dl
(6.3-8.2)
Albumin 2.0 L g/dl
(3.5-5.0)
Ur Occult Blood Reflex 4+ A
(Negative)
Leukocyte Esterase Rfl 3+ A
(Negative)
Urine RBC 3-6 A /HPF
(0-2)
Urine WBC (Reflex) 90-100 A /HPF
(0-5)
Urine Bacteria (Reflex) Moderate A
(Negative)
Urine Albumin (Reflex) 2+ A
(Neg - Trace)
POC Glucose 64 L mg/dl
(70-99)
12/22/24 12/23/24
23:11 00:44
WBC
RBC
Hgb
Hct
RDW
Plt Count
Abs Immat Gran (auto)
Absolute Neuts (auto)
Absolute Lymphs (auto)
Absolute Monos (auto)
Immature Gran %
Neutrophils %
Lymphocytes %
PT
VBG pO2
Sodium
Potassium
BUN
Creatinine
Glucose
Calcium
AST
Total Protein
Albumin
Ur Occult Blood Reflex 4+ A
(Negative)
Leukocyte Esterase Rfl 3+ A
(Negative)
Urine RBC
Urine WBC (Reflex) >100 A /HPF
(0-5)
Urine Bacteria (Reflex) Moderate A
(Negative)
Urine Albumin (Reflex) 4+ A
(Neg - Trace)
POC Glucose 136 H mg/dl
(70-99)
12/22/24 22:56
12/22/24 22:56
Vital Signs
Initial and Last Documented VS:
Initial Vital Signs
Pulse Resp BP Pulse Ox
106 8 80/55 97
12/22/24 21:34 12/22/24 21:34 12/22/24 21:34 12/22/24 21:34
Last Documented Vital Signs
Temp Pulse Resp BP Pulse Ox
100.0 F 89 36 79/44 98
12/23/24 23:15 12/23/24 22:00 12/23/24 23:15 12/23/24 22:00 12/23/24 22:00
*Pulse Oximetry
SaO2: 97
Oxygen Mode of Delivery: Room air
Patient hypoxic: no
*Wraparound Facilitator Interpretation
Rate: normal
Interpretation: normal
Rhythm: sinus
*Critical Care Note
Total Time (30-74mins, 75-104mins- exclusive of procedures): 65 minutes
ED Attending Note
-
Portions of this chart may have been created with voice recognition software.� Occasional wrong word or��sound alike� substitutions may have occurred due to the inherent limitations of voice recognition software.
Discharge Plan
Departure
Patient Disposition: Admit
Date of Disposition: 12/22/24
Time of Disposition: 23:28
Admit to: IMU
Presentation/result/management discussed w/ accepting MD/DO: Hospitalist
Discharge Problem:
Acute metabolic encephalopathy, Acute alteration in mental status, Ovarian cancer, Acute hyponatremia, Acute hypokalemia
Interventions
Interventions:
*Risk Screen - Suicide Last Done: 12/22/24 21:40
*General Assessment Last Done: 12/22/24 21:34
*Neglect/Abuse Screening Last Done: 12/22/24 21:40
*ED- Fall Risk Assessment Last Done: 12/22/24 21:40
*ED COVID-19 Vaccine History Last Done: 12/22/24 21:40
*Nursing Disposition Last Done: 12/23/24 03:41
ED- Pulmonary Assessment Last Done: 12/22/24 22:05
ED- Neurological Assessment Last Done: 12/22/24 22:05
ED- Cardiac Assessment Last Done: 12/22/24 22:05
ED Swallowing Screen Last Done: 12/22/24 22:05
Discharge Date and Time
Discharge Date/Time: 12/23/24 03:42
[2024-12-22 23:25] LABS: INR 2.02
[2024-12-22 23:26] LABS: APTT 33.7 Sec (23.4-35.0); Lactic Acid 1.3 mmol/L (0.7-2.0)
[2024-12-22] MEDS: NSS 500 IV (23:30)
[2024-12-22 23:52] LABS: ALT (SGPT) 27 U/L (0-35); AST (SGOT) 67 U/L (14-36); Alkaline Phosphatase 92 U/L (38-126); Blood Urea Nitrogen 28 mg/dl (7-17); Calcium 8.3 mg/dl (8.4-10.2); Carbon Dioxide 24 mmol/L (22-30); Chloride 100 mmol/L (98-107); Glucose 130 mg/dl (70-99); Potassium 3.4 mmol/L (3.5-5.1); Sodium 126 mmol/L (135-145); Total Bilirubin 0.9 mg/dl (0.2-1.3); eGFR 38.99
[2024-12-22 23:53] LABS: Mean Platelet Volume 10.3 fL (7.4-10.4)
[2024-12-22 23:54] LABS: % Basophils 0.3 % (0-2); % Eosinophils 3.8 % (0-6); % Immature Granulocytes 1.6 % (0-0.5); % Lymphocytes 2.4 % (20.5-51.1); % Monocytes 5.2 % (1.7-9.3); % Neutrophils 86.7 % (42.2-75.2); Absolute Basophils 0.1 10^3/uL (0-0.2); Absolute Eosinophils 0.6 10^3/uL (0-0.7); Absolute Immature Granulocytes 0.2 10^3/uL (0-0.05); Absolute Lymphocytes 0.4 10^3/uL (1.2-3.4); Absolute Monocytes 0.8 10^3/uL (0.1-0.6); Absolute Neutrophils 12.7 10^3/uL (1.4-6.5); Nucleated Red Blood Cells % 0 %; Platelet Count 78 10^3/uL (130-400)
[2024-12-23] VITALS (59 sets, daily range): BP systolic 77–117; BP diastolic 44–72; BMI 20.8
[2024-12-23] MEDS: NEO-SYNEPHRINE 250 IV ×2 (00:05→22:03)
[2024-12-23] MEDS: ZOSYN 50 IV ×3 (00:46→12:47)
[2024-12-23 01:01] LABS: Urine Albumin 2+ (Neg - Trace); Urine Bilirubin Negative (Negative); Urine Character Clear (Clear); Urine Color Yellow; Urine Glucose Negative (Negative); Urine Ketone Negative (Negative); Urine Leukocyte 3+ (Negative); Urine Nitrite Negative (Negative); Urine Occult Blood 4+ (Negative); Urine Specific Gravity 1.015 (<1.030); Urine Urobilinogen Negative (Neg - 1+)
--- NOTE | 2024-12-23 01:01 | HPS.HSE ---
Family Physician
-
Family Physician: NOT KNOW UNKNOWN - PT DOES
Chief Complaint
-
Altered mental status
History of Present Illness
This is a 74-year-old Czech speaking female (daughter interpret) with past medical history of metastatic ovarian cancer status post XRT, status post chemo, congestive heart failure with depressed EF, hypothyroid, diabetes, bilateral renal
retention status post bilateral stenting and most recently status post left urostomy tube and right stent presenting to the emergency department from [facility] for altered mental status.
According to patient's family she has been in usual state of health up until 2 days ago when she had decreased appetite, decreased responsiveness and increased somnolence. Prior to this the patient had undergone a period where she had extensive C.
difficile infection requiring oral antibiotics for several weeks. She apparently finished her medications a few weeks ago and had significant weight loss at that time. She also had recent swelling of the right and left upper extremity for which
she had intensified Lasix therapy to 40 mg p.o. twice daily for about 2 to 3 days.
Patient have not had any recent fevers. No recent chills. No recent changes in urinary output or odor. She had stent changed about 3 months ago and had a urostomy tube exchanged only a few days ago.
Patient was seen in the [facility] for blood draws and was felt to look quite ill and had elevated white cells so she was sent to the emergency department for evaluation.
Here in the emergency department the patient was hypotensive and currently has a blood pressure of 80/55 on Rodney-Synephrine. She is tachycardic to 106. She is satting 97% on room air and is afebrile.
She had leukocytosis 14.7, hemoglobin 8.9 and platelet count of 78. Sodium is 126, potassium 3.4. Rest of the electrolytes are okay. Creatinine is 1.4. Albumin is 2.0.
CT of the head shows no acute interval process
CT of the abdomen and pelvis without IV contrast shows no bowel obstruction, normal gallbladder, normal appendix, no acute urinary retention noted.
UA is pending but the urine from the bladder shows milky pus output. Urine from the left urostomy tube was clear.
Medical History
Past Medical History
Past Medical History: Reports Cancer (Stage IV ovarian cancer status post hysterectomy, status post radiation of the thorax as well as the left lower quadrant of the abdomen), HTN, Hypothyroidism, NIDDM and Other
Additional Past Medical History:
metastatic ovarian cancer to lung
right lower abdomen, ureteral obstruction right ureteral stent,
left nephrostomy tube
hypothyroidism
DM2
insomnia
HTN
CKD 3 A
anemia secondary to chemotherapy
hypomagnesemia
chronic CHF
cardiomyopathy EF 30-35%
Past Surgical History: Reports Gynocological (hysterectomy) and Other
Additional Past Surgical History:
IR replaced 08/05/2024 then on 08/07/2024 after patient pulled the tube out
Social History
Unable to obtain full social history at this time due to: Language Barrier
Alcohol: None
Drug: None
Personal: Single
Living: With Family
Employment: Not Employed
Family History
Family History: Not pertinent
Allergies / Home Medications
Allergies reflects when Allergies were last updated in [employer].
Home Medications with original date entered in [employer]
Allergy/Medication List:
Allergies
Allergy/AdvReac Type Severity Reaction Status Date / Time
steriods Allergy Unknown Uncoded 08/30/24 18:06
Home Medications
acetaminophen 500 mg tablet (Tylenol Extra Strength) 1,000 mg PO Q6HPRN PRN mild pain ##0 08/05/24
melatonin 5 mg tablet 5 mg PO HSPRN PRN sleep 08/05/24
ondansetron HCl 8 mg tablet 8 mg PO Q8HPRN PRN nausea ##0 08/05/24
docusate sodium 100 mg capsule (Colace) 100 mg PO BID Constipation #0 caps 08/16/24
ferrous sulfate 325 mg (65 mg iron) tablet 325 mg PO DAILY Constipation #0 tabs 08/16/24
glipizide 2.5 mg tablet, extended release 24 hr 2.5 mg PO BID Diabetes #0 tabs 08/16/24
levothyroxine 125 mcg capsule 125 mcg PO DAILY Thyroid #0 caps 08/16/24
megestrol 40 mg tablet 80 mg (2 x 40 mg) PO BID appetite #0 tabs 08/16/24
methenamine hippurate 1 gram tablet 1 g PO DAILY Urinary issue #0 tabs 08/16/24
metoprolol succinate 50 mg tablet,extended release 24 hr 50 mg PO DAILY Heart Failure #30 tabs 08/16/24
pyridoxine (vitamin B6) 100 mg tablet 100 mg PO DAILY Supplement #0 tabs 08/16/24
sodium bicarbonate 650 mg tablet 650 mg PO TID Kidney Disease #90 tabs 08/16/24
tamoxifen 20 mg tablet 20 mg PO BID Cancer #0 tabs 08/16/24
albuterol sulfate 90 mcg/actuation aerosol inhaler 2 puff inhalation R Q6HPRN PRN sob 08/30/24
apixaban 2.5 mg tablet (Eliquis) 2.5 mg PO BID 08/30/24
cholecalciferol (vitamin D3) 25 mcg (1,000 unit) tablet (Vitamin D3) 25 mcg PO DAILY 08/30/24
cyanocobalamin (vitamin B-12) 1,000 mcg tablet 1,000 mcg PO DAILY 08/30/24
escitalopram oxalate 10 mg tablet 10 mg PO DAILY 08/30/24
furosemide 20 mg tablet 20 mg PO DAILY 08/30/24
gabapentin 300 mg capsule 300 mg PO DAILYPRN PRN moderate pain 08/30/24
hydroxyzine HCl 25 mg tablet 25 mg PO HSPRN PRN sleep 08/30/24
levofloxacin 500 mg tablet 500 mg PO DAILY 08/30/24
linagliptin 5 mg tablet (Tradjenta) 5 mg PO DAILY 08/30/24
magnesium oxide 400 mg PO HS Supplement 08/30/24
therapeutic multivitamin 1 tab PO DAILY 08/30/24
thiamine HCl (vitamin B1) 100 mg tablet 100 mg PO DAILY 08/30/24
Review of Systems
-
Unable to obtain full review of systems at this time due to: Acuity
History Source: Family
A 12 point ROS was completed and negative except as noted: Yes
Physical Exam
Vital Signs
Vital Signs
Pulse Resp BP Pulse Ox
106 8 80/55 97
12/22/24 21:34 12/22/24 21:34 12/22/24 21:34 12/22/24 23:22
Physical Exam
General: Other (Sleeping versus hypercarbia does open eyes to daughter and answer questions); No Fever or Chills
HEENT: NormoCephalic, Anicteric, Atraumatic, PERRLA, [place] Conjunctivae and No Ptosis; No Moist mucous membranes
Respiratory: Clear
Cardiac: S1/S2, Regular Rhythm and Peripheral Edema (+2 bilateral lower legs); No Murmur, Rub or Gallop
Breast: Deferred by me
GI: Soft, Non Tender, Non Distended, Normal Bowel Sounds and No Hepatosplenomegaly
Rectal: Deferred by Provider
Genito-urinary: Deferred by me
Musculoskeletal: No Clubbing, No Cyanosis, Edema, Left Lower Extremity (trace) and Edema, Right Lower Extremity (trace); No Edema, Left Upper Extremity or Edema, Right Upper Extremity
Skin: Warm and Dry; No Rash or Jaundice
Neuro: Awake (minimally interactive) and Other (Lethargic but will open eyes answer questions to daughter); No Slurred Speech, Facial Droop, Tremors or Sedated
Laboratory Results
-
12/22/24 22:56
12/22/24 22:56
Laboratory Results
PT 23.0 Sec (11.4-14.6) H 12/22/24 22:56
INR 2.02 12/22/24 22:56
APTT 33.7 Sec (23.4-35.0) 12/22/24 22:56
Lactic Acid 1.3 mmol/L (0.7-2.0) 12/22/24 22:56
Total Bilirubin 0.9 mg/dl (0.2-1.3) 12/22/24 22:56
AST 67 U/L (14-36) H 12/22/24 22:56
ALT 27 U/L (0-35) 12/22/24 22:56
Alkaline Phosphatase 92 U/L (38-126) 12/22/24 22:56
Data Reviewed
-
CT Scan: Report Reviewed by me
Lab Data: Labs Reviewed by me
Old Records: Reviewed
Impression/Plan
-
IMPRESSION:
74-year-old with history of metastatic ovarian cancer, CKD, congestive heart failure status post with pleural effusion requiring right thoracentesis, protein calorie malnutrition, urinary retention status post bilateral ureteral stents and a current
left urostomy tube who presents to the emergency department with altered mental status and was found to be hypotensive in the emergency department. Workup shows leukocytosis and a pulse appearing urine from the urinary bladder. The imaging is
negative for any acute hydronephrosis or any other urinary obstruction. The stents appear to be in the right positions. Patient's labs mostly unremarkable except for sodium of 126. Creatinine is elevated 1.4.
PLAN:
Sepsis -suspect urinary source given positive appearing urine from the bladder and possibly also from the urostomy tube. Hypotensive and on pressors. History of CHF with depressed EF but currently does appear to be hypovolemic with history of
recent diarrhea, weight loss and uptitrated diuretics for localized upper extremity edema
- Admit to ICU
- N.p.o. for now
- Status post 500 cc bolus, will give another 500 cc bolus
- Will give 50 g of albumin
- Blood and urine cultures
- IV vancomycin and Zosyn for now
- Maintenance fluid
- Holding antihypertensives, holding diuretics
- Checking a.m. cortisol
- ID consultation
- For now no apparent urinary obstruction and no evidence of misplacement of the stent so no indication for urology consult at this time.
Hyponatremia -suspect hypovolemic hyponatremia but cannot rule out SIADH patient does have altered mental status
- IV fluids, repeat sodium in 4 hours
- Urine awesome's and urine sodium
- Check TSH and cortisol
- If repeat urine sodium drops will start hypertonic saline
Hypoalbuminemia -suspect GI and chronic malnutrition. This likely explains the upper extremity edema
- Will give albumin temporarily as stated above
- Check urine proteinuria
Congestive heart failure -currently no signs of congestion or volume overload
-Hold diuretics
-Hold antihypertensives
DM2
-Sliding scale insulin for now
DVT PPX - on apixaban 2.5 bid
Code status - Full code per daughter
[2024-12-23 01:03] LABS: Urine Albumin 4+ (Neg - Trace); Urine Bilirubin Negative (Negative); Urine Character Cloudy (Clear); Urine Glucose Negative (Negative); Urine Ketone Negative (Negative); Urine Leukocyte 3+ (Negative); Urine Nitrite Negative (Negative); Urine Occult Blood 4+ (Negative); Urine Specific Gravity 1.015 (<1.030); Urine Urobilinogen Negative (Neg - 1+); Urine pH 6.5 (5.0-9.0)
[2024-12-23] MEDS: VANCOCIN 200 IV (01:03)
[2024-12-23] MEDS: KCL 270 MEQ IV (01:04)
[2024-12-23 01:05] LABS: Urine Color Straw
[2024-12-23 01:14] LABS: Urine Squamous Cell 0-2 /LPF (Few)
[2024-12-23 01:15] LABS: Urine Bacteria Moderate (Negative); Urine White Cell 90-100 /HPF (0-5)
[2024-12-23 01:18] LABS: Urine Red Blood Cell 0-2 /HPF (0-2); Urine Squamous Cell None seen /LPF (Few); Urine White Cell >100 /HPF (0-5)
[2024-12-23 01:19] LABS: Urine Bacteria Moderate (Negative)
[2024-12-23] MEDS: ALBUMIN 5% 250 IV ×3 (02:06→10:52)
[2024-12-23] MEDS: NSS 500 IV (02:16)
[2024-12-23 03:12] LABS: Osmolality Urine 320 mOsm/kg (300-900)
[2024-12-23 03:19] LABS: Urine Sodium 18 mmol/L (30-90)
[2024-12-23 03:23] LABS: Lactic Acid 1.4 mmol/L (0.7-2.0)
--- NOTE | 2024-12-23 04:00 | PTCARENOTE ---
Pt received from ED. Pt transferred to ICU bed. TATYANA and K+ 40 mEq running through fem 3L. Pt wiped with CHG clothes, changed into clean gown wound redressed (see EMR worklist). Nephrostomy in place draining clear liquid. Pt non verbal, grimacing
with movement of any body part. Daughter updated on pt's plan of care and current status. Montior in place, call purcell within reach, room close to nurses station.
[2024-12-23] MEDS: DEXTROSE 50% SYRINGE 12.5 GRAMS IV ×3 (04:03→12:51)
[2024-12-23 04:11] LABS: Glucose - Point of Care 63 mg/dl (70-99)
[2024-12-23] MEDS: NSS 1000 IV (04:18)
[2024-12-23 04:30] LABS: Glucose - Point of Care 142 mg/dl (70-99)
[2024-12-23] MEDS: NOVOLOG FLEXPEN-LOW RESISTANCE SC ×4 (05:58→23:46)
[2024-12-23 06:05] LABS: Glucose - Point of Care 83 mg/dl (70-99)
[2024-12-23 06:09] LABS: Hematocrit 24.1 % (37.0-47.0); Hemoglobin 7.9 g/dL (12.0-16.0); Mean Corp Hgb Conc. 32.8 g/dL (33.0-37.0); Mean Corpuscular Hgb 29.7 pg (27.0-31.0); Mean Corpuscular Volume 90.6 fL (81.0-99.0); Mean Platelet Volume 10.5 fL (7.4-10.4); Platelet Count 103 10^3/uL (130-400); Red Blood Cell Count 2.66 10^6/uL (4.20-5.40); Red Cell Dist. Width 16.4 % (11.5-14.5); White Blood Cell Count 18.1 10^3/uL (4.8-10.8)
--- NOTE | 2024-12-23 06:18 | EDRN ---
Med Rec: Patient is not verbal in the ED. Patient's daughter, her application infrastructure engineer, has left the ED. Cannot confirm meds with just patient at this time
[2024-12-23 06:54] LABS: Blood Urea Nitrogen 27 mg/dl (7-17); Calcium 8.1 mg/dl (8.4-10.2); Carbon Dioxide 23 mmol/L (22-30); Chloride 104 mmol/L (98-107); Cortisol, Random 35.5 ug/dl; Estimated Creatinine Clearance 29 ml/min; Glucose 78 mg/dl (70-99); Magnesium 1.8 mg/dl (1.6-2.3); Potassium 4.2 mmol/L (3.5-5.1); Sodium 129 mmol/L (135-145); TSH Reflex To Free T4 3.21 uIU/ml (0.47-4.68); eGFR 42.62
[2024-12-23 08:14] LABS: Glucose - Point of Care 53 mg/dl (70-99)
--- NOTE | 2024-12-23 08:16 | PHA.VAN.IN ---
Assessment
- Assessment
Renal Function: Other (SCr below previously recorded values around 2, currently 1.3-1.4)
Concomitant Antimicrobials: Zosyn
Historical Micro: History of VRE infection (Vanc VAZQUEZ >16 from August 2024 urine culture)
AUC Dosing Plan
- Dosing Variables
Dosing Weight (kg): 51.6
Dosing CrCl (ml/min): 29
Vd coefficient (L/kg): 0.7
Plan
- Plan
Initial / Loading Dose: 1000mg
Maintenance Regimen: Dosing by levels
Monitoring: Random level 12/24/24 with AM labs
Pharmacokinetics Vancomycin I
- -
Patient Age: 74
Patient Sex: Female
Vancomycin Day #: 1
Indication: Pulmonary/Respiratory
Requesting Provider: Dr. Cleaning
Pertinent Antimicrobial Allergies:
No pertinent allergies to ABX
Height / Weight:
Height 5 ft 2 in
Actual Weight 51.6 kg
Pertinent Past Medical History: Metastatic ovarian cancer, recent C diff, renal stenting and ostomy tubes
- Vital Signs / Lab Results
Temp Pulse Resp BP Pulse Ox
97.0 F 73 18 100/51 99
12/23/24 07:00 12/23/24 04:20 12/23/24 04:20 12/23/24 04:20 12/23/24 04:20
Lab Results - Hematology
12/22/24 12/23/24
22:56 05:44
WBC 14.7 H 18.1 H
Lab Results - Chemistry
12/22/24 12/23/24
22:56 05:44
BUN 28 H 27 H
Creatinine 1.4 H 1.3 H
Estimated Creat Clear 29
Albumin 2.0 L
12/22/24 12/23/24
22:56 03:01
Lactic Acid 1.3 1.4
Lab Results - Urine
12/22/24 12/23/24
22:56 00:44
Urine Nitrite (Reflex) Negative Negative
Leukocyte Esterase Rfl 3+ A 3+ A
Urine WBC (Reflex) 90-100 A >100 A
Ur Squamous Epith Cells 0-2 None seen
Urine Bacteria (Reflex) Moderate A Moderate A
[2024-12-23 08:35] LABS: Glucose - Point of Care 145 mg/dl (70-99)
--- NOTE | 2024-12-23 09:17 | PTCARENOTE ---
Assumed care of pt at 0715 following shift report. Pt somnolent, nonverbal and does not follow any commands. Grimaces and occasionally moans w/ painful stimuli (like passively repositioning pt) but otherwise unresponsive. Unable to safely administer
PO meds due to pts LOC. Pt remains on RA w/ POx 97%. Respirations even/unlabored. Lt nephrostomy tube present, patent and draining yellow urine. Rt femoral TLC present w/ IVF, Neosynephrine infusing. Physical assessment completed as documented.
Hypoglycemia treated per protocol. Pt repositioned, hygiene and comfort care provided. Safe environment maintained. Phone call received from pt's daughter- updated on pt's present condition and plan of care.
[2024-12-23] MEDS: D5/0.45%NACL 1000 IV ×2 (09:25→23:29)
--- NOTE | 2024-12-23 10:06 | W.PN.HOSP.TC ---
Today's Communication/Plan
-
IV antibiotics pending cultures.
IV fluids.
Rodney-Synephrine.
IV albumin.
Aspiration precautions.
Monitor hemoglobin and platelet count. Consider transfusion.
Hold Eliquis acutely secondary to thrombocytopenia and worsening of anemia.
Total Critical Care Time__55___ minutes. I was immediately available to the patient and staff. I personally examined, reviewed labs, diagnostic images/reports, interpretations, treatment plans, discussed patient care with other providers and
family or caregivers (if patient is unable to make decisions), entered orders as appropriate and documented the medical record.
Assessment / Plan
Assessment / Plan
Impression:
Clinical sepsis
Septic shock not responding to IV fluid boluses and requiring vasopressors support
Toxic metabolic encephalopathy
Hypovolemic hyponatremia
Conditions prior to admission:
Metastatic ovarian carcinoma with history of XRT
Obstructive uropathy.
� Left urostomy, right renal stent in place.
CKD stage III with baseline creatinine around 1.5�2.
Chronic metabolic acidosis.
Chronic CHF severely reduced EF.
History of right pleural effusion requiring thoracentesis 08/30. Transudate.
History of CVA
Anticoagulation with Eliquis
Anemia of chronic disease.
Hypothyroidism on replacement
Diabetes type 2.
Declining performance status.
Plan:
Clinical sepsis
Presenting with altered mental status secondary toxic metabolic encephalopathy, hypotension secondary to septic shock not responding to IV fluid bolus, elevated white count.
Suspect urinary source. Noted with clear urine output via left urostomy tube, and pyuria.
CT scan of the abdomen without IV contrast confirming placement of a left urostomy and a right renal stent in place.
Prior urine cultures reviewed with presence of VRE and Haily
Currently on vancomycin and Zosyn. Consider VRE as well as antifungal coverage.
ID consult pending
Continue isotonic IV fluids with caution for volume overload given CHF with severely reduced EF.
Continue albumin
Initiated on phenylephrine with goal of MAP 55-60 mmHg.
History of right pleural effusion requiring thoracentesis. Transudative 08/30
Chest x-ray on admission with mild, moderate right pleural effusion
Stable respiratory status
Monitor closely
Hypovolemic hyponatremia
Appropriate cortisol response
TSH pending.
Improving with IV fluid bolus.
Continue monitoring.
Toxic metabolic encephalopathy with aspiration risk.
Keep n.p.o.
Consider NG tube placement for nutrition and oral medications
Anemia of chronic disease with trending down hemoglobin at 7.9
Update iron stores.
Consider transfusion if trending down below 7.5 and remains hypotensive requiring pressors
Thrombocytopenia suspect consumptive and secondary to acute illness sepsis state.
Monitor platelet count closely
Hold Eliquis acutely
History of CVA.
In review of recent images including CT of the head showed no acute abnormalities. Old bilateral cerebellar infarcts.
No documented history of arrhythmia
On Eliquis prior to presentation.
Chronic CHF severely reduced EF
Echo 08/30 LVEF 20-25%, global hypokinesis, stage II diastolic dysfunction, moderate MR, mild AR, mild TR, moderate pulmonary artery hypertension at 55 mmHg.
Hold diuretics acutely given sepsis and septic shock requiring vasopressors
Monitor volume status closely.
If persistent hypotension, consider to update echocardiogram.
Hold metoprolol due to hypotension
Type 2 diabetes.
Hold oral medications. OVEN HEATER regimen Tradjenta and glipizide.
Insulin basal bolus protocol with serial Accu-Cheks.
Update hemoglobin A1c
Hypothyroidism on replacement.
Disposition: Patient with metastatic ovarian carcinoma, obstructive uropathy, declining performance status, severe hypoalbuminemia, protein calorie malnutrition presenting with severe sepsis suspected with urinary source.
Overall poor prognosis
Prior discussions in terms of goals of care with patient's daughter wishing full support including CPR and vasopressors.
Anticipated Discharge: 24 - 48 hours
Subjective/Interval History
-
Date of Service: December 23, 2024
Objective Data
-
Labs:
Laboratory Results
12/22/24 12/23/24
22:56 05:44
WBC 14.7 H 18.1 H
Hgb 8.9 L 7.9 L
Hct 26.9 L 24.1 L
Plt Count 78 L 103 L D
PT 23.0 H
INR 2.02
APTT 33.7
Sodium 126 L 129 L
Potassium 3.4 L 4.2
Chloride 100 104
Carbon Dioxide 24 23
BUN 28 H 27 H
Creatinine 1.4 H 1.3 H
Glucose 130 H 78
Calcium 8.3 L 8.1 L
Total Bilirubin 0.9
AST 67 H
ALT 27
Alkaline Phosphatase 92
Vital Signs:
Vital Signs
Temp Pulse Resp BP Pulse Ox
97.0 F 73 18 100/51 99
12/23/24 07:00 12/23/24 04:20 12/23/24 04:20 12/23/24 04:20 12/23/24 04:20
I&O
12/22/24 12/23/24 12/24/24
06:59 06:59 06:59
Intake Total 338 / 422 252 / 252
Output Total 470 / 470
Balance -132 / -48 252 / 252
Physical Exam
-
General: Well Developed and No Apparent Distress
HEENT: Normocephalic, Atraumatic and Moist Mucous Membranes
Respiratory: Clear to Auscultation
Cardiac: Regular Rhythm and S1/S2; Negative Murmur, Rub or Gallop
GI: Soft, Nontender, Nondistended and Normal Bowel Sounds; Negative Organomegaly
Rectal: Deferred by Provider
Musculoskeletal: No Clubbing, No Cyanosis and No Edema
Skin: Negative Rash
Neuro: Other (Lethargic, not responding to voice)
[2024-12-23 10:36] LABS: Glucose - Point of Care 72 mg/dl (70-99)
--- NOTE | 2024-12-23 11:42 | CON.INTV ---
Consultation
Consultation Request
Date/Time Consultation Requested: 12/23/2024
Date/Time Consultation Performed: 12/23/2024
Requesting Provider: Dr. Escobedo
Performing Provider: Dr. Demetrius Marshall
Reason for Consultation: Septic shock
Medical History
-
Chief Complaint: Chest pain
History of Present Illness:
74-year-old female with a past medical history of metastatic ovarian cancer, severe systolic heart failure, failure to thrive, cachexia, status post radiation, status post chemotherapy, diabetes, bilateral renal retention status post bilateral
stenting and nephrostomy, sent to the hospital to the emergency department from the [facility] for altered mental status.
-
Patient found to be lethargic.
Hypotensive requiring vasopressors despite IV fluid resuscitation.
Urine was abnormal consistent with possible UTI.
CT of the head showed no acute abnormalities.
CT abdomen pelvis without acute abnormalities.
-
Records reviewed as the patient is unable to provide any history.
PMHx: Stage IV ovarian cancer s/p hysterectomy + XRT of the thorax and LLQ of abdomen, hypertension, hypothyroidism, DM type II, ureteral obstruction s/p stent, left nephrostomy tube, insomnia, CKD, chronic HFrEF, anemia due to chemotherapy
PSHx: Hysterectomy
Past Medical History
Past Medical History: Other (Above as per HPI)
Past Surgical History: Other (Above as per HPI)
Social History
Tobacco: Non-smoker
Alcohol: None
Drug: None
Family History
Family History: Reviewed & Not Pertinent
Allergies / Home Medications
Allergies
Allergy/AdvReac Type Severity Reaction Status Date / Time
Corticosteroids Allergy Unknown Verified 12/23/24 08:19
(Glucocorticoids)
Home Medications
�Medication �Instructions �Recorded �Confirmed �Last Taken �Type
acetaminophen 500 mg tablet 1,000 mg PO Q6HPRN PRN mild pain 08/05/24 08/30/24 Unknown History
(Tylenol Extra Strength) ##0
melatonin 5 mg tablet 5 mg PO HSPRN PRN sleep 08/05/24 08/30/24 Unknown History
ondansetron HCl 8 mg tablet 8 mg PO Q8HPRN PRN nausea ##0 08/05/24 08/30/24 Unknown History
docusate sodium 100 mg capsule 100 mg PO BID Constipation #0 caps 08/16/24 08/30/24 Unknown Rx
(Colace)
ferrous sulfate 325 mg (65 mg 325 mg PO DAILY Constipation #0 08/16/24 08/30/24 Unknown Rx
iron) tablet tabs
glipizide 2.5 mg tablet, extended 2.5 mg PO BID Diabetes #0 tabs 08/16/24 08/30/24 Unknown Rx
release 24 hr
levothyroxine 125 mcg capsule 125 mcg PO DAILY Thyroid #0 caps 08/16/24 08/30/24 Unknown Rx
megestrol 40 mg tablet 80 mg (2 x 40 mg) PO BID appetite 08/16/24 08/30/24 Unknown Rx
#0 tabs
methenamine hippurate 1 gram tablet 1 g PO DAILY Urinary issue #0 tabs 08/16/24 08/30/24 Unknown Rx
Held on 09/03/24.
Instructions: Resume on
09/09/24. while on Zyvox
pyridoxine (vitamin B6) 100 mg 100 mg PO DAILY Supplement #0 tabs 08/16/24 08/30/24 Unknown Rx
tablet
sodium bicarbonate 650 mg tablet 650 mg PO TID Kidney Disease #90 08/16/24 08/30/24 Unknown Rx
tabs
tamoxifen 20 mg tablet 20 mg PO BID Cancer #0 tabs 08/16/24 08/30/24 Unknown Rx
albuterol sulfate 90 mcg/actuation 2 puff inhalation R Q6HPRN PRN sob 08/30/24 08/30/24 Unknown History
aerosol inhaler
apixaban 2.5 mg tablet (Eliquis) 2.5 mg PO BID Blood Clot 08/30/24 08/30/24 Unknown History
Prevention/Tx
cholecalciferol (vitamin D3) 25 25 mcg PO DAILY Supplement 08/30/24 08/30/24 Unknown History
mcg (1,000 unit) tablet (Vitamin
D3)
cyanocobalamin (vitamin B-12) 1,000 mcg PO DAILY Supplement 08/30/24 08/30/24 Unknown History
1,000 mcg tablet
escitalopram oxalate 10 mg tablet 10 mg PO DAILY Mental 08/30/24 08/30/24 Unknown History
Held on 09/03/24. Health/Anxiety
Instructions: Resume on
09/09/24.
gabapentin 300 mg capsule 300 mg PO DAILYPRN PRN moderate 08/30/24 08/30/24 Unknown History
pain
hydroxyzine HCl 25 mg tablet 25 mg PO HSPRN PRN sleep 08/30/24 08/30/24 Unknown History
linagliptin 5 mg tablet (Tradjenta) 5 mg PO DAILY Diabetes 08/30/24 08/30/24 Unknown History
magnesium oxide 400 mg PO HS Supplement 08/30/24 08/30/24 Unknown History
therapeutic multivitamin 1 tab PO DAILY Supplement 08/30/24 08/30/24 Unknown History
thiamine HCl (vitamin B1) 100 mg 100 mg PO DAILY Supplement 08/30/24 08/30/24 Unknown History
tablet
furosemide 40 mg tablet 40 mg PO DAILY Fluid 09/03/24 Unknown Rx
retention/Swelling #30 tabs
linezolid 600 mg tablet 600 mg PO BID Gastrointestinal 09/03/24 Unknown Rx
issue #14 tabs
metoprolol succinate 50 mg 25 mg (1/2 x 50 mg) PO DAILY Heart 09/03/24 08/30/24 Unknown Rx
tablet,extended release 24 hr Failure #30 tabs
pantoprazole 40 mg tablet,delayed 40 mg PO DAILY Gastrointestinal 09/03/24 Unknown Rx
release issue #30 tabs
Review of Systems
-
Unable to Obtain full review of systems at this time due to: Acuity
Vitals / Labs / Diagnostic Testing
Vital Signs
Temp Pulse Resp BP Pulse Ox
98.5 F 73 18 100/51 99
12/23/24 11:00 12/23/24 04:20 12/23/24 04:20 12/23/24 04:20 12/23/24 04:20
Lab Data
12/23/24 05:44
Laboratory Results
12/22/24
22:56
PT 23.0 H
INR 2.02
APTT 33.7
Microbiology
12/22/24 22:56 Blood/Venous Blood Culture - Preliminary
Positive culture in progress
12/22/24 22:56 Blood/Venous Gram Stain - Preliminary
Diagnostic Testing:
Physical Exam
-
HEENT: Normocephalic
Cardiovascular: S1/S2
Respiratory: Clear and Accessory Resp Muscle Use (Mild at rest)
GI: Soft and Non Distended
Neurology: Other (Lethargic. Unable to provide history. Protecting airway)
Skin: Other (Pale, cold.)
General: Other (Cachectic.)
Assessment
-
74-year-old woman with past medical history noted. Severely deconditioned, malnourished, failure to thrive. Sent from the cancer center for evaluation as the patient was hypotensive and not looking great, somnolent, decreased responsiveness 2-day
prior to admission.
Admitted 12/23/2024 to ICU for vasopressor requirements.
Septic shock-complicated UTI
Toxic metabolic encephalopathy-lethargy secondary to above.
Chronic immunosuppression
Cachexia-malnutrition albumin 2.0
Conditions present prior admission:
# Obstructive uropathy with nephrostomy tubes in place
#R-sided pleural effusion likely due to acute HFrEF exacerbation
Transudative s/p thoracentesis 08/2024.
#Acute HFrEF with LVEF 20-25% with stage II diastolic dysfunction with moderate MR seen on echo from today
# Recurrent UTI
#Anemia-chronic
History of CAD's requiring antibiotics in the past-no details available.
#CKD stage IV
#Hypoalbuminemia-chronic
#Reported history of stroke on Eliquis-no documented
#Small pericardial effusion without tamponade, likely due to volume overload
# Type 2 diabetes
Hypertension
Metastatic ovarian cancer with lung metastatic disease. Status post chemotherapy and radiation. Follows at [facility]
Status post hysterectomy
Assessment and plan:
Critically ill septic shock due to urinary tract infection that is complicated given presence of nephrostomy tubes and prior stents.
-
Continue Rodney-Synephrine to target systolic blood pressure over 90 mmHg
Lactic acid is normal.
AM cortisol is 35-appropriate/TSH is normal
Follow renal function currently stable
Follow urinary output via nephrostomy tube
Hold on placing Peoples for now
Follow cultures
Gentle IV fluids as the patient is hyponatremic-D5 half-normal saline as the patient was also hypoglycemic.
Repeat BMP later
Will give 1 additional dose of albumin to hopefully wean down vasopressor requirements.
-
Complicated UTI:
Continue current antibiotics and adjust depending on cultures.
-
Chronic anemia due to chemotherapy and chronic illness-follow. No evidence for acute bleeding.
Thrombocytopenia.
-
Anasarca-albumin 2.0.
Right upper extremity ultrasound negative for DVT
-
Systolic heart failure ejection fraction 20 to 25%.
Chest x-ray with chronic right pleural effusion. In August 2024 was transudative.
Hold diuretics
Continue antihypertensive
Monitor for volume overload
-
N.p.o. patient is very lethargic-hypoactive delirium.
Family would like to hold off on any Dobbhoff tube
Hold anticoagulation for now and other oral medications
-
DVT prophylaxis-SCDs.
-
Discussed with Dr. Escobedo-prognosis is poor.
In the past patient declined to discuss goals of care. Patient is hospice appropriate in my opinion. Currently full code.
-
Critical care statement: A total of 60 minutes of critical care time was provided for this patient today. This includes management of unstable vital signs, evaluation of the patient at bedside, reviewing the patient's pertinent medical records
including ventilator settings, arterial blood gases, radiographs, microbiology, laboratory evaluations and discussion with primary team, critical care nursing, and respiratory therapy.
[2024-12-23 11:45] LABS: Glucose - Point of Care 73 mg/dl (70-99)
--- NOTE | 2024-12-23 12:00 | PTCARENOTE ---
Pt continues to rest quietly. Remains difficult to arouse- only responds w/ grimace or moan to painful stimuli. No change in neuro assessment. Remains on Neosynephrine and IVF, cont to tx accu check per protocol. Turned/repositioned q2hr or more
frequently. Frequent oral care provided. Safe environment maintained.
[2024-12-23 12:34] LABS: Protein/creatinine Ratio 1.5; Urine Protein 80 mg/dl
[2024-12-23 12:48] LABS: Glucose - Point of Care 69 mg/dl (70-99)
[2024-12-23 13:21] LABS: Glucose - Point of Care 137 mg/dl (70-99)
--- NOTE | 2024-12-23 14:19 | CON.ID ---
Consultation
-
Date/Time Consultation Requested: December 23, 2024 0331
Date/Time Consultation Performed: December 23, 2024 1420
Requesting Provider: Dr. Cleaning
Performing Provider: Dr. Kari Olguin
Reason for Consultation: Sepsis
Chief Complaint / Past History
Chief Complaint
Weakness
History of Present Illness
74-year-old female with diabetes mellitus, heart failure with reduced EF, stage IV ovarian cancer on salvage chemotherapy, bilateral ureteral obstruction due to mass with right ureter stent and left nephrostomy tube who presented to the ER late last
night due to decreased mental status and poor appetite. Of note patient recently had left nephrostomy tube malfunction which was exchanged by IR on December 21. Patient then noted to have very poor appetite, weakness, decreased responsiveness. In the
ER patient noted to be hypotensive requiring pressor. White count 14.7. Blood culture 1 out of 2 gram-positive bacilli. She is currently on vancomycin and Zosyn. No fever. No flank pain. Positive edema. Denies ill contacts.
Past History
Additional Past Medical History:
Stage IV ovarian cancer status post hysterectomy, radiation of the thorax and right lower quadrant of the abdomen, on salvage chemotherapy
Hypertension
Diabetes mellitus type 2
Hypothyroidism
Recent C. difficile
Ureter obstruction due to mass status post left nephrostomy tube, right ureter stent
CKD 3
Heart failure with reduced EF
Allergy History:
Corticosteroids (Glucocorticoids) Allergy (Verified 12/23/24 08:19)
Unknown
Medications Reviewed: Yes
Current Antibiotics:
Zosyn
Vancomycin
Social History
Tobacco: Non-Smoker
Alcohol: None
Living: With Family
Family History
Family History: Not Pertinent
Review of Systems
Review of Systems
General: Change in Appetite; Negative Fever or Chills
HEENT: Negative Sinus Problems or Headache
Cardiovascular: Negative Chest Pain
Respiratory: Dyspnea
Gasteroenterology: Negative Vomiting or Diarrhea
Genital / Urological: Negative Dysuria or Flank Pain
Endocrine: Weakness
All systems: All other systems were reviewed and were negative
Vital Signs
Temp Pulse Resp BP Pulse Ox
98.5 F 73 18 100/51 99
12/23/24 11:00 12/23/24 04:20 12/23/24 04:20 12/23/24 04:20 12/23/24 04:20
Physical Exam
Physical Exam
Constitutional: Acutely Ill and Chronically Ill
Head: Other (No frontal or max or sinus tenderness)
Eyes: No Conjunctival Hemorrhage and Sclera Anicteric
Cardiovascular: Regular Rate and S1/S2
Pulmonary: Other (Decreased breath sound right lung)
Gastrointestinal: Soft, Non Tender and Non Distended
Genito-Urinary: Clear Urine (Left nephrostomy) and Turbid Urine; Negative CVA Tenderness
Extremities: Edema (Bilateral lower extremity and upper extremities)
Neurological: Other (Lethargic)
Lab / Diagnostic Study Results
12/23/24 05:44
Abs Immat Gran (auto) 0.2 10^3/uL (0-0.05) H 12/22/24 22:56
Absolute Neuts (auto) 12.7 10^3/uL (1.4-6.5) H 12/22/24 22:56
Absolute Lymphs (auto) 0.4 10^3/uL (1.2-3.4) L 12/22/24 22:56
Absolute Monos (auto) 0.8 10^3/uL (0.1-0.6) H 12/22/24 22:56
Absolute Basos (auto) 0.1 10^3/uL (0-0.2) 12/22/24 22:56
Immature Gran % 1.6 % (0-0.5) H 12/22/24 22:56
Neutrophils % 86.7 % (42.2-75.2) H 12/22/24 22:56
Lymphocytes % 2.4 % (20.5-51.1) L 12/22/24 22:56
Monocytes % 5.2 % (1.7-9.3) 12/22/24 22:56
Eosinophils % 3.8 % (0-6) 12/22/24 22:56
Basophils % 0.3 % (0-2) 12/22/24 22:56
PT 23.0 Sec (11.4-14.6) H 12/22/24 22:56
INR 2.02 12/22/24 22:56
Lactic Acid 1.4 mmol/L (0.7-2.0) 12/23/24 03:01
Ur Squamous Epith Cells None seen /LPF (Few) 12/23/24 00:44
Microbiology Results
Micro:
12/23/24 05:44 Nasal Screen MRSA (PCR) - Final
Nose MRSA not detected - performed by PCR methodology.
12/22/24 22:56 Blood Culture - Preliminary
Blood/Venous Positive culture in progress
Gram Stain - Preliminary
12/23/24 00:44 Urine Culture - Pending
Urine
12/22/24 22:56 Urine Culture - Pending
Urine
12/23/24 00:44 Blood Culture - Pending
Blood/Venous
12/22/24 CT a/p: Right ureteral stent in position without significant right renal collecting system dilatation. Some right renal atrophy is suspected. Left percutaneous nephrostomy catheter with distal tip in expected location, without significant
left renal collecting system dilatation.Moderate right pleural effusion.Small pericardial effusion. Enlarged right rectus sheath 'mass' again seen, although slightly larger in size in comparison to prior CT, this does demonstrate some low
attenuation density centrally, possibly representing MALIGNANCY or HEMATOMA. Cannot be further evaluated on this study without intravenous contrast.
Assessment / Plan
# Shock requiring pressor
#Leukocytosis trended up
# Gram-positive bacilli bacteremia 1 out of 2 sets, possibly contaminant
# Probable UTI
# Acute CHF
# Stage IV ovarian cancer on salvage chemotherapy
#Bilateral ureteral obstruction with right ureter stent and left nephrostomy tube exchange December 21 due to malfunction
-Await speciation of gram-positive bacilli in blood culture
-Follow repeat blood cultures
- Await urine cultures
-Narrow Zosyn to cefepime
-Continue vancomycin for now
- Trend white count
- Add prophylactic oral vancomycin 125 mg twice daily for recent extensive C. difficile.
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
Stage IV ovarian cancer status post hysterectomy, radiation of the thorax and right lower quadrant of the abdomen, salvage chemotherapy
Hypertension
Diabetes mellitus type 2
Hypothyroidism
Recent C. difficile
Ureter obstruction due to mass status post left nephrostomy tube, right ureter stent
CKD 3
Heart failure with reduced EF
[2024-12-23 15:31] LABS: Blood Urea Nitrogen 27 mg/dl (7-17); Calcium 8.3 mg/dl (8.4-10.2); Carbon Dioxide 24 mmol/L (22-30); Chloride 104 mmol/L (98-107); Estimated Creatinine Clearance 29 ml/min; Glucose 94 mg/dl (70-99); Potassium 3.7 mmol/L (3.5-5.1); eGFR 42.62
[2024-12-23 15:32] LABS: Glucose - Point of Care 95 mg/dl (70-99)
--- NOTE | 2024-12-23 16:00 | PTCARENOTE ---
Assessment findings unchanged. Grandson at bedside and updated on pt's present condition/plan of care- all questions answered. Continue to provide frequent comfort care. Tapering Neosynephrine as able per ordered parameters.
[2024-12-23 16:01] LABS: Sodium 129 mmol/L (135-145)
[2024-12-23 17:39] LABS: Glucose - Point of Care 72 mg/dl (70-99)
[2024-12-23] MEDS: MAXIPIME 2000 MG IV (17:57)
[2024-12-23] MEDS: STERILE WATER FOR INJECTION 10 ML IV (17:57)
--- NOTE | 2024-12-23 19:00 | PTCARENOTE ---
Addendum entered by Noris Alves RN 12/24/24 03:11:
Assessment largely unchanged, diminished lung sounds in the right lobes and an in frequent cough with intermittent snoring was noted. Pt resting in the bed at the lowest height. Call purcell within reach and monitor in place.
Addendum entered by Noris Alves RN 12/24/24 00:47:
2325: Pts respiratory rate in creased to 36. on assessment right lung sounds had intermittent rhonchi, increased HR (90s) and inc temp (100.0 rectal). Overnight provider was made aware; rectal Tylenol administered. Shortly after pt developed a
cough, wet with good effort for about 10 mins.
0030: Pt demonstrating inc WOB with use of accessory muscles. Episodes of tachypnea with shallow depth alternating with bradypnea (Megan-veronica like) with associated spo2 between 99-90.
Original Note:
Pt care assumed by this RN. See wordlist of full assessment. Family at bedside. Plan of care reviewed with daughter. Daughter was focus on the patients lack of oral intake, both food and drink. RN explained the reason for the NPO status. Daughter
was insistent that she is usually hungry at home. RN discussed the pt's baseline health concern in addition to the acute onset of sepsis and the effect that can have on a pt's VS and mentation. Daughter reiterated that they usually add some salt to
her diet to help with her pressure. NPO status and use of pressors was reviewed with family by RN. On assessment orange food like substance was found on pt's face around her mouth. Pt's position adjusted, foams applied to B/L heels. Call purcell within
reach. Bed in lowest position. monitor in place.
[2024-12-23 19:44] LABS: Glucose - Point of Care 83 mg/dl (70-99)
[2024-12-23] MEDS: TYLENOL/FEVERALL 650 MG RECTAL (23:28)
[2024-12-23 23:52] LABS: Glucose - Point of Care 79 mg/dl (70-99)
[2024-12-24] VITALS (51 sets, daily range): BP systolic 86–112; BP diastolic 50–69; BMI 22.2
[2024-12-24 02:53] LABS: Glucose - Point of Care 76 mg/dl (70-99)
[2024-12-24 05:18] LABS: % Basophils 0.2 % (0-2); % Immature Granulocytes 1.4 % (0-0.5); % Lymphocytes 3.7 % (20.5-51.1); % Monocytes 5.6 % (1.7-9.3); % Neutrophils 89.1 % (42.2-75.2); Absolute Immature Granulocytes 0.2 10^3/uL (0-0.05); Absolute Lymphocytes 0.6 10^3/uL (1.2-3.4); Absolute Monocytes 0.9 10^3/uL (0.1-0.6); Absolute Neutrophils 13.8 10^3/uL (1.4-6.5); Hematocrit 22.2 % (37.0-47.0); Hemoglobin 7.3 g/dL (12.0-16.0); Mean Corp Hgb Conc. 32.9 g/dL (33.0-37.0); Mean Corpuscular Hgb 29.7 pg (27.0-31.0); Mean Corpuscular Volume 90.2 fL (81.0-99.0); Mean Platelet Volume 10.1 fL (7.4-10.4); Nucleated Red Blood Cells % 0 %; Platelet Count 80 10^3/uL (130-400); Red Blood Cell Count 2.46 10^6/uL (4.20-5.40); Red Cell Dist. Width 16.1 % (11.5-14.5); White Blood Cell Count 15.5 10^3/uL (4.8-10.8)
[2024-12-24 05:21] LABS: ALT (SGPT) 21 U/L (0-35); AST (SGOT) 33 U/L (14-36); Alkaline Phosphatase 76 U/L (38-126); Blood Urea Nitrogen 28 mg/dl (7-17); Calcium 7.9 mg/dl (8.4-10.2); Carbon Dioxide 21 mmol/L (22-30); Chloride 106 mmol/L (98-107); Estimated Creatinine Clearance 29 ml/min; Glucose 69 mg/dl (70-99); Magnesium 1.8 mg/dl (1.6-2.3); Potassium 3.4 mmol/L (3.5-5.1); Sodium 130 mmol/L (135-145); Total Bilirubin 1.1 mg/dl (0.2-1.3); Total Protein 4.6 g/dl (6.3-8.2); eGFR 42.62
[2024-12-24 05:30] LABS: Vancomycin Random 8.5 ug/ml
--- NOTE | 2024-12-24 05:49 | W.PN.UPDATE ---
Update Note
Progress Note Update
0600 HGB 7.3, still on TATYANA drip, Vitals: 78bpm, 108/63 (76), blood consent completed and type and screen sent @ 0600 if considering transfusion.
[2024-12-24] MEDS: KCL 270 MEQ IV (06:00)
[2024-12-24 06:09] LABS: Glucose - Point of Care 75 mg/dl (70-99)
[2024-12-24] MEDS: NOVOLOG FLEXPEN-LOW RESISTANCE SC ×4 (07:21→23:51)
[2024-12-24] MEDS: NEO-SYNEPHRINE 250 IV (08:23)
--- NOTE | 2024-12-24 08:30 | PTCARENOTE ---
Received pt @ change of shift. Pt lethargic; opens eyes spont and tracks but does not follow commands; nonverbal; grimaces/moans out w care/turns. SR on monitor. +3/4 anasarca. Weak radial/pedal pulses. SpO2 96% on RA. Auscultated dim breath
sounds ant/post on R side. Occ fish agent weak cough. Hypoactive BS, cachectic. NPO d/t mental status; unable to give PO meds; Dr. Benton made aware. Inc bowel. No urine output from bladder overnight per off going RN; UO from L nephrostomy yellow. R
fem TL in place w IVF, yvrose gtt, and K+ rider- see MAR/flow sheets. Complete hygiene provided and pt. repositioned per protocol. Safe environment maintained.
--- NOTE | 2024-12-24 09:21 | PHA.VAN.FU ---
Vancomycin Assessment / Plan
- Assessment
Renal Function: Stable
WBC's are: Trending Down
In the past 24 hrs, patient has been: Afebrile
Concomitant Antimicrobials: Cefepime
- Assessment - Therapeutic Drug Monitoring
Random Level: R = 8.5 ~27.5 hrs post Vanc 1000mg
- Dosing Plan
Continue: Dose by level
Dosing by Level: Re-dose today (Vanc 750mg--13.6mg/kg)
- Monitoring Plan
Random Level: 12/25 AM
- Follow Up
Pharmacy will continue to follow.
Vancomycin Follow UP
- -
Patient Age: 74
Patient Sex: Female
Vancomycin Day #: 2
Indication: Pulmonary/Respiratory
Requesting Provider: Dr. Cleaning
Pertinent Antimicrobial Allergies:
No pertinent allergies to ABX
Height / Weight:
Height 5 ft 2 in
Actual Weight 55 kg
Pertinent Past Medical History: Metastatic ovarian cancer, recent C diff, renal stenting and ostomy tubes
- Vital Signs / Lab Results
Temp Pulse Resp BP Pulse Ox
98 F 84 21 108/64 96
12/24/24 07:21 12/24/24 08:00 12/24/24 08:00 12/24/24 08:00 12/24/24 08:30
Lab Results - Hematology
12/22/24 12/23/24 12/24/24
22:56 05:44 04:42
WBC 14.7 H 18.1 H 15.5 H
Lab Results - Chemistry
12/22/24 12/23/24 12/23/24
22:56 05:44 14:10
BUN 28 H 27 H 27 H
Creatinine 1.4 H 1.3 H 1.3 H
Estimated Creat Clear 29 29
Albumin 2.0 L
12/24/24
04:42
BUN 28 H
Creatinine 1.3 H
Estimated Creat Clear 29
Albumin 2.0 L
12/22/24 12/23/24
22:56 03:01
Lactic Acid 1.3 1.4
Lab Results - Urine
12/22/24
22:56
Urine Nitrite (Reflex) Negative
Leukocyte Esterase Rfl 3+ A
Ur Squamous Epith Cells 0-2
Microbiology Results
12/23/24 00:44 Blood Culture - Preliminary
Blood/Venous No Growth in 24 hours- Final report to follow
12/23/24 05:44 Nasal Screen MRSA (PCR) - Final
Nose MRSA not detected - performed by PCR methodology.
12/22/24 22:56 Blood Culture - Preliminary
Blood/Venous Positive culture in progress
Gram Stain - Preliminary
Therapeutic Drug Monitoring
Random Vancomycin 8.5 ug/ml 12/24/24 04:42
[2024-12-24] MEDS: D5W 1000 IV (09:47)
[2024-12-24] MEDS: VANCOCIN 150 IV (10:09)
--- NOTE | 2024-12-24 10:49 | W.PN.HOSP.TC ---
Today's Communication/Plan
-
Continue with IV antibiotics
speech evaluation
Wean pressors as tolerated
Prognosis guarded
Assessment / Plan
Assessment / Plan
Impression:
Clinical sepsis
Septic shock not responding to IV fluid boluses and requiring vasopressors support
Toxic metabolic encephalopathy
Hypovolemic hyponatremia
Conditions prior to admission:
Metastatic ovarian carcinoma with history of XRT
Obstructive uropathy.
� Left urostomy, right renal stent in place.
CKD stage III with baseline creatinine around 1.5�2.
Chronic metabolic acidosis.
Chronic CHF severely reduced EF.
History of right pleural effusion requiring thoracentesis 08/30. Transudate.
History of CVA
Anticoagulation with Eliquis
Anemia of chronic disease.
Hypothyroidism on replacement
Diabetes type 2.
Declining performance status.
Plan:
Clinical sepsis
Presenting with altered mental status secondary toxic metabolic encephalopathy, hypotension secondary to septic shock not responding to IV fluid bolus, elevated white count.
Suspect urinary source. Noted with clear urine output via left urostomy tube, and pyuria.
CT scan of the abdomen without IV contrast confirming placement of a left urostomy and a right renal stent in place.
Prior urine cultures reviewed with presence of VRE and Haily
Currently on vancomycin and Zosyn transition to cefepime consider VRE as well as antifungal coverage. Also started on p.o. vancomycin for prior history of C. difficile
Blood cultures identification and susceptibility pending. Urine cultures pending. MRSA negative.
Continue isotonic IV fluids with caution for volume overload given CHF with severely reduced EF.
Status post albumin.
Initiated on phenylephrine with goal of MAP 55-60 mmHg.
WBC downtrending.
History of right pleural effusion requiring thoracentesis. Transudative 08/30
Chest x-ray on admission with mild, moderate right pleural effusion
Stable respiratory status
Monitor closely
Hypovolemic hyponatremia
Appropriate cortisol response
TSH normal. Random cortisol normal
Improving with IV fluid bolus.
Continue monitoring.
Toxic metabolic encephalopathy with aspiration risk.
Diet per speech.
Consider NG tube placement for nutrition and oral medications
Anemia of chronic disease with trending down hemoglobin at 7.3
Update iron stores.
No active luminal bleeding noted. Some component could be dilutional.
Thrombocytopenia suspect consumptive and secondary to acute illness sepsis state.
Monitor platelet count closely
Hold Eliquis acutely
History of CVA.
In review of recent images including CT of the head showed no acute abnormalities. Old bilateral cerebellar infarcts.
No documented history of arrhythmia
On Eliquis prior to presentation.
Chronic CHF severely reduced EF
Echo 08/30 LVEF 20-25%, global hypokinesis, stage II diastolic dysfunction, moderate MR, mild AR, mild TR, moderate pulmonary artery hypertension at 55 mmHg.
Hold diuretics acutely given sepsis and septic shock requiring vasopressors
Monitor volume status closely.
If persistent hypotension, consider to update echocardiogram.
Hold metoprolol due to hypotension
Type 2 diabetes.
Hold oral medications. 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
Insulin basal bolus protocol with serial Accu-Cheks.
Update hemoglobin A1c
Hypothyroidism on replacement.
Metastatic ovarian cancer
Per daughter patient received radiation [address] scan Right rectus sheath heterogeneous enlargement/mass measures 5.0 x 5.8 x 5.1 cm increased from 4.3 cm in greatest dimension on prior study, mixed attenuation density, some fluid centrally. No gross focal intrinsic abnormality of the liver,
spleen, gallbladder, pancreas or adrenal glands.
Hypokalemia
Repleted monitor
Disposition: Patient with metastatic ovarian carcinoma, obstructive uropathy, declining performance status, severe hypoalbuminemia, protein calorie malnutrition presenting with severe sepsis suspected with urinary source.
Overall poor prognosis
Prior discussions in terms of goals of care with patient's daughter wishing full support including CPR and vasopressors.
Discussed with patient daughter at bedside in details.
Anticipated Discharge: > 48 hours
Subjective/Interval History
-
Date of Service: December 24, 2024
Remains lethargic
Eyes open nighttime
Remains on pressors
Objective Data
-
Labs:
Laboratory Results
12/24/24
04:42
WBC 15.5 H
Hgb 7.3 L
Hct 22.2 L
Plt Count 80 L D
Sodium 130 L
Potassium 3.4 L
Chloride 106
Carbon Dioxide 21 L
BUN 28 H
Creatinine 1.3 H
Glucose 69 L
Calcium 7.9 L
Total Bilirubin 1.1
AST 33
ALT 21
Alkaline Phosphatase 76
Vital Signs:
Vital Signs
Temp Pulse Resp BP Pulse Ox
98 F 84 21 108/64 96
12/24/24 07:21 12/24/24 08:00 12/24/24 08:00 12/24/24 08:00 12/24/24 08:30
I&O
12/23/24 12/24/24 12/25/24
06:59 06:59 06:59
Intake Total 338 / 422 2677 / 2761 168 / 168
Output Total 470 / 470 345 / 345
Balance -132 / -48 2332 / 2416 168 / 168
Physical Exam
-
General: No Apparent Distress and Appears Chronically Ill; Negative Respiratory Distress
HEENT: Normocephalic, Atraumatic and Moist Mucous Membranes
Respiratory: Decreased Breath Sounds
Cardiac: Regular Rhythm and S1/S2; Negative Murmur, Rub or Gallop
GI: Soft, Nontender, Nondistended and Normal Bowel Sounds; Negative Organomegaly
Rectal: Deferred by Provider
Genito-urinary: Nephrostomy Tubes
Musculoskeletal: No Clubbing, No Cyanosis and No Edema
Skin: Negative Rash
Neuro: Other (Lethargic, )
Data Reviewed
-
Total Time Spent with Patient (in minutes): 55
--- NOTE | 2024-12-24 12:11 | PTCARENOTE ---
Addendum entered by Louise Ralph RN 12/24/24 15:18:
Blood sugar obtained from R fem TL @ 1200- resulted 100- did not cross over into pt.' record.
Original Note:
Dr. Benton to bedside for extensive goals of care/code status discussion w pt.'s daughter and grand-daughter. Family decision making in progress. Care ongoing. Safe environment maintained.
--- NOTE | 2024-12-24 13:36 | W.PN.ID1 ---
Date of Service
Date of Service: December 24, 2024
Today's Communication
Continue cefepime, IV and po Vancomycin.
Assessment / Plan
# Septic Shock, weaning pressor
# Leukocytosis improving
# Complicated UTI
# Gram-positive bacilli bacteremia 1 out of 2 sets, possibly contaminant
# Acute CHF
# Stage IV ovarian cancer s/p XRT to chest and abd, no longer on salvage chemo
#Bilateral ureteral obstruction with right ureter stent and left nephrostomy tube exchange December 21 due to malfunction
-Await speciation of gram-positive bacilli in blood culture
- Urine cx: GNR
-Continue cefepime and vancomycin pending cx data
- Trend white count, vitals
- Continue prophylactic oral vancomycin 125 mg twice daily for recent extensive C. difficile.
Updated daughter and granddaughter. I answered all their questions.
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
Stage IV ovarian cancer status post hysterectomy, radiation of the thorax and right lower quadrant of the abdomen, salvage chemotherapy
Hypertension
Diabetes mellitus type 2
Hypothyroidism
Recent C. difficile
Ureter obstruction due to mass status post left nephrostomy tube, right ureter stent
CKD 3
Heart failure with reduced EF
Chief Complaint
-: Clinical Sepsis
Subjective / Review of Systems
Daughter and granddaughter at bedside.
They report pt slightly more alert today.
Vital Signs / Physical Exam
Vital Signs
Vital Signs
Temp Pulse Resp BP Pulse Ox
98.2 F 90 31 101/59 96
12/24/24 11:22 12/24/24 12:00 12/24/24 12:00 12/24/24 12:00 12/24/24 12:00
Physical Exam
Constitutional: Acutely Ill and Chronically Ill
Eyes: No Conjunctival Hemorrhage and Sclera Anicteric
Cardiovascular: Regular Rate and S1/S2
Pulmonary: Other (Decreased BS right)
Gastrointestinal: Soft, Non Tender and Non Distended
Genito-Urinary: Clear Urine (left nephrostomy)
Extremities: Edema (BUE and BLE, anasarca)
Neurological: Other (lethargic)
Objective Data
Lab Data
Lab Results
12/24/24 04:42
12/24/24 04:42
PT 23.0 Sec (11.4-14.6) H 12/22/24 22:56
INR 2.02 12/22/24 22:56
APTT 33.7 Sec (23.4-35.0) 12/22/24 22:56
Estimated Creat Clear 29 ml/min 12/24/24 04:42
Lactic Acid 1.4 mmol/L (0.7-2.0) 12/23/24 03:01
Total Bilirubin 1.1 mg/dl (0.2-1.3) 12/24/24 04:42
AST 33 U/L (14-36) 12/24/24 04:42
ALT 21 U/L (0-35) 12/24/24 04:42
Alkaline Phosphatase 76 U/L (38-126) 12/24/24 04:42
Most recent labs reviewed.
Micro Results:
12/22/24 22:56 Urine Culture - Final
Urine
12/22/24 22:56 Blood Culture - Preliminary
Blood/Venous Positive culture in progress
Gram Stain - Preliminary
12/23/24 00:44 Urine Culture - Preliminary
Urine Gram negative bacilli
12/23/24 00:44 Blood Culture - Preliminary
Blood/Venous No Growth in 24 hours- Final report to follow
12/23/24 05:44 Nasal Screen MRSA (PCR) - Final
Nose MRSA not detected - performed by PCR methodology.
12/22/24 CT a/p: Right ureteral stent in position without significant right renal collecting system dilatation. Some right renal atrophy is suspected. Left percutaneous nephrostomy catheter with distal tip in expected location, without significant
left renal collecting system dilatation.Moderate right pleural effusion.Small pericardial effusion. Enlarged right rectus sheath 'mass' again seen, although slightly larger in size in comparison to prior CT, this does demonstrate some low
attenuation density centrally, possibly representing MALIGNANCY or HEMATOMA. Cannot be further evaluated on this study without intravenous contrast.
Care Review
Plan reviewed with: Nurse
--- NOTE | 2024-12-24 13:41 | CM ---
manager drug safety reviewed patient's chart and met with patient and patient lives with her daughter in a one story home, patient is bedbound, has walker, hospital bed and commode in home, patient has WAIVER services, 20 hours per day 7 days a week,
through [facility], PT/OT and Aide, plan is to home with daughter when stable.
[employer] [facility]
[phone]

PCP: Jesús Turner
Pharmacy: [facility] in [facility].
--- NOTE | 2024-12-24 16:15 | PTCARENOTE ---
Attempted to wean off pressor; yvrose gtt off [id number] then back on @ 1600 to keep MAP >65- see flow sheet. Pt.'s RR remains high 20-low 30's. Family remains @ bedside; per family plan of care/code status remains unchanged and they want to 'c/w abx
and follow cultures.' Pt. anasarca unchanged from earlier assessment; R lung remains diminished; family expressed concern for fluid overload potential; concern relayed to Dr. Benton and further orders received for CXR. Safe environment maintained.
[2024-12-24] MEDS: MAXIPIME 2000 MG IV (17:02)
[2024-12-24] MEDS: STERILE WATER FOR INJECTION 10 ML IV (17:02)
[2024-12-24 17:12] LABS: Glucose - Point of Care 87 mg/dl (70-99)
[2024-12-24 17:21] LABS: Hematocrit 23.7 % (37.0-47.0); Hemoglobin 7.9 g/dL (12.0-16.0); Mean Corp Hgb Conc. 33.3 g/dL (33.0-37.0); Mean Corpuscular Hgb 30.4 pg (27.0-31.0); Mean Corpuscular Volume 91.2 fL (81.0-99.0); Mean Platelet Volume 10.2 fL (7.4-10.4); Platelet Count 65 10^3/uL (130-400); Red Cell Dist. Width 16.3 % (11.5-14.5)
--- NOTE | 2024-12-24 17:46 | W.PN.INTV ---
Today's Communication / Plan
Recommendations
- Discontinue D5 half-normal saline and start D5 W at 50 mL/h to minimize sodium load
- Chest x-ray to evaluate further
- Wean pressors as tolerated
- Ongoing goals of care discussion
Assessment
-
74-year-old woman with past medical history noted. Severely deconditioned, malnourished, failure to thrive. Sent from the cancer center for evaluation as the patient was hypotensive and not looking great, somnolent, decreased responsiveness 2-day
prior to admission.
Admitted 12/23/2024 to ICU for vasopressor requirements.
12/24 overview: Patiently currently has a MAP around 70 and infusing phenylephrine at 80. Also currently infusing D5 with half-normal saline at 60 mL an hour and receiving K rider. Saturating 96% on room air. Patient has a femoral central line in
place. Also nephrostomy tube in place.
#1. Septic Shock, related to complicated UTI
-Bacteremia noted
-Continue IV vancomycin, cefepime and oral vancomycin, ID service on case
-On prophylactic p.o. vancomycin with history of C. difficile
-Discontinue D5 half-normal and switch to only D5W to decrease sodium load in the setting of underlying heart failure
-Nephrostomy tube in place, draining urine, straw-colored. History of bilateral ureteral obstruction with right ureteral stent and left nephrostomy tube, most recent exchange on 12/21
-Patient also received IV albumin
-Phenylephrine infusing, right femoral central line in place
#2. Heart failure with decreased ejection fraction 20 to 25% EF.
- Unfortunately patient also in septic shock and received IV fluids. She continues to be hypoglycemic and needs parenteral dextrose. No oral access currently, as family did not want to proceed with feeding tube. Patient unable to take p.o.
safely. I have no choice but to give parenteral dextrose. To minimize the sodium load, will discontinue D5 half-normal saline and switch patient to D5W only.
- Currently on pressors, unable to pursue diuresis
#3. Aspiration pneumonia, enlarging pleural effusion
- Patient noted to have poor handling of oral secretions with intermittent coughing likely related to saliva trickling on the back of her throat
- At risk of requiring intubation mechanical ventilation
- Follow-up chest x-ray shows increasing infiltrate on right side concerning for aspiration pneumonia
- Known chronic right-sided pleural effusion also appears to be enlarging
- Patient currently saturating 99% on room air so we will continue to monitor for now
- Might need repeat thoracentesis depending on her clinical course, will reassess 12/25
#4. h/o Stage IV ovarian cancer s/p XRT to chest and abd, no longer on salvage chemo
-Patient cachectic appearing, suspect severe protein calorie malnutrition and failure to thrive
Conditions present prior admission:
# Obstructive uropathy with nephrostomy tubes in place
#R-sided pleural effusion likely due to acute HFrEF exacerbation
Transudative s/p thoracentesis 08/2024.
#Acute HFrEF with LVEF 20-25% with stage II diastolic dysfunction with moderate MR seen on echo from today
# Recurrent UTI
#Anemia-chronic
History of CAD's requiring antibiotics in the past-no details available.
#CKD stage IV
#Hypoalbuminemia-chronic
#Reported history of stroke on Eliquis-no documented
#Small pericardial effusion without tamponade, likely due to volume overload
# Type 2 diabetes
Hypertension
Metastatic ovarian cancer with lung metastatic disease. Status post chemotherapy and radiation. Follows at [facility] [place]
Status post hysterectomy
Assessment and plan:
Chronic anemia due to chemotherapy and chronic illness-follow. No evidence for acute bleeding.
Thrombocytopenia.
-
Anasarca-albumin 2.0.
Right upper extremity ultrasound negative for DVT
-
Systolic heart failure ejection fraction 20 to 25%.
Chest x-ray with chronic right pleural effusion. In August 2024 was transudative.
Hold diuretics
Continue antihypertensive
Monitor for volume overload
-
N.p.o. patient is very lethargic-poor handling of oral secretions, not safe for oral feeding
Family would like to hold off on any Dobbhoff tube
Hold anticoagulation for now and other oral medications
-
DVT prophylaxis-Eliquis ordered, however unable to take p.o. currently.
-
Discussed with patient's daughter at bedside. Explained the overall poor prognosis. I also expressed that patient's appears to be aspirating with intermittent cough and not handling her saliva very well. She is at risk of requiring intubation and
mechanical ventilation. Daughter said that patient had expressed that she would want to pass away at home in peace and she is leaning towards taking her home to pursue more comfort focused care. However she is reluctant to consider changing CODE
STATUS to DNR/DNI or pursue hospice care at this point. She also inquired if she should take the patient home to pursue comfort focused care AGAINST MEDICAL ADVICE without changing the CODE STATUS. I explained to the patient that if the focus is
to keep her comfortable, would recommend changing her CODE STATUS to comfort care and then consider hospice support at home if desired. Family can also opt to continue comfort focused care at home without formal hospice involvement. I spent close
to 45 minutes in discussion with patient's daughter and granddaughter at bedside.
-
Critical care statement: A total of 80 minutes of critical care time was provided for this patient today. This includes management of unstable vital signs, evaluation of the patient at bedside, reviewing the patient's pertinent medical records
including ventilator settings, arterial blood gases, radiographs, microbiology, laboratory evaluations and discussion with primary team, critical care nursing, and respiratory therapy.
Subjective Dataa
Subjective Data
Date of Service:
Date of Service: December 24, 2024
Subjective:
Patient appears cachectic, intermittently coughing suspect aspirating saliva. Continues to be on pressors
Review of Systems
Genitourinary: Other (Unobtainable due to mental status)
Objective Data
Data Reviewed
Vital Signs / I&O / Oxygen:
Vital Signs
Temp Pulse Resp BP Pulse Ox
97.4 F 87 26 95/67 96
12/24/24 15:00 12/24/24 17:00 12/24/24 17:00 12/24/24 17:00 12/24/24 17:00
Intake and Output
12/23/24 12/24/24 12/25/24
06:59 06:59 06:59
Intake Total 338 / 422 2677 / 2761 738 / 738
Output Total 470 / 470 345 / 345 200 / 200
Balance -132 / -48 2332 / 2416 538 / 538
SaO2 96
Physical Exam
General: Comfortable and Other (Cachectic)
HEENT: Normocephalic
Cardiovascular: S1-S2
Respiratory: Rhonchi (Rhonchi primarily on right side), Non-Labored Respirations and Other (Respiratory rate hanging around high 20s to low 30s)
GI: Soft and Non Distended
Neurology: Other (Opens eyes briefly, no meaningful communication)
Skin: Warm
Labs/Micro/Reports
Lab Data
12/24/24 17:01
12/24/24 04:42
Microbiology
12/23/24 00:44 Blood/Venous Blood Culture - Preliminary
Positive culture in progress
12/23/24 00:44 Blood/Venous Gram Stain - Preliminary
12/22/24 22:56 Urine Urine Culture - Final
12/22/24 22:56 Blood/Venous Blood Culture - Preliminary
Positive culture in progress
12/22/24 22:56 Blood/Venous Gram Stain - Preliminary
12/23/24 00:44 Urine Urine Culture - Preliminary
Gram negative bacilli
12/23/24 05:44 Nose Nasal Screen MRSA (PCR) - Final
MRSA not detected - performed by PCR methodology.
--- NOTE | 2024-12-24 19:35 | PTCARENOTE ---
Assumed care of pt. approx 1900.
Remains on low dose Phenyl --> will wean off as tolerated.
Hypoglycemia remains an issue per day team, lack of enteral access, unable to safely swallow anything, cannot even manage own secretions.
--> discussion w. ICU JOSH, cont. to hold PO medications as patient cannot safely swallow. maintain Dextrose gtt.
Nonverbal, unarousable, maintaining own airway at this time, RA 99%.
Will attempt PIV access to be able to remove 3L fem line.
--- NOTE | 2024-12-24 23:52 | PTCARENOTE ---
POC 91.
No further change in assessment.
Daughter updated extensively.
[2024-12-25] VITALS (38 sets, daily range): BP systolic 83–110; BP diastolic 51–78; BMI 22.3
[2024-12-25 00:02] LABS: Glucose - Point of Care 91 mg/dl (70-99)
--- NOTE | 2024-12-25 03:11 | PTCARENOTE ---
Pt. noted to be in Afib RVR rate up to 150s on monitor --> confirmed on 12 lead.
-ICU JOSH notified/bedside.
-Orders to send labs early
Pt. broke rhythm w.o intervention. Remains sinus at this time.
[2024-12-25 03:21] LABS: Venous Blood Gas B.E. -3.9 mmol/L (-4 to +4); Venous Blood Gas HCO3 20.1 mmol/L (22-27); Venous Blood Gas O2 Sat % 99.5 %; Venous Blood Gas pCO2 31 mmHg (35-48); Venous Blood Gas pH 7.42 (7.32-7.43); Venous Blood Gas pO2 143 mmHg (30-50)
[2024-12-25 03:27] LABS: % Basophils 0.3 % (0-2); % Eosinophils 0.4 % (0-6); % Immature Granulocytes 0.8 % (0-0.5); % Lymphocytes 5.5 % (20.5-51.1); % Monocytes 5.3 % (1.7-9.3); % Neutrophils 87.7 % (42.2-75.2); Absolute Immature Granulocytes 0.1 10^3/uL (0-0.05); Absolute Lymphocytes 0.4 10^3/uL (1.2-3.4); Absolute Monocytes 0.4 10^3/uL (0.1-0.6); Absolute Neutrophils 6.6 10^3/uL (1.4-6.5); Hemoglobin 7.1 g/dL (12.0-16.0); Mean Corp Hgb Conc. 32.3 g/dL (33.0-37.0); Mean Corpuscular Volume 89.8 fL (81.0-99.0); Mean Platelet Volume 10.4 fL (7.4-10.4); Nucleated Red Blood Cells % 0 %; Platelet Count 54 10^3/uL (130-400); Red Blood Cell Count 2.45 10^6/uL (4.20-5.40); Red Cell Dist. Width 16.2 % (11.5-14.5); White Blood Cell Count 7.5 10^3/uL (4.8-10.8)
[2024-12-25] MEDS: D5W 1000 IV (03:32)
[2024-12-25 03:42] LABS: Lactic Acid 0.9 mmol/L (0.7-2.0)
[2024-12-25 03:44] LABS: ALT (SGPT) 19 U/L (0-35); AST (SGOT) 26 U/L (14-36); Albumin 1.9 g/dl (3.5-5.0); Alkaline Phosphatase 80 U/L (38-126); Blood Urea Nitrogen 27 mg/dl (7-17); Calcium 7.9 mg/dl (8.4-10.2); Carbon Dioxide 19 mmol/L (22-30); Chloride 107 mmol/L (98-107); Estimated Creatinine Clearance 29 ml/min; Glucose 77 mg/dl (70-99); Magnesium 1.8 mg/dl (1.6-2.3); Potassium 3.9 mmol/L (3.5-5.1); Sodium 128 mmol/L (135-145); Total Bilirubin 1.1 mg/dl (0.2-1.3); Total Protein 4.4 g/dl (6.3-8.2); eGFR 42.62
[2024-12-25 03:46] LABS: Vancomycin Random 13.3 ug/ml
[2024-12-25] MEDS: KCL 260 MEQ IV (04:10)
[2024-12-25] MEDS: MAGNESIUM SULFATE 102 GRAMS IV (04:12)
[2024-12-25 05:58] LABS: Glucose - Point of Care 90 mg/dl (70-99)
[2024-12-25] MEDS: NOVOLOG FLEXPEN-LOW RESISTANCE SC ×3 (05:58→18:17)
[2024-12-25] MEDS: NSS (PRESERVATIVE FREE) 10 ML IV (07:36)
[2024-12-25] MEDS: PROTONIX IV 40 MG IV (07:37)
--- NOTE | 2024-12-25 07:54 | W.PN.INTV ---
Today's Communication / Plan
Recommendations
- Place Keofeed, start feeding once enteral access established
- Will discontinue D5 infusion once able to use feeding tube
- Follow-up chest x-ray in a.m.
Assessment
-
74-year-old woman with past medical history noted. Severely deconditioned, malnourished, failure to thrive. Sent from the cancer center for evaluation as the patient was hypotensive and not looking great, somnolent, decreased responsiveness 2-day
prior to admission.
Admitted 12/23/2024 to ICU for vasopressor requirements, new diagnosis of septic shock due to UTI, in the setting of chronic nephrostomy
12/25 overview: P patient off pressors, current MAP at 74. Saturating 99% on room air, respiratory rate ranges between 28-33. Nephrostomy tube in place, right femoral central line in place.
Assessment and plan:
#1. Septic Shock, related to complicated UTI
-History of bilateral ureteral obstruction with right ureteral stent and left nephrostomy tube, most recent tube exchange on 12/21
-Bacteremia noted
-Continue IV antibiotics per ID service
-On prophylactic p.o. vancomycin with history of C. difficile, has not been able to take p.o.
-Discontinued D5 half-normal and switch to only D5W to decrease sodium load in the setting of underlying heart failure
-Patient also received IV albumin
-Phenylephrine weaned off, right femoral central line in place
#2. Heart failure with decreased ejection fraction 20 to 25% EF.
- Unfortunately patient also in septic shock and received IV fluids. She continues to be hypoglycemic and needs supplemental dextrose. Family had earlier declined oral access since patient was on IV D5W. 12/25, discussed with daughter at bedside,
she is agreeable to a Keofeed placement, once oral access established, will discontinue IV fluids
- Off pressors now, blood pressure however is borderline can unable to diurese for now.
#3. Aspiration pneumonia, enlarging pleural effusion
- Patient noted to have poor handling of oral secretions with intermittent coughing likely related to saliva trickling on the back of her throat
- At risk of requiring intubation mechanical ventilation
- Follow-up chest x-ray shows increasing infiltrate on right side concerning for aspiration pneumonia
- Known chronic right-sided pleural effusion also appears to be enlarging, thoracentesis in 08/2024, transudative and negative fluid cytology
- Patient currently saturating 99% on room air so we will continue to monitor for now. If develops worsening respiratory distress, hypoxia, will consider thoracentesis
- Might need repeat thoracentesis depending on her clinical course, will reassess daily.
- Patient just weaned off phenylephrine and has borderline blood pressure, hold off diuretics for now
#4. h/o Stage IV ovarian cancer s/p XRT to chest and abd, no longer on salvage chemo
-Patient cachectic appearing, suspect severe protein calorie malnutrition and failure to thrive
#5. Anemia
- Chronic, primarily related to chemotherapy and anemia of chronic disease
- No active bleeding noted, transfuse as needed to keep hemoglobin above 7
#6. Cachexia, severe protein calorie malnutrition, anasarca
- Albumin level 1.9
- Poor prognosis
#7. Pulmonary HTN
- Pulmonary artery systolic pressure of 55 on echocardiogram in 08/2024
- Suspect primarily group II with EF of 20 to 25%
- Target euvolemia, oxygen supplementation as needed to keep saturation above 90%
- No indication for pulmonary vasodilator therapy
Conditions present prior admission:
# Obstructive uropathy with nephrostomy tubes in place
#R-sided pleural effusion likely due to acute HFrEF exacerbation
Transudative s/p thoracentesis 08/2024.
#Acute HFrEF with LVEF 20-25% with stage II diastolic dysfunction with moderate MR seen on echo from today
# Recurrent UTI
#Anemia-chronic
History of CAD's requiring antibiotics in the past-no details available.
#CKD stage IV
#Hypoalbuminemia-chronic
#Reported history of stroke on Eliquis-no documented
#Small pericardial effusion without tamponade, likely due to volume overload
# Type 2 diabetes
Hypertension
Metastatic ovarian cancer with lung metastatic disease. Status post chemotherapy and radiation. Follows at [facility]
Status post hysterectomy
-
DVT prophylaxis-Eliquis ordered, however unable to take p.o. currently.
Goals of care discussions:
12/24. Discussed with patient's daughter at bedside. Explained the overall poor prognosis. I also expressed that patient's appears to be aspirating with intermittent cough and not handling her saliva very well. She is at risk of requiring
intubation and mechanical ventilation. Daughter said that patient had expressed that she would want to pass away at home in peace and she is leaning towards taking her home to pursue more comfort focused care. However she is reluctant to consider
changing CODE STATUS to DNR/DNI or pursue hospice care at this point. She also inquired if she should take the patient home to pursue comfort focused care AGAINST MEDICAL ADVICE without changing the CODE STATUS. I explained to the patient that if
the focus is to keep her comfortable, would recommend changing her CODE STATUS to comfort care and then consider hospice support at home if desired. Family can also opt to continue comfort focused care at home without formal hospice involvement. I
spent close to 45 minutes in discussion with patient's daughter and granddaughter at bedside.
-
Critical care statement: A total of 50 minutes of critical care time was provided for this patient today. This includes management of unstable vital signs, evaluation of the patient at bedside, reviewing the patient's pertinent medical records
including ventilator settings, arterial blood gases, radiographs, microbiology, laboratory evaluations and discussion with primary team, critical care nursing, and respiratory therapy.
Data:
ECHO 08/2024: Severely reduced left ventricular systolic function. Left ventricular ejection
fraction is 20-25%.
Global hypokinesis.
Stage II diastolic dysfunction suggestive of abnormal relaxation and increased
filling pressures.
Moderate mitral regurgitation.
Mild aortic regurgitation.
Normal right ventricular size and function.
Mild tricuspid regurgitation. Moderately elevated PASP. Estimated pulmonary
artery pressure of 55 mmHg assuming a right atrial pressure of 3 mmHg.
Subjective Dataa
Subjective Data
Date of Service:
Date of Service: December 25, 2024
Subjective:
Minimally responsive patient in the room,
Review of Systems
Genitourinary: Other (Unable to obtain due to current mental status)
Objective Data
Data Reviewed
Vital Signs / I&O / Oxygen:
Vital Signs
Temp Pulse Resp BP Pulse Ox
98.3 F 101 29 105/61 99
12/25/24 07:00 12/25/24 07:30 12/25/24 07:30 12/25/24 07:30 12/25/24 07:30
Intake and Output
12/24/24 12/25/24 12/26/24
06:59 06:59 06:59
Intake Total 2677 / 2761 1718 / 1768 50 / 50
Output Total 345 / 345 330 / 330
Balance 2332 / 2416 1388 / 1438 50 / 50
SaO2 99
Physical Exam
General: Comfortable and Other (Cachectic, bitemporal muscle wasting)
HEENT: Normocephalic
Cardiovascular: S1-S2
Respiratory: Rhonchi (Rhonchi primarily on right side), Non-Labored Respirations and Other (Respiratory rate hanging around high 20s to low 30s)
GI: Soft and Non Distended
Neurology: Other (Opens eyes briefly, no meaningful communication)
Skin: Warm
Labs/Micro/Reports
Lab Data
12/25/24 03:01
12/25/24 03:01
Microbiology
12/23/24 00:44 Urine Urine Culture - Preliminary
Gram negative bacilli
12/23/24 00:44 Blood/Venous Blood Culture - Preliminary
Positive culture in progress
12/23/24 00:44 Blood/Venous Gram Stain - Preliminary
12/22/24 22:56 Urine Urine Culture - Final
12/22/24 22:56 Blood/Venous Blood Culture - Preliminary
Positive culture in progress
12/22/24 22:56 Blood/Venous Gram Stain - Preliminary
12/23/24 05:44 Nose Nasal Screen MRSA (PCR) - Final
MRSA not detected - performed by PCR methodology.
--- NOTE | 2024-12-25 08:22 | PHA.VAN.FU ---
Vancomycin Assessment / Plan
- Assessment
Renal Function: Stable
WBC's are: Trending Down
In the past 24 hrs, patient has been: Afebrile
Concomitant Antimicrobials: Cefepime
- Assessment - Therapeutic Drug Monitoring
Random Level: R = 13.3 ~17hrs post Vanc 750mg
- Dosing Plan
Continue: Dose by level
Dosing by Level: Re-dose today (Vanc 750mg IV)
- Follow Up
Pharmacy will continue to follow.
Vancomycin Follow UP
- -
Patient Age: 74
Patient Sex: Female
Vancomycin Day #: 3
Indication: Pulmonary/Respiratory
Requesting Provider: Dr. Cleaning
Pertinent Antimicrobial Allergies:
No pertinent allergies to ABX
Height / Weight:
Height 5 ft 2 in
Actual Weight 55.2 kg
Pertinent Past Medical History: Metastatic ovarian cancer, recent C diff, renal stenting and ostomy tubes
- Vital Signs / Lab Results
Temp Pulse Resp BP Pulse Ox
98.3 F 101 29 105/61 99
12/25/24 07:00 12/25/24 07:30 12/25/24 07:30 12/25/24 07:30 12/25/24 07:30
Lab Results - Hematology
12/22/24 12/23/24 12/24/24
22:56 05:44 04:42
WBC 14.7 H 18.1 H 15.5 H
12/24/24 12/25/24
17:01 03:01
WBC 11.0 H 7.5
Lab Results - Chemistry
12/22/24 12/23/24 12/23/24
22:56 05:44 14:10
BUN 28 H 27 H 27 H
Creatinine 1.4 H 1.3 H 1.3 H
Estimated Creat Clear 29 29
Albumin 2.0 L
12/24/24 12/25/24
04:42 03:01
BUN 28 H 27 H
Creatinine 1.3 H 1.3 H
Estimated Creat Clear 29 29
Albumin 2.0 L 1.9 L
12/22/24 12/23/24 12/25/24
22:56 03:01 03:01
Lactic Acid 1.3 1.4 0.9
Lab Results - Urine
12/23/24
00:44
Urine Nitrite (Reflex) Negative
Leukocyte Esterase Rfl 3+ A
Ur Squamous Epith Cells None seen
Microbiology Results
12/23/24 00:44 Urine Culture - Preliminary
Urine Gram negative bacilli
12/23/24 00:44 Blood Culture - Preliminary
Blood/Venous Positive culture in progress
Gram Stain - Preliminary
12/22/24 22:56 Urine Culture - Final
Urine
12/22/24 22:56 Blood Culture - Preliminary
Blood/Venous Positive culture in progress
Gram Stain - Preliminary
12/23/24 05:44 Nasal Screen MRSA (PCR) - Final
Nose MRSA not detected - performed by PCR methodology.
Therapeutic Drug Monitoring
Random Vancomycin 13.3 ug/ml 12/25/24 03:03
--- NOTE | 2024-12-25 09:00 | PTCARENOTE ---
Received pt @ change of shift. Pt lethargic; opens eyes spont and tracks but does not follow commands; nonverbal; grimaces/moans out w care/turns. SR on monitor. +3/4 anasarca. Weak radial/pedal pulses. SpO2 100% on RA. Auscultated dim breath
sounds ant/post on R side. Occ inpatient pharmacist weak cough. Hypoactive BS, cachectic. NPO d/t mental status; PO meds on hold per orders. Inc bowel. UO from L nephrostomy yellow. R fem TL in place w IVF and electrolyte replacements- see MAR/flow sheets.
Complete hygiene provided and pt. repositioned per protocol. Safe environment maintained.
--- NOTE | 2024-12-25 11:14 | W.PN.ID1 ---
Date of Service
Date of Service: December 25, 2024
Today's Communication
De-escalate abx's to cefazolin, metronidazole.
Assessment / Plan
# Septic Shock, off pressor
# Leukocytosis resolved
# Complicated UTI
# Hx Bilateral ureteral obstruction with right ureter stent and left nephrostomy tube exchange December 21 due to malfunction
- Ucx Kleb pneumo and Proteus mirabilis
- De-escalate cefepime to cefazolin 1g IV q8h
# Anaerobic Gram-positive bacilli bacteremia now 2 out of 2 sets (not contaminant)
- Repeat bcx's neg to date
- Awaiting speciation of GPR
- Start metronidazole 500mg IV q8
- DC IV Vancomycin
# Recent hx of extensive C. diff
- Pt NPO. DC enteric vancomycin.
# Acute CHF
# Stage IV ovarian cancer s/p XRT to chest and abd, no longer on salvage chemo
Prognosis guarded.
# Conditions [employer]
Stage IV ovarian cancer status post hysterectomy, radiation of the thorax and right lower quadrant of the abdomen, salvage chemotherapy
Hypertension
Diabetes mellitus type 2
Hypothyroidism
Recent C. difficile
Ureter obstruction due to mass status post left nephrostomy tube, right ureter stent
CKD 3
Heart failure with reduced EF
Chief Complaint
-: Clinical Sepsis, UTI and Bacteremia
Subjective / Review of Systems
Lethargic
Vital Signs / Physical Exam
Vital Signs
Vital Signs
Temp Pulse Resp BP Pulse Ox
98.3 F 92 24 95/59 99
12/25/24 07:00 12/25/24 09:00 12/25/24 09:00 12/25/24 09:00 12/25/24 09:11
Physical Exam
Constitutional: Acutely Ill and Chronically Ill
Cardiovascular: Regular Rate and S1/S2
Pulmonary: Non Labored and Other (decreased BS R)
Gastrointestinal: Soft, Non Tender and Non Distended
Genito-Urinary: Clear Urine (left nephrostomy)
Extremities: Edema
Objective Data
Lab Data
Lab Results
12/25/24 03:01
12/25/24 03:01
PT 23.0 Sec (11.4-14.6) H 12/22/24 22:56
INR 2.02 12/22/24 22:56
APTT 33.7 Sec (23.4-35.0) 12/22/24 22:56
Estimated Creat Clear 29 ml/min 12/25/24 03:01
Lactic Acid 0.9 mmol/L (0.7-2.0) 12/25/24 03:01
Total Bilirubin 1.1 mg/dl (0.2-1.3) 12/25/24 03:01
AST 26 U/L (14-36) 12/25/24 03:01
ALT 19 U/L (0-35) 12/25/24 03:01
Alkaline Phosphatase 80 U/L (38-126) 12/25/24 03:01
Most recent labs reviewed.
Micro Results:
12/22/24 22:56 Blood Culture - Preliminary
Blood/Venous Positive culture in progress
Gram Stain - Preliminary
12/23/24 00:44 Blood Culture - Preliminary
Blood/Venous Positive culture in progress
Gram Stain - Preliminary
12/23/24 00:44 Urine Culture - Final
Urine Klebsiella pneumoniae
Proteus mirabilis
12/25/24 03:03 Blood Culture - Pending
Blood/Venous
12/25/24 03:03 Blood Culture - Pending
Blood/Venous
12/22/24 22:56 Urine Culture - Final
Urine
12/23/24 05:44 Nasal Screen MRSA (PCR) - Final
Nose MRSA not detected - performed by PCR methodology.
12/22/24 CT a/p: Right ureteral stent in position without significant right renal collecting system dilatation. Some right renal atrophy is suspected. Left percutaneous nephrostomy catheter with distal tip in expected location, without significant
left renal collecting system dilatation.Moderate right pleural effusion.Small pericardial effusion. Enlarged right rectus sheath 'mass' again seen, although slightly larger in size in comparison to prior CT, this does demonstrate some low
attenuation density centrally, possibly representing MALIGNANCY or HEMATOMA. Cannot be further evaluated on this study without intravenous contrast.
--- NOTE | 2024-12-25 11:41 | W.PN.HOSP.TC ---
Today's Communication/Plan
-
Transfuse 1 unit of PRBC
Wean pressors as tolerated
Antibiotics per infectious disease
Monitor sodium level
Continue with gentle IV fluids
Long-term prognosis guarded
Assessment / Plan
Assessment / Plan
Impression:
Clinical sepsis
Septic shock not responding to IV fluid boluses and requiring vasopressors support
Toxic metabolic encephalopathy
Hypovolemic hyponatremia
Thrombocytopenia
Conditions prior to admission:
Metastatic ovarian carcinoma with history of XRT
Obstructive uropathy.
� Left urostomy, right renal stent in place.
CKD stage III with baseline creatinine around 1.5�2.
Chronic metabolic acidosis.
Chronic CHF severely reduced EF.
History of right pleural effusion requiring thoracentesis 08/30. Transudate.
History of CVA
Anticoagulation with Eliquis
Anemia of chronic disease.
Hypothyroidism on replacement
Diabetes type 2.
Declining performance status.
Plan:
Clinical sepsis
Presenting with altered mental status secondary toxic metabolic encephalopathy, hypotension secondary to septic shock not responding to IV fluid bolus, elevated white count.
Suspect urinary source. Noted with clear urine output via left urostomy tube, and pyuria.
CT scan of the abdomen without IV contrast confirming placement of a left urostomy and a right renal stent in place.
Prior urine cultures reviewed with presence of VRE and Haily
Status post vancomycin and Zosyn and cefepime. Antibiotic transition to cefazolin and Flagyl per infectious disease.
Blood cultures identification and susceptibility pending. Urine cultures pending. MRSA negative.
Continue isotonic IV fluids with caution for volume overload given CHF with severely reduced EF.
Status post albumin.
Initiated on phenylephrine with goal of MAP 55-60 mmHg. Wean pressors as tolerated
Leukocytosis resolved
History of right pleural effusion requiring thoracentesis. Transudative 08/30
Chest x-ray on admission with mild, moderate right pleural effusion
Stable respiratory status
Monitor closely
Currently asymptomatic. Not on oxygen. Can consider thoracentesis once hemodynamically stable.
Hypovolemic hyponatremia
Appropriate cortisol response
TSH normal. Random cortisol normal
Monitor sodium improved since admission
Continue monitoring.
Toxic metabolic encephalopathy with aspiration risk.
Diet per speech.
Consider NG tube placement for nutrition and oral medications
Anemia of chronic disease with trending down hemoglobin at 7.1
Update iron stores.
No active luminal bleeding noted. Some component could be dilutional.
Ordered 1 unit of PRBC
Thrombocytopenia suspect consumptive and secondary to acute illness sepsis state.
Monitor platelet count closely
Hold Eliquis acutely
Continue to monitor platelet closely. Currently at 54K.
History of CVA.
In review of recent images including CT of the head showed no acute abnormalities. Old bilateral cerebellar infarcts.
No documented history of arrhythmia
On Eliquis prior to presentation.
Chronic CHF severely reduced EF
Echo 08/30 LVEF 20-25%, global hypokinesis, stage II diastolic dysfunction, moderate MR, mild AR, mild TR, moderate pulmonary artery hypertension at 55 mmHg.
Hold diuretics acutely given sepsis and septic shock requiring vasopressors
Monitor volume status closely.
If persistent hypotension, consider to update echocardiogram.
Hold metoprolol due to hypotension
Type 2 diabetes.
Hold oral medications. [employer] regimen Tradjenta and glipizide.
Insulin basal bolus protocol with serial Accu-Cheks.
Update hemoglobin A1c
Hypothyroidism on replacement.
Metastatic ovarian cancer
Per daughter patient received radiation [address] scan Right rectus sheath heterogeneous enlargement/mass measures 5.0 x 5.8 x 5.1 cm increased from 4.3 cm in greatest dimension on prior study, mixed attenuation density, some fluid centrally. No gross focal intrinsic abnormality of the liver,
spleen, gallbladder, pancreas or adrenal glands.
Hypokalemia
Repleted monitor
Disposition: Patient with metastatic ovarian carcinoma, obstructive uropathy, declining performance status, severe hypoalbuminemia, protein calorie malnutrition presenting with severe sepsis suspected with urinary source.
Overall poor prognosis
Prior discussions in terms of goals of care with patient's daughter wishing full support including CPR and vasopressors.
Discussed with patient daughter at bedside in details on 12/24 and 12/25. D .
Anticipated Discharge: > 48 hours
Subjective/Interval History
-
Date of Service: December 25, 2024
Mildly more awake
Continues to remains confused
Remains on pressors
Objective Data
-
Labs:
Laboratory Results
12/25/24
03:01
WBC 7.5
Hgb 7.1 L
Hct 22.0 L
Plt Count 54 L
Sodium 128 L
Potassium 3.9
Chloride 107
Carbon Dioxide 19 L
BUN 27 H
Creatinine 1.3 H
Glucose 77
Calcium 7.9 L
Total Bilirubin 1.1
AST 26
ALT 19
Alkaline Phosphatase 80
Vital Signs:
Vital Signs
Temp Pulse Resp BP Pulse Ox
97.4 F 90 26 84/51 99
12/25/24 11:33 12/25/24 11:18 12/25/24 11:18 12/25/24 11:18 12/25/24 09:11
I&O
12/24/24 12/25/24 12/26/24
06:59 06:59 06:59
Intake Total 2677 / 2761 1718 / 1768 500 / 500
Output Total 345 / 345 330 / 330
Balance 2332 / 2416 1388 / 1438 500 / 500
Data Reviewed
-
Total Time Spent with Patient (in minutes): 55
--- NOTE | 2024-12-25 12:00 | PTCARENOTE ---
AM labs reviewed by ; Hbg 7.1-> further orders received for 1 unit PRBC. Transfusion initiated and in progress- see TAR.
[2024-12-25 12:24] LABS: Glucose - Point of Care 74 mg/dl (70-99)
--- NOTE | 2024-12-25 14:00 | VATNOTE ---
During routine assessment of R femoral TL CVAD, biopatch was noted to be saturated. Dressing changed at this time with assistance of PCN.
[2024-12-25] MEDS: FLAGYL 500 MG 100 IV ×2 (15:47→21:03)
[2024-12-25] MEDS: ANCEF 5 IV (16:21)
--- NOTE | 2024-12-25 18:05 | PTCARENOTE ---
Jojre howard inserted and secured @ 70cm. Placement verified w x-ray. TF initiated per orders. Remained off pressors today. Daughter, updated and remains @ bedside.
[2024-12-25 18:22] LABS: Glucose - Point of Care 105 mg/dl (70-99)
--- NOTE | 2024-12-25 21:30 | PTCARENOTE ---
Tube feeding running advancing to goal per protocol. --> pt. tolerating feed at this time.
Vasopressors remain off at this time.
Neuro status remains somnolent, arousable to deep pain response, maintaining own airway. RA 99%.
Family updated extensively at bedside.
[2024-12-26] VITALS (24 sets, daily range): BP systolic 91–108; BP diastolic 51–66; BMI 22.4
[2024-12-26] MEDS: NOVOLOG FLEXPEN-LOW RESISTANCE SC ×2 (00:59→06:10)
--- NOTE | 2024-12-26 00:59 | PTCARENOTE ---
no change in assessment
[2024-12-26 01:08] LABS: Glucose - Point of Care 125 mg/dl (70-99)
[2024-12-26] MEDS: ANCEF 5 IV ×2 (02:01→14:04)
[2024-12-26 03:14] LABS: % Basophils 0.3 % (0-2); % Eosinophils 0.1 % (0-6); % Immature Granulocytes 0.7 % (0-0.5); % Lymphocytes 4.9 % (20.5-51.1); % Monocytes 5.1 % (1.7-9.3); % Neutrophils 88.9 % (42.2-75.2); Absolute Immature Granulocytes 0.1 10^3/uL (0-0.05); Absolute Lymphocytes 0.4 10^3/uL (1.2-3.4); Absolute Monocytes 0.5 10^3/uL (0.1-0.6); Absolute Neutrophils 7.8 10^3/uL (1.4-6.5); Hematocrit 25.2 % (37.0-47.0); Hemoglobin 8.6 g/dL (12.0-16.0); Mean Corp Hgb Conc. 34.1 g/dL (33.0-37.0); Mean Corpuscular Hgb 29.6 pg (27.0-31.0); Mean Corpuscular Volume 86.6 fL (81.0-99.0); Mean Platelet Volume 10.4 fL (7.4-10.4); Nucleated Red Blood Cells % 0 %; Platelet Count 57 10^3/uL (130-400); Red Blood Cell Count 2.91 10^6/uL (4.20-5.40); Red Cell Dist. Width 17.2 % (11.5-14.5); White Blood Cell Count 8.8 10^3/uL (4.8-10.8)
[2024-12-26 03:31] LABS: Blood Urea Nitrogen 27 mg/dl (7-17); Calcium 7.8 mg/dl (8.4-10.2); Carbon Dioxide 17 mmol/L (22-30); Chloride 107 mmol/L (98-107); Estimated Creatinine Clearance 32 ml/min; Glucose 110 mg/dl (70-99); Potassium 3.9 mmol/L (3.5-5.1); Sodium 128 mmol/L (135-145); eGFR 46.91
--- NOTE | 2024-12-26 04:36 | PTCARENOTE ---
TF advanced to goal.
No further change in assessment.
[2024-12-26] MEDS: FLAGYL 500 MG 100 IV ×3 (06:10→21:12)
[2024-12-26 06:21] LABS: Glucose - Point of Care 131 mg/dl (70-99)
--- NOTE | 2024-12-26 07:42 | W.PN.INTV ---
Today's Communication / Plan
Recommendations
Continue tube feeds
Resume PO meds that were held, however would keep Eliquis held given she received 1 U PRBC transfusion yesterday and pt has bruising and skin tears on arms/legs
Consider rechecking INR as was 2.02 on 12/22/2024
Insert PIV and then remove femoral CVC
ABx per ID
Aspiration precautions/keep HOB >30-45�
[address] CT head if pt continues to be minimally responsive
Patient is now DNR/DNI and being downgraded to IMU. No additional recommendations at this time. Page Designer/Pulmonary service will now sign off. Please reconsult if there are any additional questions/concerns, or if patient's respiratory status
deteriorates.
Assessment
-
74-year-old woman with past medical history noted. Severely deconditioned, malnourished, failure to thrive. Sent from the cancer center for evaluation as the patient was hypotensive and not looking great, somnolent, decreased responsiveness 2-day
prior to admission.
Admitted 12/23/2024 to ICU for vasopressor requirements, new diagnosis of septic shock due to UTI, in the setting of chronic nephrostomy
Assessment and plan:
#1. Septic Shock, related to complicated UTI - shock state resolved since 12/25/2024
-History of bilateral ureteral obstruction with right ureteral stent and left nephrostomy tube, most recent tube exchange on 12/21
-Bacteremia noted with Clostridium perfringens growing on blood cultures from 12/22 + 12/23
-Continue IV antibiotics per ID service - ancef and IV flagyl
- Patient has a history of recent extensive C. difficile I will however patient now having formed stools. Patient was previously ordered prophylactic PO vancomycin but she did not have oral access at that time. Now that patient has an NGT, defer
to ID if PO vancomycin still needed
-s/p IV albumin - re-administer as needed
-Phenylephrine weaned off since 12/25, right femoral central line in place - -> will try to get better IV access so that we can remove this
#2. Acute on chronic HFrEF now with decreased ejection fraction 20 to 25% from 30-35%
- Unable to diurese given her hypotension - SBP 100mmHg today
- Given patient's poor prognosis, no benefit to consult cardiology for GDMT initiation; her BP would be very limiting of GDMT regardless
- Patient is hospice appropriate, but the daughter still wants to continue treatment and see if she makes any recovery - ideally she wanted to take the pt home for hospice care, but doubtful that this can be performed given the patient remains
unresponsive with low likelihood for any recovery at this point
- Patient does have a history of right-sided pleural effusion with thoracentesis performed on 08/31/2024 removing 1.5 L of clear yellow transudative fluid although there was a low pH at 7, likely from malignancy
#3. Aspiration pneumonia
- Patient noted to have poor handling of oral secretions with intermittent coughing likely related to saliva trickling on the back of her throat
- As of 12/26, patient is now DNR/DNI after discussion with the hospitalist, Dr. Escobedo
- Continue ABx as per ID
- Follow-up chest x-ray shows increasing infiltrate on right side concerning for aspiration pneumonia - CXR from today (12/26) shows improved aeration in the right lung but now with retrocardiac opacification
- Continue aspiration precautions, keeping HOB >30-45�
- Keep NPO with frequent mouth care
- Believe that the right-sided pleural effusion is malignant given her recent thoracentesis on 08/31/2024 showed a pH of 7
- For palliative purposes, if patient develops SOB then could consider right-sided thoracentesis, however would need to recheck coagulation studies as her INR was 2.02 on 12/22/2024
#4. h/o Stage IV ovarian cancer s/p XRT to chest and abd, no longer on salvage chemo
-Patient cachectic appearing, suspect severe protein calorie malnutrition and failure to thrive
- Imaging has shown a right sided rectus muscle mass which extends posteriorly into the anterior abdomen with suspected neoplastic process; most recent CT abdomen/pelvis from 12/22/2024 shows that this right sided rectus sheath mass is slightly
increasing in size and differential includes malignancy versus hematoma (most likely the former and not the latter as patient's H&H has remained relatively stable (although did receive 1 unit PRBC transfusion yesterday with more than appropriate
rise in H&H on repeat CBC this morning)
#5. Anemia
- Chronic, primarily related to chemotherapy and anemia of chronic disease
- No active bleeding noted, transfuse as needed to keep hemoglobin above 7
#6. Cachexia, severe protein calorie malnutrition, anasarca
- Albumin level 1.9
- Poor prognosis
- Continue tube feeds
#7. Pulmonary HTN
- Pulmonary artery systolic pressure of 55 on echocardiogram in 08/31/2024, increased from 41 mmHg from echo on 08/08/2024
- Suspect primarily group II with EF of 20 to 25%
- Target euvolemia, oxygen supplementation as needed to keep saturation above 90%
- No indication for pulmonary vasodilator therapy
#8. Hyponatremia
- Likely SIADH
- Check serum osmolarity and UOsm with U Na
- Continue to trend sNa levels and avoid over-correction
- Consider nephrology consult
#9. Acute encephalopathy
- Likely TME in the setting of hyponatremia with sepsis, although unable to rule out an intra-cranial process like ICH vs PRINT PRODUCTION MANAGER-mets
- Her pupils are equal and she is spontaneously moving all 4 extremities hence doubt she has had an acute stroke
- Her leukocytosis has resolved, she remains afebrile, and her blood cultures from 12/25 have shown no growth
- Recent CT head on 12/22/2024 showed old infarcts in the cerebellum with diffuse cortical atrophy; could consider repeating CT head versus EEG +/- MRI brain if unresponsiveness persists
Conditions present prior admission:
#Obstructive uropathy with nephrostomy tubes in place
#R-sided pleural effusion likely due to acute HFrEF exacerbation
Transudative s/p thoracentesis 08/2024 with low pH of 7
#Acute HFrEF with LVEF 20-25% with stage II diastolic dysfunction with moderate MR seen on echo from 08/31/2024
#Recurrent UTI
#Anemia-chronic
#CKD stage IV
#Hypoalbuminemia-chronic
#Reported history of stroke on Eliquis-no documented
#Small pericardial effusion without tamponade, likely due to volume overload
#Type 2 diabetes
#Hypertension
#Metastatic ovarian cancer with lung metastatic disease. Status post chemotherapy and radiation. Follows at [facility]
#Status post hysterectomy
-
DVT prophylaxis-Eliquis had been held as pt did not have PO access. Could consider resuming however pt has bruises over her arms and legs, and last INR from 12/22/2024 was 2.02, and pt is thrombocytopenic and anemic, and obtained 1 U PRBC
transfusion yesterday. Would at least use SCDs for now
Goals of care discussions:
12/[address] Benton. Discussed with patient's daughter at bedside. Explained the overall poor prognosis. I also expressed that patient's appears to be aspirating with intermittent cough and not handling her saliva very well. She is at risk of
requiring intubation and mechanical ventilation. Daughter said that patient had expressed that she would want to pass away at home in peace and she is leaning towards taking her home to pursue more comfort focused care. However she is reluctant to
consider changing CODE STATUS to DNR/DNI or pursue hospice care at this point. She also inquired if she should take the patient home to pursue comfort focused care AGAINST MEDICAL ADVICE without changing the CODE STATUS. I explained to the patient
that if the focus is to keep her comfortable, would recommend changing her CODE STATUS to comfort care and then consider hospice support at home if desired. Family can also opt to continue comfort focused care at home without formal hospice
involvement. I spent close to 45 minutes in discussion with patient's daughter and granddaughter at bedside.
-
Code status: DNR/DNI as of 12/26/2024
-
Patient is now DNR/DNI and being downgraded to IMU. No additional recommendations at this time. Page Designer/Pulmonary service will now sign off. Thank you for allowing us to be involved in the care of this patient. Please reconsult if there are
any additional questions/concerns, or if patient's respiratory status deteriorates.
Data:
ECHO 08/2024: Severely reduced left ventricular systolic function. Left ventricular ejection
fraction is 20-25%.
Global hypokinesis.
Stage II diastolic dysfunction suggestive of abnormal relaxation and increased
filling pressures.
Moderate mitral regurgitation.
Mild aortic regurgitation.
Normal right ventricular size and function.
Mild tricuspid regurgitation. Moderately elevated PASP. Estimated pulmonary
artery pressure of 55 mmHg assuming a right atrial pressure of 3 mmHg.
Total time spent today was 57 minutes for this encounter. Time includes reviewing laboratory test/imaging results, reviewing pertinent medical records, obtaining and reviewing medical history, performing an appropriate exam, ordering medications,
tests and procedures. Time also includes documentation of this encounter, coordinating patient care and communicating with other healthcare professionals. Total time does not include separately billed tests performed on this date of service.
Subjective Dataa
Subjective Data
Date of Service:
Date of Service: December 26, 2024
Chief Complaint: Page Designer Follow Up
Subjective:
Patient was seen and evaluated this morning. Patient's daughter, Tatiana, at bedside and all questions were answered. Patient's heart rate is currently 97 with BP 100/60 and saturating 99% on room air. She remains unresponsive although makes
occasional grunting/moaning sounds when nursing care/mouth care is performed. Tube feeds are currently going through Dobbhoff tube at 30 cc/hour.
Review of Systems
General: Unobtainable - Pat Unresp
Objective Data
Data Reviewed
Vital Signs / I&O / Oxygen:
Vital Signs
Temp Pulse Resp BP Pulse Ox
98.5 F 93 24 100/65 100
12/26/24 04:00 12/26/24 06:00 12/26/24 06:00 12/26/24 06:00 12/26/24 06:00
Intake and Output
12/25/24 12/26/24 12/27/24
06:59 06:59 06:59
Intake Total 1718 / 1768 1605 / 1605
Output Total 330 / 330 210 / 210
Balance 1388 / 1438 1395 / 1395
SaO2 100
Physical Exam
General: Respiratory Distress (negative), Comfortable and Other (Elderly female, cachectic appearing with bitemporal muscle wasting)
HEENT: Normocephalic
Cardiovascular: S1-S2 and Peripheral Edema (+1 lower extremity pitting edema bilaterally)
Respiratory: Wheeze (negative), Crackles (Bilateral), Rhonchi (Rhonchi primarily on right side), Non-Labored Respirations, Stridor (negative) and Other (Respiratory rate hanging around high 20s to low 30s)
GI: Soft, Non Distended, Non Tender, Normal Bowel Sounds and NG Tube (DHT in right nare)
Neurology: Tremors (negative), Unresponsive (Grunting/moaning during nursing care/mouth care) and Other
Skin: Warm, Dry and Jaundice (negative)
Labs/Micro/Reports
Lab Data
12/26/24 02:58
12/26/24 02:58
Microbiology
12/25/24 03:03 Blood/Venous Blood Culture - Preliminary
No Growth in 24 hours- Final report to follow
12/25/24 03:03 Blood/Venous Blood Culture - Preliminary
No Growth in 24 hours- Final report to follow
12/23/24 00:44 Blood/Venous Blood Culture - Preliminary
Anaerobic Gram Pos Bacilli
12/23/24 00:44 Blood/Venous Gram Stain - Preliminary
12/22/24 22:56 Blood/Venous Blood Culture - Preliminary
Clostridium perfringens
12/22/24 22:56 Blood/Venous Gram Stain - Preliminary
12/23/24 00:44 Urine Urine Culture - Final
Klebsiella pneumoniae
Proteus mirabilis
12/22/24 22:56 Urine Urine Culture - Final
12/23/24 05:44 Nose Nasal Screen MRSA (PCR) - Final
MRSA not detected - performed by PCR methodology.
[2024-12-26 07:50] LABS: Glucose - Point of Care 100 mg/dl (70-99)
[2024-12-26] MEDS: PROTONIX IV 40 MG IV (08:53)
--- NOTE | 2024-12-26 09:15 | W.PN.HOSP.TC ---
Today's Communication/Plan
-
Continue IV antibiotics
Follow-up blood culture sensitivities for Clostridium perfringens
Nutritional support via NG tube feeding
Monitor cognitive status closely.
Check urine osmolarity and urine sodium
Hold diuretics
Hold Eliquis
Assessment / Plan
Assessment / Plan
Impression:
Clinical sepsis
Septic shock not responding to IV fluid boluses and requiring vasopressors support
Complicated UTI
Clostridium perfringens bacteremia
Toxic metabolic encephalopathy
Hypovolemic hyponatremia
Thrombocytopenia
Conditions prior to admission:
Metastatic ovarian carcinoma with history of XRT
Obstructive uropathy.
� Left urostomy, right renal stent in place.
CKD stage III with baseline creatinine around 1.5�2.
Chronic metabolic acidosis.
Chronic CHF severely reduced EF.
History of right pleural effusion requiring thoracentesis 08/30. Transudate.
History of CVA
Anticoagulation with Eliquis
Anemia of chronic disease.
Hypothyroidism on replacement
Diabetes type 2.
Declining performance status.
Plan:
Clinical sepsis
Presenting with altered mental status secondary toxic metabolic encephalopathy, hypotension secondary to septic shock not responding to IV fluid bolus, elevated white count.
Suspect urinary source. Noted with clear urine output via left urostomy tube, and pyuria.
CT scan of the abdomen without IV contrast confirming placement of a left urostomy and a right renal stent in place.
Prior urine cultures reviewed with presence of VRE and Haily
Urine culture with Klebsiella and Proteus
Blood cultures identification and susceptibility pending.
Leukocytosis resolved
Status post vancomycin and Zosyn and cefepime. Antibiotic transition to cefazolin and Flagyl per infectious disease.
Weaned off phenylephrine
Weaned off IV fluids
Status post albumin.
History of right pleural effusion requiring thoracentesis. Transudative 08/30
Chest x-ray on admission with mild, moderate right pleural effusion
Repeat chest x-ray on 12/26 with minimal right pleural effusion
Stable respiratory status
Monitor closely
Currently asymptomatic. Not on oxygen. Can consider thoracentesis once hemodynamically stable.
Hypovolemic hyponatremia
Appropriate cortisol response
TSH normal. Random cortisol normal
Monitor sodium improved since admission
Continue monitoring.
Hypokalemia
Repleted monitor
Toxic metabolic encephalopathy with aspiration risk.
Diet per speech.
Consider NG tube placement for nutrition and oral medications
Anemia of chronic disease with trending down hemoglobin at 7.1
Update iron stores.
No active luminal bleeding noted. Some component could be dilutional.
Ordered 1 unit of PRBC
Thrombocytopenia suspect consumptive and secondary to acute illness sepsis state.
Monitor platelet count closely
Hold Eliquis acutely
Continue to monitor platelet closely. Currently at 54K.
History of CVA.
In review of recent images including CT of the head showed no acute abnormalities. Old bilateral cerebellar infarcts.
No documented history of arrhythmia
On Eliquis prior to presentation.
Chronic CHF severely reduced EF
Echo 08/30 LVEF 20-25%, global hypokinesis, stage II diastolic dysfunction, moderate MR, mild AR, mild TR, moderate pulmonary artery hypertension at 55 mmHg.
Hold diuretics acutely given sepsis and septic shock requiring vasopressors
Monitor volume status closely.
If persistent hypotension, consider to update echocardiogram.
Hold metoprolol due to hypotension
Type 2 diabetes.
Hold oral medications. REAL ESTATE REPRESENTATIVE regimen Tradjenta and glipizide.
Insulin basal bolus protocol with serial Accu-Cheks.
Update hemoglobin A1c
Hypothyroidism on replacement.
Metastatic ovarian cancer
Per daughter patient received radiation [address] scan Right rectus sheath heterogeneous enlargement/mass measures 5.0 x 5.8 x 5.1 cm increased from 4.3 cm in greatest dimension on prior study, mixed attenuation density, some fluid centrally. No gross focal intrinsic abnormality of the liver,
spleen, gallbladder, pancreas or adrenal glands.
CODE STATUS: According to discussion with patient's daughter at the bedside on 12/26, they would not wish any aggressive/heroic measures including CPR or invasive ventilation.
DNR
Anticipated Discharge: > 48 hours
Subjective/Interval History
-
Date of Service: December 26, 2024
Objective Data
-
Labs:
Laboratory Results
12/26/24
02:58
WBC 8.8
Hgb 8.6 L D
Hct 25.2 L
Plt Count 57 L
Sodium 128 L
Potassium 3.9
Chloride 107
Carbon Dioxide 17 L
BUN 27 H
Creatinine 1.2 H
Glucose 110 H
Calcium 7.8 L
Vital Signs:
Vital Signs
Temp Pulse Resp BP Pulse Ox
97.8 F 96 23 91/51 100
12/26/24 08:52 12/26/24 07:30 12/26/24 07:30 12/26/24 07:00 12/26/24 07:30
I&O
12/25/24 12/26/24 12/27/24
06:59 06:59 06:59
Intake Total 1718 / 1768 1605 / 1760 155 / 155
Output Total 330 / 330 210 / 210
Balance 1388 / 1438 1395 / 1550 155 / 155
Physical Exam
-
General: No Apparent Distress and Appears Chronically Ill; Negative Respiratory Distress
HEENT: Normocephalic, Atraumatic and Moist Mucous Membranes
Respiratory: Decreased Breath Sounds
Cardiac: Regular Rhythm and S1/S2; Negative Murmur, Rub or Gallop
GI: Soft, Nontender, Nondistended and Normal Bowel Sounds; Negative Organomegaly
Rectal: Deferred by Provider
Genito-urinary: Nephrostomy Tubes
Musculoskeletal: No Clubbing, No Cyanosis and No Edema
Skin: Negative Rash
Neuro: Other (Lethargic, )
--- NOTE | 2024-12-26 10:10 | CM ---
Patient seen at bedside in ICU. Patient daughter present. Patient with NG tube and per patient daughter she has home health aides with [employer]. Patient daughter confirmed plan is home with aides and VN if needed. CM will continue to
follow for discharge planning needs.
Plan; home with Aides and watch for VN needs.
[facility]
[phone]
[2024-12-26] MEDS: NSS (PRESERVATIVE FREE) 10 ML IV (10:21)
--- NOTE | 2024-12-26 11:31 | PTCARENOTE ---
Pt was rec'd in report from night RN at 07:15. Pt remains unresponsive as prior. VSS. DHT with tube feeds running at goal, see worklist. Pt's daughter arrived , plan of care discussed, questions answered. Dr. Escobedo on unit to round on patient,
plan discussed with daughter at bedside, she would like to make the patient a DNR/DNI now. Aside from changing code status, she wants to continue with current plan of care at this time. Dr. Escobedo placed orders, DNR bracelet applied to patient per
protocol by RN. IMU orders rec'd at this time. Daughter remains at bedside.
--- NOTE | 2024-12-26 11:59 | PTCARENOTE ---
Per infection prevention -pt needs to be on enhanced precautions due to history of c diff less than 30 days ago, daughter says it was 'a couple weeks ago' and the 'pills didn't help.'
[2024-12-26 12:27] LABS: Glucose - Point of Care 183 mg/dl (70-99)
[2024-12-26] MEDS: NOVOLOG FLEXPEN-LOW RESISTANCE 1 UNITS SC (12:37)
--- NOTE | 2024-12-26 13:00 | PTCARENOTE ---
Tube feeds increased to 35/hr per RD, 1 pack Prosource added per day.
--- NOTE | 2024-12-26 13:08 | W.PN.ID1 ---
Date of Service
Date of Service: December 26, 2024
Today's Communication
Continue cefazolin/metronidazole.
Assessment / Plan
# Septic Shock, off pressor
# Leukocytosis resolved
# Complicated UTI
# Hx Bilateral ureteral obstruction with right ureter stent and left nephrostomy tube exchange December 21 due to malfunction
- Ucx Kleb pneumo and Proteus mirabilis
- Continue cefazolin 1g IV q8h (d5 abx)
# Clostridium perfringens bacteremia x 2 sets
- bcx's cleared quickly
- unclear source. CT a/p no abscess
- Continue metronidazole 500mg IV q8 (d5 abx)
# Acute CHF
# Stage IV ovarian cancer s/p XRT to chest and abd, no longer on salvage chemo
# Recent hx of extensive C. diff
Prognosis remains guarded.
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
Stage IV ovarian cancer status post hysterectomy, radiation of the thorax and right lower quadrant of the abdomen, salvage chemotherapy
Hypertension
Diabetes mellitus type 2
Hypothyroidism
Recent C. difficile
Ureter obstruction due to mass status post left nephrostomy tube, right ureter stent
CKD 3
Heart failure with reduced EF
Chief Complaint
-: Clinical Sepsis, UTI and Bacteremia
Subjective / Review of Systems
Daughter at bedside. Patient more lethargic today.
Vital Signs / Physical Exam
Vital Signs
Vital Signs
Temp Pulse Resp BP Pulse Ox
97.8 F 89 18 108/61 100
12/26/24 08:52 12/26/24 11:30 12/26/24 11:30 12/26/24 11:00 12/26/24 11:30
Physical Exam
Constitutional: Acutely Ill and Chronically Ill
Cardiovascular: Regular Rate
Pulmonary: Non Labored
Gastrointestinal: Soft, Non Tender and Non Distended
Genito-Urinary: Negative CVA Tenderness
Extremities: Edema
Neurological: Other (Minimally responsive)
Objective Data
Lab Data
Lab Results
12/26/24 02:58
12/26/24 02:58
PT 23.0 Sec (11.4-14.6) H 12/22/24 22:56
INR 2.02 12/22/24 22:56
APTT 33.7 Sec (23.4-35.0) 12/22/24 22:56
Estimated Creat Clear 32 ml/min 12/26/24 02:58
Lactic Acid 0.9 mmol/L (0.7-2.0) 12/25/24 03:01
Total Bilirubin 1.1 mg/dl (0.2-1.3) 12/25/24 03:01
AST 26 U/L (14-36) 12/25/24 03:01
ALT 19 U/L (0-35) 12/25/24 03:01
Alkaline Phosphatase 80 U/L (38-126) 12/25/24 03:01
Most recent labs reviewed.
Micro Results:
12/23/24 00:44 Blood Culture - Preliminary
Blood/Venous Clostridium perfringens
Gram Stain - Preliminary
12/25/24 03:03 Blood Culture - Preliminary
Blood/Venous No Growth in 24 hours- Final report to follow
12/25/24 03:03 Blood Culture - Preliminary
Blood/Venous No Growth in 24 hours- Final report to follow
12/22/24 22:56 Blood Culture - Preliminary
Blood/Venous Clostridium perfringens
Gram Stain - Preliminary
12/23/24 00:44 Urine Culture - Final
Urine Klebsiella pneumoniae
Proteus mirabilis
12/22/24 22:56 Urine Culture - Final
Urine
12/23/24 05:44 Nasal Screen MRSA (PCR) - Final
Nose MRSA not detected - performed by PCR methodology.
12/22/24 CT a/p: Right ureteral stent in position without significant right renal collecting system dilatation. Some right renal atrophy is suspected. Left percutaneous nephrostomy catheter with distal tip in expected location, without significant
left renal collecting system dilatation.Moderate right pleural effusion.Small pericardial effusion. Enlarged right rectus sheath 'mass' again seen, although slightly larger in size in comparison to prior CT, this does demonstrate some low
attenuation density centrally, possibly representing MALIGNANCY or HEMATOMA. Cannot be further evaluated on this study without intravenous contrast.
--- NOTE | 2024-12-26 15:56 | PTCARENOTE ---
Urine osmo and urine sodium sent, peripheral line placed left thumb by VAT RN, TL fem line dc'd per order.
[2024-12-26] MEDS: NOVOLOG FLEXPEN-LOW RESISTANCE 3 UNITS SC (17:23)
[2024-12-26 17:32] LABS: Glucose - Point of Care 257 mg/dl (70-99)
[2024-12-26 17:57] LABS: Osmolality Urine 432 mOsm/kg (300-900)
[2024-12-26 18:59] LABS: Urine Sodium 11 mmol/L (30-90)
--- NOTE | 2024-12-26 23:17 | PTCARENOTE ---
Family updated bedside.
Hemodynamically stable. RA 99%.
Tolerating TF.
[2024-12-27] VITALS (16 sets, daily range): BP systolic 93–118; BP diastolic 54–84; BMI 22.6
[2024-12-27] MEDS: NOVOLOG FLEXPEN-LOW RESISTANCE 3 UNITS SC (00:13)
[2024-12-27 00:20] LABS: Glucose - Point of Care 272 mg/dl (70-99)
[2024-12-27] MEDS: ANCEF 5 IV ×2 (02:23→14:04)
--- NOTE | 2024-12-27 03:31 | PTCARENOTE ---
Fem 3L pulled by day team. --> 24 in thumb was placed as PIV access.
24 in thumb occluded.
VAT team notified, 22 in foot placed per order.
[2024-12-27 03:44] LABS: % Basophils 0.3 % (0-2); % Eosinophils 0.2 % (0-6); % Immature Granulocytes 1.2 % (0-0.5); % Lymphocytes 4.7 % (20.5-51.1); % Monocytes 5.5 % (1.7-9.3); % Neutrophils 88.1 % (42.2-75.2); Absolute Immature Granulocytes 0.1 10^3/uL (0-0.05); Absolute Lymphocytes 0.5 10^3/uL (1.2-3.4); Absolute Monocytes 0.6 10^3/uL (0.1-0.6); Absolute Neutrophils 9.7 10^3/uL (1.4-6.5); Hematocrit 26.4 % (37.0-47.0); Hemoglobin 8.8 g/dL (12.0-16.0); Mean Corp Hgb Conc. 33.3 g/dL (33.0-37.0); Mean Corpuscular Hgb 29.3 pg (27.0-31.0); Mean Platelet Volume 10.7 fL (7.4-10.4); Nucleated Red Blood Cells % 0 %; Platelet Count 64 10^3/uL (130-400); Red Cell Dist. Width 17.2 % (11.5-14.5)
[2024-12-27 04:12] LABS: Blood Urea Nitrogen 28 mg/dl (7-17); Calcium 7.9 mg/dl (8.4-10.2); Carbon Dioxide 20 mmol/L (22-30); Chloride 109 mmol/L (98-107); Estimated Creatinine Clearance 34 ml/min; Glucose 196 mg/dl (70-99); Potassium 3.6 mmol/L (3.5-5.1); Sodium 130 mmol/L (135-145); eGFR 52.08
[2024-12-27] MEDS: FLAGYL 500 MG 100 IV ×3 (05:02→22:24)
[2024-12-27] MEDS: NOVOLOG FLEXPEN-LOW RESISTANCE 1 UNITS SC ×2 (05:55→11:35)
[2024-12-27 06:06] LABS: Glucose - Point of Care 171 mg/dl (70-99)
[2024-12-27] MEDS: NSS (PRESERVATIVE FREE) 10 ML IV (07:39)
[2024-12-27] MEDS: PROTONIX IV 40 MG IV (07:39)
--- NOTE | 2024-12-27 08:41 | W.PN.HOSP.TC ---
Addendum entered and electronically signed by Corey Escobedo MD 12/28/24 16:23:
Stage 2 pressure injury gluteal cleft, POA
Original Note:
Today's Communication/Plan
-
Monitor closely for neurologic/cognitive recovery.
Aspiration precautions per
NG tube feeding.
Hold diuretics
Hold Eliquis.
IV antibiotics
Check stool for C. difficile
Assessment / Plan
Assessment / Plan
Impression:
Clinical sepsis
Septic shock not responding to IV fluid boluses and requiring vasopressors support
Complicated UTI
Clostridium perfringens bacteremia
Toxic metabolic encephalopathy
Hypovolemic hyponatremia
Thrombocytopenia
Conditions prior to admission:
Metastatic ovarian carcinoma with history of XRT
Obstructive uropathy.
� Left urostomy, right renal stent in place.
CKD stage III with baseline creatinine around 1.5�2.
Chronic metabolic acidosis.
Chronic CHF severely reduced EF.
History of right pleural effusion requiring thoracentesis 08/30. Transudate.
History of CVA
Anticoagulation with Eliquis
Anemia of chronic disease.
Hypothyroidism on replacement
Diabetes type 2.
Declining performance status.
Plan:
Clinical sepsis
Presenting with altered mental status secondary toxic metabolic encephalopathy, hypotension secondary to septic shock not responding to IV fluid bolus, elevated white count.
Suspect urinary source. Noted with clear urine output via left urostomy tube, and pyuria.
CT scan of the abdomen without IV contrast confirming placement of a left urostomy and a right renal stent in place.
Prior urine cultures reviewed with presence of VRE and Haily
Urine culture with Klebsiella and Proteus
Blood cultures identification and susceptibility pending.
Leukocytosis resolved
Status post vancomycin and Zosyn and cefepime. Antibiotic transition to cefazolin and Flagyl per infectious disease.
Weaned off phenylephrine
Weaned off IV fluids
Status post albumin.
History of right pleural effusion requiring thoracentesis. Transudative 08/30
Chest x-ray on admission with mild, moderate right pleural effusion
Repeat chest x-ray on 12/26 with minimal right pleural effusion
Stable respiratory status
Monitor closely
Currently asymptomatic. Not on oxygen. Can consider thoracentesis once hemodynamically stable.
Hypovolemic hyponatremia
Appropriate cortisol response
TSH normal. Random cortisol normal
Urine sodium low with increased urine osm high ADH state
Hold diuretics
Currently on NG tube feeding
Continue monitoring.
Hypokalemia
Repleted monitor
Toxic metabolic encephalopathy with aspiration risk.
Diet per speech.
Consider NG tube placement for nutrition and oral medications
Anemia of chronic disease with trending down hemoglobin at 7.1
Update iron stores.
No active luminal bleeding noted. Some component could be dilutional.
Status posttransfusion 1 unit of packed red blood cells
Thrombocytopenia suspect consumptive and secondary to acute illness sepsis state.
Monitor platelet count closely
Hold Eliquis acutely
Continue to monitor platelet closely. Currently at 54K.
History of CVA.
In review of recent images including CT of the head showed no acute abnormalities. Old bilateral cerebellar infarcts.
No documented history of arrhythmia
On Eliquis prior to presentation.
Chronic CHF severely reduced EF
Echo 08/30 LVEF 20-25%, global hypokinesis, stage II diastolic dysfunction, moderate MR, mild AR, mild TR, moderate pulmonary artery hypertension at 55 mmHg.
Hold diuretics acutely given sepsis and septic shock requiring vasopressors
Monitor volume status closely.
If persistent hypotension, consider to update echocardiogram.
Hold metoprolol due to hypotension
Type 2 diabetes.
Hold oral medications. 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
Insulin basal bolus protocol with serial Accu-Cheks.
Update hemoglobin A1c
Hypothyroidism on replacement.
Metastatic ovarian cancer
Per daughter patient received radiation [address] scan Right rectus sheath heterogeneous enlargement/mass measures 5.0 x 5.8 x 5.1 cm increased from 4.3 cm in greatest dimension on prior study, mixed attenuation density, some fluid centrally. No gross focal intrinsic abnormality of the liver,
spleen, gallbladder, pancreas or adrenal glands.
CODE STATUS: According to discussion with patient's daughter at the bedside on 12/26, they would not wish any aggressive/heroic measures including CPR or invasive ventilation.
DNR
Anticipated Discharge: > 48 hours
Subjective/Interval History
-
Date of Service: December 27, 2024
Objective Data
-
Labs:
Laboratory Results
12/27/24
03:15
WBC 11.0 H
Hgb 8.8 L
Hct 26.4 L
Plt Count 64 L
Sodium 130 L
Potassium 3.6
Chloride 109 H
Carbon Dioxide 20 L
BUN 28 H
Creatinine 1.1 H
Glucose 196 H
Calcium 7.9 L
Vital Signs:
Vital Signs
Temp Pulse Resp BP Pulse Ox
98.7 F 97 26 117/84 98
12/27/24 06:56 12/27/24 08:00 12/27/24 08:00 12/27/24 08:00 12/27/24 08:00
I&O
12/26/24 12/27/24 12/28/24
06:59 06:59 06:59
Intake Total 1605 / 1760 1530 / 1530 340 / 340
Output Total 210 / 210 675 / 675 75 / 75
Balance 1395 / 1550 855 / 855 265 / 265
Physical Exam
-
General: No Apparent Distress and Appears Chronically Ill; Negative Respiratory Distress
HEENT: Normocephalic, Atraumatic and Moist Mucous Membranes
Respiratory: Decreased Breath Sounds
Cardiac: Regular Rhythm and S1/S2; Negative Murmur, Rub or Gallop
GI: Soft, Nontender, Nondistended and Normal Bowel Sounds; Negative Organomegaly
Rectal: Deferred by Provider
Genito-urinary: Nephrostomy Tubes
Musculoskeletal: No Clubbing, No Cyanosis and No Edema
Skin: Negative Rash
Neuro: Other (Lethargic, )
--- NOTE | 2024-12-27 08:50 | PTCARENOTE ---
Pt was rec'd in report from night RN at 07:15. Pt remains minimally responsive, opens eyes spontaeously. VSS. Left nare DHT in place with tube feeds running at goal rate of 35 ml/hr, with 25 ml/hr water flush...see worklist. Dr. Escobedo on unit to
round on patient, plan discussed. Pt was incont large amount stool, formed with mucoid/liquid, stool for c-diff sent per orders. Full CHG bed bath performed, oral care provided, back rub provided, pt repositioned. Medications and assessment as
documented. Right foot PIV patent and flushing. Safe environment maintained. Granddaughter in room to visit, questions answered, pt's daughter Tatiana on speaker phone, questions answered. Pt remains IMU level of care.
--- NOTE | 2024-12-27 09:27 | PTCARENOTE ---
Addendum entered by Catalina Ordaz RN 12/27/24 10:33:
Dificid ordered and given via DHT. Pt further downgraded to medsurg level per Dr. Escobedo. Granddaughter updated.
Original Note:
Stool for C diff resulted positive, Dr. Escobedo notified.
[2024-12-27] MEDS: DIFICID 200 MG TUBE ×2 (10:04→20:02)
[2024-12-27 11:36] LABS: Glucose - Point of Care 182 mg/dl (70-99)
--- NOTE | 2024-12-27 13:34 | PN.CDI ---
CDI
- -
CDI:
Physician Documentation Request
Admit Date: 12/23/24 02:16
Dear Doctor Fanny,
Please review the following and provide your response in the progress notes.
Clinical Indicators:
Nurses Notes, 12/23
Selected Entries
12/23/24
19:00
Pressure injury stage [Present on admission Bilateral Medial Gluteal cleft (vertical)] Stage 2
Physician documentation of the type and location of wounds is required for compliant documentation. Based on the above clinical findings and your assessment, please provide the following in your progress note:
Yes, Stage 2 pressure injury gluteal cleft, POA
No, Stage 2 pressure injury gluteal cleft
Other (please specify)
1. Location of the ulcer/wound, including laterality.
2. Type (etiology) of ulcer/wound:
- Diabetic ulcer
- Arterial (ischemic) ulcer
- Traumatic wound
- Venous stasis ulcer
- Pressure (decubitus) ulcer
- Non-healing surgical wound
- Other
- Unable to determine
3. For a pressure ulcer, please also include the stage* of the ulcer:
- Stage 1 - Skin intact, non-blanchable redness
- Stage 2 - Partial thickness loss of dermis, includes intact or open blister
- Stage 3 - Full thickness tissue not including bone, tendon or muscle
- Stage 4 - Full thickness tissue loss, including exposed bone, tendon or muscle
- Unstageable - Full thickness loss in which the base of the ulcer is covered by slough (yellow, griggs, ruiz, green or brown) and/or eschar (griggs, brown or black) in the wound bed.
- Unable to determine
Use of terms such as suspected, likely, concern for, or probable (associated with a specific diagnosis that is being evaluated, monitored, or treated as if it exists) are acceptable and can be coded in the inpatient setting, when documented at the
time of discharge.
Thank you,
Mimi Pratt RN BSN CCDS
CDI Specialist
Please contact via tiger text
Please use your independent medical judgment in providing your response.
*Source: National Pressure Ulcer Advisory Panel (NPUAP)
--- NOTE | 2024-12-27 14:05 | W.PN.ID1 ---
Date of Service
Date of Service: December 27, 2024
Today's Communication
See below.
Assessment / Plan
# Septic Shock, off pressor
# Leukocytosis resolved
# Complicated UTI
# Hx Bilateral ureteral obstruction with right ureter stent and left nephrostomy tube exchange December 21 due to malfunction
- Ucx Kleb pneumo and Proteus mirabilis
- Continue cefazolin 1g IV q12 (d6 of 14 abx)
# Clostridium perfringens bacteremia x 2 sets
- bcx's cleared quickly
- unclear source. CT a/p no abscess
- Continue metronidazole 500mg IV q8 (d6 of 14 abx)
# Recent hx of extensive C. diff
- 12/27 C. diff +
- Suspect colonization as pt not having frequent BM
- Hospitalist started Fidaxomicin.
# Acute CHF, improving
# Aspiration precaution
# Stage IV ovarian cancer s/p XRT to chest and abd, no longer on salvage chemo
Prognosis remains guarded.
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
Stage IV ovarian cancer status post hysterectomy, radiation of the thorax and right lower quadrant of the abdomen, salvage chemotherapy
Hypertension
Diabetes mellitus type 2
Hypothyroidism
Recent C. difficile
Ureter obstruction due to mass status post left nephrostomy tube, right ureter stent
CKD 3
Heart failure with reduced EF
Chief Complaint
-: Clinical Sepsis, UTI and Bacteremia
Subjective / Review of Systems
Pt slightly more alert per Granddaughter at bedside.
Episode of diarrhea.
Vital Signs / Physical Exam
Vital Signs
Vital Signs
Temp Pulse Resp BP Pulse Ox
98.7 F 108 28 111/75 97
12/27/24 06:56 12/27/24 13:00 12/27/24 13:00 12/27/24 13:00 12/27/24 13:00
Physical Exam
Constitutional: Acutely Ill and Chronically Ill
Cardiovascular: Regular Rate
Pulmonary: Rales and Other (Coughing)
Gastrointestinal: Soft, Non Tender and Non Distended
Genito-Urinary: Negative CVA Tenderness
Extremities: Edema (Decrease BUE/BLE)
Neurological: Other (Minimally responsive)
Objective Data
Lab Data
Lab Results
12/27/24 03:15
12/27/24 03:15
PT 23.0 Sec (11.4-14.6) H 12/22/24 22:56
INR 2.02 12/22/24 22:56
APTT 33.7 Sec (23.4-35.0) 12/22/24 22:56
Estimated Creat Clear 34 ml/min 12/27/24 03:15
Lactic Acid 0.9 mmol/L (0.7-2.0) 12/25/24 03:01
Total Bilirubin 1.1 mg/dl (0.2-1.3) 12/25/24 03:01
AST 26 U/L (14-36) 12/25/24 03:01
ALT 19 U/L (0-35) 12/25/24 03:01
Alkaline Phosphatase 80 U/L (38-126) 12/25/24 03:01
Most recent labs reviewed.
Micro Results:
12/27/24 08:21 C. difficile GDH Antigen & Toxins - Final
Feces/Stool Toxigenic C.difficile Positive
12/25/24 03:03 Blood Culture - Preliminary
Blood/Venous No Growth in 48 hours- Final report to follow
12/25/24 03:03 Blood Culture - Preliminary
Blood/Venous No Growth in 48 hours- Final report to follow
12/23/24 00:44 Blood Culture - Preliminary
Blood/Venous Clostridium perfringens
Gram Stain - Preliminary
12/22/24 22:56 Blood Culture - Preliminary
Blood/Venous Clostridium perfringens
Gram Stain - Preliminary
12/23/24 00:44 Urine Culture - Final
Urine Klebsiella pneumoniae
Proteus mirabilis
12/22/24 22:56 Urine Culture - Final
Urine
12/23/24 05:44 Nasal Screen MRSA (PCR) - Final
Nose MRSA not detected - performed by PCR methodology.
12/22/24 CT a/p: Right ureteral stent in position without significant right renal collecting system dilatation. Some right renal atrophy is suspected. Left percutaneous nephrostomy catheter with distal tip in expected location, without significant
left renal collecting system dilatation.Moderate right pleural effusion.Small pericardial effusion. Enlarged right rectus sheath 'mass' again seen, although slightly larger in size in comparison to prior CT, this does demonstrate some low
attenuation density centrally, possibly representing MALIGNANCY or HEMATOMA. Cannot be further evaluated on this study without intravenous contrast.
--- NOTE | 2024-12-27 15:56 | PTCARENOTE ---
new room [id number] (cleaning in process), report called to ARTHUR Fallon.
--- NOTE | 2024-12-27 15:57 | CM ---
Toxic encephalopathy, UTI, IV/AB, off pressors, NGT, mild worsening of CHF. Discharge Plan of Care: Bedbound at baseline. Has waiver services for 20 hrs/day, 7 days a week. Daughter intends on patient returning home.
[2024-12-27 18:17] LABS: Glucose - Point of Care 229 mg/dl (70-99)
[2024-12-27] MEDS: NOVOLOG FLEXPEN-LOW RESISTANCE 2 UNITS SC (18:46)
[2024-12-27] MEDS: LANTUS 0.05 UNITS SC (22:28)
[2024-12-27 22:29] LABS: Glucose - Point of Care 236 mg/dl (70-99)
[2024-12-28 00:38] LABS: Glucose - Point of Care 235 mg/dl (70-99)
[2024-12-28] MEDS: NOVOLOG FLEXPEN-LOW RESISTANCE 2 UNITS SC (00:52)
[2024-12-28] MEDS: TYLENOL 650 MG PO (01:44)
[2024-12-28] MEDS: ANCEF 5 IV (01:51)
--- NOTE | 2024-12-28 05:24 | W.PN.DEATH ---
Pronouncement of
-
Called to see patient to pronounce.
No spontaneous heart tones or respirations noted.
Patient not responsive to verbal stimuli.
Patient is pronounced .
Time of : 05:00
Date of : 12/28/24
Cause of : Sepsis, septic shock, complicated UTI
Family Notified: Yes (Called and spoke to daughter, Tatiana.)
[2024-12-28] MEDS: NOVOLOG FLEXPEN-LOW RESISTANCE SC (07:50)
[2024-12-28] MEDS: FLAGYL 500 MG IV (07:50)
[2024-12-28] MEDS: DIFICID TUBE (07:50)
[2024-12-28] MEDS: NSS (PRESERVATIVE FREE) IV (07:50)
[2024-12-28] MEDS: PROTONIX IV IV (07:51)
== END 2024-12-28 05:00 | disposition expired | DRG 871 ==
LOC: 2 NORTH 02:16
PROVIDERS: Hospitalist; Internal Medicine; Nurse Practitioner Primary Care; ADMITTING PHYSICIAN Internal Medicine; ATTENDING PHYSICIAN Internal Medicine; CONSULT PHYSICIAN Internal Medicine Critical Care Medicine; CONSULT PHYSICIAN Internal Medicine Infectious Disease; EMERGENCY PHYSICIAN Emergency Medicine
PROC: 30243N1 Transfusion of Nonautologous Red Blood Cells into Central Vein, Percutaneous Approach (ICD-10-PCS; 2024-12-25)
DX: A41.9 Sepsis, unspecified organism (principal); G92.8 Other toxic encephalopathy; R65.21 Severe sepsis with septic shock; I50.23 Acute on chronic systolic (congestive) heart failure; E87.1 Hypo-osmolality and hyponatremia; C56.9 Malignant neoplasm of unspecified ovary; N13.6 Pyonephrosis; E87.22 Chronic metabolic acidosis; I13.0 Hypertensive heart and chronic kidney disease with heart failure and stage 1 through stage 4 chronic kidney disease, or unspecified chronic kidney disease; D84.9 Immunodeficiency, unspecified; E46 Unspecified protein-calorie malnutrition; E86.1 Hypovolemia; Z92.3 Personal history of irradiation; N18.30 Chronic kidney disease, stage 3 unspecified; E11.22 Type 2 diabetes mellitus with diabetic chronic kidney disease; E88.A Wasting disease (syndrome) due to underlying condition; Z68.22 Body mass index [BMI] 22.0-22.9, adult; Z86.73 Personal history of transient ischemic attack (TIA), and cerebral infarction without residual deficits; E03.9 Hypothyroidism, unspecified; Z93.6 Other artificial openings of urinary tract status; G47.00 Insomnia, unspecified; D64.81 Anemia due to antineoplastic chemotherapy; T45.1X5A Adverse effect of antineoplastic and immunosuppressive drugs, initial encounter; E83.42 Hypomagnesemia; Z90.710 Acquired absence of both cervix and uterus; Z79.01 Long term (current) use of anticoagulants; Z79.899 Other long term (current) drug therapy; D69.6 Thrombocytopenia, unspecified; E87.6 Hypokalemia; B96.1 Klebsiella pneumoniae [K. pneumoniae] as the cause of diseases classified elsewhere; E78.00 Pure hypercholesterolemia, unspecified; E88.09 Other disorders of plasma-protein metabolism, not elsewhere classified; I48.91 Unspecified atrial fibrillation; R62.7 Adult failure to thrive; Z87.440 Personal history of urinary (tract) infections; L89.302 Pressure ulcer of unspecified buttock, stage 2
CPT/HCPCS: 50435; 51701; 70450; 71045; 74018; 74176; 80048; 80053; 80202; 81003; 81015; 82533; 82570; 82805; 82962; 83605; 83735; 83935; 84100; 84156; 84300; 84443; 85025; 85027; 85610; 85730; 86850; 86900; 86901; 86920; 87040; 87077; 87086; 87186; 87205; 87324; 87449; 87641; 93005; 93971; 96361; 96365; 96367; 96375; 99285; C1729; C1769; P9016; P9045